=== PATIENT | female | born 1985 | race Caucasian/White ===

== ENCOUNTER 2017-12-04 13:28 | Emergency (ER) | payer OTHER ==
[2017-12-04] MEDS: ONDANSETRON 4 MG INJ IV (17:34)
[2017-12-04] MEDS: KETOROLAC 30 MG INJ IV (17:35)
[2017-12-04] MEDS: SOD CHLORIDE 0.9% 1,000 ML IV (17:35)
== END 2017-12-04 18:58 | disposition home or self-care (01) ==
LOC: FTE 13:28
DX: R51 Headache (principal); R11.10 Vomiting, unspecified
CPT/HCPCS: 96374; 96375; 99284-25

== ENCOUNTER 2017-12-06 20:13 | Emergency (ER) | payer OTHER ==
[2017-12-07] MEDS: DIPHENHYDRAMINE 50 MG INJ IV ×2 (00:13→00:39)
[2017-12-07] MEDS: METOCLOPRAMIDE 10 MG INJ IV (00:13)
[2017-12-07] MEDS: SOD CHLORIDE 0.9% 500 ML IV (00:14)
[2017-12-07] MEDS: BENZTROPINE 2 MG INJ IV (00:46)
[2017-12-07] MEDS: LORAZEPAM 2 MG INJ IV (02:03)
== END 2017-12-07 04:19 | disposition home or self-care (01) ==
LOC: FTE 12-07 04:19
DX: R11.10 Vomiting, unspecified (principal)
CPT/HCPCS: 96374; 96375; 99284-25

== ENCOUNTER 2017-12-09 19:10 | Inpatient (IN) | payer OTHER ==
[2017-12-10] MEDS: ONDANSETRON 4 MG INJ IV ×3 (07:42→18:48)
[2017-12-10] MEDS: DEXTROSE 5%-0.45% NACL 1,000 ML IV ×2 (07:42→19:59)
[2017-12-10 07:49] LABS: URINE BLOOD (Dip) POC 2+ (NEGATIVE); URINE GLUCOSE (Dip) POC Negative (NEGATIVE); URINE KETONES (Dip) POC Negative (NEGATIVE); URINE LEUKOCYTE EST (Dip) POC Negative (NEGATIVE); URINE NITRITE (Dip) POC Negative (NEGATIVE); URINE TOTAL PROTEIN POC 3+ (NEGATIVE)
[2017-12-10 07:49] LABS: URINE PH (Dip) POC 6.5 (5.0-8.5)
[2017-12-10] MEDS: morphine 4 MG/ML VIAL IV ×2 (07:58→14:36)
[2017-12-10 08:01] LABS: ADD MAN DIFF? NO
[2017-12-10 08:22] LABS: WHITE BLOOD COUNT 5.2 10^3/ul (4.8-10.8)
[2017-12-10 08:22] LABS: ABNORMAL IP MESSAGE 1; BASOPHILS % 0.2 % (0.0-2.0); EOSINOPHILS # 0.3 10^3/ul (0.0-0.5); HEMATOCRIT 27.9 % (37.0-47.0); HEMOGLOBIN 9.2 g/dl (12.0-16.0); LYMPHOCYTES # 1.5 10^3/ul (0.8-2.9); LYMPHOCYTES % 28.6 % (15.0-51.0); MEAN CORPUSCULAR HEMOGLOBIN 32.6 pg (29.0-33.0); MEAN CORPUSCULAR VOLUME 98.9 fl (82.0-101.0); MONOCYTE # 0.4 10^3/ul (0.3-0.9); MONOCYTES % 8.5 % (0.0-11.0); NEUTROPHIL # 2.9 10^3/ul (1.6-7.5); NEUTROPHILS % 56.3 % (39.0-77.0); PLATELET COUNT 82 10^3/UL (140-415); RED BLOOD COUNT 2.82 10^6/ul (4.20-5.40); RED CELL DISTRIBUTION WIDTH 14.3 % (11.5-14.5)
[2017-12-10 08:26] LABS: MEAN PLATELET VOLUME 14.2 fl (7.4-10.4); POSITIVE DIFF @See below
[2017-12-10] MEDS ORDERED: ACETAMINOPHEN 325 MG TAB PO (08:30)
[2017-12-10 08:37] LABS: ALANINE AMINOTRANSFERASE 31 IU/L (13-69); ALBUMIN 1.7 g/dl (3.3-4.9); ALBUMIN/GLOBULIN RATIO 0.58; ALKALINE PHOSPHATASE 52 IU/L (42-121); ANION GAP 8 (8-16); ASPARTATE AMINO TRANSFERASE 40 IU/L (15-46); BLOOD UREA NITROGEN 46 mg/dl (7-20); CALCIUM 6.9 mg/dl (8.4-10.2); CARBON DIOXIDE 24 mmol/L (21-31); CHLORIDE 106 mmol/L (97-110); CREATININE 3.39 mg/dl (0.44-1.00); GLUCOSE 72 mg/dl (70-220); INR 0.89; PARTIAL THROMBOPLASTIN TIME 24.5 Sec (25.0-35.0); POTASSIUM 4.1 mmol/L (3.5-5.1); PROTIME 12.1 Sec (11.9-14.9); PT RATIO 0.9; SODIUM 134 mmol/L (135-144); TOTAL PROTEIN 4.6 g/dl (6.1-8.1); UR BACTERIA FEW /HPF (NONE SEEN); UR RBC 30 /HPF (0-5); UR SQUAMOUS EPITHELIAL CELL FEW /HPF (FEW); UR WBC 8 /HPF (0-5)
[2017-12-10 08:45] LABS: ADD UMIC YES; UR ASCORBIC ACID NEGATIVE (NEGATIVE); UR BILIRUBIN (Dip) NEGATIVE (NEGATIVE); UR BLOOD (Dip) 1+ mg/dL (NEGATIVE); UR CLARITY CLOUDY (CLEAR); UR COLOR YELLOW (YELLOW); UR GLUCOSE (Dip) NEGATIVE (NEGATIVE); UR HYALINE CAST FEW /HPF (NONE SEEN); UR KETONES (Dip) NEGATIVE (NEGATIVE); UR LEUKOCYTE ESTERASE (Dip) NEGATIVE Leu/ul (NEGATIVE); UR MUCUS FEW /HPF (NONE SEEN); UR NITRITE (Dip) NEGATIVE (NEGATIVE); UR SPECIFIC GRAVITY (Dip) 1.022 (1.003-1.030); UR TOTAL PROTEIN (Dip) 3+ mg/dl (NEGATIVE); UR UROBILINOGEN (Dip) NEGATIVE (NEGATIVE)
[2017-12-10] MEDS: NIFEdipine (XL) 60 MG TAB PO (09:14)
[2017-12-10] MEDS ORDERED: HYDROCODONE/APAP (5/325) TAB PO (17:30)
[2017-12-10] MEDS: PANTOPRAZOLE (EC) 40 MG TAB PO (18:48)
[2017-12-10] MEDS: METOCLOPRAMIDE 10 MG INJ IV (20:20)
[2017-12-10] MEDS: morphine 2 MG INJ IV (20:20)
[2017-12-10] MEDS: FERROUS SULFATE (EC) 325 MG TAB PO (20:20)
[2017-12-10] MEDS: HYDROXYCHLOROQUINE 200 MG TAB PO (21:06)
[2017-12-10] MEDS: LORAZEPAM 2 MG INJ IV (21:29)
[2017-12-11] MEDS: DEXTROSE 5%-0.45% NACL 1,000 ML IV ×2 (04:30→15:59)
[2017-12-11] MEDS: PANTOPRAZOLE (EC) 40 MG TAB PO ×2 (05:17→18:09)
[2017-12-11] MEDS: LORAZEPAM 2 MG INJ IV ×3 (08:43→17:43)
[2017-12-11] MEDS ORDERED: CA CHLORIDE 10% 10 ML SYRINGE IV (09:30)
[2017-12-11] MEDS: LIDOCAINE 1% (MDV) 20 ML INJ (10:30)
[2017-12-11] MEDS: SOD CHLORIDE 0.9% 500 ML (10:33)
[2017-12-11] MEDS: MIDAZOLAM 1 MG/ML 2 ML INJ (10:34)
[2017-12-11] MEDS: FENTAnyl 50 MCG/ML VIAL (10:36)
[2017-12-11] MEDS: GELATIN 12MM X 7 MM SPONGE (10:37)
[2017-12-11] MEDS: CHOLECALCIFEROL 400 UNITS TAB PO (11:36)
[2017-12-11] MEDS: FERROUS SULFATE (EC) 325 MG TAB PO ×2 (11:39→21:50)
[2017-12-11] MEDS: HYDROXYCHLOROQUINE 200 MG TAB PO ×2 (11:40→21:50)
[2017-12-11] MEDS: MYCOPHENOLATE 250 MG CAP PO (11:43)
[2017-12-11] MEDS: CALCIUM CHLORIDE 10% 1 GM in DEXTROSE 5% 100 ML IV (11:43)
[2017-12-11] MEDS: morphine 2 MG INJ IV (13:56)
[2017-12-11] MEDS: METOCLOPRAMIDE 10 MG INJ IV (16:22)
[2017-12-11 16:37] LABS: ADD MAN DIFF? NO
[2017-12-11 16:40] LABS: ABNORMAL IP MESSAGE 1; EOSINOPHILS # 0.2 10^3/ul (0.0-0.5); EOSINOPHILS % 3.4 % (0.0-7.0); HEMATOCRIT 25.7 % (37.0-47.0); HEMOGLOBIN 8.4 g/dl (12.0-16.0); LYMPHOCYTES # 1.1 10^3/ul (0.8-2.9); LYMPHOCYTES % 26.1 % (15.0-51.0); MEAN CORPUSCULAR HEMOGLOBIN 32.2 pg (29.0-33.0); MEAN CORPUSCULAR HGB CONC 32.7 g/dl (32.0-37.0); MEAN CORPUSCULAR VOLUME 98.5 fl (82.0-101.0); MEAN PLATELET VOLUME 14.1 fl (7.4-10.4); MONOCYTE # 0.4 10^3/ul (0.3-0.9); MONOCYTES % 10.1 % (0.0-11.0); NEUTROPHIL # 2.6 10^3/ul (1.6-7.5); NEUTROPHILS % 59.9 % (39.0-77.0); RED BLOOD COUNT 2.61 10^6/ul (4.20-5.40); RED CELL DISTRIBUTION WIDTH 14.1 % (11.5-14.5)
[2017-12-11 16:40] LABS: WHITE BLOOD COUNT 4.4 10^3/ul (4.8-10.8)
[2017-12-11 16:47] LABS: POSITIVE DIFF @See below
[2017-12-11 16:48] LABS: PLATELET COUNT 57 10^3/UL (140-415)
[2017-12-12] MEDS: METOCLOPRAMIDE 10 MG INJ IV ×3 (03:20→15:47)
[2017-12-12] MEDS: LORAZEPAM 2 MG INJ IV ×3 (03:20→20:51)
[2017-12-12] MEDS: PANTOPRAZOLE (EC) 40 MG TAB PO ×2 (05:46→17:55)
[2017-12-12] MEDS: DEXTROSE 5%-0.45% NACL 1,000 ML IV ×2 (05:47→11:59)
[2017-12-12] MEDS: morphine 2 MG INJ IV ×3 (05:51→15:47)
[2017-12-12] MEDS: CHOLECALCIFEROL 400 UNITS TAB PO (08:30)
[2017-12-12] MEDS: HYDROXYCHLOROQUINE 200 MG TAB PO ×2 (08:30→20:51)
[2017-12-12] MEDS: MYCOPHENOLATE 250 MG CAP PO (08:31)
[2017-12-12] MEDS: FERROUS SULFATE (EC) 325 MG TAB PO ×2 (08:31→20:51)
[2017-12-12 10:27] LABS: ADD MAN DIFF? NO
[2017-12-12 10:34] LABS: WHITE BLOOD COUNT 3.5 10^3/ul (4.8-10.8)
[2017-12-12 10:34] LABS: ABNORMAL IP MESSAGE 1; BASOPHILS % 0.3 % (0.0-2.0); EOSINOPHILS # 0.2 10^3/ul (0.0-0.5); EOSINOPHILS % 5.1 % (0.0-7.0); HEMATOCRIT 25.2 % (37.0-47.0); HEMOGLOBIN 8.3 g/dl (12.0-16.0); LYMPHOCYTES # 1.4 10^3/ul (0.8-2.9); LYMPHOCYTES % 39.7 % (15.0-51.0); MEAN CORPUSCULAR HEMOGLOBIN 31.7 pg (29.0-33.0); MEAN CORPUSCULAR HGB CONC 32.9 g/dl (32.0-37.0); MEAN CORPUSCULAR VOLUME 96.2 fl (82.0-101.0); MEAN PLATELET VOLUME 13.7 fl (7.4-10.4); MONOCYTE # 0.3 10^3/ul (0.3-0.9); MONOCYTES % 8.8 % (0.0-11.0); NEUTROPHIL # 1.6 10^3/ul (1.6-7.5); NEUTROPHILS % 45.8 % (39.0-77.0); RED BLOOD COUNT 2.62 10^6/ul (4.20-5.40); RED CELL DISTRIBUTION WIDTH 14.6 % (11.5-14.5)
[2017-12-12 10:38] LABS: PLATELET COUNT 54 10^3/UL (140-415); POSITIVE DIFF @See below
[2017-12-12 10:47] LABS: MAGNESIUM 2.2 mg/dl (1.7-2.5)
[2017-12-12 10:50] LABS: ALANINE AMINOTRANSFERASE 27 IU/L (13-69); ALBUMIN 1.4 g/dl (3.3-4.9); ALBUMIN/GLOBULIN RATIO 0.56; ALKALINE PHOSPHATASE 46 IU/L (42-121); ANION GAP 8 (8-16); ASPARTATE AMINO TRANSFERASE 27 IU/L (15-46); BLOOD UREA NITROGEN 41 mg/dl (7-20); CALCIUM 6.8 mg/dl (8.4-10.2); CARBON DIOXIDE 22 mmol/L (21-31); CHLORIDE 108 mmol/L (97-110); CREATININE 2.92 mg/dl (0.44-1.00); GLUCOSE 80 mg/dl (70-220); POTASSIUM 4.3 mmol/L (3.5-5.1); SODIUM 134 mmol/L (135-144); TOTAL PROTEIN 3.9 g/dl (6.1-8.1)
[2017-12-12] MEDS: ALBUMIN HUMAN 25% 100 ML IV (18:28)
[2017-12-12] MEDS: FUROSEMIDE 20 MG INJ IV (20:51)
[2017-12-13] MEDS: ALBUMIN HUMAN 25% 100 ML INJ IV ×2 (05:53→18:15)
[2017-12-13] MEDS: morphine 2 MG INJ IV ×3 (06:04→21:53)
[2017-12-13] MEDS: PANTOPRAZOLE (EC) 40 MG TAB PO (06:07)
[2017-12-13 06:08] LABS: ADD MAN DIFF? NO
[2017-12-13 06:14] LABS: ABNORMAL IP MESSAGE 1; BASOPHILS % 0.3 % (0.0-2.0); EOSINOPHILS # 0.2 10^3/ul (0.0-0.5); EOSINOPHILS % 4.7 % (0.0-7.0); HEMATOCRIT 20.4 % (37.0-47.0); LYMPHOCYTES # 1.3 10^3/ul (0.8-2.9); LYMPHOCYTES % 34.8 % (15.0-51.0); MEAN CORPUSCULAR HEMOGLOBIN 32.1 pg (29.0-33.0); MEAN CORPUSCULAR HGB CONC 33.3 g/dl (32.0-37.0); MEAN CORPUSCULAR VOLUME 96.2 fl (82.0-101.0); MEAN PLATELET VOLUME 13.3 fl (7.4-10.4); MONOCYTE # 0.4 10^3/ul (0.3-0.9); MONOCYTES % 10.8 % (0.0-11.0); NEUTROPHIL # 1.9 10^3/ul (1.6-7.5); NEUTROPHILS % 48.9 % (39.0-77.0); PLATELET COUNT 52 10^3/UL (140-415); RED BLOOD COUNT 2.12 10^6/ul (4.20-5.40); RED CELL DISTRIBUTION WIDTH 14.4 % (11.5-14.5)
[2017-12-13 06:14] LABS: WHITE BLOOD COUNT 3.8 10^3/ul (4.8-10.8)
[2017-12-13 06:27] LABS: HEMOGLOBIN 6.8 g/dl (12.0-16.0); PATH REVIEW? YES; POSITIVE DIFF @See below
[2017-12-13 06:54] LABS: ANION GAP 10 (8-16); BLOOD UREA NITROGEN 39 mg/dl (7-20); CALCIUM 6.8 mg/dl (8.4-10.2); CARBON DIOXIDE 21 mmol/L (21-31); CHLORIDE 109 mmol/L (97-110); GLUCOSE 77 mg/dl (70-220); MAGNESIUM 2.3 mg/dl (1.7-2.5); POTASSIUM 4.2 mmol/L (3.5-5.1); SODIUM 136 mmol/L (135-144)
[2017-12-13] MEDS: DEXTROSE 5%-0.45% NACL 1,000 ML IV ×2 (07:59→12:31)
[2017-12-13] MEDS: FUROSEMIDE 20 MG INJ IV ×2 (07:59→20:02)
[2017-12-13] MEDS: METOCLOPRAMIDE 10 MG INJ IV ×5 (07:59→20:03)
[2017-12-13] MEDS: LORAZEPAM 2 MG INJ IV ×2 (08:57→16:12)
[2017-12-13] MEDS: CHOLECALCIFEROL 400 UNITS TAB PO (09:00)
[2017-12-13] MEDS: FERROUS SULFATE (EC) 325 MG TAB PO ×2 (09:00→21:00)
[2017-12-13] MEDS: MYCOPHENOLATE 250 MG CAP PO (09:00)
[2017-12-13] MEDS: HYDROXYCHLOROQUINE 200 MG TAB PO ×2 (09:00→21:00)
[2017-12-13] MEDS ORDERED: CA CHLORIDE 10% 10 ML SYRINGE IV (12:30)
[2017-12-13] MEDS: FAMOTIDINE 20 MG INJ IV (13:19)
[2017-12-13 13:42] LABS: ADD MAN DIFF? NO
[2017-12-13 13:43] LABS: ABNORMAL IP MESSAGE 1; BASOPHILS % 0.2 % (0.0-2.0); EOSINOPHILS # 0.1 10^3/ul (0.0-0.5); EOSINOPHILS % 2.9 % (0.0-7.0); LYMPHOCYTES # 1.3 10^3/ul (0.8-2.9); LYMPHOCYTES % 26.2 % (15.0-51.0); MEAN CORPUSCULAR HEMOGLOBIN 31.8 pg (29.0-33.0); MEAN CORPUSCULAR HGB CONC 32.4 g/dl (32.0-37.0); MEAN CORPUSCULAR VOLUME 98.1 fl (82.0-101.0); MEAN PLATELET VOLUME 12.8 fl (7.4-10.4); MONOCYTE # 0.4 10^3/ul (0.3-0.9); MONOCYTES % 8.4 % (0.0-11.0); NEUTROPHILS % 61.9 % (39.0-77.0); PLATELET COUNT 54 10^3/UL (140-415); RED BLOOD COUNT 2.14 10^6/ul (4.20-5.40); RED CELL DISTRIBUTION WIDTH 13.9 % (11.5-14.5)
[2017-12-13 13:43] LABS: WHITE BLOOD COUNT 4.9 10^3/ul (4.8-10.8)
[2017-12-13 13:44] LABS: POSITIVE DIFF @See below
[2017-12-13 13:47] LABS: HEMOGLOBIN 6.8 g/dl (12.0-16.0)
[2017-12-13] MEDS: CALCIUM CHLORIDE 10% 1 GM in DEXTROSE 5% 100 ML IV (14:16)
[2017-12-13] MEDS: hydrALAzine 20 MG INJ IV ×2 (15:35→23:37)
[2017-12-13] MEDS ORDERED: SOD CHLORIDE 0.9% 500 ML IV (16:30)
[2017-12-13] MEDS: METHYLPRED. NA SUCC 1,000 MG in DEXTROSE 5% 50 ML IVPB (17:28)
[2017-12-13] MEDS: SOD CHLORIDE 0.9% 500 ML IV (17:28)
[2017-12-13] MEDS ORDERED: FAMOTIDINE 20 MG INJ IV (21:00)
[2017-12-13 21:38] LABS: IMMEDIATE SPIN CROSSMATCH 1 2
[2017-12-14] MEDS: METOCLOPRAMIDE 10 MG INJ IV ×4 (01:22→23:22)
[2017-12-14] MEDS: DEXTROSE 5%-0.45% NACL 1,000 ML IV (03:59)
[2017-12-14 05:52] LABS: ADD MAN DIFF? NO
[2017-12-14] MEDS: ONDANSETRON 4 MG INJ IV ×2 (05:58→11:26)
[2017-12-14] MEDS: ALBUMIN HUMAN 25% 100 ML INJ IV ×2 (05:59→17:32)
[2017-12-14 06:05] LABS: ABNORMAL IP MESSAGE 1; HEMATOCRIT 24.3 % (37.0-47.0); HEMOGLOBIN 8.4 g/dl (12.0-16.0); LYMPHOCYTES # 0.8 10^3/ul (0.8-2.9); LYMPHOCYTES % 15.1 % (15.0-51.0); MEAN CORPUSCULAR HEMOGLOBIN 31.5 pg (29.0-33.0); MEAN CORPUSCULAR HGB CONC 34.6 g/dl (32.0-37.0); MEAN PLATELET VOLUME 13.6 fl (7.4-10.4); MONOCYTE # 0.1 10^3/ul (0.3-0.9); MONOCYTES % 1.6 % (0.0-11.0); NEUTROPHIL # 4.1 10^3/ul (1.6-7.5); NEUTROPHILS % 82.7 % (39.0-77.0); RED BLOOD COUNT 2.67 10^6/ul (4.20-5.40); RED CELL DISTRIBUTION WIDTH 15.1 % (11.5-14.5)
[2017-12-14 06:14] LABS: POSITIVE DIFF @See below
[2017-12-14 06:15] LABS: PLATELET COUNT 62 10^3/UL (140-415)
[2017-12-14 06:26] LABS: ALANINE AMINOTRANSFERASE 23 IU/L (13-69); ALBUMIN 2.1 g/dl (3.3-4.9); ALBUMIN/GLOBULIN RATIO 0.84; ALKALINE PHOSPHATASE 36 IU/L (42-121); ANION GAP 12 (8-16); ASPARTATE AMINO TRANSFERASE 21 IU/L (15-46); BILIRUBIN,INDIRECT 0.1 mg/dl (0-1.1); BILIRUBIN,TOTAL 0.1 mg/dl (0.2-1.3); BLOOD UREA NITROGEN 38 mg/dl (7-20); CALCIUM 8.1 mg/dl (8.4-10.2); CARBON DIOXIDE 20 mmol/L (21-31); CHLORIDE 109 mmol/L (97-110); CREATININE 2.75 mg/dl (0.44-1.00); GLUCOSE 143 mg/dl (70-220); POTASSIUM 4.5 mmol/L (3.5-5.1); SODIUM 136 mmol/L (135-144); TOTAL PROTEIN 4.6 g/dl (6.1-8.1)
[2017-12-14] MEDS: morphine 2 MG INJ IV ×3 (06:39→20:34)
[2017-12-14] MEDS: FUROSEMIDE 20 MG INJ IV ×2 (07:56→20:33)
[2017-12-14] MEDS: FERROUS SULFATE (EC) 325 MG TAB PO ×2 (08:00→20:34)
[2017-12-14] MEDS: MYCOPHENOLATE 250 MG CAP PO (08:00)
[2017-12-14] MEDS: HYDROXYCHLOROQUINE 200 MG TAB PO ×2 (08:01→20:34)
[2017-12-14] MEDS: CHOLECALCIFEROL 400 UNITS TAB PO (08:01)
[2017-12-14] MEDS: METHYLPRED. NA SUCC 1,000 MG in DEXTROSE 5% 50 ML IVPB (08:26)
[2017-12-14] MEDS: FAMOTIDINE 20 MG INJ IV (08:26)
[2017-12-14] MEDS: LORAZEPAM 2 MG INJ IV (10:42)
[2017-12-14] MEDS: hydrALAzine 20 MG INJ IV (13:49)
[2017-12-14 14:52] LABS: ANTI-DNA (DOUBLE STRANDED) <95 U/mL (< 301)
[2017-12-15] MEDS: METOCLOPRAMIDE 10 MG INJ IV ×3 (06:00→21:30)
[2017-12-15 06:16] LABS: ABNORMAL IP MESSAGE 1; HEMOGLOBIN 7.4 g/dl (12.0-16.0); MEAN CORPUSCULAR HGB CONC 33.6 g/dl (32.0-37.0); MEAN CORPUSCULAR VOLUME 92.1 fl (82.0-101.0); MEAN PLATELET VOLUME 13.6 fl (7.4-10.4); PLATELET COUNT 76 10^3/UL (140-415); RED BLOOD COUNT 2.39 10^6/ul (4.20-5.40)
[2017-12-15 06:16] LABS: WHITE BLOOD COUNT 5.3 10^3/ul (4.8-10.8)
[2017-12-15 06:20] LABS: POSITIVE DIFF @See below
[2017-12-15 06:21] LABS: ADD MAN DIFF? YES
[2017-12-15 06:58] LABS: ALANINE AMINOTRANSFERASE 27 IU/L (13-69); ALBUMIN 2.4 g/dl (3.3-4.9); ALKALINE PHOSPHATASE 34 IU/L (42-121); ANION GAP 14 (8-16); ASPARTATE AMINO TRANSFERASE 19 IU/L (15-46); BLOOD UREA NITROGEN 45 mg/dl (7-20); CALCIUM 8.2 mg/dl (8.4-10.2); CARBON DIOXIDE 19 mmol/L (21-31); CHLORIDE 109 mmol/L (97-110); GLUCOSE 114 mg/dl (70-220); POTASSIUM 4.9 mmol/L (3.5-5.1); SODIUM 137 mmol/L (135-144); TOTAL PROTEIN 4.8 g/dl (6.1-8.1)
[2017-12-15 07:00] LABS: MAGNESIUM 2.4 mg/dl (1.7-2.5)
[2017-12-15 07:00] LABS: PHOSPHORUS 9.5 mg/dl (2.5-4.9)
[2017-12-15] MEDS: FUROSEMIDE 20 MG INJ IV (07:51)
[2017-12-15] MEDS: HYDROXYCHLOROQUINE 200 MG TAB PO ×2 (08:47→20:31)
[2017-12-15] MEDS: ONDANSETRON 4 MG INJ IV ×2 (08:47→18:00)
[2017-12-15] MEDS: FERROUS SULFATE (EC) 325 MG TAB PO (08:47)
[2017-12-15] MEDS: FAMOTIDINE 20 MG INJ IV (08:47)
[2017-12-15] MEDS: CHOLECALCIFEROL 400 UNITS TAB PO (09:17)
[2017-12-15] MEDS: MYCOPHENOLATE 250 MG CAP PO (09:17)
[2017-12-15] MEDS: morphine 2 MG INJ IV ×3 (09:18→20:31)
[2017-12-15] MEDS: METHYLPRED. NA SUCC 1,000 MG in DEXTROSE 5% 50 ML IVPB (09:28)
[2017-12-15 09:43] LABS: ANISOCYTOSIS 1+ (0-0); BAND NEUTROPHILS #M 0.1 10^3/ul (0.0-0.6); BAND NEUTROPHILS % (M) 3 % (0-4); BURR CELLS 1+ (0-0); GIANT THROMBO% (M) 9 % (0-0); LYMPHOCYTES #M 0.9 10^3/ul (0.8-2.9); LYMPHOCYTES % (M) 17 % (15-51); METAMYELOCYTES %M 1 % (0-0); MONOCYTE #M 0.4 10^3/ul (0.3-0.9); MONOCYTES % (M) 8 % (0-11); PLATELET ESTIMATE DECREASED; PLATELET MORPHOLOGY COMMENT @See below; POIKILOCYTOSIS 2+ (0-0); POLYCHROMASIA 1+ (0-0); SEG NEUT #M 3.8 10^3/ul (1.7-7.5); SEGMENTED NEUTROPHILS (M) % 71 % (39-77); SMUDGE%M 17 % (0-0); TARGET CELLS 1+ (0-0)
[2017-12-15 12:19] LABS: IRON 53 ug/dl (35-150)
[2017-12-15 12:28] LABS: % IRON SATURATION 43 % SAT (22-52); TOTAL IRON BINDING CAPACITY 123 ug/dl (241-421)
[2017-12-16] MEDS: METOCLOPRAMIDE 10 MG INJ IV ×5 (05:08→23:09)
[2017-12-16] MEDS: morphine 2 MG INJ IV ×4 (05:08→23:09)
[2017-12-16] MEDS: POLYETHYLENE GLYCOL 17 GM PACKET PO (10:00)
[2017-12-16] MEDS: ONDANSETRON 4 MG INJ IV ×2 (10:14→21:26)
[2017-12-16] MEDS: MYCOPHENOLATE 250 MG CAP PO (10:15)
[2017-12-16] MEDS: FAMOTIDINE 20 MG INJ IV (10:15)
[2017-12-16] MEDS: CHOLECALCIFEROL 400 UNITS TAB PO (10:16)
[2017-12-16] MEDS: predniSONE 20 MG TAB PO (10:16)
[2017-12-16] MEDS: HYDROXYCHLOROQUINE 200 MG TAB PO ×2 (10:16→20:17)
[2017-12-16] MEDS: FUROSEMIDE 20 MG TAB PO (10:16)
[2017-12-16] MEDS: DOCUSATE SODIUM 100 MG CAP PO ×2 (10:31→20:17)
[2017-12-16] MEDS: LORAZEPAM 2 MG INJ IV (12:26)
[2017-12-16 12:32] LABS: BLOOD UREA NITROGEN 57 mg/dl (7-20); CARBON DIOXIDE 19 mmol/L (21-31); CHLORIDE 108 mmol/L (97-110); CREATININE 3.34 mg/dl (0.44-1.00); GLUCOSE 98 mg/dl (70-220); SODIUM 135 mmol/L (135-144)
[2017-12-16 12:42] LABS: ANION GAP 13 (8-16); POTASSIUM 4.5 mmol/L (3.5-5.1)
[2017-12-16 17:36] LABS: LACTATE DEHYDROGENASE 573 IU/L (313-618)
[2017-12-17] MEDS: METOCLOPRAMIDE 10 MG INJ IV ×3 (05:30→17:41)
[2017-12-17] MEDS: morphine 2 MG INJ IV ×3 (05:30→21:54)
[2017-12-17 06:21] LABS: ADD MAN DIFF? NO
[2017-12-17 06:30] LABS: ABNORMAL IP MESSAGE 1; BASOPHILS % 0.1 % (0.0-2.0); HEMATOCRIT 24.9 % (37.0-47.0); HEMOGLOBIN 8.1 g/dl (12.0-16.0); LYMPHOCYTES # 1.7 10^3/ul (0.8-2.9); LYMPHOCYTES % 18.4 % (15.0-51.0); MEAN CORPUSCULAR HEMOGLOBIN 30.9 pg (29.0-33.0); MEAN CORPUSCULAR HGB CONC 32.5 g/dl (32.0-37.0); MEAN PLATELET VOLUME 13.7 fl (7.4-10.4); MONOCYTE # 1.1 10^3/ul (0.3-0.9); MONOCYTES % 12.2 % (0.0-11.0); NEUTROPHIL # 6.3 10^3/ul (1.6-7.5); NEUTROPHILS % 68.4 % (39.0-77.0); PLATELET COUNT 105 10^3/UL (140-415); RED BLOOD COUNT 2.62 10^6/ul (4.20-5.40)
[2017-12-17 06:30] LABS: WHITE BLOOD COUNT 9.1 10^3/ul (4.8-10.8)
[2017-12-17 06:31] LABS: POSITIVE DIFF @See below
[2017-12-17 06:55] LABS: INR 1.16; PT RATIO 1.2
[2017-12-17 06:56] LABS: PARTIAL THROMBOPLASTIN TIME 27.4 Sec (25.0-35.0)
[2017-12-17 07:06] LABS: ANION GAP 11 (8-16); BLOOD UREA NITROGEN 60 mg/dl (7-20); CALCIUM 7.9 mg/dl (8.4-10.2); CARBON DIOXIDE 21 mmol/L (21-31); CHLORIDE 109 mmol/L (97-110); CREATININE 3.31 mg/dl (0.44-1.00); GLUCOSE 85 mg/dl (70-220); POTASSIUM 4.5 mmol/L (3.5-5.1); SODIUM 136 mmol/L (135-144)
[2017-12-17] MEDS: MYCOPHENOLATE 250 MG CAP PO (09:00)
[2017-12-17] MEDS: POLYETHYLENE GLYCOL 17 GM PACKET PO (09:00)
[2017-12-17] MEDS: CHOLECALCIFEROL 400 UNITS TAB PO (09:00)
[2017-12-17] MEDS: DOCUSATE SODIUM 100 MG CAP PO ×2 (09:00→20:15)
[2017-12-17] MEDS: FUROSEMIDE 20 MG TAB PO ×2 (09:15→20:14)
[2017-12-17] MEDS: predniSONE 20 MG TAB PO (09:16)
[2017-12-17] MEDS: HYDROXYCHLOROQUINE 200 MG TAB PO ×2 (09:16→20:15)
[2017-12-17] MEDS: FAMOTIDINE 20 MG INJ IV (09:16)
[2017-12-17] MEDS ORDERED: EPOETIN 3000 UNITS/1 ML INJ (ESRD) SC ×2 (14:00→16:00)
[2017-12-17 14:53] LABS: RETICULOCYTE RBC 2.73
[2017-12-17 14:53] LABS: RETICULOCYTE COUNT # 0.033 X10^6 (0.020-0.110); RETICULOCYTE COUNT % 1.2 % (0.5-1.5)
[2017-12-17] MEDS: ONDANSETRON 4 MG INJ IV ×2 (15:50→21:12)
[2017-12-17] MEDS: EPOETIN 10000 UNITS/1 ML INJ (ESRD) SC (15:52)
[2017-12-17] MEDS ORDERED: EPOETIN 2000 UNITS/1 ML INJ (ESRD) SC (16:00)
[2017-12-18] MEDS: METOCLOPRAMIDE 10 MG INJ IV ×6 (00:13→23:58)
[2017-12-18] MEDS: morphine 2 MG INJ IV ×3 (05:22→20:19)
[2017-12-18] MEDS: FUROSEMIDE 20 MG TAB PO ×2 (05:36→17:13)
[2017-12-18 06:14] LABS: ADD MAN DIFF? NO
[2017-12-18 06:21] LABS: ABNORMAL IP MESSAGE 1; EOSINOPHILS % 0.1 % (0.0-7.0); HEMOGLOBIN 7.8 g/dl (12.0-16.0); LYMPHOCYTES # 1.7 10^3/ul (0.8-2.9); LYMPHOCYTES % 19.6 % (15.0-51.0); MEAN CORPUSCULAR HEMOGLOBIN 31.3 pg (29.0-33.0); MEAN CORPUSCULAR HGB CONC 32.5 g/dl (32.0-37.0); MEAN CORPUSCULAR VOLUME 96.4 fl (82.0-101.0); MEAN PLATELET VOLUME 13.3 fl (7.4-10.4); MONOCYTE # 0.8 10^3/ul (0.3-0.9); MONOCYTES % 9.7 % (0.0-11.0); NEUTROPHILS % 69.9 % (39.0-77.0); RED BLOOD COUNT 2.49 10^6/ul (4.20-5.40); RED CELL DISTRIBUTION WIDTH 14.2 % (11.5-14.5)
[2017-12-18 06:21] LABS: WHITE BLOOD COUNT 8.5 10^3/ul (4.8-10.8)
[2017-12-18 06:28] LABS: POSITIVE DIFF @See below
[2017-12-18 06:29] LABS: PLATELET COUNT 84 10^3/UL (140-415)
[2017-12-18 06:43] LABS: INR 1.15; PARTIAL THROMBOPLASTIN TIME 28.8 Sec (25.0-35.0); PROTIME 14.9 Sec (11.9-14.9); PT RATIO 1.2
[2017-12-18 07:03] LABS: ALANINE AMINOTRANSFERASE 25 IU/L (13-69); ALBUMIN 1.8 g/dl (3.3-4.9); ALBUMIN/GLOBULIN RATIO 0.81; ALKALINE PHOSPHATASE 37 IU/L (42-121); ANION GAP 10 (8-16); ASPARTATE AMINO TRANSFERASE 18 IU/L (15-46); BILIRUBIN,INDIRECT 0.1 mg/dl (0-1.1); BILIRUBIN,TOTAL 0.1 mg/dl (0.2-1.3); BLOOD UREA NITROGEN 57 mg/dl (7-20); CALCIUM 7.5 mg/dl (8.4-10.2); CARBON DIOXIDE 21 mmol/L (21-31); CHLORIDE 111 mmol/L (97-110); CREATININE 2.93 mg/dl (0.44-1.00); GLUCOSE 69 mg/dl (70-220); SODIUM 138 mmol/L (135-144)
[2017-12-18] MEDS: FAMOTIDINE 20 MG INJ IV (07:44)
[2017-12-18] MEDS: POLYETHYLENE GLYCOL 17 GM PACKET PO (09:00)
[2017-12-18] MEDS: SOD CHLORIDE 0.9% 500 ML (09:40)
[2017-12-18] MEDS: LIDOCAINE 1% (MDV) 20 ML INJ (10:05)
[2017-12-18] MEDS: MIDAZOLAM 1 MG/ML 2 ML INJ (10:29)
[2017-12-18] MEDS: FENTAnyl 50 MCG/ML VIAL (10:29)
[2017-12-18] MEDS: ONDANSETRON 4 MG INJ (10:30)
[2017-12-18 11:41] LABS: HAAIG REFLEX REFLEX FILED
[2017-12-18 13:01] LABS: HEPATITIS B SURFACE ANTIGEN NEGATIVE (NEGATIVE)
[2017-12-18 13:18] LABS: HEPATITIS B CORE ANTIBODY NEGATIVE (NEGATIVE); HEPATITIS C VIRAL ANTIBODY NEGATIVE (NEGATIVE)
[2017-12-18] MEDS: predniSONE 20 MG TAB PO (13:33)
[2017-12-18] MEDS: CHOLECALCIFEROL 400 UNITS TAB PO (13:33)
[2017-12-18 13:34] LABS: FOLATE 7.8 ng/ml (2.8-20.0)
[2017-12-18] MEDS: HYDROCORTISONE 2.5% 20 GM CR TOP ×2 (13:34→20:18)
[2017-12-18] MEDS: MYCOPHENOLATE 250 MG CAP PO (13:34)
[2017-12-18] MEDS: DOCUSATE SODIUM 100 MG CAP PO ×2 (13:34→20:29)
[2017-12-18] MEDS: HYDROXYCHLOROQUINE 200 MG TAB PO ×2 (13:37→20:18)
[2017-12-18 13:38] LABS: HIV 1&2 ANTIBODY NEGATIVE (NEGATIVE)
[2017-12-18] MEDS: BACLOFEN 10 MG TAB PO (17:12)
[2017-12-18] MEDS: ONDANSETRON 4 MG INJ IV (20:19)
[2017-12-18] MEDS: LORAZEPAM 2 MG INJ IV (21:27)
[2017-12-19] MEDS: METOCLOPRAMIDE 10 MG INJ IV ×3 (05:30→17:29)
[2017-12-19] MEDS: FUROSEMIDE 20 MG TAB PO ×2 (05:31→17:29)
[2017-12-19] MEDS: morphine 2 MG INJ IV ×2 (05:31→11:33)
[2017-12-19 06:26] LABS: ADD MAN DIFF? NO
[2017-12-19 06:41] LABS: ABNORMAL IP MESSAGE 1; HEMATOCRIT 24.6 % (37.0-47.0); HEMOGLOBIN 7.8 g/dl (12.0-16.0); LYMPHOCYTES # 1.2 10^3/ul (0.8-2.9); LYMPHOCYTES % 14.9 % (15.0-51.0); MEAN CORPUSCULAR HEMOGLOBIN 30.5 pg (29.0-33.0); MEAN CORPUSCULAR HGB CONC 31.7 g/dl (32.0-37.0); MEAN CORPUSCULAR VOLUME 96.1 fl (82.0-101.0); MEAN PLATELET VOLUME 13.8 fl (7.4-10.4); MONOCYTE # 0.5 10^3/ul (0.3-0.9); MONOCYTES % 6.6 % (0.0-11.0); NEUTROPHIL # 6.2 10^3/ul (1.6-7.5); NEUTROPHILS % 77.8 % (39.0-77.0); PLATELET COUNT 90 10^3/UL (140-415); RED BLOOD COUNT 2.56 10^6/ul (4.20-5.40); RED CELL DISTRIBUTION WIDTH 13.2 % (11.5-14.5)
[2017-12-19 06:43] LABS: POSITIVE DIFF @See below
[2017-12-19 07:02] LABS: ANION GAP 11 (8-16); BLOOD UREA NITROGEN 51 mg/dl (7-20); CALCIUM 7.2 mg/dl (8.4-10.2); CARBON DIOXIDE 21 mmol/L (21-31); CHLORIDE 110 mmol/L (97-110); GLUCOSE 96 mg/dl (70-220); POTASSIUM 4.4 mmol/L (3.5-5.1); SODIUM 138 mmol/L (135-144)
[2017-12-19] MEDS: predniSONE 20 MG TAB PO (08:17)
[2017-12-19] MEDS: FAMOTIDINE 20 MG INJ IV (08:17)
[2017-12-19] MEDS: CHOLECALCIFEROL 400 UNITS TAB PO (08:17)
[2017-12-19] MEDS: DOCUSATE SODIUM 100 MG CAP PO ×2 (08:17→21:00)
[2017-12-19] MEDS: HYDROXYCHLOROQUINE 200 MG TAB PO ×2 (08:17→22:23)
[2017-12-19] MEDS: POLYETHYLENE GLYCOL 17 GM PACKET PO (08:18)
[2017-12-19] MEDS: HYDROCORTISONE 2.5% 20 GM CR TOP ×2 (08:18→22:24)
[2017-12-19] MEDS: MYCOPHENOLATE 250 MG CAP PO (08:19)
[2017-12-19] MEDS: hydrALAzine 20 MG INJ IV (15:58)
[2017-12-19] MEDS: LORAZEPAM 2 MG INJ IV (17:32)
[2017-12-20] MEDS: ACET/BUTAL/CAFF TAB PO (05:32)
[2017-12-20] MEDS: METOCLOPRAMIDE 10 MG INJ IV ×3 (05:32→12:12)
[2017-12-20] MEDS: FUROSEMIDE 20 MG TAB PO (05:33)
[2017-12-20 06:46] LABS: ADD MAN DIFF? NO
[2017-12-20 06:49] LABS: WHITE BLOOD COUNT 8.6 10^3/ul (4.8-10.8)
[2017-12-20 06:49] LABS: ABNORMAL IP MESSAGE 1; HEMOGLOBIN 8.3 g/dl (12.0-16.0); LYMPHOCYTES # 1.7 10^3/ul (0.8-2.9); LYMPHOCYTES % 19.8 % (15.0-51.0); MEAN CORPUSCULAR HEMOGLOBIN 30.7 pg (29.0-33.0); MEAN CORPUSCULAR HGB CONC 31.9 g/dl (32.0-37.0); MEAN CORPUSCULAR VOLUME 96.3 fl (82.0-101.0); MEAN PLATELET VOLUME 13.2 fl (7.4-10.4); MONOCYTES % 11.9 % (0.0-11.0); NEUTROPHIL # 5.7 10^3/ul (1.6-7.5); NEUTROPHILS % 66.7 % (39.0-77.0); NUCLEATED RED BLOOD CELLS% 0.2 /100WBC (0.0-0.0); PLATELET COUNT 116 10^3/UL (140-415); RED CELL DISTRIBUTION WIDTH 13.4 % (11.5-14.5)
[2017-12-20 06:54] LABS: POSITIVE DIFF @See below
[2017-12-20 07:35] LABS: ANION GAP 9 (8-16); BLOOD UREA NITROGEN 51 mg/dl (7-20); CALCIUM 7.7 mg/dl (8.4-10.2); CARBON DIOXIDE 23 mmol/L (21-31); CHLORIDE 107 mmol/L (97-110); CREATININE 2.89 mg/dl (0.44-1.00); GLUCOSE 83 mg/dl (70-220); POTASSIUM 3.9 mmol/L (3.5-5.1); SODIUM 135 mmol/L (135-144)
[2017-12-20] MEDS: FAMOTIDINE 20 MG INJ IV (08:59)
[2017-12-20] MEDS: DOCUSATE SODIUM 100 MG CAP PO ×2 (09:00→15:56)
[2017-12-20] MEDS: POLYETHYLENE GLYCOL 17 GM PACKET PO (09:00)
[2017-12-20] MEDS: HYDROXYCHLOROQUINE 200 MG TAB PO (09:01)
[2017-12-20] MEDS: predniSONE 20 MG TAB PO (09:01)
[2017-12-20] MEDS: CHOLECALCIFEROL 400 UNITS TAB PO (09:01)
[2017-12-20] MEDS: MYCOPHENOLATE 250 MG CAP PO (09:01)
[2017-12-20] MEDS: HYDROCORTISONE 2.5% 20 GM CR TOP (09:08)
[2017-12-20] MEDS: ONDANSETRON 4 MG INJ IV (14:23)
[2017-12-20 17:51] LABS: ERYTHROPOIETIN 9.9 mIU/mL (2.6-18.5)
== END 2017-12-20 16:50 | disposition home or self-care (01) | DRG 546 ==
LOC: E/R 19:10 → MS2 12-10 08:05
PROC: 0TB13ZX Excision of Left Kidney, Percutaneous Approach, Diagnostic (ICD-10-PCS; principal; 2017-12-11)
PROC: 07DR3ZX Extraction of Iliac Bone Marrow, Percutaneous Approach, Diagnostic (ICD-10-PCS; 2017-12-18)
DX: M32.14 Glomerular disease in systemic lupus erythematosus (principal); D61.818 Other pancytopenia; N17.9 Acute kidney failure, unspecified; E83.51 Hypocalcemia; E88.09 Other disorders of plasma-protein metabolism, not elsewhere classified; E87.70 Fluid overload, unspecified; D63.8 Anemia in other chronic diseases classified elsewhere
CPT/HCPCS: 36430; 74018; 77012; 80048; 80053; 81001; 81003; 82607; 82668; 82728; 82746; 83540; 83615; 83735; 84100; 85025; 85045; 85610; 85613; 85730; 86226; 86703; 86704; 86709; 86803; 86850; 86900; 86901; 86920; 87086; 87340; 88305; 88309; 88311; 88313; 96374; 96375; 96376; 97162; 99285-25; J1940

== ENCOUNTER 2017-12-24 02:45 | Emergency (ER) | payer SELFPAY, OTHER | END 2017-12-24 05:26 | disposition left against medical advice (07) | LOC: E/R 05:26 | DX: Z53.21 Procedure and treatment not carried out due to patient leaving prior to being seen by health care provider (principal) ==

== ENCOUNTER 2017-12-26 03:24 | Emergency (ER) | payer OTHER ==
[2017-12-26] MEDS: PROCHLORPERAZINE 10 MG INJ IV ×2 (05:16→07:02)
[2017-12-26] MEDS: HYDROmorphONE 1 MG/ML SYG IV ×3 (05:16→13:19)
[2017-12-26 05:53] LABS: ADD MAN DIFF? NO
[2017-12-26] MEDS: DIPHENHYDRAMINE 50 MG INJ IV ×2 (05:58→10:04)
[2017-12-26] MEDS: ONDANSETRON 4 MG INJ IV (05:58)
[2017-12-26] MEDS: SOD CHLORIDE 0.9% 1,000 ML IV (05:59)
[2017-12-26 06:01] LABS: BASOPHILS % 0.1 % (0.0-2.0); EOSINOPHILS % 0.1 % (0.0-7.0); HEMATOCRIT 22.7 % (37.0-47.0); HEMOGLOBIN 7.5 g/dl (12.0-16.0); LYMPHOCYTES # 1.1 10^3/ul (0.8-2.9); LYMPHOCYTES % 13.7 % (15.0-51.0); MEAN CORPUSCULAR HEMOGLOBIN 31.5 pg (29.0-33.0); MEAN CORPUSCULAR VOLUME 95.4 fl (82.0-101.0); MEAN PLATELET VOLUME 12.4 fl (7.4-10.4); MONOCYTE # 0.7 10^3/ul (0.3-0.9); MONOCYTES % 8.5 % (0.0-11.0); NEUTROPHIL # 6.4 10^3/ul (1.6-7.5); NEUTROPHILS % 77.4 % (39.0-77.0); PLATELET COUNT 146 10^3/UL (140-415); RED BLOOD COUNT 2.38 10^6/ul (4.20-5.40); RED CELL DISTRIBUTION WIDTH 14.1 % (11.5-14.5)
[2017-12-26 06:01] LABS: WHITE BLOOD COUNT 8.2 10^3/ul (4.8-10.8)
[2017-12-26 06:15] LABS: ALANINE AMINOTRANSFERASE 30 IU/L (13-69); ALBUMIN 1.7 g/dl (3.3-4.9); ALBUMIN/GLOBULIN RATIO 0.77; ALKALINE PHOSPHATASE 45 IU/L (42-121); ANION GAP 12 (8-16); ASPARTATE AMINO TRANSFERASE 21 IU/L (15-46); BLOOD UREA NITROGEN 44 mg/dl (7-20); CARBON DIOXIDE 24 mmol/L (21-31); CHLORIDE 104 mmol/L (97-110); GLUCOSE 81 mg/dl (70-220); LIPASE 112 U/L (23-300); POTASSIUM 4.3 mmol/L (3.5-5.1); SODIUM 136 mmol/L (135-144); TOTAL PROTEIN 3.9 g/dl (6.1-8.1)
[2017-12-26] MEDS: KETOROLAC 15 MG INJ IV (10:04)
[2017-12-26] MEDS: METOCLOPRAMIDE 10 MG INJ IV (10:05)
[2017-12-26] MEDS: VALPROATE INJ 500 MG in SOD CHLORIDE 0.9% 50 ML IVPB (13:19)
== END 2017-12-26 14:03 | disposition home or self-care (01) ==
LOC: E/R 03:24
DX: G43.009 Migraine without aura, not intractable, without status migrainosus (principal); R23.4 Changes in skin texture; N18.9 Chronic kidney disease, unspecified; R60.1 Generalized edema; K57.30 Diverticulosis of large intestine without perforation or abscess without bleeding; D63.1 Anemia in chronic kidney disease; I12.9 Hypertensive chronic kidney disease with stage 1 through stage 4 chronic kidney disease, or unspecified chronic kidney disease
CPT/HCPCS: 36415; 70450; 72192; 80053; 83690; 85025; 96374; 96375; 96376; 99285-25

== ENCOUNTER 2017-12-30 01:22 | Inpatient (IN) | payer OTHER ==
[2017-12-30] MEDS ORDERED: NACL 0.9% 3 ML SYG IV (02:30)
[2017-12-30] MEDS: ONDANSETRON 4 MG TAB PO (03:03)
[2017-12-30] MEDS: HYDROmorphONE 1 MG/ML SYG IV ×3 (03:03→23:43)
[2017-12-30] MEDS: METHYLPREDNISOLONE 40 MG INJ IV (03:03)
[2017-12-30 04:13] LABS: ABNORMAL IP MESSAGE 1; HEMATOCRIT 21.3 % (37.0-47.0); MEAN CORPUSCULAR HGB CONC 31.5 g/dl (32.0-37.0); MEAN CORPUSCULAR VOLUME 98.6 fl (82.0-101.0); MEAN PLATELET VOLUME 11.8 fl (7.4-10.4); PLATELET COUNT 130 10^3/UL (140-415); RED BLOOD COUNT 2.16 10^6/ul (4.20-5.40); RED CELL DISTRIBUTION WIDTH 14.2 % (11.5-14.5)
[2017-12-30 04:13] LABS: WHITE BLOOD COUNT 11.6 10^3/ul (4.8-10.8)
[2017-12-30 04:14] LABS: POSITIVE DIFF @See below
[2017-12-30 04:16] LABS: ADD MAN DIFF? YES; HEMOGLOBIN 6.7 g/dl (12.0-16.0)
[2017-12-30] MEDS: METOLAZONE 5 MG TAB PO (04:18)
[2017-12-30 04:19] LABS: ALANINE AMINOTRANSFERASE 33 IU/L (13-69); ALBUMIN 1.7 g/dl (3.3-4.9); ALBUMIN/GLOBULIN RATIO 0.68; ALKALINE PHOSPHATASE 59 IU/L (42-121); ANION GAP 12 (8-16); ASPARTATE AMINO TRANSFERASE 19 IU/L (15-46); BLOOD UREA NITROGEN 50 mg/dl (7-20); CALCIUM 7.3 mg/dl (8.4-10.2); CARBON DIOXIDE 25 mmol/L (21-31); CHLORIDE 106 mmol/L (97-110); CREATININE 3.25 mg/dl (0.44-1.00); GLUCOSE 66 mg/dl (70-220); POTASSIUM 4.2 mmol/L (3.5-5.1); SODIUM 139 mmol/L (135-144); TOTAL PROTEIN 4.2 g/dl (6.1-8.1)
[2017-12-30 04:20] LABS: PHOSPHORUS 6.7 mg/dl (2.5-4.9)
[2017-12-30 04:20] LABS: MAGNESIUM 1.9 mg/dl (1.7-2.5)
[2017-12-30 04:22] LABS: HEMOGLOBIN A1C 5.3 % (0-5.9)
[2017-12-30] MEDS: FUROSEMIDE 40 MG INJ IV (04:38)
[2017-12-30 04:58] LABS: BAND NEUTROPHILS % (M) 9 % (0-4); EOSINOPHILS % (M) 1 % (0-7); GIANT THROMBO% (M) 1 % (0-0); LYMPHOCYTES #M 0.6 10^3/ul (0.8-2.9); LYMPHOCYTES % (M) 6 % (15-51); MONOCYTE #M 0.2 10^3/ul (0.3-0.9); MONOCYTES % (M) 2 % (0-11); PLATELET ESTIMATE NORMAL; POLYCHROMASIA 1+ (0-0); SEG NEUT #M 9.6 10^3/ul (1.7-7.5); SEGMENTED NEUTROPHILS (M) % 82 % (39-77); SMUDGE%M 1 % (0-0)
[2017-12-30] MEDS: CEFTRIAXONE 1 GM/50 ML (PMX) 50 ML IVPB (06:39)
[2017-12-30 07:15] LABS: ADD UMIC YES; UR ASCORBIC ACID NEGATIVE (NEGATIVE); UR BACTERIA FEW /HPF (NONE SEEN); UR BILIRUBIN (Dip) NEGATIVE (NEGATIVE); UR BLOOD (Dip) 2+ mg/dL (NEGATIVE); UR CLARITY CLOUDY (CLEAR); UR COLOR YELLOW (YELLOW); UR GLUCOSE (Dip) NEGATIVE (NEGATIVE); UR KETONES (Dip) NEGATIVE (NEGATIVE); UR LEUKOCYTE ESTERASE (Dip) NEGATIVE Leu/ul (NEGATIVE); UR NITRITE (Dip) NEGATIVE (NEGATIVE); UR RBC 23 /HPF (0-5); UR SPECIFIC GRAVITY (Dip) 1.012 (1.003-1.030); UR TOTAL PROTEIN (Dip) 3+ mg/dl (NEGATIVE); UR UROBILINOGEN (Dip) NEGATIVE (NEGATIVE); UR WBC 6 /HPF (0-5)
[2017-12-30] MEDS: MYCOPHENOLATE 250 MG CAP PO ×2 (09:50→20:34)
[2017-12-30] MEDS: ALBUMIN HUMAN 25% 100 ML IV ×2 (12:31→21:25)
[2017-12-30] MEDS: BUMETANIDE 1 MG INJ IV ×2 (15:42→20:40)
[2017-12-30] MEDS: SEVELAMER CARBONATE 0.8 GM PKT PO (17:25)
[2017-12-31] MEDS: ONDANSETRON 4 MG INJ IV ×3 (01:09→19:30)
[2017-12-31] MEDS: DIPHENHYDRAMINE 25 MG CAP PO (03:03)
[2017-12-31] MEDS: CEFTRIAXONE 1 GM/50 ML (PMX) 50 ML IVPB (04:49)
[2017-12-31 06:41] LABS: WHITE BLOOD COUNT 13.7 10^3/ul (4.8-10.8)
[2017-12-31 06:41] LABS: HEMATOCRIT 21.6 % (37.0-47.0); HEMOGLOBIN 7.1 g/dl (12.0-16.0); MEAN CORPUSCULAR HEMOGLOBIN 31.4 pg (29.0-33.0); MEAN CORPUSCULAR HGB CONC 32.9 g/dl (32.0-37.0); MEAN CORPUSCULAR VOLUME 95.6 fl (82.0-101.0); PLATELET COUNT 141 10^3/UL (140-415); RED BLOOD COUNT 2.26 10^6/ul (4.20-5.40); RED CELL DISTRIBUTION WIDTH 14.6 % (11.5-14.5)
[2017-12-31 07:11] LABS: ADD MAN DIFF? YES; POSITIVE DIFF @See below
[2017-12-31 07:17] LABS: ANION GAP 14 (8-16); BLOOD UREA NITROGEN 56 mg/dl (7-20); CALCIUM 7.8 mg/dl (8.4-10.2); CARBON DIOXIDE 23 mmol/L (21-31); CHLORIDE 104 mmol/L (97-110); CREATININE 3.33 mg/dl (0.44-1.00); GLUCOSE 109 mg/dl (70-220); POTASSIUM 4.2 mmol/L (3.5-5.1); SODIUM 137 mmol/L (135-144)
[2017-12-31 07:18] LABS: MAGNESIUM 2.1 mg/dl (1.7-2.5)
[2017-12-31 07:18] LABS: PHOSPHORUS 8.2 mg/dl (2.5-4.9)
[2017-12-31] MEDS: SEVELAMER CARBONATE 0.8 GM PKT PO ×3 (08:33→18:12)
[2017-12-31] MEDS: ALBUMIN HUMAN 25% 100 ML IV ×2 (08:34→21:03)
[2017-12-31] MEDS: BUMETANIDE 1 MG INJ IV ×2 (08:34→21:06)
[2017-12-31] MEDS: MYCOPHENOLATE 250 MG CAP PO ×2 (08:34→21:04)
[2017-12-31 09:42] LABS: ANISOCYTOSIS 2+ (0-0); BAND NEUTROPHILS #M 0.2 10^3/ul (0.0-0.6); BAND NEUTROPHILS % (M) 2 % (0-4); LYMPHOCYTES #M 0.2 10^3/ul (0.8-2.9); LYMPHOCYTES % (M) 2 % (15-51); MONOCYTE #M 0.4 10^3/ul (0.3-0.9); MONOCYTES % (M) 3 % (0-11); MYELOCYTES #M 0.1 10^3/ul (0.0-0.0); MYELOCYTES % (M) 1 % (0-0); PLATELET ESTIMATE NORMAL; POLYCHROMASIA 3+ (0-0); SEG NEUT #M 12.6 10^3/ul (1.7-7.5); SEGMENTED NEUTROPHILS (M) % 92 % (39-77)
[2017-12-31] MEDS: HYDROmorphONE 1 MG/ML SYG IV ×2 (10:06→13:18)
[2017-12-31] MEDS: LABETALOL HCL 20MG INJ IV ×2 (13:17→18:13)
[2017-12-31] MEDS: METOCLOPRAMIDE 10 MG INJ IV (18:12)
[2017-12-31] MEDS: LORAZEPAM 2 MG INJ IV (19:51)
[2018-01-01] MEDS: HYDROmorphONE 1 MG/ML SYG IV ×2 (00:02→10:00)
[2018-01-01] MEDS: CEFTRIAXONE 1 GM/50 ML (PMX) 50 ML IVPB (04:38)
[2018-01-01] MEDS: ONDANSETRON 4 MG TAB PO (08:34)
[2018-01-01] MEDS: SEVELAMER CARBONATE 0.8 GM PKT PO ×3 (08:34→16:48)
[2018-01-01] MEDS: MYCOPHENOLATE 250 MG CAP PO ×2 (08:36→21:33)
[2018-01-01] MEDS: ALBUMIN HUMAN 25% 100 ML IV ×2 (08:38→21:33)
[2018-01-01 08:47] LABS: WHITE BLOOD COUNT 7.7 10^3/ul (4.8-10.8)
[2018-01-01 08:47] LABS: ABNORMAL IP MESSAGE 1; HEMATOCRIT 20.3 % (37.0-47.0); MEAN CORPUSCULAR HEMOGLOBIN 30.9 pg (29.0-33.0); MEAN CORPUSCULAR HGB CONC 31.5 g/dl (32.0-37.0); MEAN CORPUSCULAR VOLUME 98.1 fl (82.0-101.0); MEAN PLATELET VOLUME 11.9 fl (7.4-10.4); PLATELET COUNT 118 10^3/UL (140-415); RED BLOOD COUNT 2.07 10^6/ul (4.20-5.40); RED CELL DISTRIBUTION WIDTH 14.3 % (11.5-14.5)
[2018-01-01 09:04] LABS: PHOSPHORUS 8.6 mg/dl (2.5-4.9)
[2018-01-01 09:04] LABS: MAGNESIUM 2.2 mg/dl (1.7-2.5)
[2018-01-01 09:42] LABS: HEMOGLOBIN 6.4 g/dl (12.0-16.0)
[2018-01-01 09:43] LABS: ADD MAN DIFF? YES
[2018-01-01] MEDS: BUMETANIDE 1 MG INJ IV ×2 (10:27→21:33)
[2018-01-01 10:31] LABS: ANION GAP 16 (8-16); BLOOD UREA NITROGEN 63 mg/dl (7-20); CALCIUM 7.9 mg/dl (8.4-10.2); CARBON DIOXIDE 23 mmol/L (21-31); CHLORIDE 105 mmol/L (97-110); CREATININE 3.11 mg/dl (0.44-1.00); GLUCOSE 66 mg/dl (70-220); POTASSIUM 4.1 mmol/L (3.5-5.1); SODIUM 140 mmol/L (135-144)
[2018-01-01] MEDS: LORAZEPAM 2 MG INJ IV ×2 (11:23→16:34)
[2018-01-01] MEDS: SOD CHLORIDE 0.9% 250 ML IV* (11:38)
[2018-01-01 12:27] LABS: IRON 55 ug/dl (35-150)
[2018-01-01 12:37] LABS: % IRON SATURATION 52 % SAT (22-52); TOTAL IRON BINDING CAPACITY 105 ug/dl (241-421)
[2018-01-01 12:44] LABS: IMMEDIATE SPIN CROSSMATCH 1 3
[2018-01-01 13:26] LABS: BAND NEUTROPHILS #M 0.2 10^3/ul (0.0-0.6); BAND NEUTROPHILS % (M) 3 % (0-4); LYMPHOCYTES # 0.8 10^3/ul (0.8-2.9); LYMPHOCYTES #M 0.8 10^3/ul (0.8-2.9); LYMPHOCYTES % (M) 11 % (15-51); MONOCYTE # 0.2 10^3/ul (0.3-0.9); MONOCYTE #M 0.1 10^3/ul (0.3-0.9); MONOCYTES % (M) 2 % (0-11); SEG NEUT #M 6.5 10^3/ul (1.7-7.5); SEGMENTED NEUTROPHILS (M) % 84 % (39-77)
[2018-01-01 13:27] LABS: ANISOCYTOSIS 1+ (0-0); BURR CELLS FEW; POIKILOCYTOSIS 1+ (0-0)
[2018-01-01] MEDS ORDERED: GUAIFENESIN/CODEINE 5ML CUP PO (13:30)
[2018-01-01] MEDS: FUROSEMIDE 40 MG INJ IV ×2 (14:08→15:45)
[2018-01-01 14:23] LABS: AADO2 Arterial 586.6 mmHg (7.0-24.0); Allen Test ACCEPTAB; Arterial Base Excess -1.3 mmol/L (-3.0-3); Arterial Blood Gas Oxygen Sat 92.2 mmHG (95.0-98.0); Arterial COHb 0.3 % (0.0-3.0); Arterial Fraction of Oxyhgb 91.7 % (93.0-99.0); Arterial HCO3 25.3 mmol/L (22.0-26.0); Arterial MetHb 0.2 % (0.0-1.5); Arterial pCO2 52.3 mmhg (35-45); MODE MASK - NRB; Site Right Radial
[2018-01-01] MEDS ORDERED: LABETALOL HCL 20MG INJ IV (14:30)
[2018-01-01] MEDS ORDERED: PROPOFOL 100 ML (15:08)
[2018-01-01] MEDS: PROPOFOL 100 ML IV ×3 (15:10→22:57)
[2018-01-01] MEDS: LIDOCAINE 1% (MPF) 5 ML VIAL SC (15:30)
[2018-01-01] MEDS: FENTAnyl (DRIP) 1000 mcg/100mL 100 ML IV (16:07)
[2018-01-01] MEDS ORDERED: morphine 2 MG INJ (16:07)
[2018-01-01] MEDS: morphine 2 MG INJ IV (16:33)
[2018-01-01 16:48] LABS: AADO2 Arterial 542.9 mmHg (7.0-24.0); Allen Test ACCEPTAB; Arterial Blood Gas Oxygen Sat 98.5 mmHG (95.0-98.0); Arterial COHb 0.3 % (0.0-3.0); Arterial HCO3 18.6 mmol/L (22.0-26.0); Arterial MetHb 0.2 % (0.0-1.5); Arterial pCO2 18.1 mmhg (35-45); MODE VENT - PC; Site Left Radial
[2018-01-01] MEDS: FUROSEMIDE 20 MG INJ IV (16:48)
[2018-01-01 16:50] LABS: ADD MAN DIFF? NO
[2018-01-01 16:53] LABS: BASOPHILS % 0.1 % (0.0-2.0); EOSINOPHILS # 0.1 10^3/ul (0.0-0.5); HEMATOCRIT 21.6 % (37.0-47.0); LYMPHOCYTES # 0.8 10^3/ul (0.8-2.9); MEAN CORPUSCULAR VOLUME 93.5 fl (82.0-101.0); MONOCYTE # 0.1 10^3/ul (0.3-0.9); RED BLOOD COUNT 2.31 10^6/ul (4.20-5.40)
[2018-01-01 17:00] LABS: WHITE BLOOD COUNT 9.6 10^3/ul (4.8-10.8)
[2018-01-01 17:00] LABS: HEMOGLOBIN 7.3 g/dl (12.0-16.0); MEAN CORPUSCULAR HEMOGLOBIN 31.6 pg (29.0-33.0); MEAN CORPUSCULAR HGB CONC 33.8 g/dl (32.0-37.0); MEAN PLATELET VOLUME 11.7 fl (7.4-10.4); NEUTROPHILS % 88.9 % (39.0-77.0); PLATELET COUNT 115 10^3/UL (140-415); RED CELL DISTRIBUTION WIDTH 14.1 % (11.5-14.5)
[2018-01-01 17:01] LABS: EOSINOPHILS % 0.8 % (0.0-7.0); LYMPHOCYTES % 8.4 % (15.0-51.0); MONOCYTES % 1.5 % (0.0-11.0); NEUTROPHIL # 8.5 10^3/ul (1.6-7.5)
[2018-01-01] MEDS ORDERED: VANCOMYCIN IV PER PHARMACY XX (18:00)
[2018-01-01] MEDS: PIPER-TAZO 2.25 GM (PMX) 50 ML IVPB (18:40)
[2018-01-01] MEDS: METHYLPREDNISOLONE 40 MG INJ IV (18:40)
[2018-01-01] MEDS: VANCOMYCIN 1.5 GM in DEXTROSE 5% 500 ML IVPB (20:19)
[2018-01-01] MEDS ORDERED: MYCOPHENOLATE 250 MG CAP PO (21:00)
[2018-01-01 21:23] LABS: AADO2 Arterial 369.4 mmHg (7.0-24.0); Allen Test ACCEPTAB; Arterial Base Excess -1.4 mmol/L (-3.0-3); Arterial Blood Gas Oxygen Sat 96.6 mmHG (95.0-98.0); Arterial COHb 0.3 % (0.0-3.0); Arterial Fraction of Oxyhgb 95.9 % (93.0-99.0); Arterial HCO3 21.8 mmol/L (22.0-26.0); Arterial MetHb 0.4 % (0.0-1.5); Arterial Total Hemglobin 7.9 g/dl (12.0-18.0); Arterial pCO2 30.3 mmhg (35-45); MODE VENT - AC; Site Left Radial
[2018-01-02] MEDS: METHYLPREDNISOLONE 40 MG INJ IV ×5 (00:19→23:05)
[2018-01-02] MEDS: PIPER-TAZO 2.25 GM (PMX) 50 ML IVPB ×3 (01:58→18:49)
[2018-01-02] MEDS: PROPOFOL 100 ML IV ×5 (03:44→23:05)
[2018-01-02 05:48] LABS: ADD MAN DIFF? NO; HAAIG REFLEX REFLEX FILED
[2018-01-02 05:57] LABS: ABNORMAL IP MESSAGE 1; BASOPHILS % 0.1 % (0.0-2.0); HEMATOCRIT 20.7 % (37.0-47.0); LYMPHOCYTES # 0.4 10^3/ul (0.8-2.9); LYMPHOCYTES % 4.1 % (15.0-51.0); MEAN CORPUSCULAR HEMOGLOBIN 31.1 pg (29.0-33.0); MEAN CORPUSCULAR HGB CONC 32.9 g/dl (32.0-37.0); MEAN CORPUSCULAR VOLUME 94.5 fl (82.0-101.0); MEAN PLATELET VOLUME 12.2 fl (7.4-10.4); MONOCYTE # 0.1 10^3/ul (0.3-0.9); MONOCYTES % 1.1 % (0.0-11.0); NEUTROPHIL # 8.6 10^3/ul (1.6-7.5); NEUTROPHILS % 94.2 % (39.0-77.0); PLATELET COUNT 100 10^3/UL (140-415); RED BLOOD COUNT 2.19 10^6/ul (4.20-5.40)
[2018-01-02 05:57] LABS: WHITE BLOOD COUNT 9.1 10^3/ul (4.8-10.8)
[2018-01-02 06:09] LABS: ANION GAP 17 (8-16); BLOOD UREA NITROGEN 63 mg/dl (7-20); CALCIUM 7.9 mg/dl (8.4-10.2); CARBON DIOXIDE 24 mmol/L (21-31); CHLORIDE 103 mmol/L (97-110); CREATININE 3.28 mg/dl (0.44-1.00); GLUCOSE 112 mg/dl (70-220); POTASSIUM 3.9 mmol/L (3.5-5.1); SODIUM 140 mmol/L (135-144)
[2018-01-02 06:31] LABS: HEMOGLOBIN 6.8 g/dl (12.0-16.0)
[2018-01-02 06:32] LABS: POSITIVE DIFF @See below
[2018-01-02 06:39] LABS: HEPATITIS B SURFACE ANTIGEN NEGATIVE (NEGATIVE)
[2018-01-02 06:56] LABS: HEPATITIS B CORE ANTIBODY NEGATIVE (NEGATIVE); HEPATITIS C VIRAL ANTIBODY NEGATIVE (NEGATIVE)
[2018-01-02 07:04] LABS: HIV 1&2 ANTIBODY NEGATIVE (NEGATIVE)
[2018-01-02] MEDS: SEVELAMER CARBONATE 0.8 GM PKT PO ×3 (07:35→16:43)
[2018-01-02 07:55] LABS: MAGNESIUM 2.2 mg/dl (1.7-2.5)
[2018-01-02 07:55] LABS: PHOSPHORUS 9.2 mg/dl (2.5-4.9)
[2018-01-02 08:42] LABS: AADO2 Arterial 338.7 mmHg (7.0-24.0); Allen Test ACCEPTAB; Arterial Base Excess -2.7 mmol/L (-3.0-3); Arterial COHb 0.3 % (0.0-3.0); Arterial Fraction of Oxyhgb 97.6 % (93.0-99.0); Arterial HCO3 20.5 mmol/L (22.0-26.0); Arterial MetHb 0.1 % (0.0-1.5); Arterial Total Hemglobin 7.2 g/dl (12.0-18.0); Arterial pCO2 28.8 mmhg (35-45); MODE VENT - AC; Site Right Radial
[2018-01-02] MEDS: FENTAnyl (DRIP) 1000 mcg/100mL 100 ML IV (09:56)
[2018-01-02] MEDS: ALBUMIN HUMAN 25% 100 ML IV (11:19)
[2018-01-02] MEDS: MYCOPHENOLATE 250 MG CAP PO ×2 (11:24→21:28)
[2018-01-02] MEDS: BUMETANIDE 1 MG INJ IV (11:24)
[2018-01-02 14:41] LABS: IMMEDIATE SPIN CROSSMATCH 1 1
[2018-01-02] MEDS: FUROSEMIDE 40 MG INJ IV (18:49)
[2018-01-03] MEDS: PIPER-TAZO 2.25 GM (PMX) 50 ML IVPB ×3 (01:24→20:19)
[2018-01-03] MEDS: PROPOFOL 100 ML IV ×5 (02:54→19:54)
[2018-01-03] MEDS: METHYLPREDNISOLONE 40 MG INJ IV ×3 (04:54→20:19)
[2018-01-03] MEDS: FUROSEMIDE 40 MG INJ IV ×2 (04:54→20:19)
[2018-01-03 05:37] LABS: ADD MAN DIFF? NO
[2018-01-03 05:44] LABS: ABNORMAL IP MESSAGE 1; BASOPHILS % 0.1 % (0.0-2.0); HEMATOCRIT 23.3 % (37.0-47.0); LYMPHOCYTES # 0.6 10^3/ul (0.8-2.9); LYMPHOCYTES % 4.7 % (15.0-51.0); MEAN CORPUSCULAR HEMOGLOBIN 31.5 pg (29.0-33.0); MEAN CORPUSCULAR HGB CONC 34.3 g/dl (32.0-37.0); MEAN CORPUSCULAR VOLUME 91.7 fl (82.0-101.0); MEAN PLATELET VOLUME 12.9 fl (7.4-10.4); MONOCYTE # 0.4 10^3/ul (0.3-0.9); MONOCYTES % 3.4 % (0.0-11.0); NEUTROPHIL # 10.9 10^3/ul (1.6-7.5); NEUTROPHILS % 91.4 % (39.0-77.0); PLATELET COUNT 111 10^3/UL (140-415); RED BLOOD COUNT 2.54 10^6/ul (4.20-5.40)
[2018-01-03 06:09] LABS: ANION GAP 20 (8-16); BLOOD UREA NITROGEN 50 mg/dl (7-20); CALCIUM 8.2 mg/dl (8.4-10.2); CARBON DIOXIDE 21 mmol/L (21-31); CHLORIDE 102 mmol/L (97-110); CREATININE 2.41 mg/dl (0.44-1.00); GLUCOSE 103 mg/dl (70-220); POTASSIUM 3.7 mmol/L (3.5-5.1); SODIUM 139 mmol/L (135-144)
[2018-01-03 06:13] LABS: VANCOMYCIN,RANDOM 14.6 ug/ml
[2018-01-03 06:22] LABS: MAGNESIUM 2.2 mg/dl (1.7-2.5)
[2018-01-03 06:22] LABS: PHOSPHORUS 8.3 mg/dl (2.5-4.9)
[2018-01-03 06:48] LABS: POSITIVE DIFF @See below
[2018-01-03] MEDS: SEVELAMER CARBONATE 0.8 GM PKT PO ×3 (07:35→17:35)
[2018-01-03 08:26] LABS: Allen Test ACCEPTAB; Arterial Blood Gas Oxygen Sat 98.9 mmHG (95.0-98.0); Arterial COHb 0.3 % (0.0-3.0); Arterial Fraction of Oxyhgb 98.3 % (93.0-99.0); Arterial HCO3 20.1 mmol/L (22.0-26.0); Arterial MetHb 0.3 % (0.0-1.5); Arterial Total Hemglobin 8.4 g/dl (12.0-18.0); Arterial pCO2 25.1 mmhg (35-45); MODE VENT - AC; Site Right Radial
[2018-01-03] MEDS: MYCOPHENOLATE 250 MG CAP PO ×2 (10:22→21:05)
[2018-01-03] MEDS: VANCOMYCIN 1.25 GM in SOD CHLORIDE 0.45% 250 ML IVPB (10:23)
[2018-01-03] MEDS: FENTAnyl (DRIP) 1000 mcg/100mL 100 ML IV (11:03)
[2018-01-04] MEDS: LORAZEPAM 2 MG INJ IV
[2018-01-04] MEDS: METHYLPREDNISOLONE 40 MG INJ IV ×3 (00:07→21:34)
[2018-01-04] MEDS: PROPOFOL 100 ML IV ×4 (00:47→12:46)
[2018-01-04] MEDS: FENTAnyl (DRIP) 1000 mcg/100mL 100 ML IV ×2 (00:51→14:24)
[2018-01-04] MEDS: PIPER-TAZO 2.25 GM (PMX) 50 ML IVPB ×3 (02:37→17:37)
[2018-01-04 05:40] LABS: ADD MAN DIFF? NO
[2018-01-04 06:00] LABS: WHITE BLOOD COUNT 13.5 10^3/ul (4.8-10.8)
[2018-01-04 06:01] LABS: BASOPHILS % 0.1 % (0.0-2.0); HEMATOCRIT 24.5 % (37.0-47.0); HEMOGLOBIN 8.3 g/dl (12.0-16.0); LYMPHOCYTES # 0.6 10^3/ul (0.8-2.9); LYMPHOCYTES % 4.5 % (15.0-51.0); MEAN CORPUSCULAR HEMOGLOBIN 31.2 pg (29.0-33.0); MEAN CORPUSCULAR HGB CONC 33.9 g/dl (32.0-37.0); MEAN CORPUSCULAR VOLUME 92.1 fl (82.0-101.0); MEAN PLATELET VOLUME 12.8 fl (7.4-10.4); MONOCYTE # 0.5 10^3/ul (0.3-0.9); MONOCYTES % 3.7 % (0.0-11.0); NEUTROPHIL # 12.3 10^3/ul (1.6-7.5); NEUTROPHILS % 91.3 % (39.0-77.0); PLATELET COUNT 128 10^3/UL (140-415); RED BLOOD COUNT 2.66 10^6/ul (4.20-5.40); RED CELL DISTRIBUTION WIDTH 13.9 % (11.5-14.5)
[2018-01-04 06:18] LABS: ANION GAP 19 (8-16); BLOOD UREA NITROGEN 39 mg/dl (7-20); CALCIUM 7.9 mg/dl (8.4-10.2); CARBON DIOXIDE 22 mmol/L (21-31); CHLORIDE 101 mmol/L (97-110); CREATININE 1.84 mg/dl (0.44-1.00); GLUCOSE 109 mg/dl (70-220); MAGNESIUM 2.1 mg/dl (1.7-2.5); PHOSPHORUS 6.7 mg/dl (2.5-4.9); POTASSIUM 3.8 mmol/L (3.5-5.1); SODIUM 138 mmol/L (135-144)
[2018-01-04] MEDS: FUROSEMIDE 40 MG INJ IV ×2 (06:31→17:37)
[2018-01-04] MEDS: hydrALAzine 20 MG INJ IV (07:44)
[2018-01-04] MEDS: SEVELAMER CARBONATE 0.8 GM PKT PO ×3 (07:44→17:37)
[2018-01-04 08:02] LABS: AADO2 Arterial 75.1 mmHg (7.0-24.0); Allen Test ACCEPTAB; Arterial Base Excess -1.9 mmol/L (-3.0-3); Arterial Blood Gas Oxygen Sat 97.3 mmHG (95.0-98.0); Arterial COHb 0.2 % (0.0-3.0); Arterial Fraction of Oxyhgb 96.9 % (93.0-99.0); Arterial MetHb 0.2 % (0.0-1.5); Arterial pCO2 24.6 mmhg (35-45); MODE VENT - AC; Site Left Radial
[2018-01-04] MEDS: MYCOPHENOLATE 250 MG CAP PO ×2 (08:46→21:00)
[2018-01-04] MEDS ORDERED: ALBUMIN HUMAN 25% 0 ML (13:28)
[2018-01-04] MEDS: ALBUMIN HUMAN 25% 50 ML IV (13:47)
[2018-01-04] MEDS: HEPARIN 1000 UNITS/ML 10 ML INJ CATHETER (14:58)
[2018-01-04 20:00] LABS: AADO2 Arterial 64.8 mmHg (7.0-24.0); Allen Test ACCEPTAB; Arterial Base Excess 2.3 mmol/L (-3.0-3); Arterial COHb 0.3 % (0.0-3.0); Arterial Fraction of Oxyhgb 96.5 % (93.0-99.0); Arterial HCO3 26.3 mmol/L (22.0-26.0); Arterial MetHb 0.2 % (0.0-1.5); Arterial Total Hemglobin 11.2 g/dl (12.0-18.0); Arterial pCO2 38.3 mmhg (35-45); Blood Gas PS 10; MODE VENT - CPAP; Site Right Brachial
[2018-01-04] MEDS: ONDANSETRON 4 MG INJ IV (21:34)
[2018-01-04] MEDS: HYDROmorphONE 1 MG/ML SYG IV ×2 (22:12→22:58)
[2018-01-04] MEDS: FAMOTIDINE 20 MG INJ IV (23:26)
[2018-01-05] MEDS: PIPER-TAZO 2.25 GM (PMX) 50 ML IVPB ×3 (02:37→18:41)
[2018-01-05] MEDS: HYDROmorphONE 1 MG/ML SYG IV ×5 (02:37→20:12)
[2018-01-05] MEDS: ONDANSETRON 4 MG INJ IV ×3 (02:40→14:12)
[2018-01-05 05:26] LABS: ADD MAN DIFF? NO
[2018-01-05 05:32] LABS: WHITE BLOOD COUNT 17.8 10^3/ul (4.8-10.8)
[2018-01-05 05:32] LABS: ABNORMAL IP MESSAGE 1; BASOPHILS % 0.1 % (0.0-2.0); HEMOGLOBIN 7.7 g/dl (12.0-16.0); LYMPHOCYTES # 0.5 10^3/ul (0.8-2.9); LYMPHOCYTES % 2.6 % (15.0-51.0); MEAN CORPUSCULAR HEMOGLOBIN 31.8 pg (29.0-33.0); MEAN CORPUSCULAR HGB CONC 33.5 g/dl (32.0-37.0); MEAN PLATELET VOLUME 12.3 fl (7.4-10.4); MONOCYTE # 0.3 10^3/ul (0.3-0.9); MONOCYTES % 1.7 % (0.0-11.0); NEUTROPHIL # 16.9 10^3/ul (1.6-7.5); NEUTROPHILS % 94.9 % (39.0-77.0); PLATELET COUNT 131 10^3/UL (140-415); RED BLOOD COUNT 2.42 10^6/ul (4.20-5.40); RED CELL DISTRIBUTION WIDTH 13.6 % (11.5-14.5)
[2018-01-05 05:42] LABS: POSITIVE DIFF @See below
[2018-01-05] MEDS: FUROSEMIDE 40 MG INJ IV ×2 (05:48→18:41)
[2018-01-05 06:09] LABS: ALANINE AMINOTRANSFERASE 30 IU/L (13-69); ALBUMIN 2.5 g/dl (3.3-4.9); ALBUMIN/GLOBULIN RATIO 1.25; ALKALINE PHOSPHATASE 41 IU/L (42-121); ANION GAP 15 (8-16); ASPARTATE AMINO TRANSFERASE 14 IU/L (15-46); BLOOD UREA NITROGEN 37 mg/dl (7-20); CALCIUM 7.9 mg/dl (8.4-10.2); CARBON DIOXIDE 26 mmol/L (21-31); CHLORIDE 102 mmol/L (97-110); CREATININE 2.05 mg/dl (0.44-1.00); GLUCOSE 104 mg/dl (70-220); POTASSIUM 3.9 mmol/L (3.5-5.1); SODIUM 139 mmol/L (135-144); TOTAL PROTEIN 4.5 g/dl (6.1-8.1)
[2018-01-05] MEDS: SEVELAMER CARBONATE 0.8 GM PKT PO ×3 (07:35→17:35)
[2018-01-05 08:50] LABS: PHOSPHORUS 7.2 mg/dl (2.5-4.9)
[2018-01-05 08:50] LABS: MAGNESIUM 2.1 mg/dl (1.7-2.5)
[2018-01-05] MEDS: MYCOPHENOLATE 250 MG CAP PO ×2 (08:50→20:13)
[2018-01-05] MEDS: FAMOTIDINE 20 MG INJ IV (08:54)
[2018-01-05] MEDS: METHYLPREDNISOLONE 40 MG INJ IV ×2 (08:54→20:12)
[2018-01-05] MEDS: PANTOPRAZOLE 40 MG INJ IV (14:40)
[2018-01-05] MEDS: PROPOFOL 100 ML IV (15:45)
[2018-01-05] MEDS: LORAZEPAM 2 MG INJ IV (16:08)
[2018-01-06] MEDS: PIPER-TAZO 2.25 GM (PMX) 50 ML IVPB ×3 (01:03→18:57)
[2018-01-06] MEDS: LORAZEPAM 2 MG INJ IV ×2 (01:17→16:25)
[2018-01-06] MEDS: ONDANSETRON 4 MG INJ IV ×2 (01:17→21:56)
[2018-01-06] MEDS ORDERED: DIPHENOXYLATE/ATROPINE TAB PO ×2 (02:00)
[2018-01-06] MEDS: LOPERAMIDE 2 MG CAP PO ×3 (02:14→10:58)
[2018-01-06] MEDS: PROPOFOL 100 ML IV (03:00)
[2018-01-06] MEDS: FUROSEMIDE 40 MG INJ IV ×2 (05:05→18:56)
[2018-01-06] MEDS: PANTOPRAZOLE 40 MG INJ IV (05:14)
[2018-01-06 05:55] LABS: ADD MAN DIFF? NO
[2018-01-06 05:59] LABS: WHITE BLOOD COUNT 12.2 10^3/ul (4.8-10.8)
[2018-01-06 05:59] LABS: ABNORMAL IP MESSAGE 1; BASOPHILS % 0.1 % (0.0-2.0); HEMATOCRIT 23.2 % (37.0-47.0); HEMOGLOBIN 7.5 g/dl (12.0-16.0); LYMPHOCYTES # 0.6 10^3/ul (0.8-2.9); LYMPHOCYTES % 4.6 % (15.0-51.0); MEAN CORPUSCULAR HEMOGLOBIN 30.6 pg (29.0-33.0); MEAN CORPUSCULAR HGB CONC 32.3 g/dl (32.0-37.0); MEAN CORPUSCULAR VOLUME 94.7 fl (82.0-101.0); MEAN PLATELET VOLUME 13.1 fl (7.4-10.4); MONOCYTE # 0.4 10^3/ul (0.3-0.9); MONOCYTES % 3.4 % (0.0-11.0); NEUTROPHIL # 11.1 10^3/ul (1.6-7.5); NEUTROPHILS % 91.1 % (39.0-77.0); PLATELET COUNT 132 10^3/UL (140-415); RED BLOOD COUNT 2.45 10^6/ul (4.20-5.40); RED CELL DISTRIBUTION WIDTH 13.2 % (11.5-14.5)
[2018-01-06 06:37] LABS: ANION GAP 15 (8-16); BLOOD UREA NITROGEN 55 mg/dl (7-20); CARBON DIOXIDE 25 mmol/L (21-31); CHLORIDE 104 mmol/L (97-110); CREATININE 2.42 mg/dl (0.44-1.00); GLUCOSE 112 mg/dl (70-220); SODIUM 140 mmol/L (135-144)
[2018-01-06 06:45] LABS: VANCOMYCIN,RANDOM 11.6 ug/ml
[2018-01-06 07:03] LABS: POSITIVE DIFF @See below
[2018-01-06 07:10] LABS: MAGNESIUM 2.1 mg/dl (1.7-2.5)
[2018-01-06 07:10] LABS: PHOSPHORUS 7.5 mg/dl (2.5-4.9)
[2018-01-06] MEDS: SEVELAMER CARBONATE 0.8 GM PKT PO ×3 (07:35→18:57)
[2018-01-06] MEDS: METHYLPREDNISOLONE 40 MG INJ IV ×2 (08:38→21:37)
[2018-01-06] MEDS: MYCOPHENOLATE 250 MG CAP PO ×2 (10:59→23:22)
[2018-01-06] MEDS: VANCOMYCIN 1.25 GM in SOD CHLORIDE 0.45% 250 ML IVPB (11:20)
[2018-01-06] MEDS: HYDROmorphONE 1 MG/ML SYG IV ×4 (11:20→23:17)
[2018-01-06] MEDS: LACTOBACILLUS RHAMNOSUS CAP PO ×2 (12:37→23:16)
[2018-01-06] MEDS: ACETAMINOPHEN 325 MG TAB PO ×2 (13:17→21:56)
[2018-01-06] MEDS: metroNIDAZOLE 500 MG/NS (PMX) 100 ML IVPB (13:17)
[2018-01-06] MEDS: ONDANSETRON 4 MG TAB PO (16:25)
[2018-01-06] MEDS: HEPARIN 1000 UNITS/ML 10 ML INJ CATHETER (18:16)
[2018-01-06] MEDS: metroNIDAZOLE 500 MG TAB PO (21:39)
[2018-01-07] MEDS: PIPER-TAZO 2.25 GM (PMX) 50 ML IVPB ×3 (02:01→17:58)
[2018-01-07] MEDS: ONDANSETRON 4 MG INJ IV ×2 (04:06→13:01)
[2018-01-07] MEDS: HYDROmorphONE 1 MG/ML SYG IV ×5 (04:13→20:22)
[2018-01-07] MEDS: PANTOPRAZOLE 40 MG INJ IV (05:45)
[2018-01-07] MEDS: ACETAMINOPHEN 325 MG TAB PO (05:45)
[2018-01-07] MEDS: FUROSEMIDE 40 MG INJ IV ×2 (05:47→17:57)
[2018-01-07 06:11] LABS: ADD MAN DIFF? NO
[2018-01-07 06:17] LABS: WHITE BLOOD COUNT 12.5 10^3/ul (4.8-10.8)
[2018-01-07 06:17] LABS: ABNORMAL IP MESSAGE 1; BASOPHILS % 0.1 % (0.0-2.0); EOSINOPHILS % 0.1 % (0.0-7.0); HEMATOCRIT 22.1 % (37.0-47.0); HEMOGLOBIN 7.3 g/dl (12.0-16.0); LYMPHOCYTES # 0.6 10^3/ul (0.8-2.9); LYMPHOCYTES % 4.6 % (15.0-51.0); MEAN CORPUSCULAR HEMOGLOBIN 31.5 pg (29.0-33.0); MEAN CORPUSCULAR VOLUME 95.3 fl (82.0-101.0); MEAN PLATELET VOLUME 12.8 fl (7.4-10.4); MONOCYTE # 0.5 10^3/ul (0.3-0.9); MONOCYTES % 3.6 % (0.0-11.0); NEUTROPHIL # 11.4 10^3/ul (1.6-7.5); NEUTROPHILS % 91.2 % (39.0-77.0); PLATELET COUNT 124 10^3/UL (140-415); RED BLOOD COUNT 2.32 10^6/ul (4.20-5.40); RED CELL DISTRIBUTION WIDTH 12.9 % (11.5-14.5)
[2018-01-07 06:22] LABS: POSITIVE DIFF @See below
[2018-01-07 06:55] LABS: ALBUMIN 2.3 g/dl (3.3-4.9); ANION GAP 11 (8-16); BLOOD UREA NITROGEN 31 mg/dl (7-20); CALCIUM 7.6 mg/dl (8.4-10.2); CARBON DIOXIDE 29 mmol/L (21-31); CHLORIDE 104 mmol/L (97-110); CREATININE 1.62 mg/dl (0.44-1.00); GLUCOSE 103 mg/dl (70-220); MAGNESIUM 1.9 mg/dl (1.7-2.5); PHOSPHORUS 4.3 mg/dl (2.5-4.9); POTASSIUM 3.5 mmol/L (3.5-5.1); SODIUM 140 mmol/L (135-144)
[2018-01-07] MEDS: SEVELAMER CARBONATE 0.8 GM PKT PO ×3 (07:48→17:58)
[2018-01-07] MEDS: METOCLOPRAMIDE 10 MG INJ IV ×3 (07:49→20:24)
[2018-01-07] MEDS: LORAZEPAM 2 MG INJ IV ×2 (08:05→15:53)
[2018-01-07] MEDS: MYCOPHENOLATE 250 MG CAP PO ×2 (10:24→20:20)
[2018-01-07] MEDS: METHYLPREDNISOLONE 40 MG INJ IV ×2 (10:24→20:24)
[2018-01-07] MEDS: LACTOBACILLUS RHAMNOSUS CAP PO ×2 (10:26→20:21)
[2018-01-07] MEDS: metroNIDAZOLE 500 MG TAB PO ×3 (10:27→20:26)
[2018-01-08] MEDS: HYDROmorphONE 1 MG/ML SYG IV ×5 (01:45→22:29)
[2018-01-08] MEDS: PIPER-TAZO 2.25 GM (PMX) 50 ML IVPB ×3 (01:46→18:00)
[2018-01-08] MEDS: METOCLOPRAMIDE 10 MG INJ IV ×3 (01:47→18:50)
[2018-01-08] MEDS: LORAZEPAM 2 MG INJ IV ×2 (02:00→18:50)
[2018-01-08] MEDS: PANTOPRAZOLE 40 MG INJ IV (05:31)
[2018-01-08] MEDS: FUROSEMIDE 40 MG INJ IV ×2 (05:32→18:36)
[2018-01-08] MEDS: ACETAMINOPHEN 325 MG TAB PO ×2 (05:38→12:28)
[2018-01-08] MEDS: ONDANSETRON 4 MG INJ IV ×4 (05:45→22:29)
[2018-01-08 06:11] LABS: ADD MAN DIFF? NO
[2018-01-08 06:14] LABS: ABNORMAL IP MESSAGE 1; HEMOGLOBIN 7.3 g/dl (12.0-16.0); LYMPHOCYTES # 0.4 10^3/ul (0.8-2.9); LYMPHOCYTES % 4.6 % (15.0-51.0); MEAN CORPUSCULAR HEMOGLOBIN 31.3 pg (29.0-33.0); MEAN CORPUSCULAR HGB CONC 33.2 g/dl (32.0-37.0); MEAN CORPUSCULAR VOLUME 94.4 fl (82.0-101.0); MEAN PLATELET VOLUME 12.7 fl (7.4-10.4); MONOCYTE # 0.4 10^3/ul (0.3-0.9); MONOCYTES % 3.8 % (0.0-11.0); NEUTROPHIL # 8.6 10^3/ul (1.6-7.5); NEUTROPHILS % 91.2 % (39.0-77.0); PLATELET COUNT 124 10^3/UL (140-415); RED BLOOD COUNT 2.33 10^6/ul (4.20-5.40)
[2018-01-08 06:14] LABS: WHITE BLOOD COUNT 9.5 10^3/ul (4.8-10.8)
[2018-01-08 06:26] LABS: POSITIVE DIFF @See below
[2018-01-08 06:38] LABS: ALBUMIN 2.3 g/dl (3.3-4.9); ANION GAP 9 (8-16); BLOOD UREA NITROGEN 40 mg/dl (7-20); CALCIUM 7.9 mg/dl (8.4-10.2); CARBON DIOXIDE 28 mmol/L (21-31); CHLORIDE 104 mmol/L (97-110); CREATININE 2.15 mg/dl (0.44-1.00); GLUCOSE 103 mg/dl (70-220); MAGNESIUM 1.8 mg/dl (1.7-2.5); PHOSPHORUS 4.7 mg/dl (2.5-4.9); POTASSIUM 3.5 mmol/L (3.5-5.1); SODIUM 137 mmol/L (135-144)
[2018-01-08] MEDS: MYCOPHENOLATE 250 MG CAP PO ×2 (09:00→22:30)
[2018-01-08] MEDS: METHYLPREDNISOLONE 40 MG INJ IV (09:01)
[2018-01-08] MEDS: metroNIDAZOLE 500 MG TAB PO ×3 (09:01→22:29)
[2018-01-08] MEDS: LACTOBACILLUS RHAMNOSUS CAP PO ×2 (09:01→22:29)
[2018-01-08] MEDS: SEVELAMER CARBONATE 0.8 GM PKT PO ×3 (09:01→18:36)
[2018-01-08] MEDS: ALTEPLASE (CATHFLO) 2 MG INJ CATHETER ×2 (22:41→22:44)
[2018-01-09] MEDS: HYDROmorphONE 1 MG/ML SYG IV ×6 (01:55→21:42)
[2018-01-09] MEDS: ONDANSETRON 4 MG INJ IV ×3 (03:15→21:10)
[2018-01-09] MEDS: ACETAMINOPHEN 325 MG TAB PO ×2 (04:49→17:56)
[2018-01-09] MEDS: PANTOPRAZOLE 40 MG INJ IV (06:17)
[2018-01-09] MEDS: FUROSEMIDE 40 MG INJ IV ×2 (06:17→17:44)
[2018-01-09 06:25] LABS: ADD MAN DIFF? NO
[2018-01-09 06:32] LABS: EOSINOPHILS # 0.4 10^3/ul (0.0-0.5); HEMATOCRIT 22.5 % (37.0-47.0); HEMOGLOBIN 7.3 g/dl (12.0-16.0); LYMPHOCYTES # 1.3 10^3/ul (0.8-2.9); MEAN CORPUSCULAR HEMOGLOBIN 30.8 pg (29.0-33.0); MEAN CORPUSCULAR HGB CONC 32.4 g/dl (32.0-37.0); MEAN CORPUSCULAR VOLUME 94.9 fl (82.0-101.0); MEAN PLATELET VOLUME 12.8 fl (7.4-10.4); MONOCYTE # 0.7 10^3/ul (0.3-0.9); MONOCYTES % 6.8 % (0.0-11.0); NEUTROPHIL # 7.4 10^3/ul (1.6-7.5); NEUTROPHILS % 75.7 % (39.0-77.0); PLATELET COUNT 130 10^3/UL (140-415); RED BLOOD COUNT 2.37 10^6/ul (4.20-5.40); RED CELL DISTRIBUTION WIDTH 13.3 % (11.5-14.5)
[2018-01-09 06:32] LABS: WHITE BLOOD COUNT 9.8 10^3/ul (4.8-10.8)
[2018-01-09 07:01] LABS: ALBUMIN 2.2 g/dl (3.3-4.9); ANION GAP 11 (8-16); BLOOD UREA NITROGEN 41 mg/dl (7-20); CALCIUM 7.6 mg/dl (8.4-10.2); CARBON DIOXIDE 28 mmol/L (21-31); CHLORIDE 102 mmol/L (97-110); CREATININE 2.14 mg/dl (0.44-1.00); GLUCOSE 89 mg/dl (70-220); MAGNESIUM 1.7 mg/dl (1.7-2.5); PHOSPHORUS 4.4 mg/dl (2.5-4.9); SODIUM 138 mmol/L (135-144)
[2018-01-09 07:14] LABS: POTASSIUM 2.7 mmol/L (3.5-5.1)
[2018-01-09] MEDS: METHYLPREDNISOLONE 40 MG INJ IV (08:12)
[2018-01-09] MEDS: SEVELAMER CARBONATE 0.8 GM PKT PO ×3 (08:13→17:44)
[2018-01-09] MEDS: POTASSIUM CHLORIDE (SR) 20 MEQ TAB PO ×2 (08:14→09:22)
[2018-01-09] MEDS: LACTOBACILLUS RHAMNOSUS CAP PO ×3 (08:14→22:00)
[2018-01-09] MEDS: MYCOPHENOLATE 250 MG CAP PO ×3 (08:14→22:00)
[2018-01-09] MEDS: metroNIDAZOLE 500 MG TAB PO ×4 (08:15→22:00)
[2018-01-09] MEDS: BACLOFEN 10 MG TAB PO (08:15)
[2018-01-09] MEDS: MAGNESIUM SULFATE 2 GM/50 ML 50 ML IVPB (09:23)
[2018-01-09] MEDS: LORAZEPAM 2 MG INJ IV ×2 (10:29→22:34)
[2018-01-09] MEDS: hydrALAzine 20 MG INJ IV (16:55)
[2018-01-10] MEDS: HYDROmorphONE 1 MG/ML SYG IV ×5 (02:29→23:39)
[2018-01-10] MEDS: ONDANSETRON 4 MG INJ IV ×2 (02:29→16:27)
[2018-01-10] MEDS: PANTOPRAZOLE 40 MG INJ IV (05:26)
[2018-01-10] MEDS: FUROSEMIDE 40 MG INJ IV ×2 (05:31→17:35)
[2018-01-10] MEDS: METOCLOPRAMIDE 10 MG INJ IV (05:32)
[2018-01-10 05:52] LABS: ADD MAN DIFF? NO
[2018-01-10 06:00] LABS: BASOPHILS % 0.1 % (0.0-2.0); EOSINOPHILS # 0.2 10^3/ul (0.0-0.5); EOSINOPHILS % 2.2 % (0.0-7.0); HEMATOCRIT 23.4 % (37.0-47.0); HEMOGLOBIN 7.9 g/dl (12.0-16.0); LYMPHOCYTES % 15.5 % (15.0-51.0); MEAN CORPUSCULAR HEMOGLOBIN 31.6 pg (29.0-33.0); MEAN CORPUSCULAR HGB CONC 33.8 g/dl (32.0-37.0); MEAN CORPUSCULAR VOLUME 93.6 fl (82.0-101.0); MEAN PLATELET VOLUME 12.7 fl (7.4-10.4); MONOCYTE # 0.7 10^3/ul (0.3-0.9); MONOCYTES % 10.3 % (0.0-11.0); NEUTROPHIL # 4.8 10^3/ul (1.6-7.5); NEUTROPHILS % 71.6 % (39.0-77.0); PLATELET COUNT 129 10^3/UL (140-415); RED CELL DISTRIBUTION WIDTH 13.5 % (11.5-14.5)
[2018-01-10 06:00] LABS: WHITE BLOOD COUNT 6.7 10^3/ul (4.8-10.8)
[2018-01-10 06:15] LABS: INR 1.14; PROTIME 14.8 Sec (11.9-14.9); PT RATIO 1.2
[2018-01-10 06:16] LABS: PARTIAL THROMBOPLASTIN TIME 29.8 Sec (25.0-35.0)
[2018-01-10 06:31] LABS: ALBUMIN 2.1 g/dl (3.3-4.9); ANION GAP 5 (8-16); BLOOD UREA NITROGEN 24 mg/dl (7-20); CALCIUM 7.3 mg/dl (8.4-10.2); CARBON DIOXIDE 30 mmol/L (21-31); CHLORIDE 105 mmol/L (97-110); CREATININE 1.66 mg/dl (0.44-1.00); GLUCOSE 78 mg/dl (70-220); PHOSPHORUS 2.9 mg/dl (2.5-4.9); POTASSIUM 3.4 mmol/L (3.5-5.1); SODIUM 137 mmol/L (135-144)
[2018-01-10] MEDS: SEVELAMER CARBONATE 0.8 GM PKT PO ×3 (08:15→17:35)
[2018-01-10] MEDS: metroNIDAZOLE 500 MG TAB PO ×3 (09:00→23:45)
[2018-01-10] MEDS: LACTOBACILLUS RHAMNOSUS CAP PO ×2 (09:00→23:44)
[2018-01-10] MEDS: MYCOPHENOLATE 250 MG CAP PO ×2 (09:00→23:44)
[2018-01-10] MEDS ORDERED: CEFAZOLIN 1 GM/50 ML (PMX) 50 ML IVPB (12:05)
[2018-01-10] MEDS ORDERED: SOD CHLORIDE 0.9% 500 ML (12:05)
[2018-01-10] MEDS ORDERED: MIDAZOLAM 1 MG/ML 2 ML INJ (14:20)
[2018-01-10] MEDS ORDERED: HEPARIN 1000 UNITS/ML 10 ML INJ (14:28)
[2018-01-10] MEDS ORDERED: LIDOCAINE 1% (MDV) 20 ML INJ (14:28)
[2018-01-10] MEDS: HEPARIN 1000 UNITS/ML 10 ML INJ (15:22)
[2018-01-10] MEDS: LIDOCAINE 1% (MDV) 20 ML INJ (15:22)
[2018-01-10] MEDS: ACETAMINOPHEN 325 MG TAB PO (17:35)
[2018-01-10] MEDS: predniSONE 20 MG TAB PO (17:35)
[2018-01-10] MEDS: HEPARIN 1000 UNITS/ML 10 ML INJ CATHETER (23:38)
[2018-01-10] MEDS: POTASSIUM CHLORIDE (SR) 20 MEQ TAB PO (23:44)
[2018-01-11] MEDS: LORAZEPAM 2 MG INJ IV ×2 (01:45→20:51)
[2018-01-11] MEDS: HYDROmorphONE 1 MG/ML SYG IV ×5 (04:29→21:39)
[2018-01-11 06:13] LABS: ADD MAN DIFF? NO
[2018-01-11 06:16] LABS: WHITE BLOOD COUNT 4.8 10^3/ul (4.8-10.8)
[2018-01-11 06:16] LABS: ABNORMAL IP MESSAGE 1; HEMATOCRIT 23.4 % (37.0-47.0); HEMOGLOBIN 7.6 g/dl (12.0-16.0); LYMPHOCYTES # 0.4 10^3/ul (0.8-2.9); MEAN CORPUSCULAR HEMOGLOBIN 30.5 pg (29.0-33.0); MEAN CORPUSCULAR HGB CONC 32.5 g/dl (32.0-37.0); MEAN PLATELET VOLUME 12.3 fl (7.4-10.4); MONOCYTE # 0.4 10^3/ul (0.3-0.9); MONOCYTES % 8.8 % (0.0-11.0); NEUTROPHIL # 3.9 10^3/ul (1.6-7.5); NEUTROPHILS % 81.6 % (39.0-77.0); PLATELET COUNT 114 10^3/UL (140-415); RED BLOOD COUNT 2.49 10^6/ul (4.20-5.40); RED CELL DISTRIBUTION WIDTH 13.7 % (11.5-14.5)
[2018-01-11] MEDS: PANTOPRAZOLE 40 MG INJ IV (06:45)
[2018-01-11] MEDS: FUROSEMIDE 40 MG INJ IV ×2 (06:46→18:29)
[2018-01-11 06:47] LABS: POSITIVE DIFF @See below
[2018-01-11] MEDS: ONDANSETRON 4 MG INJ IV ×3 (06:47→20:12)
[2018-01-11 07:27] LABS: ALBUMIN 2.1 g/dl (3.3-4.9); ANION GAP 6 (8-16); BLOOD UREA NITROGEN 12 mg/dl (7-20); CALCIUM 7.4 mg/dl (8.4-10.2); CARBON DIOXIDE 31 mmol/L (21-31); CHLORIDE 104 mmol/L (97-110); CREATININE 1.29 mg/dl (0.44-1.00); GLUCOSE 107 mg/dl (70-220); MAGNESIUM 1.9 mg/dl (1.7-2.5); PHOSPHORUS 2.5 mg/dl (2.5-4.9); SODIUM 137 mmol/L (135-144)
[2018-01-11] MEDS: MYCOPHENOLATE 250 MG CAP PO ×2 (09:30→20:51)
[2018-01-11] MEDS: metroNIDAZOLE 500 MG TAB PO ×3 (09:30→20:51)
[2018-01-11] MEDS: SEVELAMER CARBONATE 0.8 GM PKT PO ×3 (09:32→18:25)
[2018-01-11] MEDS: LACTOBACILLUS RHAMNOSUS CAP PO ×2 (09:32→20:51)
[2018-01-11] MEDS: predniSONE 20 MG TAB PO (09:33)
[2018-01-11] MEDS: ACETAMINOPHEN 325 MG TAB PO (14:49)
[2018-01-12] MEDS: HYDROmorphONE 1 MG/ML SYG IV (03:00)
[2018-01-12] MEDS: ONDANSETRON 4 MG INJ IV ×2 (03:06→06:39)
[2018-01-12] MEDS: PANTOPRAZOLE (EC) 40 MG TAB PO (05:13)
[2018-01-12] MEDS: ACETAMINOPHEN 325 MG TAB PO (05:13)
[2018-01-12] MEDS: FUROSEMIDE 40 MG INJ IV (05:16)
[2018-01-12 05:37] LABS: ADD MAN DIFF? NO
[2018-01-12 05:42] LABS: WHITE BLOOD COUNT 4.2 10^3/ul (4.8-10.8)
[2018-01-12 05:42] LABS: HEMATOCRIT 21.4 % (37.0-47.0); LYMPHOCYTES # 0.9 10^3/ul (0.8-2.9); MEAN CORPUSCULAR HEMOGLOBIN 31.1 pg (29.0-33.0); MEAN CORPUSCULAR HGB CONC 32.7 g/dl (32.0-37.0); MEAN CORPUSCULAR VOLUME 95.1 fl (82.0-101.0); MEAN PLATELET VOLUME 12.9 fl (7.4-10.4); MONOCYTE # 0.6 10^3/ul (0.3-0.9); MONOCYTES % 14.3 % (0.0-11.0); NEUTROPHIL # 2.7 10^3/ul (1.6-7.5); NEUTROPHILS % 64.5 % (39.0-77.0); PLATELET COUNT 114 10^3/UL (140-415); RED BLOOD COUNT 2.25 10^6/ul (4.20-5.40); RED CELL DISTRIBUTION WIDTH 13.9 % (11.5-14.5)
[2018-01-12 06:08] LABS: ANION GAP 8 (8-16)
[2018-01-12 06:13] LABS: ALBUMIN 2.1 g/dl (3.3-4.9); BLOOD UREA NITROGEN 16 mg/dl (7-20); CALCIUM 7.7 mg/dl (8.4-10.2); CARBON DIOXIDE 29 mmol/L (21-31); CHLORIDE 102 mmol/L (97-110); CREATININE 1.94 mg/dl (0.44-1.00); GLUCOSE 86 mg/dl (70-220); MAGNESIUM 1.8 mg/dl (1.7-2.5); PHOSPHORUS 3.2 mg/dl (2.5-4.9); POTASSIUM 3.8 mmol/L (3.5-5.1); SODIUM 135 mmol/L (135-144)
[2018-01-12] MEDS: LACTOBACILLUS RHAMNOSUS CAP PO (09:58)
[2018-01-12] MEDS: metroNIDAZOLE 500 MG TAB PO ×2 (09:58→14:25)
[2018-01-12] MEDS: predniSONE 20 MG TAB PO (09:58)
[2018-01-12] MEDS: SEVELAMER CARBONATE 0.8 GM PKT PO ×2 (09:58→14:25)
[2018-01-12] MEDS: LORAZEPAM 2 MG INJ IV (10:08)
[2018-01-12] MEDS: MYCOPHENOLATE 250 MG CAP PO (10:11)
== END 2018-01-12 14:30 | disposition home or self-care (01) | DRG 673 ==
LOC: TEL 01:22 → MS2 01-06 20:45 → ICU 01-01 14:36
PROC: 30233N1 Transfusion of Nonautologous Red Blood Cells into Peripheral Vein, Percutaneous Approach (ICD-10-PCS; 2017-12-30)
PROC: 5A1945Z Respiratory Ventilation, 24-96 Consecutive Hours (ICD-10-PCS; 2018-01-01)
PROC: 02HV33Z Insertion of Infusion Device into Superior Vena Cava, Percutaneous Approach (ICD-10-PCS; 2018-01-01)
PROC: 0BH17EZ Insertion of Endotracheal Airway into Trachea, Via Natural or Artificial Opening (ICD-10-PCS; 2018-01-01)
PROC: 06HM33Z Insertion of Infusion Device into Right Femoral Vein, Percutaneous Approach (ICD-10-PCS; principal; 2018-01-02)
PROC: 5A1D70Z Performance of Urinary Filtration, Intermittent, Less than 6 Hours Per Day (ICD-10-PCS; 2018-01-02)
PROC: 0JH63XZ Insertion of Tunneled Vascular Access Device into Chest Subcutaneous Tissue and Fascia, Percutaneous Approach (ICD-10-PCS; 2018-01-10)
PROC: 05HM33Z Insertion of Infusion Device into Right Internal Jugular Vein, Percutaneous Approach (ICD-10-PCS; 2018-01-10)
DX: N17.9 Acute kidney failure, unspecified (principal); J96.00 Acute respiratory failure, unspecified whether with hypoxia or hypercapnia; J69.0 Pneumonitis due to inhalation of food and vomit; J96.01 Acute respiratory failure with hypoxia; D61.818 Other pancytopenia; A04.72 Enterocolitis due to Clostridium difficile, not specified as recurrent; N39.0 Urinary tract infection, site not specified; M32.14 Glomerular disease in systemic lupus erythematosus; E87.70 Fluid overload, unspecified; I12.9 Hypertensive chronic kidney disease with stage 1 through stage 4 chronic kidney disease, or unspecified chronic kidney disease; N18.9 Chronic kidney disease, unspecified
CPT/HCPCS: 31500; 36430; 36561; 36569; 36600; 71045; 76937; 76942; 80048; 80053; 80069; 80202; 81001; 82728; 82803; 82962; 83036; 83540; 83735; 84100; 84443; 84703; 85025; 85610; 85730; 86703; 86704; 86709; 86803; 86850; 86900; 86901; 86920; 87045; 87075; 87086; 87340; 90935; 92526; 92610; 93306; 93970; 94002; 94003; 94770; 97110; 97116; 97162; 97530

== ENCOUNTER 2018-01-29 08:41 | Inpatient (IN) | payer OTHER ==
[2018-01-29] MEDS: SOD CHLORIDE 0.9% 1,000 ML IV (09:50)
[2018-01-29] MEDS: morphine 4 MG/ML VIAL IV (10:16)
[2018-01-29] MEDS: ONDANSETRON 4 MG INJ IV ×2 (10:16→19:41)
[2018-01-29 10:49] LABS: ADD MAN DIFF? NO
[2018-01-29] MEDS: METOCLOPRAMIDE 10 MG INJ IV (10:53)
[2018-01-29 10:56] LABS: ABNORMAL IP MESSAGE 1; BASOPHILS % 0.3 % (0.0-2.0); EOSINOPHILS % 0.3 % (0.0-7.0); HEMATOCRIT 28.3 % (37.0-47.0); HEMOGLOBIN 8.8 g/dl (12.0-16.0); LYMPHOCYTES # 2.4 10^3/ul (0.8-2.9); LYMPHOCYTES % 32.9 % (15.0-51.0); MEAN CORPUSCULAR HEMOGLOBIN 30.2 pg (29.0-33.0); MEAN CORPUSCULAR HGB CONC 31.1 g/dl (32.0-37.0); MEAN CORPUSCULAR VOLUME 97.3 fl (82.0-101.0); MEAN PLATELET VOLUME 11.9 fl (7.4-10.4); MONOCYTE # 0.6 10^3/ul (0.3-0.9); MONOCYTES % 8.5 % (0.0-11.0); NEUTROPHIL # 4.2 10^3/ul (1.6-7.5); NEUTROPHILS % 57.7 % (39.0-77.0); PLATELET COUNT 70 10^3/UL (140-415); RED BLOOD COUNT 2.91 10^6/ul (4.20-5.40); RED CELL DISTRIBUTION WIDTH 15.4 % (11.5-14.5)
[2018-01-29 10:56] LABS: WHITE BLOOD COUNT 7.2 10^3/ul (4.8-10.8)
[2018-01-29 10:57] LABS: POSITIVE DIFF @See below
[2018-01-29 11:16] LABS: ALANINE AMINOTRANSFERASE 28 IU/L (13-69); ALBUMIN 1.8 g/dl (3.3-4.9); ALBUMIN/GLOBULIN RATIO 0.62; ALKALINE PHOSPHATASE 76 IU/L (42-121); ANION GAP 8 (8-16); ASPARTATE AMINO TRANSFERASE 18 IU/L (15-46); BLOOD UREA NITROGEN 9 mg/dl (7-20); CALCIUM 7.3 mg/dl (8.4-10.2); CARBON DIOXIDE 31 mmol/L (21-31); CHLORIDE 104 mmol/L (97-110); CREATININE 2.48 mg/dl (0.44-1.00); GLUCOSE 70 mg/dl (70-220); LIPASE 89 U/L (23-300); POTASSIUM 3.4 mmol/L (3.5-5.1); SODIUM 140 mmol/L (135-144); TOTAL PROTEIN 4.7 g/dl (6.1-8.1)
[2018-01-29] MEDS: HYDROmorphONE 1 MG/ML SYG IV (12:27)
[2018-01-29] MEDS: LORAZEPAM 2 MG INJ IV (12:27)
[2018-01-29] MEDS ORDERED: ACETAMINOPHEN 325 MG TAB PO (14:00)
[2018-01-29] MEDS ORDERED: ONDANSETRON 4 MG INJ IV (14:00)
[2018-01-29] MEDS ORDERED: ONDANSETRON 4 MG TAB PO (15:30)
[2018-01-29] MEDS ORDERED: METOCLOPRAMIDE 10 MG TAB PO (15:30)
[2018-01-29] MEDS: PANTOPRAZOLE 40 MG INJ IV (17:48)
[2018-01-29] MEDS: FUROSEMIDE 20 MG TAB PO (17:49)
[2018-01-29] MEDS: SEVELAMER CARBONATE 0.8 GM PKT PO (18:00)
[2018-01-29] MEDS: morphine 2 MG INJ IV (19:41)
[2018-01-29] MEDS: LACTOBACILLUS RHAMNOSUS CAP PO (20:48)
[2018-01-29] MEDS: MYCOPHENOLATE 250 MG CAP PO (21:00)
[2018-01-29] MEDS: FAMOTIDINE 20 MG TAB PO (21:00)
[2018-01-29] MEDS: HYDROXYCHLOROQUINE 200 MG TAB PO (21:00)
[2018-01-29 21:40] LABS: ADD UMIC YES; UR ASCORBIC ACID NEGATIVE (NEGATIVE); UR BILIRUBIN (Dip) 1+ mg/dL (NEGATIVE); UR BLOOD (Dip) 3+ mg/dL (NEGATIVE); UR CLARITY CLOUDY (CLEAR); UR COLOR AMBER (YELLOW); UR GLUCOSE (Dip) NEGATIVE (NEGATIVE); UR GRANULAR CAST FEW /HPF (NONE SEEN); UR HYALINE CAST FEW /HPF (NONE SEEN); UR KETONES (Dip) NEGATIVE (NEGATIVE); UR LEUKOCYTE ESTERASE (Dip) TRACE Leu/ul (NEGATIVE); UR MUCUS FEW /HPF (NONE SEEN); UR NITRITE (Dip) NEGATIVE (NEGATIVE); UR RBC 72 /HPF (0-5); UR SQUAMOUS EPITHELIAL CELL FEW /HPF (FEW); UR TOTAL PROTEIN (Dip) 3+ mg/dl (NEGATIVE); UR UROBILINOGEN (Dip) NEGATIVE (NEGATIVE); UR WBC 10 /HPF (0-5)
[2018-01-29] MEDS: HYDROCORTISONE 2.5% 20 GM CR TOP (22:20)
[2018-01-30] MEDS: morphine 2 MG INJ IV ×3 (02:15→12:21)
[2018-01-30] MEDS: ONDANSETRON 4 MG INJ IV ×4 (02:15→20:06)
[2018-01-30] MEDS: FUROSEMIDE 20 MG TAB PO ×2 (06:00→18:00)
[2018-01-30] MEDS: PANTOPRAZOLE 40 MG INJ IV ×2 (06:02→18:00)
[2018-01-30 07:14] LABS: ADD MAN DIFF? NO
[2018-01-30 07:23] LABS: WHITE BLOOD COUNT 7.9 10^3/ul (4.8-10.8)
[2018-01-30 07:23] LABS: ABNORMAL IP MESSAGE 1; BASOPHILS % 0.3 % (0.0-2.0); EOSINOPHILS % 0.5 % (0.0-7.0); HEMATOCRIT 26.7 % (37.0-47.0); HEMOGLOBIN 8.4 g/dl (12.0-16.0); LYMPHOCYTES # 2.2 10^3/ul (0.8-2.9); LYMPHOCYTES % 28.5 % (15.0-51.0); MEAN CORPUSCULAR HEMOGLOBIN 30.9 pg (29.0-33.0); MEAN CORPUSCULAR HGB CONC 31.5 g/dl (32.0-37.0); MEAN CORPUSCULAR VOLUME 98.2 fl (82.0-101.0); MEAN PLATELET VOLUME 12.6 fl (7.4-10.4); MONOCYTE # 0.5 10^3/ul (0.3-0.9); MONOCYTES % 5.9 % (0.0-11.0); NEUTROPHIL # 5.1 10^3/ul (1.6-7.5); NEUTROPHILS % 64.7 % (39.0-77.0); PLATELET COUNT 67 10^3/UL (140-415); RED BLOOD COUNT 2.72 10^6/ul (4.20-5.40); RED CELL DISTRIBUTION WIDTH 15.7 % (11.5-14.5)
[2018-01-30 07:27] LABS: POSITIVE DIFF @See below
[2018-01-30] MEDS: SEVELAMER CARBONATE 0.8 GM PKT PO ×3 (07:35→17:35)
[2018-01-30 07:55] LABS: ANION GAP 11 (8-16); BLOOD UREA NITROGEN 12 mg/dl (7-20); CALCIUM 7.3 mg/dl (8.4-10.2); CARBON DIOXIDE 28 mmol/L (21-31); CHLORIDE 105 mmol/L (97-110); CREATININE 2.82 mg/dl (0.44-1.00); POTASSIUM 3.3 mmol/L (3.5-5.1); SODIUM 141 mmol/L (135-144)
[2018-01-30 07:57] LABS: GLUCOSE 49 mg/dl (70-220)
[2018-01-30] MEDS: DEXTROSE 50% 50 ML SYRINGE IV (08:58)
[2018-01-30] MEDS: FAMOTIDINE 20 MG TAB PO (09:00)
[2018-01-30] MEDS: HYDROXYCHLOROQUINE 200 MG TAB PO ×2 (09:00→22:04)
[2018-01-30] MEDS: CHOLECALCIFEROL 400 UNITS TAB PO (09:00)
[2018-01-30] MEDS: predniSONE 20 MG TAB PO (09:00)
[2018-01-30] MEDS: MYCOPHENOLATE 250 MG CAP PO ×2 (09:00→22:03)
[2018-01-30] MEDS: HYDROCORTISONE 2.5% 20 GM CR TOP ×2 (09:00→22:04)
[2018-01-30] MEDS: LACTOBACILLUS RHAMNOSUS CAP PO ×2 (09:00→22:03)
[2018-01-30] MEDS: POTASSIUM CHLORIDE 100 ML IVPB ×2 (16:06→23:55)
[2018-01-30] MEDS: HYDROmorphONE 0.5 MG/0.5 ML SYG IV (18:57)
[2018-01-30 21:00] LABS: HEPATITIS B SURFACE ANTIBODY NEGATIVE (NEGATIVE)
[2018-01-30 21:48] LABS: HEPATITIS B SURFACE ANTIGEN NEGATIVE (NEGATIVE)
[2018-01-30] MEDS: HEPARIN 1000 UNITS/ML 10 ML INJ CATHETER (22:45)
[2018-01-31] MEDS: HYDROmorphONE 0.5 MG/0.5 ML SYG IV ×7 (00:38→21:04)
[2018-01-31] MEDS: METOCLOPRAMIDE 10 MG INJ IV ×3 (03:43→15:46)
[2018-01-31] MEDS: ONDANSETRON 4 MG INJ IV ×3 (04:03→21:04)
[2018-01-31] MEDS: PANTOPRAZOLE 40 MG INJ IV ×3 (04:04→21:07)
[2018-01-31] MEDS: FUROSEMIDE 20 MG TAB PO ×3 (05:14→21:07)
[2018-01-31 07:26] LABS: ADD MAN DIFF? NO
[2018-01-31 07:29] LABS: ABNORMAL IP MESSAGE 1; BASOPHILS % 0.2 % (0.0-2.0); EOSINOPHILS % 0.6 % (0.0-7.0); HEMATOCRIT 26.8 % (37.0-47.0); HEMOGLOBIN 8.4 g/dl (12.0-16.0); LYMPHOCYTES % 33.1 % (15.0-51.0); MEAN CORPUSCULAR HGB CONC 31.3 g/dl (32.0-37.0); MEAN CORPUSCULAR VOLUME 98.9 fl (82.0-101.0); MEAN PLATELET VOLUME 13.2 fl (7.4-10.4); MONOCYTE # 0.4 10^3/ul (0.3-0.9); NEUTROPHIL # 3.6 10^3/ul (1.6-7.5); NEUTROPHILS % 58.8 % (39.0-77.0); RED BLOOD COUNT 2.71 10^6/ul (4.20-5.40); RED CELL DISTRIBUTION WIDTH 15.7 % (11.5-14.5)
[2018-01-31 07:29] LABS: WHITE BLOOD COUNT 6.2 10^3/ul (4.8-10.8)
[2018-01-31 07:36] LABS: POSITIVE DIFF @See below
[2018-01-31 07:37] LABS: ANION GAP 6 (8-16); BLOOD UREA NITROGEN 6 mg/dl (7-20); CALCIUM 7.1 mg/dl (8.4-10.2); CARBON DIOXIDE 32 mmol/L (21-31); CHLORIDE 104 mmol/L (97-110); CREATININE 1.76 mg/dl (0.44-1.00); GLUCOSE 67 mg/dl (70-220); PLATELET COUNT 86 10^3/UL (140-415); POTASSIUM 3.9 mmol/L (3.5-5.1); SODIUM 138 mmol/L (135-144)
[2018-01-31] MEDS: HYDROXYCHLOROQUINE 200 MG TAB PO ×2 (08:51→21:06)
[2018-01-31] MEDS: predniSONE 20 MG TAB PO (08:51)
[2018-01-31] MEDS: CHOLECALCIFEROL 400 UNITS TAB PO (08:51)
[2018-01-31] MEDS: SEVELAMER CARBONATE 0.8 GM PKT PO ×3 (08:51→17:35)
[2018-01-31] MEDS: FAMOTIDINE 20 MG TAB PO (08:51)
[2018-01-31] MEDS: LACTOBACILLUS RHAMNOSUS CAP PO ×2 (08:51→21:05)
[2018-01-31] MEDS: MYCOPHENOLATE 250 MG CAP PO ×2 (08:52→21:00)
[2018-01-31] MEDS: HYDROCORTISONE 2.5% 20 GM CR TOP ×2 (09:00→21:06)
[2018-02-01] MEDS: HYDROmorphONE 0.5 MG/0.5 ML SYG IV ×6 (01:55→21:31)
[2018-02-01] MEDS: METOCLOPRAMIDE 10 MG INJ IV ×4 (01:55→21:10)
[2018-02-01] MEDS: FUROSEMIDE 20 MG TAB PO ×2 (05:33→18:26)
[2018-02-01] MEDS: PANTOPRAZOLE 40 MG INJ IV ×2 (05:33→18:26)
[2018-02-01] MEDS: ONDANSETRON 4 MG INJ IV ×2 (05:36→12:16)
[2018-02-01 06:18] LABS: ADD MAN DIFF? NO
[2018-02-01 06:26] LABS: WHITE BLOOD COUNT 5.3 10^3/ul (4.8-10.8)
[2018-02-01 06:26] LABS: ABNORMAL IP MESSAGE 1; BASOPHILS % 0.2 % (0.0-2.0); EOSINOPHILS # 0.1 10^3/ul (0.0-0.5); EOSINOPHILS % 2.7 % (0.0-7.0); HEMOGLOBIN 7.8 g/dl (12.0-16.0); LYMPHOCYTES # 2.1 10^3/ul (0.8-2.9); LYMPHOCYTES % 40.3 % (15.0-51.0); MEAN CORPUSCULAR HEMOGLOBIN 30.6 pg (29.0-33.0); MEAN CORPUSCULAR HGB CONC 31.2 g/dl (32.0-37.0); MEAN PLATELET VOLUME 12.7 fl (7.4-10.4); MONOCYTE # 0.5 10^3/ul (0.3-0.9); MONOCYTES % 9.5 % (0.0-11.0); NEUTROPHIL # 2.5 10^3/ul (1.6-7.5); NEUTROPHILS % 46.9 % (39.0-77.0); PLATELET COUNT 68 10^3/UL (140-415); RED BLOOD COUNT 2.55 10^6/ul (4.20-5.40); RED CELL DISTRIBUTION WIDTH 15.3 % (11.5-14.5)
[2018-02-01 06:30] LABS: POSITIVE DIFF @See below
[2018-02-01 06:59] LABS: ALANINE AMINOTRANSFERASE 29 IU/L (13-69); ALBUMIN 1.5 g/dl (3.3-4.9); ALBUMIN/GLOBULIN RATIO 0.53; ALKALINE PHOSPHATASE 93 IU/L (42-121); ANION GAP 6 (8-16); ASPARTATE AMINO TRANSFERASE 17 IU/L (15-46); BLOOD UREA NITROGEN 9 mg/dl (7-20); CALCIUM 7.2 mg/dl (8.4-10.2); CARBON DIOXIDE 33 mmol/L (21-31); CHLORIDE 102 mmol/L (97-110); GLUCOSE 69 mg/dl (70-220); POTASSIUM 3.5 mmol/L (3.5-5.1); SODIUM 137 mmol/L (135-144); TOTAL PROTEIN 4.3 g/dl (6.1-8.1)
[2018-02-01 07:02] LABS: ANION GAP 4 (8-16); BLOOD UREA NITROGEN 9 mg/dl (7-20); CALCIUM 7.1 mg/dl (8.4-10.2); CARBON DIOXIDE 33 mmol/L (21-31); CHLORIDE 102 mmol/L (97-110); CREATININE 2.58 mg/dl (0.44-1.00); GLUCOSE 70 mg/dl (70-220); POTASSIUM 3.6 mmol/L (3.5-5.1); SODIUM 135 mmol/L (135-144)
[2018-02-01] MEDS: SEVELAMER CARBONATE 0.8 GM PKT PO ×3 (08:05→18:26)
[2018-02-01] MEDS: FAMOTIDINE 20 MG TAB PO (08:13)
[2018-02-01] MEDS: LACTOBACILLUS RHAMNOSUS CAP PO ×2 (08:13→21:10)
[2018-02-01] MEDS: predniSONE 20 MG TAB PO (08:13)
[2018-02-01] MEDS: MYCOPHENOLATE 250 MG CAP PO ×2 (08:13→21:11)
[2018-02-01] MEDS: CHOLECALCIFEROL 400 UNITS TAB PO (08:13)
[2018-02-01] MEDS: HYDROXYCHLOROQUINE 200 MG TAB PO ×2 (08:13→21:11)
[2018-02-01] MEDS: HYDROCORTISONE 2.5% 20 GM CR TOP ×2 (08:14→21:11)
[2018-02-01 10:47] LABS: IRON 47 ug/dl (35-150)
[2018-02-01 10:56] LABS: % IRON SATURATION 47 % SAT (22-52); TOTAL IRON BINDING CAPACITY 99 ug/dl (241-421)
[2018-02-01] MEDS ORDERED: POLYETHYLENE GLYCOL 17 GM PACKET PO (12:30)
[2018-02-01] MEDS: LORAZEPAM 0.5 MG TAB PO (13:00)
[2018-02-01] MEDS: SOD CHLORIDE 0.9% 250 ML IV ×3 (13:30→15:30)
[2018-02-01] MEDS ORDERED: ALBUMIN HUMAN 25% 100 ML IV (16:00)
[2018-02-01] MEDS: SOD CHLORIDE 0.9% 250 ML IV* ×3 (16:09→18:28)
[2018-02-01] MEDS: HEPARIN 1000 UNITS/ML 10 ML INJ CATHETER (19:01)
[2018-02-01] MEDS: BACLOFEN 10 MG TAB PO (21:31)
[2018-02-02] MEDS: METOCLOPRAMIDE 10 MG INJ IV ×4 (01:27→19:58)
[2018-02-02] MEDS: HYDROmorphONE 0.5 MG/0.5 ML SYG IV ×6 (01:27→18:59)
[2018-02-02] MEDS: PANTOPRAZOLE 40 MG INJ IV ×2 (05:47→18:09)
[2018-02-02] MEDS: FUROSEMIDE 20 MG TAB PO ×2 (05:54→18:10)
[2018-02-02 06:16] LABS: ADD MAN DIFF? NO
[2018-02-02 06:22] LABS: WHITE BLOOD COUNT 5.1 10^3/ul (4.8-10.8)
[2018-02-02 06:22] LABS: ABNORMAL IP MESSAGE 1; BASOPHILS % 0.2 % (0.0-2.0); EOSINOPHILS % 0.2 % (0.0-7.0); HEMATOCRIT 25.3 % (37.0-47.0); HEMOGLOBIN 7.9 g/dl (12.0-16.0); LYMPHOCYTES # 2.2 10^3/ul (0.8-2.9); LYMPHOCYTES % 43.9 % (15.0-51.0); MEAN CORPUSCULAR HEMOGLOBIN 30.5 pg (29.0-33.0); MEAN CORPUSCULAR HGB CONC 31.2 g/dl (32.0-37.0); MEAN CORPUSCULAR VOLUME 97.7 fl (82.0-101.0); MEAN PLATELET VOLUME 12.5 fl (7.4-10.4); MONOCYTE # 0.5 10^3/ul (0.3-0.9); MONOCYTES % 10.5 % (0.0-11.0); NEUTROPHIL # 2.3 10^3/ul (1.6-7.5); NEUTROPHILS % 44.8 % (39.0-77.0); RED BLOOD COUNT 2.59 10^6/ul (4.20-5.40); RED CELL DISTRIBUTION WIDTH 15.1 % (11.5-14.5)
[2018-02-02 06:46] LABS: PLATELET COUNT 60 10^3/UL (140-415); POSITIVE DIFF @See below
[2018-02-02 06:50] LABS: ANION GAP 6 (8-16); BLOOD UREA NITROGEN 4 mg/dl (7-20); CALCIUM 7.4 mg/dl (8.4-10.2); CARBON DIOXIDE 31 mmol/L (21-31); CHLORIDE 102 mmol/L (97-110); CREATININE 1.74 mg/dl (0.44-1.00); GLUCOSE 67 mg/dl (70-220); POTASSIUM 3.4 mmol/L (3.5-5.1); SODIUM 136 mmol/L (135-144)
[2018-02-02] MEDS: SEVELAMER CARBONATE 0.8 GM PKT PO ×3 (07:35→17:35)
[2018-02-02] MEDS: LACTOBACILLUS RHAMNOSUS CAP PO ×2 (09:00→21:27)
[2018-02-02] MEDS: predniSONE 20 MG TAB PO (09:00)
[2018-02-02] MEDS: CHOLECALCIFEROL 400 UNITS TAB PO (09:00)
[2018-02-02] MEDS: HYDROXYCHLOROQUINE 200 MG TAB PO ×2 (09:00→21:27)
[2018-02-02] MEDS: MYCOPHENOLATE 250 MG CAP PO ×2 (09:00→21:00)
[2018-02-02] MEDS: FAMOTIDINE 20 MG TAB PO (09:00)
[2018-02-02] MEDS: HYDROCORTISONE 2.5% 20 GM CR TOP ×2 (09:00→21:28)
[2018-02-02] MEDS: D5-0.2 NACL + KCL 20 MEQ 1,000 ML IV (11:02)
[2018-02-02] MEDS: ONDANSETRON 4 MG INJ IV ×3 (13:04→21:24)
[2018-02-02] MEDS: ACET/BUTAL/CAFF TAB PO (15:22)
[2018-02-03] MEDS: HYDROmorphONE 0.5 MG/0.5 ML SYG IV ×6 (00:54→22:46)
[2018-02-03] MEDS: ONDANSETRON 4 MG INJ IV ×6 (00:54→22:45)
[2018-02-03] MEDS: METOCLOPRAMIDE 10 MG INJ IV ×4 (01:50→21:32)
[2018-02-03] MEDS: D5-0.2 NACL + KCL 20 MEQ 1,000 ML IV ×2 (04:33→17:53)
[2018-02-03] MEDS: PANTOPRAZOLE 40 MG INJ IV ×2 (05:28→17:49)
[2018-02-03 05:30] LABS: ADD MAN DIFF? NO
[2018-02-03] MEDS: FUROSEMIDE 20 MG TAB PO ×2 (05:33→17:50)
[2018-02-03 05:38] LABS: ABNORMAL IP MESSAGE 1; BASOPHILS % 0.1 % (0.0-2.0); EOSINOPHILS # 0.1 10^3/ul (0.0-0.5); HEMOGLOBIN 8.6 g/dl (12.0-16.0); LYMPHOCYTES # 2.8 10^3/ul (0.8-2.9); LYMPHOCYTES % 39.3 % (15.0-51.0); MEAN CORPUSCULAR HEMOGLOBIN 30.6 pg (29.0-33.0); MEAN CORPUSCULAR HGB CONC 31.9 g/dl (32.0-37.0); MEAN CORPUSCULAR VOLUME 96.1 fl (82.0-101.0); MEAN PLATELET VOLUME 11.8 fl (7.4-10.4); MONOCYTE # 0.6 10^3/ul (0.3-0.9); MONOCYTES % 8.6 % (0.0-11.0); NEUTROPHIL # 3.6 10^3/ul (1.6-7.5); NEUTROPHILS % 50.4 % (39.0-77.0); NUCLEATED RED BLOOD CELLS% 0.3 /100WBC (0.0-0.0); PLATELET COUNT 74 10^3/UL (140-415); RED BLOOD COUNT 2.81 10^6/ul (4.20-5.40)
[2018-02-03 05:38] LABS: WHITE BLOOD COUNT 7.1 10^3/ul (4.8-10.8)
[2018-02-03 05:39] LABS: POSITIVE DIFF @See below
[2018-02-03 06:01] LABS: ANION GAP 5 (8-16); BLOOD UREA NITROGEN 7 mg/dl (7-20); CARBON DIOXIDE 32 mmol/L (21-31); CHLORIDE 99 mmol/L (97-110); CREATININE 2.32 mg/dl (0.44-1.00); GLUCOSE 80 mg/dl (70-220); POTASSIUM 3.6 mmol/L (3.5-5.1); SODIUM 132 mmol/L (135-144)
[2018-02-03] MEDS: SEVELAMER CARBONATE 0.8 GM PKT PO ×3 (08:13→17:35)
[2018-02-03] MEDS: HYDROXYCHLOROQUINE 200 MG TAB PO ×2 (09:26→21:34)
[2018-02-03] MEDS: FAMOTIDINE 20 MG TAB PO (09:26)
[2018-02-03] MEDS: CHOLECALCIFEROL 400 UNITS TAB PO (09:27)
[2018-02-03] MEDS: MYCOPHENOLATE 250 MG CAP PO ×2 (09:27→21:00)
[2018-02-03] MEDS: predniSONE 20 MG TAB PO (09:27)
[2018-02-03] MEDS: LACTOBACILLUS RHAMNOSUS CAP PO ×2 (09:28→21:33)
[2018-02-03] MEDS: HYDROCORTISONE 2.5% 20 GM CR TOP ×2 (09:29→21:34)
[2018-02-03] MEDS: METOCLOPRAMIDE 10 MG INJ (15:32)
[2018-02-03] MEDS: ONDANSETRON 4 MG INJ (15:32)
[2018-02-03 15:51] LABS: HEMOGLOBIN A1C 4.6 % (0-5.9)
[2018-02-03] MEDS: HEPARIN 1000 UNITS/ML 10 ML INJ CATHETER (20:55)
[2018-02-04] MEDS: ONDANSETRON 4 MG INJ IV ×6 (01:04→22:09)
[2018-02-04] MEDS: METOCLOPRAMIDE 10 MG INJ IV ×4 (02:03→20:56)
[2018-02-04] MEDS: HYDROmorphONE 0.5 MG/0.5 ML SYG IV ×6 (02:04→21:20)
[2018-02-04] MEDS: PANTOPRAZOLE 40 MG INJ IV ×2 (05:32→18:19)
[2018-02-04] MEDS: FUROSEMIDE 20 MG TAB PO ×2 (05:33→18:19)
[2018-02-04 06:21] LABS: ADD MAN DIFF? NO
[2018-02-04 06:27] LABS: ABNORMAL IP MESSAGE 1; BASOPHILS % 0.2 % (0.0-2.0); EOSINOPHILS % 0.2 % (0.0-7.0); HEMATOCRIT 26.3 % (37.0-47.0); HEMOGLOBIN 8.4 g/dl (12.0-16.0); LYMPHOCYTES # 2.8 10^3/ul (0.8-2.9); LYMPHOCYTES % 44.8 % (15.0-51.0); MEAN CORPUSCULAR HEMOGLOBIN 30.7 pg (29.0-33.0); MEAN CORPUSCULAR HGB CONC 31.9 g/dl (32.0-37.0); MEAN PLATELET VOLUME 12.4 fl (7.4-10.4); MONOCYTE # 0.8 10^3/ul (0.3-0.9); MONOCYTES % 12.1 % (0.0-11.0); NEUTROPHIL # 2.7 10^3/ul (1.6-7.5); NEUTROPHILS % 42.2 % (39.0-77.0); PLATELET COUNT 72 10^3/UL (140-415); RED BLOOD COUNT 2.74 10^6/ul (4.20-5.40)
[2018-02-04 06:27] LABS: WHITE BLOOD COUNT 6.3 10^3/ul (4.8-10.8)
[2018-02-04 06:37] LABS: POSITIVE DIFF @See below
[2018-02-04 06:58] LABS: PHOSPHORUS 1.7 mg/dl (2.5-4.9)
[2018-02-04 06:58] LABS: MAGNESIUM 1.7 mg/dl (1.7-2.5)
[2018-02-04] MEDS: SEVELAMER CARBONATE 0.8 GM PKT PO ×3 (07:35→17:35)
[2018-02-04 07:51] LABS: ALANINE AMINOTRANSFERASE 24 IU/L (13-69); ALBUMIN 1.5 g/dl (3.3-4.9); ALKALINE PHOSPHATASE 85 IU/L (42-121); ANION GAP 6 (8-16); ASPARTATE AMINO TRANSFERASE 25 IU/L (15-46); BLOOD UREA NITROGEN 3 mg/dl (7-20); CARBON DIOXIDE 30 mmol/L (21-31); CHLORIDE 103 mmol/L (97-110); CREATININE 1.39 mg/dl (0.44-1.00); GLUCOSE 78 mg/dl (70-220); POTASSIUM 3.8 mmol/L (3.5-5.1); SODIUM 135 mmol/L (135-144); TOTAL PROTEIN 4.5 g/dl (6.1-8.1)
[2018-02-04] MEDS: HYDROXYCHLOROQUINE 200 MG TAB PO ×2 (09:00→20:56)
[2018-02-04] MEDS: predniSONE 20 MG TAB PO (09:00)
[2018-02-04] MEDS: MYCOPHENOLATE 250 MG CAP PO ×2 (09:00→20:56)
[2018-02-04] MEDS: CHOLECALCIFEROL 400 UNITS TAB PO (09:00)
[2018-02-04] MEDS: FAMOTIDINE 20 MG TAB PO (09:39)
[2018-02-04] MEDS: LACTOBACILLUS RHAMNOSUS CAP PO ×2 (09:42→20:56)
[2018-02-04] MEDS: HYDROCORTISONE 2.5% 20 GM CR TOP ×2 (09:43→20:57)
[2018-02-04] MEDS: D5-0.2 NACL + KCL 20 MEQ 1,000 ML IV ×2 (12:00→21:02)
[2018-02-04] MEDS: LORAZEPAM 0.5 MG TAB PO (16:26)
[2018-02-04] MEDS: HEPARIN 1000 UNITS/ML 10 ML INJ CATHETER (17:57)
[2018-02-05] MEDS: ONDANSETRON 4 MG INJ IV ×6 (01:10→20:51)
[2018-02-05] MEDS: HYDROmorphONE 0.5 MG/0.5 ML SYG IV ×6 (01:29→23:38)
[2018-02-05] MEDS: METOCLOPRAMIDE 10 MG INJ IV ×4 (02:45→19:42)
[2018-02-05] MEDS: ACET/BUTAL/CAFF TAB PO ×2 (03:16→09:44)
[2018-02-05 04:55] LABS: ADD MAN DIFF? NO
[2018-02-05 05:01] LABS: ABNORMAL IP MESSAGE 1; BASOPHILS % 0.2 % (0.0-2.0); EOSINOPHILS % 0.3 % (0.0-7.0); HEMATOCRIT 25.6 % (37.0-47.0); HEMOGLOBIN 8.1 g/dl (12.0-16.0); LYMPHOCYTES # 2.3 10^3/ul (0.8-2.9); LYMPHOCYTES % 34.7 % (15.0-51.0); MEAN CORPUSCULAR HEMOGLOBIN 30.6 pg (29.0-33.0); MEAN CORPUSCULAR HGB CONC 31.6 g/dl (32.0-37.0); MEAN CORPUSCULAR VOLUME 96.6 fl (82.0-101.0); MEAN PLATELET VOLUME 11.7 fl (7.4-10.4); MONOCYTE # 0.6 10^3/ul (0.3-0.9); MONOCYTES % 9.3 % (0.0-11.0); NEUTROPHIL # 3.6 10^3/ul (1.6-7.5); NEUTROPHILS % 55.2 % (39.0-77.0); PLATELET COUNT 68 10^3/UL (140-415); RED BLOOD COUNT 2.65 10^6/ul (4.20-5.40); RED CELL DISTRIBUTION WIDTH 15.3 % (11.5-14.5)
[2018-02-05 05:01] LABS: WHITE BLOOD COUNT 6.5 10^3/ul (4.8-10.8)
[2018-02-05 05:16] LABS: ANION GAP 4 (8-16); CALCIUM 6.8 mg/dl (8.4-10.2); CARBON DIOXIDE 34 mmol/L (21-31); CHLORIDE 100 mmol/L (97-110); CREATININE 1.35 mg/dl (0.44-1.00); GLUCOSE 82 mg/dl (70-220); POTASSIUM 3.6 mmol/L (3.5-5.1); SODIUM 134 mmol/L (135-144)
[2018-02-05 05:17] LABS: PHOSPHORUS 1.5 mg/dl (2.5-4.9)
[2018-02-05 05:17] LABS: MAGNESIUM 1.6 mg/dl (1.7-2.5)
[2018-02-05 05:20] LABS: BLOOD UREA NITROGEN < 2 mg/dl (7-20)
[2018-02-05 05:36] LABS: POSITIVE DIFF @See below
[2018-02-05] MEDS: FUROSEMIDE 20 MG TAB PO ×2 (05:58→17:14)
[2018-02-05] MEDS: PANTOPRAZOLE 40 MG INJ IV ×2 (06:01→17:13)
[2018-02-05] MEDS: SEVELAMER CARBONATE 0.8 GM PKT PO ×3 (07:35→17:35)
[2018-02-05] MEDS: FAMOTIDINE 20 MG TAB PO (07:57)
[2018-02-05] MEDS: predniSONE 20 MG TAB PO (09:00)
[2018-02-05] MEDS: LACTOBACILLUS RHAMNOSUS CAP PO ×2 (09:00→20:52)
[2018-02-05] MEDS: CHOLECALCIFEROL 400 UNITS TAB PO (09:00)
[2018-02-05] MEDS: HYDROXYCHLOROQUINE 200 MG TAB PO ×2 (09:00→20:52)
[2018-02-05] MEDS: MYCOPHENOLATE 250 MG CAP PO ×2 (09:00→20:52)
[2018-02-05] MEDS: HYDROCORTISONE 2.5% 20 GM CR TOP ×2 (09:40→20:53)
[2018-02-05] MEDS: D5-0.2 NACL + KCL 20 MEQ 1,000 ML IV (11:46)
[2018-02-05] MEDS ORDERED: PROCHLORPERAZINE 10 MG INJ IV (13:00)
[2018-02-05] MEDS: MAGNESIUM SULFATE 2 GM/50 ML 50 ML IVPB (13:48)
[2018-02-05] MEDS: ERYTHROMYCIN BASE (EC) 250 MG TAB PO ×2 (13:48→20:53)
[2018-02-05] MEDS: LORAZEPAM 0.5 MG TAB PO (19:48)
[2018-02-06] MEDS: ONDANSETRON 4 MG INJ IV ×6 (00:54→22:25)
[2018-02-06] MEDS: METOCLOPRAMIDE 10 MG INJ IV ×4 (01:55→20:08)
[2018-02-06] MEDS: LORAZEPAM 0.5 MG TAB PO (03:41)
[2018-02-06] MEDS: D5-0.2 NACL + KCL 20 MEQ 1,000 ML IV ×2 (05:14→22:00)
[2018-02-06] MEDS: HYDROmorphONE 0.5 MG/0.5 ML SYG IV ×5 (05:56→20:08)
[2018-02-06] MEDS: PANTOPRAZOLE 40 MG INJ IV ×2 (05:57→17:56)
[2018-02-06] MEDS: FUROSEMIDE 20 MG TAB PO ×2 (05:59→17:56)
[2018-02-06 06:38] LABS: ADD MAN DIFF? NO
[2018-02-06 06:46] LABS: ABNORMAL IP MESSAGE 1; BASOPHILS % 0.1 % (0.0-2.0); HEMATOCRIT 24.4 % (37.0-47.0); HEMOGLOBIN 7.9 g/dl (12.0-16.0); LYMPHOCYTES # 2.4 10^3/ul (0.8-2.9); MEAN CORPUSCULAR HEMOGLOBIN 30.5 pg (29.0-33.0); MEAN CORPUSCULAR HGB CONC 32.4 g/dl (32.0-37.0); MEAN CORPUSCULAR VOLUME 94.2 fl (82.0-101.0); MEAN PLATELET VOLUME 12.2 fl (7.4-10.4); MONOCYTE # 0.8 10^3/ul (0.3-0.9); MONOCYTES % 10.8 % (0.0-11.0); NEUTROPHIL # 3.7 10^3/ul (1.6-7.5); NEUTROPHILS % 53.5 % (39.0-77.0); PLATELET COUNT 61 10^3/UL (140-415); RED BLOOD COUNT 2.59 10^6/ul (4.20-5.40); RED CELL DISTRIBUTION WIDTH 14.7 % (11.5-14.5)
[2018-02-06 07:08] LABS: POSITIVE DIFF @See below
[2018-02-06 07:11] LABS: ALANINE AMINOTRANSFERASE 27 IU/L (13-69); ALBUMIN 1.4 g/dl (3.3-4.9); ALKALINE PHOSPHATASE 83 IU/L (42-121); ANION GAP 5 (8-16); ASPARTATE AMINO TRANSFERASE 20 IU/L (15-46); BLOOD UREA NITROGEN 5 mg/dl (7-20); CALCIUM 6.8 mg/dl (8.4-10.2); CARBON DIOXIDE 29 mmol/L (21-31); CHLORIDE 99 mmol/L (97-110); CREATININE 2.02 mg/dl (0.44-1.00); GLUCOSE 76 mg/dl (70-220); POTASSIUM 3.9 mmol/L (3.5-5.1); SODIUM 129 mmol/L (135-144); TOTAL PROTEIN 4.2 g/dl (6.1-8.1)
[2018-02-06 07:15] LABS: MAGNESIUM 2.4 mg/dl (1.7-2.5)
[2018-02-06 07:15] LABS: PHOSPHORUS 1.5 mg/dl (2.5-4.9)
[2018-02-06] MEDS: MYCOPHENOLATE 250 MG CAP PO ×2 (09:40→21:00)
[2018-02-06] MEDS: LACTOBACILLUS RHAMNOSUS CAP PO ×2 (09:40→20:09)
[2018-02-06] MEDS: predniSONE 20 MG TAB PO (09:40)
[2018-02-06] MEDS: ERYTHROMYCIN BASE (EC) 250 MG TAB PO ×3 (09:40→21:00)
[2018-02-06] MEDS: HYDROXYCHLOROQUINE 200 MG TAB PO ×2 (09:40→20:09)
[2018-02-06] MEDS: CHOLECALCIFEROL 400 UNITS TAB PO (09:40)
[2018-02-06] MEDS: BACLOFEN 10 MG TAB PO (09:40)
[2018-02-06] MEDS: SEVELAMER CARBONATE 0.8 GM PKT PO ×3 (09:41→17:57)
[2018-02-06] MEDS: HYDROCORTISONE 2.5% 20 GM CR TOP ×2 (09:43→20:16)
[2018-02-06] MEDS: POTASSIUM PHOSPHATE 15 MM in SOD CHLORIDE 0.9% 250 ML IVPB (11:36)
[2018-02-06] MEDS: HEPARIN 1000 UNITS/ML 10 ML INJ CATHETER (17:38)
[2018-02-06] MEDS: NEUTRA-PHOS 250 MG PACKET PO (20:10)
[2018-02-07] MEDS: HYDROmorphONE 0.5 MG/0.5 ML SYG IV ×5 (00:20→13:07)
[2018-02-07] MEDS: ONDANSETRON 4 MG INJ IV ×4 (01:05→13:23)
[2018-02-07] MEDS: METOCLOPRAMIDE 10 MG INJ IV ×3 (02:07→13:23)
[2018-02-07] MEDS: PANTOPRAZOLE 40 MG INJ IV (05:47)
[2018-02-07] MEDS: FUROSEMIDE 20 MG TAB PO (05:52)
[2018-02-07] MEDS: LORAZEPAM 0.5 MG TAB PO (05:58)
[2018-02-07] MEDS: D5-0.2 NACL + KCL 20 MEQ 1,000 ML IV (06:02)
[2018-02-07 07:16] LABS: ADD MAN DIFF? NO
[2018-02-07 07:21] LABS: WHITE BLOOD COUNT 4.8 10^3/ul (4.8-10.8)
[2018-02-07 07:21] LABS: ABNORMAL IP MESSAGE 1; HEMATOCRIT 23.9 % (37.0-47.0); HEMOGLOBIN 7.7 g/dl (12.0-16.0); LYMPHOCYTES % 41.5 % (15.0-51.0); MEAN CORPUSCULAR HGB CONC 32.2 g/dl (32.0-37.0); MEAN PLATELET VOLUME 12.1 fl (7.4-10.4); MONOCYTE # 0.7 10^3/ul (0.3-0.9); MONOCYTES % 14.5 % (0.0-11.0); NEUTROPHIL # 2.1 10^3/ul (1.6-7.5); NEUTROPHILS % 43.6 % (39.0-77.0); PLATELET COUNT 78 10^3/UL (140-415); RED BLOOD COUNT 2.57 10^6/ul (4.20-5.40); RED CELL DISTRIBUTION WIDTH 14.8 % (11.5-14.5)
[2018-02-07 07:26] LABS: POSITIVE DIFF @See below
[2018-02-07] MEDS: SEVELAMER CARBONATE 0.8 GM PKT PO ×2 (07:35→11:30)
[2018-02-07 07:50] LABS: PHOSPHORUS 2.5 mg/dl (2.5-4.9)
[2018-02-07 07:50] LABS: ANION GAP 7 (8-16); BLOOD UREA NITROGEN 4 mg/dl (7-20); CARBON DIOXIDE 31 mmol/L (21-31); CHLORIDE 101 mmol/L (97-110); CREATININE 1.51 mg/dl (0.44-1.00); GLUCOSE 100 mg/dl (70-220); POTASSIUM 4.2 mmol/L (3.5-5.1); SODIUM 135 mmol/L (135-144)
[2018-02-07] MEDS: HYDROXYCHLOROQUINE 200 MG TAB PO (08:34)
[2018-02-07] MEDS: MYCOPHENOLATE 250 MG CAP PO (08:34)
[2018-02-07] MEDS: NEUTRA-PHOS 250 MG PACKET PO (08:34)
[2018-02-07] MEDS: predniSONE 20 MG TAB PO (08:34)
[2018-02-07] MEDS: ERYTHROMYCIN BASE (EC) 250 MG TAB PO ×2 (08:34→13:23)
[2018-02-07] MEDS: LACTOBACILLUS RHAMNOSUS CAP PO (08:34)
[2018-02-07] MEDS: CHOLECALCIFEROL 400 UNITS TAB PO (08:35)
[2018-02-07] MEDS: HYDROCORTISONE 2.5% 20 GM CR TOP (09:31)
== END 2018-02-07 14:57 | disposition home or self-care (01) | DRG 391 ==
LOC: E/R 08:41 → PP2 13:38
PROC: 0DB98ZX Excision of Duodenum, Via Natural or Artificial Opening Endoscopic, Diagnostic (ICD-10-PCS; principal; 2018-02-03 15:00)
PROC: 0DB68ZX Excision of Stomach, Via Natural or Artificial Opening Endoscopic, Diagnostic (ICD-10-PCS; 2018-02-03 15:00)
PROC: 0DB48ZX Excision of Esophagogastric Junction, Via Natural or Artificial Opening Endoscopic, Diagnostic (ICD-10-PCS; 2018-02-03 15:00)
PROC: 5A1D70Z Performance of Urinary Filtration, Intermittent, Less than 6 Hours Per Day (ICD-10-PCS; 2018-02-03 15:00)
DX: K29.70 Gastritis, unspecified, without bleeding (principal); N18.6 End stage renal disease; M32.14 Glomerular disease in systemic lupus erythematosus; I12.0 Hypertensive chronic kidney disease with stage 5 chronic kidney disease or end stage renal disease; D69.6 Thrombocytopenia, unspecified; E44.0 Moderate protein-calorie malnutrition; K31.84 Gastroparesis; K25.9 Gastric ulcer, unspecified as acute or chronic, without hemorrhage or perforation; K20.9 Esophagitis, unspecified; E87.6 Hypokalemia; R60.9 Edema, unspecified; K44.9 Diaphragmatic hernia without obstruction or gangrene; D63.1 Anemia in chronic kidney disease; I51.89 Other ill-defined heart diseases; Z68.22 Body mass index [BMI] 22.0-22.9, adult; Z99.2 Dependence on renal dialysis
CPT/HCPCS: 71045; 74176; 76700; 78264; 80048; 80053; 81001; 82962; 83036; 83540; 83690; 83735; 84100; 84703; 85025; 86706; 87340; 88305; 88312; 88313; 90935; 96374; 96375; 99285-25; G0378

== ENCOUNTER 2018-02-10 01:37 | Emergency (ER) | payer OTHER ==
[2018-02-10] MEDS: LORAZEPAM 1 MG TAB PO (07:41)
[2018-02-10 08:24] LABS: ADD MAN DIFF? NO
[2018-02-10 08:39] LABS: WHITE BLOOD COUNT 7.2 10^3/ul (4.8-10.8)
[2018-02-10 08:39] LABS: ABNORMAL IP MESSAGE 1; BASOPHILS % 0.3 % (0.0-2.0); HEMOGLOBIN 8.6 g/dl (12.0-16.0); LYMPHOCYTES # 2.3 10^3/ul (0.8-2.9); LYMPHOCYTES % 31.9 % (15.0-51.0); MEAN CORPUSCULAR HEMOGLOBIN 30.5 pg (29.0-33.0); MEAN CORPUSCULAR HGB CONC 31.9 g/dl (32.0-37.0); MEAN CORPUSCULAR VOLUME 95.7 fl (82.0-101.0); MEAN PLATELET VOLUME 13.2 fl (7.4-10.4); MONOCYTE # 0.5 10^3/ul (0.3-0.9); MONOCYTES % 7.1 % (0.0-11.0); NEUTROPHIL # 4.4 10^3/ul (1.6-7.5); NEUTROPHILS % 60.3 % (39.0-77.0); RED BLOOD COUNT 2.82 10^6/ul (4.20-5.40); RED CELL DISTRIBUTION WIDTH 14.6 % (11.5-14.5)
[2018-02-10 08:48] LABS: POSITIVE DIFF @See below
[2018-02-10 08:49] LABS: PLATELET COUNT 43 10^3/UL (140-415)
[2018-02-10 08:58] LABS: ALANINE AMINOTRANSFERASE 25 IU/L (13-69); ALBUMIN 1.8 g/dl (3.3-4.9); ALBUMIN/GLOBULIN RATIO 0.51; ALKALINE PHOSPHATASE 97 IU/L (42-121); ANION GAP 6 (8-16); ASPARTATE AMINO TRANSFERASE 36 IU/L (15-46); BILIRUBIN,INDIRECT 0.1 mg/dl (0-1.1); BILIRUBIN,TOTAL 0.1 mg/dl (0.2-1.3); BLOOD UREA NITROGEN 4 mg/dl (7-20); CALCIUM 7.3 mg/dl (8.4-10.2); CARBON DIOXIDE 27 mmol/L (21-31); CHLORIDE 103 mmol/L (97-110); CREATININE 1.74 mg/dl (0.44-1.00); GLUCOSE 64 mg/dl (70-220); LIPASE 1630 U/L (23-300); POTASSIUM 3.8 mmol/L (3.5-5.1); SODIUM 132 mmol/L (135-144); TOTAL PROTEIN 5.3 g/dl (6.1-8.1)
[2018-02-10 09:06] LABS: B-TYPE NATRIURETIC PEPTIDE 30000 PG/ML (0-125)
[2018-02-10] MEDS: ONDANSETRON (ODT) 4 MG TAB ODT (09:50)
[2018-02-10] MEDS: morphine 4 MG/ML VIAL IM (09:50)
[2018-02-10 10:51] LABS: ANISOCYTOSIS 1+ (0-0); BAND NEUTROPHILS % (M) 1 % (0-4); GIANT THROMBO% (M) 3 % (0-0); HYPOCHROMASIA 1+ (0-0); LYMPHOCYTES #M 0.4 10^3/ul (0.8-2.9); LYMPHOCYTES % (M) 6 % (15-51); MONOCYTE #M 0.1 10^3/ul (0.3-0.9); MONOCYTES % (M) 2 % (0-11); PLATELET ESTIMATE SIG DECREASED; POIKILOCYTOSIS 2+ (0-0); POLYCHROMASIA 3+ (0-0); SEG NEUT #M 6.6 10^3/ul (1.6-7.5); SEGMENTED NEUTROPHILS (M) % 91 % (39-77); SMUDGE%M 48 % (0-0)
== END 2018-02-10 10:26 | disposition home or self-care (01) ==
LOC: FTE 01:37
DX: F41.9 Anxiety disorder, unspecified (principal); D47.3 Essential (hemorrhagic) thrombocythemia; M32.9 Systemic lupus erythematosus, unspecified; I12.0 Hypertensive chronic kidney disease with stage 5 chronic kidney disease or end stage renal disease; N18.6 End stage renal disease; I50.9 Heart failure, unspecified; Z99.2 Dependence on renal dialysis
CPT/HCPCS: 71045; 80053; 83690; 83880; 85025; 93005; 96372; 99285-25

== ENCOUNTER 2018-06-05 13:50 | Emergency (ER) | payer MEDICARE, OTHER ==
[2018-06-05 15:36] LABS: ADD MAN DIFF? NO
[2018-06-05 15:41] LABS: ABNORMAL IP MESSAGE 1; BASOPHILS % 0.3 % (0.0-2.0); EOSINOPHILS % 0.3 % (0.0-7.0); HEMATOCRIT 26.3 % (37.0-47.0); HEMOGLOBIN 8.1 g/dl (12.0-16.0); LYMPHOCYTES # 1.7 10^3/ul (0.8-2.9); LYMPHOCYTES % 43.1 % (15.0-51.0); MEAN CORPUSCULAR HEMOGLOBIN 30.7 pg (29.0-33.0); MEAN CORPUSCULAR HGB CONC 30.8 g/dl (32.0-37.0); MEAN CORPUSCULAR VOLUME 99.6 fl (82.0-101.0); MEAN PLATELET VOLUME 12.4 fl (7.4-10.4); MONOCYTE # 0.4 10^3/ul (0.3-0.9); MONOCYTES % 10.9 % (0.0-11.0); NEUTROPHIL # 1.8 10^3/ul (1.6-7.5); NEUTROPHILS % 45.4 % (39.0-77.0); PLATELET COUNT 81 10^3/UL (140-415); RED BLOOD COUNT 2.64 10^6/ul (4.20-5.40); RED CELL DISTRIBUTION WIDTH 15.6 % (11.5-14.5)
[2018-06-05 15:41] LABS: WHITE BLOOD COUNT 3.9 10^3/ul (4.8-10.8)
[2018-06-05 15:54] LABS: POSITIVE DIFF @See below
[2018-06-05 16:02] LABS: ALANINE AMINOTRANSFERASE 27 IU/L (13-69); ALBUMIN/GLOBULIN RATIO 0.66; ALKALINE PHOSPHATASE 54 IU/L (42-121); ANION GAP 6 (8-16); ASPARTATE AMINO TRANSFERASE 20 IU/L (15-46); BILIRUBIN,INDIRECT 0.3 mg/dl (0-1.1); BILIRUBIN,TOTAL 0.3 mg/dl (0.2-1.3); BLOOD UREA NITROGEN 6 mg/dl (7-20); CALCIUM 7.5 mg/dl (8.4-10.2); CARBON DIOXIDE 29 mmol/L (21-31); CHLORIDE 108 mmol/L (97-110); CREATININE 2.21 mg/dl (0.44-1.00); GLUCOSE 136 mg/dl (70-220); POTASSIUM 3.8 mmol/L (3.5-5.1); SODIUM 139 mmol/L (135-144)
== END 2018-06-05 16:25 | disposition home or self-care (01) ==
LOC: FTE 13:50
DX: H53.8 Other visual disturbances (principal); H52.7 Unspecified disorder of refraction; I50.9 Heart failure, unspecified; I12.0 Hypertensive chronic kidney disease with stage 5 chronic kidney disease or end stage renal disease; N18.6 End stage renal disease; Z99.2 Dependence on renal dialysis
CPT/HCPCS: 36415; 76536; 80053; 85025; 99284-25

== ENCOUNTER 2018-07-11 17:29 | Emergency (ER) | payer MEDICARE, OTHER ==
[2018-07-11 18:57] LABS: ADD MAN DIFF? NO
[2018-07-11 19:01] LABS: WHITE BLOOD COUNT 4.8 10^3/ul (4.8-10.8)
[2018-07-11 19:01] LABS: ABNORMAL IP MESSAGE 1; BASOPHILS % 0.2 % (0.0-2.0); EOSINOPHILS % 0.4 % (0.0-7.0); HEMATOCRIT 26.4 % (37.0-47.0); HEMOGLOBIN 8.1 g/dl (12.0-16.0); IMMATURE GRANS #M 0 10^3/ul; IMMATURE GRANS % (M) 0 %; LYMPHOCYTES # 1.7 10^3/ul (0.8-2.9); LYMPHOCYTES % 35.3 % (15.0-51.0); MEAN CORPUSCULAR HEMOGLOBIN 31.4 pg (29.0-33.0); MEAN CORPUSCULAR HGB CONC 30.7 g/dl (32.0-37.0); MEAN CORPUSCULAR VOLUME 102.3 fl (82.0-101.0); MONOCYTE # 0.3 10^3/ul (0.3-0.9); MONOCYTES % 5.4 % (0.0-11.0); NEUTROPHIL # 2.8 10^3/ul (1.6-7.5); NEUTROPHILS % 58.7 % (39.0-77.0); PLATELET COUNT 73 10^3/UL (140-415); RED BLOOD COUNT 2.58 10^6/ul (4.20-5.40); RED CELL DISTRIBUTION WIDTH 17.2 % (11.5-14.5)
[2018-07-11] MEDS: ONDANSETRON 4 MG INJ IV (19:18)
[2018-07-11 19:21] LABS: INR 0.89; POSITIVE DIFF @See below; PROTIME 12.1 Sec (11.9-14.9); PT RATIO 0.9
[2018-07-11 19:23] LABS: ALANINE AMINOTRANSFERASE 16 IU/L (13-69); ALBUMIN 2.4 g/dl (3.3-4.9); ALBUMIN/GLOBULIN RATIO 0.68; ALKALINE PHOSPHATASE 74 IU/L (42-121); ANION GAP 9 (8-16); ASPARTATE AMINO TRANSFERASE 43 IU/L (15-46); BILIRUBIN,INDIRECT 0.1 mg/dl (0-1.1); BILIRUBIN,TOTAL 0.1 mg/dl (0.2-1.3); BLOOD UREA NITROGEN 9 mg/dl (7-20); CALCIUM 7.7 mg/dl (8.4-10.2); CARBON DIOXIDE 26 mmol/L (21-31); CHLORIDE 107 mmol/L (97-110); CREATININE 4.25 mg/dl (0.44-1.00); GLUCOSE 100 mg/dl (70-220); POTASSIUM 4.5 mmol/L (3.5-5.1); SODIUM 137 mmol/L (135-144); TOTAL PROTEIN 5.9 g/dl (6.1-8.1)
[2018-07-11 19:23] LABS: LIPASE 91 U/L (23-300)
[2018-07-11 19:56] LABS: ANISOCYTOSIS 1+ (0-0); BAND NEUTROPHILS #M 0.1 10^3/ul (0.0-0.6); BAND NEUTROPHILS % (M) 4 % (0-4); EOSINOPHILS % (M) 1 % (0-7); LYMPHOCYTES #M 1.7 10^3/ul (0.8-2.9); LYMPHOCYTES % (M) 36 % (15-51); MONOCYTE #M 0.2 10^3/ul (0.3-0.9); MONOCYTES % (M) 6 % (0-11); PLATELET ESTIMATE DECREASED; POIKILOCYTOSIS 1+ (0-0); REACTIVE LYMPHOCYTES% (M) 1 % (0-0); SEG NEUT #M 2.5 10^3/ul (1.6-7.5); SEGMENTED NEUTROPHILS (M) % 52 % (39-77); SMUDGE%M 25 % (0-0); TEAR DROP CELLS 1+ (0-0)
[2018-07-11] MEDS: HYDROCODONE/APAP (5/325) TAB PO (20:24)
[2018-07-11 21:05] LABS: TROPONIN-I 0.018 ng/ml (0.000-0.120)
== END 2018-07-11 23:29 | disposition home or self-care (01) ==
LOC: E/R 23:29
DX: R20.0 Anesthesia of skin (principal); I12.0 Hypertensive chronic kidney disease with stage 5 chronic kidney disease or end stage renal disease; N18.6 End stage renal disease; R40.2142 Coma scale, eyes open, spontaneous, at arrival to emergency department; R40.2252 Coma scale, best verbal response, oriented, at arrival to emergency department; R40.2362 Coma scale, best motor response, obeys commands, at arrival to emergency department; I50.9 Heart failure, unspecified
CPT/HCPCS: 36415; 70450; 71045; 80053; 83690; 84484; 85025; 85610; 93005; 96374; 99285-25

== ENCOUNTER 2018-07-12 07:30 | Inpatient (IN) | payer MEDICARE, OTHER ==
[2018-07-12] MEDS: NALOXONE 2 MG SYG IV ×2 (07:39→08:35)
[2018-07-12] MEDS ORDERED: ONDANSETRON 4 MG INJ (07:44)
[2018-07-12] MEDS: ONDANSETRON 4 MG INJ IV ×3 (07:47→20:37)
[2018-07-12 07:50] LABS: ABNORMAL IP MESSAGE 1; HEMATOCRIT 26.5 % (37.0-47.0); HEMOGLOBIN 8.1 g/dl (12.0-16.0); IMMATURE GRANS #M 0.01 10^3/ul; IMMATURE GRANS % (M) 0.1 %; MEAN CORPUSCULAR HEMOGLOBIN 31.4 pg (29.0-33.0); MEAN CORPUSCULAR HGB CONC 30.6 g/dl (32.0-37.0); MEAN CORPUSCULAR VOLUME 102.7 fl (82.0-101.0); PLATELET COUNT 56 10^3/UL (140-415); RED BLOOD COUNT 2.58 10^6/ul (4.20-5.40); RED CELL DISTRIBUTION WIDTH 17.2 % (11.5-14.5)
[2018-07-12 07:50] LABS: WHITE BLOOD COUNT 7.4 10^3/ul (4.8-10.8)
[2018-07-12 07:58] LABS: POSITIVE DIFF @See below
[2018-07-12 07:59] LABS: ADD MAN DIFF? YES
[2018-07-12 08:08] LABS: ALANINE AMINOTRANSFERASE 23 IU/L (13-69); ALBUMIN 2.2 g/dl (3.3-4.9); ALBUMIN/GLOBULIN RATIO 0.66; ALKALINE PHOSPHATASE 78 IU/L (42-121); ANION GAP 10 (8-16); ASPARTATE AMINO TRANSFERASE 38 IU/L (15-46); BILIRUBIN,INDIRECT 0.2 mg/dl (0-1.1); BILIRUBIN,TOTAL 0.2 mg/dl (0.2-1.3); BLOOD UREA NITROGEN 11 mg/dl (7-20); CALCIUM 7.8 mg/dl (8.4-10.2); CARBON DIOXIDE 24 mmol/L (21-31); CHLORIDE 109 mmol/L (97-110); CREATININE 4.98 mg/dl (0.44-1.00); GLUCOSE 98 mg/dl (70-220); POTASSIUM 4.6 mmol/L (3.5-5.1); SODIUM 138 mmol/L (135-144); TOTAL PROTEIN 5.5 g/dl (6.1-8.1)
[2018-07-12 08:20] LABS: ANISOCYTOSIS 1+ (0-0); BAND NEUTROPHILS #M 0.2 10^3/ul (0.0-0.6); BAND NEUTROPHILS % (M) 3 % (0-4); LYMPHOCYTES % (M) 14 % (15-51); MONOCYTE #M 0.2 10^3/ul (0.3-0.9); MONOCYTES % (M) 3 % (0-11); PLATELET ESTIMATE DECREASED; SEG NEUT #M 5.9 10^3/ul (1.6-7.5); SEGMENTED NEUTROPHILS (M) % 80 % (39-77); SMUDGE%M 16 % (0-0)
[2018-07-12] MEDS: FLUMAZENIL 0.5 MG INJ IV (08:35)
[2018-07-12 09:02] LABS: AMMONIA < 9 umol/l (9-30)
[2018-07-12] MEDS: hydrALAzine 20 MG INJ IV ×2 (09:40→20:37)
[2018-07-12] MEDS ORDERED: ACETAMINOPHEN 325 MG TAB PO (11:00)
[2018-07-12] MEDS ORDERED: NACL 0.9% 3 ML SYG IV (11:30)
[2018-07-12] MEDS ORDERED: MAGNESIUM HYDROXIDE 30ML CUP PO (11:30)
[2018-07-12] MEDS: LOSARTAN 50 MG TAB PO ×2 (11:30→20:35)
[2018-07-12] MEDS: NIFEdipine (XL) 60 MG TAB PO (11:30)
[2018-07-12] MEDS: SOD CHLORIDE 0.9% 100 ML (11:54)
[2018-07-12] MEDS: IODIXANOL LOCM 100 ML BTL (11:54)
[2018-07-12] MEDS: LABETALOL HCL 20MG INJ IV (12:20)
[2018-07-12] MEDS: METHYLPREDNISOLONE 125 MG INJ IV (12:20)
[2018-07-12] MEDS: SOD CHLORIDE 0.9% 1,000 ML IV (12:21)
[2018-07-12] MEDS: FUROSEMIDE 40 MG INJ IV (15:31)
[2018-07-12 16:13] LABS: ADD UMIC YES; UR ASCORBIC ACID NEGATIVE (NEGATIVE); UR BILIRUBIN (Dip) NEGATIVE (NEGATIVE); UR BLOOD (Dip) 2+ mg/dL (NEGATIVE); UR CLARITY SLIGHTLY CLOUDY (CLEAR); UR COLOR AMBER (YELLOW); UR GLUCOSE (Dip) NEGATIVE (NEGATIVE); UR KETONES (Dip) NEGATIVE (NEGATIVE); UR LEUKOCYTE ESTERASE (Dip) NEGATIVE Leu/ul (NEGATIVE); UR MUCUS FEW /HPF (NONE SEEN); UR NITRITE (Dip) NEGATIVE (NEGATIVE); UR RBC 38 /HPF (0-5); UR SPECIFIC GRAVITY (Dip) 1.048 (1.003-1.030); UR TOTAL PROTEIN (Dip) 3+ mg/dl (NEGATIVE); UR UROBILINOGEN (Dip) NEGATIVE (NEGATIVE); UR WBC 11 /HPF (0-5)
[2018-07-12] MEDS: PIPER-TAZO 2.25 GM (PMX) 50 ML IVPB ×2 (16:28→21:51)
[2018-07-12] MEDS: FAMOTIDINE 20 MG TAB PO (20:36)
[2018-07-13] MEDS: hydrALAzine 20 MG INJ IV ×2 (01:48→20:36)
[2018-07-13] MEDS: ONDANSETRON 4 MG INJ IV ×2 (04:26→17:52)
[2018-07-13] MEDS: ENALAPRILAT 1.25 MG INJ IV (04:54)
[2018-07-13] MEDS: PIPER-TAZO 2.25 GM (PMX) 50 ML IVPB ×3 (06:23→22:03)
[2018-07-13 06:26] LABS: ADD MAN DIFF? NO
[2018-07-13 06:38] LABS: ABNORMAL IP MESSAGE 1; BASOPHILS % 0.1 % (0.0-2.0); HEMATOCRIT 26.6 % (37.0-47.0); HEMOGLOBIN 8.2 g/dl (12.0-16.0); IMMATURE GRANS #M 0.07 10^3/ul; IMMATURE GRANS % (M) 0.5 %; LYMPHOCYTES # 2.5 10^3/ul (0.8-2.9); LYMPHOCYTES % 18.7 % (15.0-51.0); MEAN CORPUSCULAR HEMOGLOBIN 30.6 pg (29.0-33.0); MEAN CORPUSCULAR HGB CONC 30.8 g/dl (32.0-37.0); MEAN CORPUSCULAR VOLUME 99.3 fl (82.0-101.0); MONOCYTE # 1.6 10^3/ul (0.3-0.9); MONOCYTES % 11.7 % (0.0-11.0); NEUTROPHIL # 9.1 10^3/ul (1.6-7.5); NUCLEATED RED BLOOD CELLS% 0.2 /100WBC (0.0-0.0); PLATELET COUNT 84 10^3/UL (140-415); RED BLOOD COUNT 2.68 10^6/ul (4.20-5.40); RED CELL DISTRIBUTION WIDTH 18.1 % (11.5-14.5)
[2018-07-13 06:38] LABS: WHITE BLOOD COUNT 13.2 10^3/ul (4.8-10.8)
[2018-07-13 06:49] LABS: POSITIVE DIFF @See below
[2018-07-13 06:54] LABS: PHOSPHORUS 5.9 mg/dl (2.5-4.9)
[2018-07-13 07:00] LABS: ANION GAP 11 (8-16); BLOOD UREA NITROGEN 17 mg/dl (7-20); CALCIUM 7.8 mg/dl (8.4-10.2); CARBON DIOXIDE 25 mmol/L (21-31); CHLORIDE 107 mmol/L (97-110); CREATININE 6.59 mg/dl (0.44-1.00); GLUCOSE 107 mg/dl (70-220); MAGNESIUM 1.8 mg/dl (1.7-2.5); POTASSIUM 4.3 mmol/L (3.5-5.1); SODIUM 139 mmol/L (135-144)
[2018-07-13] MEDS: NIFEdipine (XL) 60 MG TAB PO (08:11)
[2018-07-13] MEDS: FAMOTIDINE 20 MG TAB PO ×2 (08:11→20:23)
[2018-07-13] MEDS: LOSARTAN 50 MG TAB PO ×2 (08:11→20:23)
[2018-07-13] MEDS: METHYLPREDNISOLONE 125 MG INJ IV (08:35)
[2018-07-13 13:01] LABS: HEPATITIS B SURFACE ANTIGEN NEGATIVE (NEGATIVE)
[2018-07-13] MEDS: HEPARIN 1000 UNITS/ML 10 ML INJ CATHETER (13:03)
[2018-07-13] MEDS: LORAZEPAM 2 MG INJ IV (21:09)
[2018-07-14] MEDS: ONDANSETRON 4 MG INJ IV (00:26)
[2018-07-14] MEDS: hydrALAzine 20 MG INJ IV ×3 (00:26→17:45)
[2018-07-14] MEDS: LORAZEPAM 2 MG INJ IV (01:49)
[2018-07-14] MEDS ORDERED: LABETALOL HCL 20MG INJ IV ×2 (03:00→17:30)
[2018-07-14] MEDS: LABETALOL HCL 20MG INJ IV ×3 (03:38→18:43)
[2018-07-14 05:51] LABS: ADD MAN DIFF? NO
[2018-07-14 06:05] LABS: ABNORMAL IP MESSAGE 1; BASOPHILS % 0.1 % (0.0-2.0); HEMATOCRIT 23.5 % (37.0-47.0); HEMOGLOBIN 7.4 g/dl (12.0-16.0); IMMATURE GRANS #M 0.18 10^3/ul; IMMATURE GRANS % (M) 0.9 %; LYMPHOCYTES % 14.5 % (15.0-51.0); MEAN CORPUSCULAR HEMOGLOBIN 32.2 pg (29.0-33.0); MEAN CORPUSCULAR HGB CONC 31.5 g/dl (32.0-37.0); MEAN CORPUSCULAR VOLUME 102.2 fl (82.0-101.0); MONOCYTE # 1.9 10^3/ul (0.3-0.9); MONOCYTES % 9.3 % (0.0-11.0); NEUTROPHIL # 15.5 10^3/ul (1.6-7.5); NEUTROPHILS % 75.2 % (39.0-77.0); NUCLEATED RED BLOOD CELLS # 0.1 10^3/ul (0.0-0.0); NUCLEATED RED BLOOD CELLS% 0.2 /100WBC (0.0-0.0)
[2018-07-14 06:05] LABS: WHITE BLOOD COUNT 20.7 10^3/ul (4.8-10.8)
[2018-07-14] MEDS: PIPER-TAZO 2.25 GM (PMX) 50 ML IVPB (06:16)
[2018-07-14 06:17] LABS: PLATELET COUNT 81 10^3/UL (140-415); POSITIVE DIFF @See below
[2018-07-14 06:23] LABS: ALBUMIN 2.1 g/dl (3.3-4.9); ANION GAP 7 (8-16); BLOOD UREA NITROGEN 16 mg/dl (7-20); CALCIUM 7.9 mg/dl (8.4-10.2); CARBON DIOXIDE 27 mmol/L (21-31); CHLORIDE 110 mmol/L (97-110); CREATININE 4.83 mg/dl (0.44-1.00); GLUCOSE 81 mg/dl (70-220); PHOSPHORUS 4.6 mg/dl (2.5-4.9); POTASSIUM 4.2 mmol/L (3.5-5.1); SODIUM 140 mmol/L (135-144)
[2018-07-14] MEDS: LOSARTAN 50 MG TAB PO ×2 (08:38→21:00)
[2018-07-14] MEDS: FAMOTIDINE 20 MG TAB PO (08:38)
[2018-07-14] MEDS: NIFEdipine (XL) 60 MG TAB PO (08:38)
[2018-07-14] MEDS: METHYLPREDNISOLONE 125 MG INJ IV (08:47)
[2018-07-14] MEDS ORDERED: SODIUM CHLORIDE 0.9% 1L BAG IV (09:00)
[2018-07-14] MEDS ORDERED: ALBUMIN HUMAN 25% 50 ML IV (09:00)
[2018-07-14] MEDS: CLONIDINE 0.2 MG/24 HR PATCH TRANSDERM (09:46)
[2018-07-14] MEDS: METOCLOPRAMIDE 10 MG INJ IV (09:46)
[2018-07-14] MEDS ORDERED: VANCOMYCIN IV PER PHARMACY XX ×2 (10:30)
[2018-07-14] MEDS ORDERED: hydrALAzine 20 MG INJ IV (11:30)
[2018-07-14] MEDS: SOD CHLORIDE 0.9% 500 ML IV (11:43)
[2018-07-14] MEDS: EPOETIN 4000 UNITS/1 ML INJ (ESRD) SC (11:44)
[2018-07-14 11:51] LABS: PARTIAL THROMBOPLASTIN TIME 28.7 Sec (25.0-35.0)
[2018-07-14 12:30] LABS: FREE T4 (FREE THYROXINE) 1.05 ng/dl (0.79-2.35)
[2018-07-14] MEDS: CEFEPIME 1GM/50 ML (PMX) 50 ML IVPB (12:41)
[2018-07-14] MEDS: DEXTROSE 5%-0.45% NACL 1,000 ML IV ×2 (12:45→23:30)
[2018-07-14 12:56] LABS: INR 1.12; PROTIME 14.6 Sec (11.9-14.9); PT RATIO 1.1
[2018-07-14] MEDS: AMPICILLIN 2 GM/NS (PMX) 100 ML IVPB ×2 (13:48→21:52)
[2018-07-14] MEDS: VANCOMYCIN 1 GM 250 ML IVPB (14:50)
[2018-07-14 15:28] LABS: C-REACTIVE PROTEIN 2.4 mg/dl (0.0-0.9)
[2018-07-14 16:48] LABS: ERYTHROCYTE SEDIMENTATION RATE 50 mm/Hr (0-20)
[2018-07-14] MEDS: ACYCLOVIR IVPB (18:30)
[2018-07-14] MEDS: DEXTROSE 5% IVPB (18:30)
[2018-07-14] MEDS: FAMOTIDINE 20 MG INJ IV (21:52)
[2018-07-15] MEDS: ACETAMINOPHEN 1000MG/100ML IV 100 ML IVPB ×2 (01:51→06:50)
[2018-07-15 06:44] LABS: ADD MAN DIFF? NO
[2018-07-15] MEDS: DEXTROSE 5%-0.45% NACL 1,000 ML IV (06:45)
[2018-07-15 06:52] LABS: ABNORMAL IP MESSAGE 1; BASOPHILS % 0.1 % (0.0-2.0); HEMATOCRIT 21.7 % (37.0-47.0); IMMATURE GRANS % (M) 1.4 %; LYMPHOCYTES # 2.5 10^3/ul (0.8-2.9); LYMPHOCYTES % 17.1 % (15.0-51.0); MEAN CORPUSCULAR HGB CONC 30.4 g/dl (32.0-37.0); MEAN CORPUSCULAR VOLUME 105.3 fl (82.0-101.0); MONOCYTE # 1.3 10^3/ul (0.3-0.9); MONOCYTES % 8.5 % (0.0-11.0); NEUTROPHIL # 10.7 10^3/ul (1.6-7.5); NEUTROPHILS % 72.9 % (39.0-77.0); NUCLEATED RED BLOOD CELLS # 0.1 10^3/ul (0.0-0.0); NUCLEATED RED BLOOD CELLS% 0.5 /100WBC (0.0-0.0); PLATELET COUNT 36 10^3/UL (140-415); RED BLOOD COUNT 2.06 10^6/ul (4.20-5.40); RED CELL DISTRIBUTION WIDTH 19.9 % (11.5-14.5)
[2018-07-15 06:52] LABS: WHITE BLOOD COUNT 14.7 10^3/ul (4.8-10.8)
[2018-07-15 06:59] LABS: POSITIVE DIFF @See below
[2018-07-15 07:02] LABS: HEMOGLOBIN 6.6 g/dl (12.0-16.0)
[2018-07-15 07:10] LABS: INR 1.32; PROTIME 16.6 Sec (11.9-14.9); PT RATIO 1.3
[2018-07-15 07:11] LABS: PARTIAL THROMBOPLASTIN TIME 31.5 Sec (25.0-35.0)
[2018-07-15 07:16] LABS: ANION GAP 10 (8-16); BLOOD UREA NITROGEN 24 mg/dl (7-20); CALCIUM 7.5 mg/dl (8.4-10.2); CARBON DIOXIDE 23 mmol/L (21-31); CHLORIDE 113 mmol/L (97-110); CREATININE 6.33 mg/dl (0.44-1.00); GLUCOSE 80 mg/dl (70-220); MAGNESIUM 2.2 mg/dl (1.7-2.5); POTASSIUM 3.6 mmol/L (3.5-5.1); SODIUM 142 mmol/L (135-144)
[2018-07-15 07:48] LABS: HIV 1&2 ANTIBODY NEGATIVE (NEGATIVE)
[2018-07-15 08:18] LABS: ALBUMIN 1.9 g/dl (3.3-4.9); ANION GAP 9 (8-16); BLOOD UREA NITROGEN 24 mg/dl (7-20); CALCIUM 7.6 mg/dl (8.4-10.2); CARBON DIOXIDE 22 mmol/L (21-31); CHLORIDE 115 mmol/L (97-110); CREATININE 6.33 mg/dl (0.44-1.00); GLUCOSE 80 mg/dl (70-220); POTASSIUM 3.5 mmol/L (3.5-5.1); SODIUM 142 mmol/L (135-144)
[2018-07-15] MEDS: NIFEdipine (XL) 60 MG TAB PO ×2 (08:29→11:40)
[2018-07-15] MEDS: LOSARTAN 50 MG TAB PO ×3 (08:29→20:56)
[2018-07-15] MEDS: ONDANSETRON 4 MG INJ IV ×2 (08:32→16:12)
[2018-07-15] MEDS: AMPICILLIN 2 GM/NS (PMX) 100 ML IVPB ×2 (09:00→20:56)
[2018-07-15] MEDS ORDERED: CEFEPIME 1GM/50 ML (PMX) 50 ML IVPB (11:00)
[2018-07-15] MEDS: CEFEPIME 1GM/50 ML (PMX) 50 ML IVPB (11:44)
[2018-07-15 12:00] LABS: IMMEDIATE SPIN CROSSMATCH 1 4
[2018-07-15] MEDS: hydrALAzine 20 MG INJ IV ×2 (12:42→13:57)
[2018-07-15 14:30] LABS: OCCULT BLOOD STOOL NEGATIVE (NEGATIVE)
[2018-07-15 14:31] LABS: ANTI-DNA (DOUBLE STRANDED) <95 U/mL (< 301)
[2018-07-15] MEDS: HEPARIN 1000 UNITS/ML 10 ML INJ CATHETER (15:18)
[2018-07-15] MEDS: traMADol 50 MG TAB PO ×2 (15:58→22:05)
[2018-07-15] MEDS: ACYCLOVIR IVPB (16:00)
[2018-07-15] MEDS: EPOETIN 4000 UNITS/1 ML INJ (ESRD) SC (16:00)
[2018-07-15] MEDS: DEXTROSE 5% IVPB (16:00)
[2018-07-15] MEDS: LABETALOL HCL 20MG INJ IV (16:13)
[2018-07-15] MEDS: FAMOTIDINE 20 MG INJ IV (20:55)
[2018-07-16] MEDS: ONDANSETRON 4 MG INJ IV ×2 (00:09→16:36)
[2018-07-16 06:06] LABS: ABNORMAL IP MESSAGE 1; HEMOGLOBIN 11.2 g/dl (12.0-16.0); IMMATURE GRANS #M 0.06 10^3/ul; IMMATURE GRANS % (M) 0.5 %; MEAN CORPUSCULAR HEMOGLOBIN 28.4 pg (29.0-33.0); MEAN CORPUSCULAR HGB CONC 32.5 g/dl (32.0-37.0); MEAN CORPUSCULAR VOLUME 87.3 fl (82.0-101.0); NUCLEATED RED BLOOD CELLS% 0.3 /100WBC (0.0-0.0); PLATELET COUNT 39 10^3/UL (140-415)
[2018-07-16 06:06] LABS: WHITE BLOOD COUNT 11.8 10^3/ul (4.8-10.8)
[2018-07-16 06:18] LABS: ANION GAP 7 (8-16); BLOOD UREA NITROGEN 12 mg/dl (7-20); CALCIUM 7.3 mg/dl (8.4-10.2); CARBON DIOXIDE 29 mmol/L (21-31); CHLORIDE 101 mmol/L (97-110); CREATININE 3.74 mg/dl (0.44-1.00); GLUCOSE 106 mg/dl (70-220); PHOSPHORUS 3.1 mg/dl (2.5-4.9); POTASSIUM 3.4 mmol/L (3.5-5.1); SODIUM 134 mmol/L (135-144)
[2018-07-16 06:20] LABS: HEMATOCRIT 34.5 % (37.0-47.0); POSITIVE DIFF @See below; RED BLOOD COUNT 3.95 10^6/ul (4.20-5.40)
[2018-07-16 06:21] LABS: ADD MAN DIFF? YES
[2018-07-16 06:44] LABS: VANCOMYCIN,RANDOM 14.8 ug/ml
[2018-07-16 06:50] LABS: TYPE AND SCREEN 1
[2018-07-16 07:06] LABS: ANION GAP 7 (8-16); BLOOD UREA NITROGEN 12 mg/dl (7-20); CALCIUM 7.4 mg/dl (8.4-10.2); CARBON DIOXIDE 29 mmol/L (21-31); CHLORIDE 101 mmol/L (97-110); CREATININE 3.87 mg/dl (0.44-1.00); GLUCOSE 106 mg/dl (70-220); MAGNESIUM 1.9 mg/dl (1.7-2.5); POTASSIUM 3.4 mmol/L (3.5-5.1); SODIUM 134 mmol/L (135-144)
[2018-07-16] MEDS: traMADol 50 MG TAB PO (07:38)
[2018-07-16] MEDS: NIFEdipine (XL) 60 MG TAB PO (09:03)
[2018-07-16] MEDS: LOSARTAN 50 MG TAB PO ×2 (09:03→20:49)
[2018-07-16] MEDS: ACETAMINOPHEN 325 MG TAB PO ×2 (09:19→23:09)
[2018-07-16] MEDS: AMPICILLIN 2 GM/NS (PMX) 100 ML IVPB ×2 (09:23→20:48)
[2018-07-16 09:29] LABS: ANISOCYTOSIS 2+ (0-0); BAND NEUTROPHILS #M 1.4 10^3/ul (0.0-0.6); BAND NEUTROPHILS % (M) 12 % (0-4); BURR CELLS 1+ (0-0); GIANT THROMBO% (M) 1 % (0-0); LYMPHOCYTES #M 0.3 10^3/ul (0.8-2.9); LYMPHOCYTES % (M) 3 % (15-51); MICROCYTOSIS 1+ (0-0); MONOCYTE #M 0.4 10^3/ul (0.3-0.9); MONOCYTES % (M) 4 % (0-11); PLATELET ESTIMATE SIG DECREASED; POIKILOCYTOSIS 2+ (0-0); POLYCHROMASIA 1+ (0-0); SEG NEUT #M 9.7 10^3/ul (1.6-7.5); SEGMENTED NEUTROPHILS (M) % 81 % (39-77); SMUDGE%M 32 % (0-0)
[2018-07-16 11:26] LABS: DRVVT CONFIRMATION NEGATIVE (NEGATIVE)
[2018-07-16] MEDS: CEFEPIME 1GM/50 ML (PMX) 50 ML IVPB (12:42)
[2018-07-16] MEDS: VANCOMYCIN 1 GM 250 ML IVPB (13:24)
[2018-07-16 13:46] LABS: ANA SCREEN NEGATIVE (NEGATIVE)
[2018-07-16] MEDS: LIDOCAINE 1% (MPF) 5 ML VIAL (17:00)
[2018-07-16 17:18] LABS: CSF RBC 0 /uL (0-0); CSF WBC 2 /cmm (0-10)
[2018-07-16 17:22] LABS: CSF RBC 0 /uL (0-0); CSF WBC 2 /cmm (0-10)
[2018-07-16 17:33] LABS: CSF CLARITY CLEAR; CSF#TUBE COUNT TUBE#1; CSF#TUBES REC'D 4
[2018-07-16 17:33] LABS: CSF COLOR COLORLESS
[2018-07-16 17:35] LABS: CSF CLARITY CLEAR; CSF COLOR COLORLESS; CSF#TUBE COUNT TUBE#4; CSF#TUBES REC'D 4
[2018-07-16] MEDS: ACYCLOVIR IVPB (17:43)
[2018-07-16] MEDS: DEXTROSE 5% IVPB (17:43)
[2018-07-16 18:47] LABS: GLUCOSE,CSF 52 mg/dl (50-80)
[2018-07-16 18:47] LABS: TOTAL PROTEIN,CSF 60 mg/dl (12-60)
[2018-07-16] MEDS: DOCUSATE SODIUM 100 MG CAP PO (20:48)
[2018-07-16] MEDS: FAMOTIDINE 20 MG INJ IV (20:48)
[2018-07-16 21:18] LABS: CARDIOLIPIN AB - IGA <11 APL; CARDIOLIPIN AB - IGG <14 GPL; CARDIOLIPIN AB - IGM <12 MPL
[2018-07-16] MEDS: LORAZEPAM 1 MG TAB PO (22:47)
[2018-07-17] MEDS: NIFEdipine (XL) 60 MG TAB PO (08:19)
[2018-07-17] MEDS: LOSARTAN 50 MG TAB PO ×2 (08:19→21:53)
[2018-07-17] MEDS: ONDANSETRON 4 MG INJ IV ×2 (08:25→19:42)
[2018-07-17] MEDS: DOCUSATE SODIUM 100 MG CAP PO ×2 (08:25→21:00)
[2018-07-17] MEDS: ACETAMINOPHEN 325 MG TAB PO ×2 (09:02→19:41)
[2018-07-17] MEDS: MULTIVITAMINS THERAPEUTIC TAB PO (09:55)
[2018-07-17] MEDS: HEPARIN 1000 UNITS/ML 10 ML INJ CATHETER (10:51)
[2018-07-17 12:56] LABS: NIL 0.05 IU/mL; QUANTIFERON(R)-TB GOLD NEGATIVE (NEGATIVE); TB-NIL 0.02 IU/mL
[2018-07-17] MEDS: ACETAMINOPHEN 1000MG/100ML IV 100 ML IVPB (14:09)
[2018-07-17 14:27] LABS: ANTI-DNA (DOUBLE STRANDED) <95 U/mL (< 301)
[2018-07-17] MEDS: EPOETIN 4000 UNITS/1 ML INJ (ESRD) SC (17:00)
[2018-07-17] MEDS: CLOTRIMAZOLE 1% 45 GM VAG CR VAG (21:00)
[2018-07-17] MEDS: FAMOTIDINE 20 MG INJ IV (21:53)
[2018-07-17] MEDS ORDERED: MICONAZOLE 100 MG VAG SUPP VAG (23:00)
[2018-07-17] MEDS: MICONAZOLE 100 MG VAG SUPP VAG (23:03)
[2018-07-18] MEDS: ONDANSETRON 4 MG INJ IV (03:46)
[2018-07-18] MEDS: ACETAMINOPHEN 325 MG TAB PO (05:14)
[2018-07-18] MEDS: DOCUSATE SODIUM 100 MG CAP PO ×2 (05:14→08:53)
[2018-07-18 05:52] LABS: ADD MAN DIFF? NO
[2018-07-18 05:55] LABS: WHITE BLOOD COUNT 9.6 10^3/ul (4.8-10.8)
[2018-07-18 05:55] LABS: ABNORMAL IP MESSAGE 1; BASOPHILS % 0.2 % (0.0-2.0); EOSINOPHILS # 0.1 10^3/ul (0.0-0.5); EOSINOPHILS % 0.6 % (0.0-7.0); HEMATOCRIT 34.7 % (37.0-47.0); HEMOGLOBIN 11.1 g/dl (12.0-16.0); LYMPHOCYTES # 1.3 10^3/ul (0.8-2.9); LYMPHOCYTES % 13.6 % (15.0-51.0); MEAN CORPUSCULAR HEMOGLOBIN 28.1 pg (29.0-33.0); MEAN CORPUSCULAR VOLUME 87.8 fl (82.0-101.0); MONOCYTE # 1.1 10^3/ul (0.3-0.9); MONOCYTES % 11.3 % (0.0-11.0); NEUTROPHIL # 7.1 10^3/ul (1.6-7.5); NEUTROPHILS % 73.9 % (39.0-77.0); PLATELET COUNT 116 10^3/UL (140-415); RED BLOOD COUNT 3.95 10^6/ul (4.20-5.40)
[2018-07-18 05:56] LABS: POSITIVE DIFF @See below
[2018-07-18 06:38] LABS: ANION GAP 8 (8-16); BLOOD UREA NITROGEN 14 mg/dl (7-20); CALCIUM 7.6 mg/dl (8.4-10.2); CARBON DIOXIDE 28 mmol/L (21-31); CHLORIDE 99 mmol/L (97-110); CREATININE 4.36 mg/dl (0.44-1.00); GLUCOSE 70 mg/dl (70-220); MAGNESIUM 1.8 mg/dl (1.7-2.5); PHOSPHORUS 3.7 mg/dl (2.5-4.9); POTASSIUM 3.3 mmol/L (3.5-5.1); SODIUM 132 mmol/L (135-144)
[2018-07-18] MEDS: MULTIVITAMINS THERAPEUTIC TAB PO (08:52)
[2018-07-18] MEDS: LOSARTAN 50 MG TAB PO (08:53)
[2018-07-18] MEDS: NIFEdipine (XL) 60 MG TAB PO (08:53)
[2018-07-18] MEDS ORDERED: CLOTRIMAZOLE 1% 45 GM VAG CR VAG (21:00)
[2018-07-19 15:51] LABS: WEST NILE VIRUS ANTIBODY (IGG) <1.30 index; WEST NILE VIRUS ANTIBODY (IGM) <0.90 index
[2018-07-19 23:22] LABS: VDRL, CSF NON-REACTIVE
[2018-07-22 06:41] LABS: VITAMIN B1 (THIAMINE) 273 nmol/L (78-185)
[2018-07-23 09:42] LABS: CRYPTOCOCCAL ANTIGEN - SOURCE SERUM
== END 2018-07-18 12:01 | disposition home health service (06) | DRG 871 ==
LOC: 6WM 07-16 11:12 → E/R 07:30 → 6WM 10:47
PROVIDERS: Internal Medicine
PROC: 5A1D70Z Performance of Urinary Filtration, Intermittent, Less than 6 Hours Per Day (ICD-10-PCS; 2018-07-13)
PROC: 30233N1 Transfusion of Nonautologous Red Blood Cells into Peripheral Vein, Percutaneous Approach (ICD-10-PCS; 2018-07-15)
PROC: 5A1D70Z Performance of Urinary Filtration, Intermittent, Less than 6 Hours Per Day (ICD-10-PCS; 2018-07-15)
PROC: 009U3ZX Drainage of Spinal Canal, Percutaneous Approach, Diagnostic (ICD-10-PCS; principal; 2018-07-16)
PROC: B01BZZZ Fluoroscopy of Spinal Cord (ICD-10-PCS; 2018-07-16)
PROC: 6A551Z2 Pheresis of Platelets, Multiple (ICD-10-PCS; 2018-07-16)
PROC: 5A1D70Z Performance of Urinary Filtration, Intermittent, Less than 6 Hours Per Day (ICD-10-PCS; 2018-07-17)
DX: A41.9 Sepsis, unspecified organism (principal); N18.6 End stage renal disease; G93.41 Metabolic encephalopathy; I12.0 Hypertensive chronic kidney disease with stage 5 chronic kidney disease or end stage renal disease; M32.14 Glomerular disease in systemic lupus erythematosus; R65.20 Severe sepsis without septic shock; E11.22 Type 2 diabetes mellitus with diabetic chronic kidney disease; Z99.2 Dependence on renal dialysis; D64.89 Other specified anemias; R21 Rash and other nonspecific skin eruption; Z79.899 Other long term (current) drug therapy; D69.6 Thrombocytopenia, unspecified
CPT/HCPCS: 36415; 36430; 70450; 70551; 71045; 72100; 74018; 74177; 80048; 80053; 80069; 80202; 81001; 82040; 82042; 82140; 82270; 82607; 82784; 82945; 82962; 83615; 83690; 83735; 83873; 83916; 84100; 84157; 84425; 84439; 84443; 84484; 84703; 85025; 85610; 85613; 85651; 85730; 86038; 86140; 86147; 86226; 86235; 86480; 86592; 86635; 86641; 86644; 86694; 86703; 86788; 86789; 86850; 86900; 86901; 86920; 86945; 87040; 87070; 87077; 87102; 87340; 89051; 90935; 92526; 92610; 93005; 93306; 96374; 96375; 96376; 97110; 97116; 97162; 97166; 97530; 97535; 99285-25

== ENCOUNTER 2018-08-01 12:17 | Inpatient (IN) | payer MEDICARE, OTHER ==
[2018-08-01] MEDS: ONDANSETRON 4 MG INJ IV (15:43)
[2018-08-01] MEDS: METHYLPREDNISOLONE 125 MG INJ IV ×2 (15:43→23:38)
[2018-08-01] MEDS: SOD CHLORIDE 0.9% 1,000 ML IV (15:44)
[2018-08-01] MEDS: HYDROmorphONE 1 MG/ML SYG IV ×2 (15:45→20:49)
[2018-08-01 16:12] LABS: ADD MAN DIFF? NO
[2018-08-01 16:14] LABS: ABNORMAL IP MESSAGE 1; BASOPHILS % 0.3 % (0.0-2.0); EOSINOPHILS % 0.3 % (0.0-7.0); HEMATOCRIT 30.8 % (37.0-47.0); HEMOGLOBIN 9.6 g/dl (12.0-16.0); LYMPHOCYTES # 1.1 10^3/ul (0.8-2.9); LYMPHOCYTES % 30.8 % (15.0-51.0); MEAN CORPUSCULAR HGB CONC 31.2 g/dl (32.0-37.0); MEAN CORPUSCULAR VOLUME 93.1 fl (82.0-101.0); MONOCYTE # 0.3 10^3/ul (0.3-0.9); MONOCYTES % 7.8 % (0.0-11.0); NEUTROPHIL # 2.3 10^3/ul (1.6-7.5); NEUTROPHILS % 60.8 % (39.0-77.0); RED BLOOD COUNT 3.31 10^6/ul (4.20-5.40)
[2018-08-01 16:14] LABS: WHITE BLOOD COUNT 3.7 10^3/ul (4.8-10.8)
[2018-08-01 16:23] LABS: PLATELET COUNT 57 10^3/UL (140-415); POSITIVE DIFF @See below
[2018-08-01 16:36] LABS: ALANINE AMINOTRANSFERASE 21 IU/L (13-69); ALBUMIN 2.4 g/dl (3.3-4.9); ALBUMIN/GLOBULIN RATIO 0.64; ALKALINE PHOSPHATASE 106 IU/L (42-121); ANION GAP 12 (8-16); ASPARTATE AMINO TRANSFERASE 29 IU/L (15-46); BLOOD UREA NITROGEN 25 mg/dl (7-20); CALCIUM 7.7 mg/dl (8.4-10.2); CARBON DIOXIDE 29 mmol/L (21-31); CHLORIDE 106 mmol/L (97-110); CREATININE 4.89 mg/dl (0.44-1.00); GLUCOSE 147 mg/dl (70-220); SODIUM 143 mmol/L (135-144); TOTAL PROTEIN 6.1 g/dl (6.1-8.1)
[2018-08-01] MEDS: MUPIROCIN 2% 22 GM OINT TOP (16:55)
[2018-08-01 17:03] LABS: LIPASE 4017 U/L (23-300)
[2018-08-01 17:05] LABS: TROPONIN-I < 0.010 ng/ml (0.000-0.120)
[2018-08-01 17:08] LABS: PATH REVIEW Y
[2018-08-01] MEDS: LACTATED RINGER'S 1,000 ML IV (17:29)
[2018-08-01] MEDS: morphine 4 MG/ML VIAL IV (20:15)
[2018-08-01] MEDS: MYCOPHENOLATE 250 MG CAP PO (21:30)
[2018-08-01] MEDS ORDERED: NACL 0.9% 3 ML SYG IV (21:30)
[2018-08-01] MEDS ORDERED: HYDROXYZINE HCL 25 MG PO (22:00)
[2018-08-01] MEDS: DEXTROSE 5%-0.45% NACL 1,000 ML IV (23:38)
[2018-08-01] MEDS: morphine 2 MG INJ IV (23:43)
[2018-08-02] MEDS: traMADol 50 MG TAB PO ×2 (00:44→07:20)
[2018-08-02] MEDS: morphine 2 MG INJ IV ×4 (04:21→20:47)
[2018-08-02] MEDS: hydrALAzine 20 MG INJ IV (04:54)
[2018-08-02 07:03] LABS: WHITE BLOOD COUNT 1.8 10^3/ul (4.8-10.8)
[2018-08-02 07:03] LABS: ABNORMAL IP MESSAGE 1; HEMATOCRIT 32.1 % (37.0-47.0); MEAN CORPUSCULAR HEMOGLOBIN 28.9 pg (29.0-33.0); MEAN CORPUSCULAR HGB CONC 31.2 g/dl (32.0-37.0); MEAN CORPUSCULAR VOLUME 92.8 fl (82.0-101.0); PLATELET COUNT 66 10^3/UL (140-415); RED BLOOD COUNT 3.46 10^6/ul (4.20-5.40)
[2018-08-02 07:14] LABS: POSITIVE DIFF @See below
[2018-08-02 07:15] LABS: ADD MAN DIFF? YES
[2018-08-02] MEDS: DEXTROSE 5%-0.45% NACL 1,000 ML IV ×2 (07:25→11:37)
[2018-08-02 07:34] LABS: ALANINE AMINOTRANSFERASE 17 IU/L (13-69); ALBUMIN 2.4 g/dl (3.3-4.9); ALBUMIN/GLOBULIN RATIO 0.66; ALKALINE PHOSPHATASE 109 IU/L (42-121); ANION GAP 14 (8-16); ASPARTATE AMINO TRANSFERASE 36 IU/L (15-46); BILIRUBIN,INDIRECT 0.1 mg/dl (0-1.1); BILIRUBIN,TOTAL 0.1 mg/dl (0.2-1.3); BLOOD UREA NITROGEN 29 mg/dl (7-20); CALCIUM 7.8 mg/dl (8.4-10.2); CARBON DIOXIDE 25 mmol/L (21-31); CHLORIDE 108 mmol/L (97-110); CREATININE 5.43 mg/dl (0.44-1.00); GLUCOSE 158 mg/dl (70-220); MAGNESIUM 1.8 mg/dl (1.7-2.5); SODIUM 142 mmol/L (135-144)
[2018-08-02] MEDS: LOSARTAN 50 MG TAB PO ×2 (08:09→23:51)
[2018-08-02] MEDS: MYCOPHENOLATE 250 MG CAP PO ×2 (08:09→20:19)
[2018-08-02] MEDS: ONDANSETRON 4 MG INJ IV ×2 (08:09→15:37)
[2018-08-02] MEDS: NIFEdipine (XL) 60 MG TAB PO (08:10)
[2018-08-02] MEDS: FAMOTIDINE 20 MG TAB PO (08:10)
[2018-08-02] MEDS: HYDROXYCHLOROQUINE 200 MG TAB PO (08:11)
[2018-08-02] MEDS ORDERED: HYDROXYZINE HCL 10 MG PO (09:00)
[2018-08-02 10:40] LABS: ANISOCYTOSIS 2+ (0-0); BAND NEUTROPHILS #M 0.2 10^3/ul (0.0-0.6); BAND NEUTROPHILS % (M) 13 % (0-4); ERYTHROBLAST% (NRBC) (M) 1 % (0-0); GIANT THROMBO% (M) 3 % (0-0); LYMPHOCYTES #M 0.3 10^3/ul (0.8-2.9); LYMPHOCYTES % (M) 17 % (15-51); MONOCYTES % (M) 3 % (0-11); PLATELET ESTIMATE SIG DECREASED; POIKILOCYTOSIS 2+ (0-0); POLYCHROMASIA 3+ (0-0); REACTIVE LYMPHOCYTES% (M) 2 % (0-0); SEG NEUT #M 1.2 10^3/ul (1.6-7.5); SEGMENTED NEUTROPHILS (M) % 67 % (39-77); SMUDGE%M 24 % (0-0)
[2018-08-02] MEDS ORDERED: ALBUMIN HUMAN 25% 100 ML IV (11:00)
[2018-08-02] MEDS ORDERED: SODIUM CHLORIDE 0.9% 1L BAG IV (11:00)
[2018-08-02] MEDS ORDERED: hydrALAzine 20 MG INJ IV (14:00)
[2018-08-02] MEDS: METHYLPREDNISOLONE 40 MG INJ IV ×2 (14:32→23:51)
[2018-08-02] MEDS: hydrOXYzine HCL 25 MG TAB PO (20:19)
[2018-08-02] MEDS: HEPARIN 1000 UNITS/ML 10 ML INJ CATHETER (23:19)
[2018-08-03] MEDS: DIPHENHYDRAMINE 50 MG INJ IV ×2 (00:44→18:28)
[2018-08-03] MEDS: morphine 2 MG INJ IV ×3 (00:44→23:38)
[2018-08-03] MEDS: ONDANSETRON 4 MG INJ IV ×3 (00:44→20:45)
[2018-08-03] MEDS: DEXTROSE 5%-0.45% NACL 1,000 ML IV ×3 (00:44→20:40)
[2018-08-03] MEDS: METHYLPREDNISOLONE 40 MG INJ IV ×3 (05:35→20:38)
[2018-08-03 06:55] LABS: ADD MAN DIFF? NO
[2018-08-03 07:10] LABS: WHITE BLOOD COUNT 2.1 10^3/ul (4.8-10.8)
[2018-08-03 07:10] LABS: ABNORMAL IP MESSAGE 1; HEMATOCRIT 29.5 % (37.0-47.0); HEMOGLOBIN 9.2 g/dl (12.0-16.0); LYMPHOCYTES # 0.9 10^3/ul (0.8-2.9); LYMPHOCYTES % 44.5 % (15.0-51.0); MEAN CORPUSCULAR HEMOGLOBIN 28.9 pg (29.0-33.0); MEAN CORPUSCULAR HGB CONC 31.2 g/dl (32.0-37.0); MEAN CORPUSCULAR VOLUME 92.8 fl (82.0-101.0); MONOCYTE # 0.2 10^3/ul (0.3-0.9); MONOCYTES % 9.6 % (0.0-11.0); NEUTROPHILS % 45.4 % (39.0-77.0); PLATELET COUNT 83 10^3/UL (140-415); RED BLOOD COUNT 3.18 10^6/ul (4.20-5.40)
[2018-08-03 07:17] LABS: POSITIVE DIFF @See below
[2018-08-03 07:44] LABS: ANION GAP 9 (8-16); BLOOD UREA NITROGEN 15 mg/dl (7-20); CALCIUM 7.5 mg/dl (8.4-10.2); CARBON DIOXIDE 32 mmol/L (21-31); CHLORIDE 103 mmol/L (97-110); CREATININE 3.35 mg/dl (0.44-1.00); GLUCOSE 130 mg/dl (70-220); POTASSIUM 4.6 mmol/L (3.5-5.1); SODIUM 139 mmol/L (135-144)
[2018-08-03 07:44] LABS: LIPASE 946 U/L (23-300)
[2018-08-03] MEDS: FAMOTIDINE 20 MG TAB PO (08:10)
[2018-08-03] MEDS: MYCOPHENOLATE 250 MG CAP PO ×2 (08:11→20:38)
[2018-08-03] MEDS: LOSARTAN 50 MG TAB PO ×2 (08:11→20:38)
[2018-08-03] MEDS: NIFEdipine (XL) 60 MG TAB PO (08:13)
[2018-08-03] MEDS: HYDROXYCHLOROQUINE 200 MG TAB PO (08:36)
[2018-08-03 10:02] LABS: ANISOCYTOSIS 2+ (0-0); BAND NEUTROPHILS % (M) 4 % (0-4); ERYTHROBLAST% (NRBC) (M) 1 % (0-0); GIANT THROMBO% (M) 7 % (0-0); LYMPHOCYTES #M 0.6 10^3/ul (0.8-2.9); LYMPHOCYTES % (M) 30 % (15-51); MICROCYTOSIS 1+ (0-0); MONOCYTES % (M) 3 % (0-11); PLATELET ESTIMATE DECREASED; POIKILOCYTOSIS 2+ (0-0); POLYCHROMASIA 3+ (0-0); SEG NEUT #M 1.3 10^3/ul (1.6-7.5); SEGMENTED NEUTROPHILS (M) % 63 % (39-77); SMUDGE%M 35 % (0-0)
[2018-08-03] MEDS: LORAZEPAM 2 MG INJ IV (12:16)
[2018-08-04] MEDS: DEXTROSE 5%-0.45% NACL 1,000 ML IV ×2 (03:52→09:36)
[2018-08-04] MEDS: morphine 2 MG INJ IV ×3 (03:52→19:44)
[2018-08-04] MEDS: DIPHENHYDRAMINE 50 MG INJ IV ×3 (03:54→21:30)
[2018-08-04] MEDS: METHYLPREDNISOLONE 40 MG INJ IV ×3 (05:57→21:30)
[2018-08-04 06:52] LABS: ADD MAN DIFF? NO
[2018-08-04 07:00] LABS: WHITE BLOOD COUNT 2.6 10^3/ul (4.8-10.8)
[2018-08-04 07:00] LABS: ABNORMAL IP MESSAGE 1; HEMATOCRIT 30.8 % (37.0-47.0); HEMOGLOBIN 9.4 g/dl (12.0-16.0); LYMPHOCYTES # 0.9 10^3/ul (0.8-2.9); LYMPHOCYTES % 34.6 % (15.0-51.0); MEAN CORPUSCULAR HEMOGLOBIN 28.1 pg (29.0-33.0); MEAN CORPUSCULAR HGB CONC 30.5 g/dl (32.0-37.0); MEAN CORPUSCULAR VOLUME 91.9 fl (82.0-101.0); MONOCYTE # 0.3 10^3/ul (0.3-0.9); MONOCYTES % 10.8 % (0.0-11.0); NEUTROPHIL # 1.4 10^3/ul (1.6-7.5); NEUTROPHILS % 54.2 % (39.0-77.0); PLATELET COUNT 86 10^3/UL (140-415); RED BLOOD COUNT 3.35 10^6/ul (4.20-5.40)
[2018-08-04 07:07] LABS: POSITIVE DIFF @See below
[2018-08-04 07:16] LABS: LIPASE 1009 U/L (23-300)
[2018-08-04 07:21] LABS: ANION GAP 9 (8-16); BLOOD UREA NITROGEN 25 mg/dl (7-20); CALCIUM 7.1 mg/dl (8.4-10.2); CARBON DIOXIDE 28 mmol/L (21-31); CHLORIDE 99 mmol/L (97-110); GLUCOSE 136 mg/dl (70-220); POTASSIUM 4.8 mmol/L (3.5-5.1); SODIUM 131 mmol/L (135-144)
[2018-08-04] MEDS: HYDROXYCHLOROQUINE 200 MG TAB PO (08:24)
[2018-08-04] MEDS: FAMOTIDINE 20 MG TAB PO (08:24)
[2018-08-04] MEDS: NIFEdipine (XL) 60 MG TAB PO (08:25)
[2018-08-04] MEDS: LOSARTAN 50 MG TAB PO ×2 (08:25→21:29)
[2018-08-04] MEDS: MYCOPHENOLATE 250 MG CAP PO ×2 (08:25→21:30)
[2018-08-04] MEDS: HEPARIN 1000 UNITS/ML 10 ML INJ CATHETER (15:51)
[2018-08-04] MEDS: LORAZEPAM 2 MG INJ IV (18:39)
[2018-08-04] MEDS: hydrOXYzine HCL 25 MG TAB PO (19:44)
[2018-08-05] MEDS: METHYLPREDNISOLONE 40 MG INJ IV (05:23)
[2018-08-05] MEDS: morphine 2 MG INJ IV ×2 (05:32→12:53)
[2018-08-05] MEDS: DIPHENHYDRAMINE 50 MG INJ IV ×2 (05:32→17:45)
[2018-08-05 07:07] LABS: ADD MAN DIFF? NO
[2018-08-05 07:15] LABS: ABNORMAL IP MESSAGE 1; HEMATOCRIT 28.9 % (37.0-47.0); LYMPHOCYTES # 1.2 10^3/ul (0.8-2.9); LYMPHOCYTES % 29.2 % (15.0-51.0); MEAN CORPUSCULAR HEMOGLOBIN 29.1 pg (29.0-33.0); MEAN CORPUSCULAR HGB CONC 31.1 g/dl (32.0-37.0); MEAN CORPUSCULAR VOLUME 93.5 fl (82.0-101.0); MONOCYTE # 0.4 10^3/ul (0.3-0.9); MONOCYTES % 10.8 % (0.0-11.0); NEUTROPHIL # 2.4 10^3/ul (1.6-7.5); NEUTROPHILS % 59.2 % (39.0-77.0); NUCLEATED RED BLOOD CELLS% 0.5 /100WBC (0.0-0.0); PLATELET COUNT 74 10^3/UL (140-415); RED BLOOD COUNT 3.09 10^6/ul (4.20-5.40)
[2018-08-05 07:29] LABS: POSITIVE DIFF @See below
[2018-08-05 07:45] LABS: ANION GAP 9 (8-16); BLOOD UREA NITROGEN 19 mg/dl (7-20); CALCIUM 7.1 mg/dl (8.4-10.2); CARBON DIOXIDE 30 mmol/L (21-31); CHLORIDE 102 mmol/L (97-110); CREATININE 3.42 mg/dl (0.44-1.00); GLUCOSE 132 mg/dl (70-220); POTASSIUM 4.5 mmol/L (3.5-5.1); SODIUM 136 mmol/L (135-144)
[2018-08-05] MEDS: LOSARTAN 50 MG TAB PO ×2 (07:52→20:30)
[2018-08-05] MEDS: FAMOTIDINE 20 MG TAB PO (07:53)
[2018-08-05] MEDS: MYCOPHENOLATE 250 MG CAP PO ×2 (07:53→20:29)
[2018-08-05] MEDS: hydrOXYzine HCL 25 MG TAB PO (08:03)
[2018-08-05] MEDS: HYDROXYCHLOROQUINE 200 MG TAB PO (08:04)
[2018-08-05] MEDS: NIFEdipine (XL) 60 MG TAB PO (08:04)
[2018-08-05] MEDS: ONDANSETRON 4 MG INJ IV ×2 (08:10→14:18)
[2018-08-05 08:38] LABS: ALANINE AMINOTRANSFERASE 18 IU/L (13-69); ALBUMIN 2.2 g/dl (3.3-4.9); ALKALINE PHOSPHATASE 78 IU/L (42-121); AMYLASE 224 U/L (11-123); ASPARTATE AMINO TRANSFERASE 21 IU/L (15-46); LIPASE 954 U/L (23-300); TOTAL PROTEIN 5.2 g/dl (6.1-8.1)
[2018-08-05] MEDS: ONDANSETRON 4 MG TAB PO (09:15)
[2018-08-05] MEDS: METOCLOPRAMIDE 10 MG TAB PO (11:13)
[2018-08-05] MEDS: LORAZEPAM 0.5 MG TAB PO (11:16)
[2018-08-05] MEDS: HEPARIN 1000 UNITS/ML 10 ML INJ CATHETER (16:04)
[2018-08-05] MEDS: LORAZEPAM 2 MG INJ IV (20:30)
[2018-08-06] MEDS: morphine 2 MG INJ IV ×2 (02:00→06:11)
[2018-08-06] MEDS: DIPHENHYDRAMINE 50 MG INJ IV (05:40)
[2018-08-06 06:48] LABS: ADD MAN DIFF? NO
[2018-08-06 07:01] LABS: WHITE BLOOD COUNT 6.8 10^3/ul (4.8-10.8)
[2018-08-06 07:01] LABS: ABNORMAL IP MESSAGE 1; HEMATOCRIT 28.7 % (37.0-47.0); HEMOGLOBIN 8.9 g/dl (12.0-16.0); LYMPHOCYTES # 3.1 10^3/ul (0.8-2.9); LYMPHOCYTES % 45.3 % (15.0-51.0); MEAN CORPUSCULAR HEMOGLOBIN 29.1 pg (29.0-33.0); MEAN CORPUSCULAR VOLUME 93.8 fl (82.0-101.0); MONOCYTE # 0.7 10^3/ul (0.3-0.9); MONOCYTES % 10.7 % (0.0-11.0); NEUTROPHILS % 43.7 % (39.0-77.0); PLATELET COUNT 77 10^3/UL (140-415); RED BLOOD COUNT 3.06 10^6/ul (4.20-5.40)
[2018-08-06 07:04] LABS: POSITIVE DIFF @See below
[2018-08-06 07:42] LABS: ANION GAP 6 (8-16); BLOOD UREA NITROGEN 12 mg/dl (7-20); CALCIUM 7.3 mg/dl (8.4-10.2); CARBON DIOXIDE 31 mmol/L (21-31); CHLORIDE 101 mmol/L (97-110); CREATININE 2.95 mg/dl (0.44-1.00); GLUCOSE 75 mg/dl (70-220); POTASSIUM 3.4 mmol/L (3.5-5.1); SODIUM 135 mmol/L (135-144)
[2018-08-06] MEDS: ONDANSETRON 4 MG INJ IV (08:34)
[2018-08-06] MEDS: NIFEdipine (XL) 60 MG TAB PO (08:37)
[2018-08-06] MEDS: FAMOTIDINE 20 MG TAB PO (08:37)
[2018-08-06] MEDS: MYCOPHENOLATE 250 MG CAP PO (08:38)
[2018-08-06] MEDS: HYDROXYCHLOROQUINE 200 MG TAB PO (08:38)
[2018-08-06] MEDS: LOSARTAN 50 MG TAB PO (08:38)
[2018-08-06] MEDS: traMADol 50 MG TAB PO (08:46)
[2018-08-06] MEDS: hydrOXYzine HCL 25 MG TAB PO (08:52)
== END 2018-08-06 10:35 | disposition home or self-care (01) | DRG 602 ==
LOC: E/R 12:17 → TEL 17:28
DX: L03.211 Cellulitis of face (principal); K85.90 Acute pancreatitis without necrosis or infection, unspecified; N18.6 End stage renal disease; D61.818 Other pancytopenia; I12.0 Hypertensive chronic kidney disease with stage 5 chronic kidney disease or end stage renal disease; Z99.2 Dependence on renal dialysis; M32.14 Glomerular disease in systemic lupus erythematosus
CPT/HCPCS: 36415; 71045; 74181; 76705; 80048; 80053; 80076; 82150; 82787; 83690; 83735; 84484; 85025; 90935; 93005; 96374; 96375; 99285-25

== ENCOUNTER 2018-08-13 20:35 | Emergency (ER) | payer MEDICARE, OTHER ==
[2018-08-13 21:31] LABS: ADD MAN DIFF? NO
[2018-08-13 21:36] LABS: WHITE BLOOD COUNT 6.8 10^3/ul (4.8-10.8)
[2018-08-13 21:36] LABS: ABNORMAL IP MESSAGE 1; BASOPHILS % 0.1 % (0.0-2.0); EOSINOPHILS % 0.1 % (0.0-7.0); HEMATOCRIT 26.8 % (37.0-47.0); HEMOGLOBIN 8.4 g/dl (12.0-16.0); LYMPHOCYTES # 1.7 10^3/ul (0.8-2.9); LYMPHOCYTES % 25.4 % (15.0-51.0); MEAN CORPUSCULAR HEMOGLOBIN 29.5 pg (29.0-33.0); MEAN CORPUSCULAR HGB CONC 31.3 g/dl (32.0-37.0); MONOCYTE # 1.4 10^3/ul (0.3-0.9); MONOCYTES % 20.6 % (0.0-11.0); NEUTROPHIL # 3.6 10^3/ul (1.6-7.5); NEUTROPHILS % 53.5 % (39.0-77.0); PLATELET COUNT 110 10^3/UL (140-415); RED BLOOD COUNT 2.85 10^6/ul (4.20-5.40); RED CELL DISTRIBUTION WIDTH 22.3 % (11.5-14.5)
[2018-08-13] MEDS: ACETAMINOPHEN 500 MG TAB PO (21:37)
[2018-08-13 21:39] LABS: POSITIVE DIFF @See below
[2018-08-13] MEDS: morphine 2 MG INJ IV (21:39)
[2018-08-13 21:52] LABS: ALANINE AMINOTRANSFERASE 16 IU/L (13-69); ALBUMIN 2.6 g/dl (3.3-4.9); ALBUMIN/GLOBULIN RATIO 0.76; ALKALINE PHOSPHATASE 82 IU/L (42-121); ANION GAP 11 (8-16); ASPARTATE AMINO TRANSFERASE 21 IU/L (15-46); BILIRUBIN,INDIRECT 0.3 mg/dl (0-1.1); BILIRUBIN,TOTAL 0.3 mg/dl (0.2-1.3); BLOOD UREA NITROGEN 33 mg/dl (7-20); CALCIUM 7.8 mg/dl (8.4-10.2); CARBON DIOXIDE 24 mmol/L (21-31); CHLORIDE 106 mmol/L (97-110); CREATININE 6.28 mg/dl (0.44-1.00); GLUCOSE 76 mg/dl (70-220); POTASSIUM 4.3 mmol/L (3.5-5.1); SODIUM 137 mmol/L (135-144)
[2018-08-13 22:04] LABS: TROPONIN-I < 0.012 ng/ml (0.000-0.120)
[2018-08-13] MEDS: METOCLOPRAMIDE 10 MG INJ IV (22:15)
== END 2018-08-13 22:29 | disposition home or self-care (01) ==
LOC: FTE 20:35
DX: M32.14 Glomerular disease in systemic lupus erythematosus (principal); I12.9 Hypertensive chronic kidney disease with stage 1 through stage 4 chronic kidney disease, or unspecified chronic kidney disease; N18.9 Chronic kidney disease, unspecified; I50.9 Heart failure, unspecified; Z99.2 Dependence on renal dialysis
CPT/HCPCS: 71045; 80053; 84484; 85025; 93005; 96374; 96375; 99285-25

== ENCOUNTER 2018-08-18 12:34 | Inpatient (IN) | payer MEDICARE, OTHER ==
[2018-08-18] MEDS: ONDANSETRON 4 MG INJ IV (13:21)
[2018-08-18] MEDS: morphine 2 MG INJ IV (13:21)
[2018-08-18 13:22] LABS: ABNORMAL IP MESSAGE 1; HEMATOCRIT 22.5 % (37.0-47.0); MEAN CORPUSCULAR HEMOGLOBIN 29.8 pg (29.0-33.0); MEAN CORPUSCULAR HGB CONC 31.1 g/dl (32.0-37.0); MEAN CORPUSCULAR VOLUME 95.7 fl (82.0-101.0); PLATELET COUNT 70 10^3/UL (140-415); RED BLOOD COUNT 2.35 10^6/ul (4.20-5.40); RED CELL DISTRIBUTION WIDTH 21.1 % (11.5-14.5)
[2018-08-18 13:24] LABS: ADD MAN DIFF? YES; POSITIVE DIFF @See below
[2018-08-18 13:37] LABS: ALANINE AMINOTRANSFERASE 18 IU/L (13-69); ALBUMIN 2.5 g/dl (3.3-4.9); ALBUMIN/GLOBULIN RATIO 0.78; ALKALINE PHOSPHATASE 66 IU/L (42-121); ANION GAP 11 (8-16); ASPARTATE AMINO TRANSFERASE 19 IU/L (15-46); BILIRUBIN,INDIRECT 0.1 mg/dl (0-1.1); BILIRUBIN,TOTAL 0.1 mg/dl (0.2-1.3); BLOOD UREA NITROGEN 43 mg/dl (7-20); CALCIUM 8.1 mg/dl (8.4-10.2); CARBON DIOXIDE 23 mmol/L (21-31); CHLORIDE 107 mmol/L (97-110); CREATININE 7.04 mg/dl (0.44-1.00); ETHANOL < 10.0 mg/dl; GLUCOSE 98 mg/dl (70-220); LIPASE 989 U/L (23-300); POTASSIUM 4.8 mmol/L (3.5-5.1); SODIUM 136 mmol/L (135-144); TOTAL PROTEIN 5.7 g/dl (6.1-8.1)
[2018-08-18 14:00] LABS: ANISOCYTOSIS 2+ (0-0); BAND NEUTROPHILS % (M) 1 % (0-4); GIANT THROMBO% (M) 1 % (0-0); HYPOCHROMASIA 1+ (0-0); LYMPHOCYTES #M 0.8 10^3/ul (0.8-2.9); LYMPHOCYTES % (M) 17 % (15-51); MICROCYTOSIS 1+ (0-0); MONOCYTE #M 0.2 10^3/ul (0.3-0.9); MONOCYTES % (M) 4 % (0-11); OVALOCYTES 1+ (0-0); PLATELET ESTIMATE DECREASED; POIKILOCYTOSIS 2+ (0-0); POLYCHROMASIA 1+ (0-0); SEG NEUT #M 3.9 10^3/ul (1.6-7.5); SEGMENTED NEUTROPHILS (M) % 78 % (39-77); SMUDGE%M 30 % (0-0)
[2018-08-18] MEDS: METOCLOPRAMIDE 10 MG INJ IV (14:22)
[2018-08-18] MEDS: HYDROmorphONE 0.5 MG/0.5 ML SYG IV (15:29)
[2018-08-18] MEDS ORDERED: LORAZEPAM 2 MG INJ IV (16:00)
[2018-08-18] MEDS ORDERED: PROPOFOL 100 ML (16:11)
[2018-08-18] MEDS: PROPOFOL 100 ML IV (16:18)
[2018-08-18 16:33] LABS: TROPONIN-I 0.012 ng/ml (0.000-0.120)
[2018-08-18 16:40] LABS: AADO2 Arterial 575.3 mmHg (7.0-24.0); Allen Test ACCEPTAB; Arterial Base Excess -10.3 mmol/L (-3.0-3); Arterial Blood Gas Oxygen Sat 96.9 mmHG (95.0-98.0); Arterial COHb 0.1 % (0.0-3.0); Arterial Fraction of Oxyhgb 96.6 % (93.0-99.0); Arterial HCO3 15.2 mmol/L (22.0-26.0); Arterial MetHb 0.2 % (0.0-1.5); Arterial Total Hemglobin 10.3 g/dl (12.0-18.0); Arterial pCO2 32.1 mmhg (35-45); Blood Gas High PEEP Setting 0 cmH2O; MODE VENT - AC; Site Right Brachial
[2018-08-18] MEDS ORDERED: SODIUM CHLORIDE 0.9% 1L BAG IV (17:00)
[2018-08-18] MEDS ORDERED: ALBUMIN HUMAN 25% 100 ML IV (17:00)
[2018-08-18] MEDS ORDERED: NACL 0.9% 3 ML SYG IV (17:00)
[2018-08-18] MEDS ORDERED: ONDANSETRON 4 MG INJ IV (17:00)
[2018-08-18] MEDS: VECURONIUM 10 MG VIAL IV (17:30)
[2018-08-18 18:17] LABS: FREE T4 (FREE THYROXINE) 1.03 ng/dl (0.79-2.35)
[2018-08-18 18:18] LABS: LACTIC ACID 1.6 mmol/L (0.5-2.0)
[2018-08-18 18:29] LABS: ALANINE AMINOTRANSFERASE 20 IU/L (13-69); ALBUMIN 2.2 g/dl (3.3-4.9); ALBUMIN/GLOBULIN RATIO 0.78; ALKALINE PHOSPHATASE 66 IU/L (42-121); ANION GAP 13 (8-16); ASPARTATE AMINO TRANSFERASE 26 IU/L (15-46); BILIRUBIN,INDIRECT 0.2 mg/dl (0-1.1); BILIRUBIN,TOTAL 0.2 mg/dl (0.2-1.3); BLOOD UREA NITROGEN 47 mg/dl (7-20); CALCIUM 7.7 mg/dl (8.4-10.2); CARBON DIOXIDE 20 mmol/L (21-31); CHLORIDE 107 mmol/L (97-110); CREATININE 7.45 mg/dl (0.44-1.00); GLUCOSE 115 mg/dl (70-220); POTASSIUM 4.5 mmol/L (3.5-5.1); SODIUM 135 mmol/L (135-144)
[2018-08-18 18:33] LABS: HEMOGLOBIN A1C 4.5 % (0-5.9)
[2018-08-18] MEDS: FUROSEMIDE 40 MG INJ IV (18:33)
[2018-08-18] MEDS: PANTOPRAZOLE 40 MG INJ IV (18:33)
[2018-08-18 18:35] LABS: B-TYPE NATRIURETIC PEPTIDE 155000 PG/ML (0-125)
[2018-08-18] MEDS ORDERED: LABETALOL HCL 20MG INJ (19:02)
[2018-08-18] MEDS: LABETALOL HCL 20MG INJ IV (19:08)
[2018-08-18] MEDS: LEVALBUTEROL (NEB) 0.63 MG/3 ML AMP HHN (19:44)
[2018-08-18] MEDS: LOSARTAN 50 MG TAB PO (20:09)
[2018-08-18] MEDS ORDERED: LOSARTAN 50 MG TAB PO (21:00)
[2018-08-18] MEDS ORDERED: MYCOPHENOLATE 250 MG CAP PO (21:00)
[2018-08-18 21:59] LABS: HEPATITIS B SURFACE ANTIGEN POSITIVE (NEGATIVE)
[2018-08-19] MEDS: FENTAnyl (DRIP) 1000 mcg/100mL 100 ML IV (00:02)
[2018-08-19] MEDS: PROPOFOL 100 ML IV ×4 (00:06→18:16)
[2018-08-19] MEDS: HEPARIN 1000 UNITS/ML 10 ML INJ CATHETER (00:48)
[2018-08-19 01:20] LABS: CREATINE KINASE 52 IU/L (23-200)
[2018-08-19 01:23] LABS: LACTIC ACID 5.4 mmol/L (0.5-2.0)
[2018-08-19 01:29] LABS: CK INDEX 2.8; CK-MB 1.48 ng/ml (0.0-2.4)
[2018-08-19] MEDS ORDERED: VANCOMYCIN IV PER PHARMACY XX (01:30)
[2018-08-19] MEDS: LEVALBUTEROL (NEB) 0.63 MG/3 ML AMP HHN (01:40)
[2018-08-19] MEDS: SOD CHLORIDE 0.9% 500 ML IV ×2 (01:50→18:30)
[2018-08-19] MEDS: PIPER-TAZO 2.25 GM (PMX) 50 ML IVPB ×4 (02:27→21:23)
[2018-08-19 04:39] LABS: ADD MAN DIFF? NO
[2018-08-19 04:42] LABS: WHITE BLOOD COUNT 10.5 10^3/ul (4.8-10.8)
[2018-08-19 04:42] LABS: ABNORMAL IP MESSAGE 1; BASOPHILS % 0.1 % (0.0-2.0); HEMATOCRIT 19.4 % (37.0-47.0); LYMPHOCYTES # 0.9 10^3/ul (0.8-2.9); LYMPHOCYTES % 8.1 % (15.0-51.0); MEAN CORPUSCULAR HEMOGLOBIN 29.6 pg (29.0-33.0); MEAN CORPUSCULAR HGB CONC 30.9 g/dl (32.0-37.0); MEAN CORPUSCULAR VOLUME 95.6 fl (82.0-101.0); MONOCYTE # 0.3 10^3/ul (0.3-0.9); MONOCYTES % 2.4 % (0.0-11.0); NEUTROPHIL # 9.4 10^3/ul (1.6-7.5); NEUTROPHILS % 88.9 % (39.0-77.0); PLATELET COUNT 49 10^3/UL (140-415); RED BLOOD COUNT 2.03 10^6/ul (4.20-5.40); RED CELL DISTRIBUTION WIDTH 21.2 % (11.5-14.5)
[2018-08-19] MEDS: VANCOMYCIN 1 GM in 250 ML IVPB (04:56)
[2018-08-19 05:00] LABS: INR 1.17; PROTIME 15.1 Sec (11.9-14.9); PT RATIO 1.2
[2018-08-19 05:01] LABS: ALANINE AMINOTRANSFERASE 29 IU/L (13-69); ALBUMIN 1.8 g/dl (3.3-4.9); ALBUMIN/GLOBULIN RATIO 0.72; ALKALINE PHOSPHATASE 51 IU/L (42-121); AMYLASE 133 U/L (11-123); ANION GAP 8 (8-16); ASPARTATE AMINO TRANSFERASE 36 IU/L (15-46); BILIRUBIN,INDIRECT 0.1 mg/dl (0-1.1); BILIRUBIN,TOTAL 0.1 mg/dl (0.2-1.3); BLOOD UREA NITROGEN 19 mg/dl (7-20); CALCIUM 7.1 mg/dl (8.4-10.2); CARBON DIOXIDE 29 mmol/L (21-31); CHLORIDE 103 mmol/L (97-110); CREATININE 3.77 mg/dl (0.44-1.00); GLUCOSE 75 mg/dl (70-220); LIPASE 453 U/L (23-300); PARTIAL THROMBOPLASTIN TIME 33.9 Sec (25.0-35.0); POTASSIUM 3.8 mmol/L (3.5-5.1); SODIUM 136 mmol/L (135-144); TOTAL PROTEIN 4.3 g/dl (6.1-8.1)
[2018-08-19 05:02] LABS: LACTIC ACID 1.4 mmol/L (0.5-2.0); PHOSPHORUS 1.7 mg/dl (2.5-4.9)
[2018-08-19 05:02] LABS: MAGNESIUM 1.4 mg/dl (1.7-2.5)
[2018-08-19 05:16] LABS: TROPONIN-I 0.623 ng/ml (0.000-0.120)
[2018-08-19 05:20] LABS: TROPONIN-I 0.617 ng/ml (0.000-0.120)
[2018-08-19 05:25] LABS: POSITIVE DIFF @See below
[2018-08-19 05:50] LABS: ADD MAN DIFF? NO
[2018-08-19 05:55] LABS: WHITE BLOOD COUNT 11.6 10^3/ul (4.8-10.8)
[2018-08-19 05:55] LABS: ABNORMAL IP MESSAGE 1; BASOPHILS % 0.2 % (0.0-2.0); HEMATOCRIT 19.9 % (37.0-47.0); LYMPHOCYTES % 8.6 % (15.0-51.0); MEAN CORPUSCULAR HEMOGLOBIN 30.4 pg (29.0-33.0); MEAN CORPUSCULAR HGB CONC 31.2 g/dl (32.0-37.0); MEAN CORPUSCULAR VOLUME 97.5 fl (82.0-101.0); MONOCYTE # 0.4 10^3/ul (0.3-0.9); NEUTROPHIL # 10.2 10^3/ul (1.6-7.5); NEUTROPHILS % 87.7 % (39.0-77.0); PLATELET COUNT 48 10^3/UL (140-415); RED BLOOD COUNT 2.04 10^6/ul (4.20-5.40); RED CELL DISTRIBUTION WIDTH 21.2 % (11.5-14.5)
[2018-08-19 06:02] LABS: HEMOGLOBIN 6.2 g/dl (12.0-16.0); POSITIVE DIFF @See below
[2018-08-19 06:08] LABS: HEPATITIS B SURFACE ANTIGEN NEGATIVE (NEGATIVE)
[2018-08-19] MEDS: PANTOPRAZOLE 40 MG INJ IV ×2 (06:59→21:21)
[2018-08-19] MEDS ORDERED: ETOMIDATE 20 MG INJ ×2 (07:00→14:15)
[2018-08-19] MEDS ORDERED: VECURONIUM 10 MG VIAL (07:00)
[2018-08-19] MEDS ORDERED: ROCURONIUM 50 MG INJ ×2 (07:00)
[2018-08-19 07:09] LABS: ANISOCYTOSIS 2+ (0-0); BAND NEUTROPHILS #M 2.1 10^3/ul (0.0-0.6); BAND NEUTROPHILS % (M) 20 % (0-4); EOSINOPHILS % (M) 3 % (0-7); HYPOCHROMASIA 1+ (0-0); LYMPHOCYTES #M 0.8 10^3/ul (0.8-2.9); LYMPHOCYTES % (M) 8 % (15-51); MICROCYTOSIS 1+ (0-0); MONOCYTE #M 0.3 10^3/ul (0.3-0.9); MONOCYTES % (M) 3 % (0-11); PLATELET ESTIMATE SIG DECREASED; POIKILOCYTOSIS 1+ (0-0); SEG NEUT #M 7.2 10^3/ul (1.6-7.5); SEGMENTED NEUTROPHILS (M) % 66 % (39-77); SMUDGE%M 9 % (0-0)
[2018-08-19 07:13] LABS: ANISOCYTOSIS 2+ (0-0); BAND NEUTROPHILS % (M) 9 % (0-4); EOSINOPHILS % (M) 4 % (0-7); HYPOCHROMASIA 2+ (0-0); LYMPHOCYTES #M 0.8 10^3/ul (0.8-2.9); LYMPHOCYTES % (M) 7 % (15-51); MICROCYTOSIS 1+ (0-0); MONOCYTE #M 0.1 10^3/ul (0.3-0.9); MONOCYTES % (M) 1 % (0-11); PLATELET ESTIMATE SIG DECREASED; POIKILOCYTOSIS 2+ (0-0); POLYCHROMASIA 1+ (0-0); REACTIVE LYMPHOCYTES #M 0.1 10^3/ul (0.0-0.0); REACTIVE LYMPHOCYTES% (M) 1 % (0-0); SCHISTOCYTES 1+ (0-0); SEG NEUT #M 9.2 10^3/ul (1.6-7.5); SEGMENTED NEUTROPHILS (M) % 78 % (39-77); SMUDGE%M 9 % (0-0)
[2018-08-19 07:57] LABS: AADO2 Arterial 246.5 mmHg (7.0-24.0); Allen Test ACCEPTAB; Arterial Base Excess 1.5 mmol/L (-3.0-3); Arterial Blood Gas Oxygen Sat 95.4 mmHG (95.0-98.0); Arterial COHb 0.8 % (0.0-3.0); Arterial Fraction of Oxyhgb 94.5 % (93.0-99.0); Arterial HCO3 24.4 mmol/L (22.0-26.0); Arterial MetHb 0.1 % (0.0-1.5); Arterial Total Hemglobin 7.6 g/dl (12.0-18.0); Arterial pCO2 30.8 mmhg (35-45); Blood Gas Low PEEP Setting 0 cmH2O; MODE VENT - AC; Site Left Radial
[2018-08-19] MEDS: NIFEdipine (XL) 60 MG TAB PO (09:00)
[2018-08-19] MEDS: MAGNESIUM SULFATE 3 GM in DEXTROSE 5% 100 ML IVPB (10:09)
[2018-08-19] MEDS: MIDAZOLAM (DRIP) 50 mg/50 mL 50 ML IV ×2 (10:23→18:15)
[2018-08-19] MEDS ORDERED: NORepinephrine 8MG/250 ML (PMX 250 ML IV (10:30)
[2018-08-19] MEDS: LEVALBUTEROL (HFA) 15 GM INHALER INH ×3 (11:49→19:39)
[2018-08-19] MEDS: ONDANSETRON 4 MG INJ IV (12:02)
[2018-08-19 12:37] LABS: TROPONIN-I 0.491 ng/ml (0.000-0.120)
[2018-08-19 12:46] LABS: AADO2 Arterial 176.2 mmHg (7.0-24.0); Allen Test ACCEPTAB; Arterial Base Excess 0.3 mmol/L (-3.0-3); Arterial Blood Gas Oxygen Sat 93.4 mmHG (95.0-98.0); Arterial COHb 0.6 % (0.0-3.0); Arterial Fraction of Oxyhgb 92.6 % (93.0-99.0); Arterial HCO3 24.4 mmol/L (22.0-26.0); Arterial MetHb 0.3 % (0.0-1.5); Arterial pCO2 36.7 mmhg (35-45); Blood Gas PS 12; MODE VENT - CPAP; Site Left Radial
[2018-08-19] MEDS ORDERED: ACETAMINOPHEN 650 MG SUPP PR (13:06)
[2018-08-19] MEDS: ACETAMINOPHEN 325 MG TAB PO (13:08)
[2018-08-19] MEDS: LORAZEPAM 2 MG INJ IV (13:53)
[2018-08-19] MEDS: SODIUM CHLORIDE 0.9% 500 ML BAG IV* (14:19)
[2018-08-19] MEDS: DESMOPRESSIN IVPB (14:30)
[2018-08-19] MEDS: ETOMIDATE 20 MG INJ IV (14:30)
[2018-08-19] MEDS: SOD CHLORIDE 0.9% IVPB (14:30)
[2018-08-19] MEDS: ROCURONIUM 50 MG INJ IV (14:30)
[2018-08-19] MEDS: VECURONIUM 10 MG VIAL IV (14:30)
[2018-08-19 16:00] LABS: ADD MAN DIFF? NO
[2018-08-19 16:02] LABS: ABNORMAL IP MESSAGE 1; BASOPHILS % 0.1 % (0.0-2.0); HEMATOCRIT 20.2 % (37.0-47.0); LYMPHOCYTES # 0.7 10^3/ul (0.8-2.9); LYMPHOCYTES % 3.5 % (15.0-51.0); MEAN CORPUSCULAR HEMOGLOBIN 30.6 pg (29.0-33.0); MEAN CORPUSCULAR HGB CONC 31.2 g/dl (32.0-37.0); MEAN CORPUSCULAR VOLUME 98.1 fl (82.0-101.0); MONOCYTE # 0.4 10^3/ul (0.3-0.9); MONOCYTES % 1.9 % (0.0-11.0); NEUTROPHIL # 19.6 10^3/ul (1.6-7.5); NEUTROPHILS % 93.3 % (39.0-77.0); PLATELET COUNT 54 10^3/UL (140-415); RED BLOOD COUNT 2.06 10^6/ul (4.20-5.40); RED CELL DISTRIBUTION WIDTH 21.7 % (11.5-14.5)
[2018-08-19 16:02] LABS: WHITE BLOOD COUNT 21.1 10^3/ul (4.8-10.8)
[2018-08-19 16:06] LABS: POSITIVE DIFF @See below
[2018-08-19 16:08] LABS: HEMOGLOBIN 6.3 g/dl (12.0-16.0)
[2018-08-19 16:22] LABS: PROTIME 17.4 Sec (11.9-14.9); PT RATIO 1.4
[2018-08-19 16:28] LABS: ALANINE AMINOTRANSFERASE 25 IU/L (13-69); ALBUMIN/GLOBULIN RATIO 0.68; ALKALINE PHOSPHATASE 65 IU/L (42-121); ANION GAP 12 (8-16); ASPARTATE AMINO TRANSFERASE 51 IU/L (15-46); BILIRUBIN,INDIRECT 0.3 mg/dl (0-1.1); BILIRUBIN,TOTAL 0.3 mg/dl (0.2-1.3); BLOOD UREA NITROGEN 25 mg/dl (7-20); CALCIUM 8.6 mg/dl (8.4-10.2); CARBON DIOXIDE 29 mmol/L (21-31); CHLORIDE 101 mmol/L (97-110); CREATININE 4.84 mg/dl (0.44-1.00); GLUCOSE 85 mg/dl (70-220); MAGNESIUM 2.7 mg/dl (1.7-2.5); PHOSPHORUS 3.8 mg/dl (2.5-4.9); POTASSIUM 4.6 mmol/L (3.5-5.1); SODIUM 137 mmol/L (135-144); TOTAL PROTEIN 4.9 g/dl (6.1-8.1)
[2018-08-19 16:40] LABS: AADO2 Arterial 513.4 mmHg (7.0-24.0); Allen Test ACCEPTAB; Arterial Base Excess 2.9 mmol/L (-3.0-3); Arterial Blood Gas Oxygen Sat 98.8 mmHG (95.0-98.0); Arterial COHb 0.7 % (0.0-3.0); Arterial HCO3 26.2 mmol/L (22.0-26.0); Arterial MetHb 0.1 % (0.0-1.5); Arterial Total Hemglobin 6.9 g/dl (12.0-18.0); MODE VENT - AC; Site Left Radial
[2018-08-19] MEDS ORDERED: PROPOFOL 100 ML IV (17:00)
[2018-08-19] MEDS ORDERED: MEPERIDINE 25 MG INJ IV ×2 (17:00)
[2018-08-19] MEDS: LOSARTAN 50 MG TAB PO ×2 (17:17→21:00)
[2018-08-19] MEDS: HYDROXYCHLOROQUINE 200 MG TAB PO (17:18)
[2018-08-19] MEDS: VECURONIUM 100 MG in DEXTROSE 5% 100 ML IV ×2 (18:00→18:38)
[2018-08-19] MEDS: SOD CHLORIDE 0.9% 1,000 ML IV ×2 (18:18→19:27)
[2018-08-19] MEDS ORDERED: NORepinephrine 32 MG in DEXTROSE 5% 218 ML IV (22:00)
[2018-08-19 22:14] LABS: IMMEDIATE SPIN CROSSMATCH 1 2
[2018-08-19 22:25] LABS: Arterial Base Excess -0.8 mmol/L (-3.0-3); Arterial Blood Gas Oxygen Sat 99.2 mmHG (95.0-98.0); Arterial COHb 1.4 % (0.0-3.0); Arterial Fraction of Oxyhgb 97.5 % (93.0-99.0); Arterial HCO3 24.7 mmol/L (22.0-26.0); Arterial MetHb 0.3 % (0.0-1.5); Arterial Total Hemglobin 5.9 g/dl (12.0-18.0); MODE VENT - AC; Site LB
[2018-08-20] MEDS: ARTIFICIAL TEARS 15 ML OPH BOTH EYES ×5 (00:16→18:37)
[2018-08-20] MEDS: OCULAR LUBRICANT 3.5 GM OPH OINT BOTH EYES ×5 (00:16→18:37)
[2018-08-20] MEDS: MIDAZOLAM (DRIP) 50 mg/50 mL 50 ML IV ×2 (00:33→13:09)
[2018-08-20 01:10] LABS: LACTIC ACID 1.4 mmol/L (0.5-2.0)
[2018-08-20 01:12] LABS: ALANINE AMINOTRANSFERASE 29 IU/L (13-69); ALBUMIN 1.8 g/dl (3.3-4.9); ALBUMIN/GLOBULIN RATIO 0.69; ALKALINE PHOSPHATASE 58 IU/L (42-121); ANION GAP 13 (8-16); ASPARTATE AMINO TRANSFERASE 49 IU/L (15-46); BILIRUBIN,INDIRECT 0.1 mg/dl (0-1.1); BILIRUBIN,TOTAL 0.1 mg/dl (0.2-1.3); BLOOD UREA NITROGEN 26 mg/dl (7-20); CALCIUM 7.7 mg/dl (8.4-10.2); CARBON DIOXIDE 26 mmol/L (21-31); CHLORIDE 103 mmol/L (97-110); CREATINE KINASE 208 IU/L (23-200); CREATININE 4.99 mg/dl (0.44-1.00); GLUCOSE 101 mg/dl (70-220); LIPASE 254 U/L (23-300); MAGNESIUM 2.4 mg/dl (1.7-2.5); POTASSIUM 4.7 mmol/L (3.5-5.1); SODIUM 137 mmol/L (135-144); TOTAL PROTEIN 4.4 g/dl (6.1-8.1)
[2018-08-20 01:15] LABS: WHITE BLOOD COUNT 15.7 10^3/ul (4.8-10.8)
[2018-08-20 01:15] LABS: ABNORMAL IP MESSAGE 1; HEMATOCRIT 22.1 % (37.0-47.0); MEAN CORPUSCULAR HEMOGLOBIN 29.7 pg (29.0-33.0); MEAN CORPUSCULAR HGB CONC 31.2 g/dl (32.0-37.0); MEAN CORPUSCULAR VOLUME 95.3 fl (82.0-101.0); PARTIAL THROMBOPLASTIN TIME 41.7 Sec (25.0-35.0); PLATELET COUNT 40 10^3/UL (140-415); RED BLOOD COUNT 2.32 10^6/ul (4.20-5.40); RED CELL DISTRIBUTION WIDTH 18.8 % (11.5-14.5)
[2018-08-20 01:16] LABS: ADD MAN DIFF? YES; INR 1.48; POSITIVE DIFF @See below; PROTIME 18.2 Sec (11.9-14.9); PT RATIO 1.4
[2018-08-20 01:17] LABS: HEMOGLOBIN 6.9 g/dl (12.0-16.0)
[2018-08-20 01:23] LABS: CK INDEX 1.1; CK-MB 2.23 ng/ml (0.0-2.4); TROPONIN-I 0.646 ng/ml (0.000-0.120)
[2018-08-20 01:39] LABS: ANISOCYTOSIS 2+ (0-0); BAND NEUTROPHILS #M 2.3 10^3/ul (0.0-0.6); BAND NEUTROPHILS % (M) 15 % (0-4); BURR CELLS 1+ (0-0); GIANT THROMBO% (M) 1 % (0-0); LYMPHOCYTES #M 0.4 10^3/ul (0.8-2.9); LYMPHOCYTES % (M) 3 % (15-51); MICROCYTOSIS 1+ (0-0); MONOCYTE #M 0.3 10^3/ul (0.3-0.9); MONOCYTES % (M) 2 % (0-11); PLATELET ESTIMATE DECREASED; POIKILOCYTOSIS 2+ (0-0); POLYCHROMASIA 3+ (0-0); REACTIVE LYMPHOCYTES #M 0.1 10^3/ul (0.0-0.0); REACTIVE LYMPHOCYTES% (M) 1 % (0-0); SEG NEUT #M 12.8 10^3/ul (1.6-7.5); SEGMENTED NEUTROPHILS (M) % 79 % (39-77); SMUDGE%M 2 % (0-0)
[2018-08-20] MEDS: LEVALBUTEROL (HFA) 15 GM INHALER INH ×4 (03:18→20:20)
[2018-08-20 04:52] LABS: AADO2 Arterial 289.9 mmHg (7.0-24.0); Allen Test ACCEPTAB; Arterial Base Excess -2.9 mmol/L (-3.0-3); Arterial Blood Gas Oxygen Sat 96.4 mmHG (95.0-98.0); Arterial COHb 0.4 % (0.0-3.0); Arterial Fraction of Oxyhgb 95.9 % (93.0-99.0); Arterial HCO3 22.1 mmol/L (22.0-26.0); Arterial MetHb 0.1 % (0.0-1.5); Arterial Total Hemglobin 8.3 g/dl (12.0-18.0); Arterial pCO2 32.3 mmhg (35-45); MODE VENT - AC; Site Right Radial; Temperature 32.9 C
[2018-08-20 05:50] LABS: ABNORMAL IP MESSAGE 1; HEMATOCRIT 22.3 % (37.0-47.0); HEMOGLOBIN 7.1 g/dl (12.0-16.0); MEAN CORPUSCULAR HGB CONC 31.8 g/dl (32.0-37.0); MEAN CORPUSCULAR VOLUME 94.1 fl (82.0-101.0); PLATELET COUNT 39 10^3/UL (140-415); RED BLOOD COUNT 2.37 10^6/ul (4.20-5.40); RED CELL DISTRIBUTION WIDTH 19.7 % (11.5-14.5)
[2018-08-20 05:50] LABS: WHITE BLOOD COUNT 14.7 10^3/ul (4.8-10.8)
[2018-08-20 05:51] LABS: POSITIVE DIFF @See below
[2018-08-20 05:52] LABS: ADD MAN DIFF? YES
[2018-08-20] MEDS: PROPOFOL 100 ML IV ×2 (06:00→18:00)
[2018-08-20 06:02] LABS: INR 1.52; PROTIME 18.6 Sec (11.9-14.9); PT RATIO 1.5
[2018-08-20 06:03] LABS: PARTIAL THROMBOPLASTIN TIME 41.2 Sec (25.0-35.0)
[2018-08-20 06:04] LABS: LACTIC ACID 1.2 mmol/L (0.5-2.0)
[2018-08-20 06:10] LABS: ALANINE AMINOTRANSFERASE 30 IU/L (13-69); ALBUMIN 1.8 g/dl (3.3-4.9); ALBUMIN/GLOBULIN RATIO 0.69; ALKALINE PHOSPHATASE 61 IU/L (42-121); AMYLASE 210 U/L (11-123); ANION GAP 13 (8-16); ASPARTATE AMINO TRANSFERASE 49 IU/L (15-46); BILIRUBIN,INDIRECT 0.1 mg/dl (0-1.1); BILIRUBIN,TOTAL 0.1 mg/dl (0.2-1.3); BLOOD UREA NITROGEN 27 mg/dl (7-20); CALCIUM 7.9 mg/dl (8.4-10.2); CARBON DIOXIDE 26 mmol/L (21-31); CHLORIDE 105 mmol/L (97-110); CREATINE KINASE 178 IU/L (23-200); CREATININE 5.07 mg/dl (0.44-1.00); GLUCOSE 96 mg/dl (70-220); LIPASE 193 U/L (23-300); PHOSPHORUS 4.7 mg/dl (2.5-4.9); POTASSIUM 4.6 mmol/L (3.5-5.1); SODIUM 139 mmol/L (135-144); TOTAL PROTEIN 4.4 g/dl (6.1-8.1)
[2018-08-20 06:11] LABS: MAGNESIUM 2.4 mg/dl (1.7-2.5)
[2018-08-20 06:11] LABS: PHOSPHORUS 4.5 mg/dl (2.5-4.9)
[2018-08-20] MEDS: PIPER-TAZO 2.25 GM (PMX) 50 ML IVPB ×3 (06:11→21:34)
[2018-08-20] MEDS: PANTOPRAZOLE 40 MG INJ IV ×2 (06:11→18:37)
[2018-08-20 06:17] LABS: AADO2 Arterial 514.7 mmHg (7.0-24.0); Arterial pCO2 38.2 mmhg (35-45)
[2018-08-20 06:21] LABS: CK INDEX 1.3; CK-MB 2.24 ng/ml (0.0-2.4); TROPONIN-I 0.467 ng/ml (0.000-0.120)
[2018-08-20 06:22] LABS: TROPONIN-I 0.464 ng/ml (0.000-0.120)
[2018-08-20 06:24] LABS: D-DIMER > 10000.00 ng/ml (<460)
[2018-08-20 07:44] LABS: ANISOCYTOSIS 2+ (0-0); BAND NEUTROPHILS #M 1.7 10^3/ul (0.0-0.6); BAND NEUTROPHILS % (M) 12 % (0-4); BURR CELLS 3+ (0-0); LYMPHOCYTES #M 0.5 10^3/ul (0.8-2.9); LYMPHOCYTES % (M) 4 % (15-51); MONOCYTE #M 0.2 10^3/ul (0.3-0.9); MONOCYTES % (M) 2 % (0-11); OVALOCYTES 1+ (0-0); PLATELET ESTIMATE SIG DECREASED; POIKILOCYTOSIS 3+ (0-0); POLYCHROMASIA 2+ (0-0); SEG NEUT #M 12.3 10^3/ul (1.6-7.5); SEGMENTED NEUTROPHILS (M) % 82 % (39-77); SMUDGE%M 1 % (0-0)
[2018-08-20] MEDS: LOSARTAN 50 MG TAB PO ×2 (09:00→21:00)
[2018-08-20] MEDS: HYDROXYCHLOROQUINE 200 MG TAB PO (09:00)
[2018-08-20] MEDS: NIFEdipine (XL) 60 MG TAB PO (09:00)
[2018-08-20] MEDS: hydrALAzine 20 MG INJ IV (09:39)
[2018-08-20 10:50] LABS: AADO2 Arterial 291.7 mmHg (7.0-24.0); Allen Test ACCEPTAB; Arterial Base Excess -2.4 mmol/L (-3.0-3); Arterial COHb 0.1 % (0.0-3.0); Arterial Fraction of Oxyhgb 97.8 % (93.0-99.0); Arterial HCO3 22.7 mmol/L (22.0-26.0); Arterial MetHb 0.1 % (0.0-1.5); Arterial Total Hemglobin 9.5 g/dl (12.0-18.0); Arterial pCO2 33.9 mmhg (35-45); MODE VENT - AC; Site Right Radial; Temperature 32.9 C
[2018-08-20 12:19] LABS: ADD MAN DIFF? NO
[2018-08-20 12:27] LABS: WHITE BLOOD COUNT 17.2 10^3/ul (4.8-10.8)
[2018-08-20 12:27] LABS: ABNORMAL IP MESSAGE 1; BASOPHILS % 0.2 % (0.0-2.0); HEMOGLOBIN 8.3 g/dl (12.0-16.0); LYMPHOCYTES # 0.8 10^3/ul (0.8-2.9); LYMPHOCYTES % 4.8 % (15.0-51.0); MEAN CORPUSCULAR HEMOGLOBIN 29.9 pg (29.0-33.0); MEAN CORPUSCULAR HGB CONC 31.9 g/dl (32.0-37.0); MEAN CORPUSCULAR VOLUME 93.5 fl (82.0-101.0); MONOCYTE # 0.4 10^3/ul (0.3-0.9); NEUTROPHIL # 15.8 10^3/ul (1.6-7.5); NEUTROPHILS % 92.3 % (39.0-77.0); PLATELET COUNT 44 10^3/UL (140-415); RED BLOOD COUNT 2.78 10^6/ul (4.20-5.40); RED CELL DISTRIBUTION WIDTH 20.7 % (11.5-14.5)
[2018-08-20 12:29] LABS: POSITIVE DIFF @See below
[2018-08-20 12:45] LABS: INR 1.32; PROTIME 16.6 Sec (11.9-14.9); PT RATIO 1.3
[2018-08-20 12:52] LABS: AMYLASE 193 U/L (11-123); ANION GAP 14 (8-16); BLOOD UREA NITROGEN 29 mg/dl (7-20); CALCIUM 8.3 mg/dl (8.4-10.2); CARBON DIOXIDE 24 mmol/L (21-31); CHLORIDE 106 mmol/L (97-110); CREATININE 5.36 mg/dl (0.44-1.00); GLUCOSE 97 mg/dl (70-220); LIPASE 221 U/L (23-300); MAGNESIUM 2.5 mg/dl (1.7-2.5); PHOSPHORUS 5.3 mg/dl (2.5-4.9); POTASSIUM 4.5 mmol/L (3.5-5.1); SODIUM 139 mmol/L (135-144)
[2018-08-20 13:01] LABS: TROPONIN-I 0.257 ng/ml (0.000-0.120)
[2018-08-20] MEDS: SOD CHLORIDE 0.9% 1,000 ML IV ×3 (14:26→20:56)
[2018-08-20] MEDS: VECURONIUM 100 MG in DEXTROSE 5% 100 ML IV (15:49)
[2018-08-20 17:50] LABS: WHITE BLOOD COUNT 15.7 10^3/ul (4.8-10.8)
[2018-08-20 17:50] LABS: ABNORMAL IP MESSAGE 1; HEMATOCRIT 24.5 % (37.0-47.0); HEMOGLOBIN 7.9 g/dl (12.0-16.0); MEAN CORPUSCULAR HGB CONC 32.2 g/dl (32.0-37.0); MEAN CORPUSCULAR VOLUME 93.2 fl (82.0-101.0); PLATELET COUNT 39 10^3/UL (140-415); RED BLOOD COUNT 2.63 10^6/ul (4.20-5.40); RED CELL DISTRIBUTION WIDTH 21.1 % (11.5-14.5)
[2018-08-20 17:53] LABS: AADO2 Arterial 171.8 mmHg (7.0-24.0); Allen Test ACCEPTAB; Arterial Base Excess -3.7 mmol/L (-3.0-3); Arterial COHb 0.5 % (0.0-3.0); Arterial Fraction of Oxyhgb 98.2 % (93.0-99.0); Arterial HCO3 21.3 mmol/L (22.0-26.0); Arterial MetHb 0.3 % (0.0-1.5); Arterial Total Hemglobin 8.8 g/dl (12.0-18.0); Arterial pCO2 31.9 mmhg (35-45); MODE VENT - AC; Site Left Radial
[2018-08-20 17:56] LABS: POSITIVE DIFF @See below
[2018-08-20 17:57] LABS: ADD MAN DIFF? YES
[2018-08-20 18:08] LABS: AMYLASE 162 U/L (11-123); ANION GAP 14 (8-16); BLOOD UREA NITROGEN 31 mg/dl (7-20); CALCIUM 8.2 mg/dl (8.4-10.2); CARBON DIOXIDE 24 mmol/L (21-31); CHLORIDE 106 mmol/L (97-110); CREATININE 5.44 mg/dl (0.44-1.00); GLUCOSE 94 mg/dl (70-220); INR 1.46; LIPASE 187 U/L (23-300); MAGNESIUM 2.5 mg/dl (1.7-2.5); PHOSPHORUS 5.9 mg/dl (2.5-4.9); POTASSIUM 4.6 mmol/L (3.5-5.1); PT RATIO 1.4; SODIUM 139 mmol/L (135-144)
[2018-08-20 18:20] LABS: TROPONIN-I 0.169 ng/ml (0.000-0.120)
[2018-08-20 19:19] LABS: ACANTHOCYTES 1+ (0-0); ANISOCYTOSIS 2+ (0-0); BAND NEUTROPHILS #M 1.4 10^3/ul (0.0-0.6); BAND NEUTROPHILS % (M) 9 % (0-4); BURR CELLS 2+ (0-0); GIANT THROMBO% (M) 1 % (0-0); LYMPHOCYTES #M 0.6 10^3/ul (0.8-2.9); LYMPHOCYTES % (M) 4 % (15-51); MICROCYTOSIS 1+ (0-0); MONOCYTE #M 0.3 10^3/ul (0.3-0.9); MONOCYTES % (M) 2 % (0-11); PLATELET MORPHOLOGY COMMENT @See below; POIKILOCYTOSIS 2+ (0-0); POLYCHROMASIA 1+ (0-0); SEG NEUT #M 13.6 10^3/ul (1.6-7.5); SEGMENTED NEUTROPHILS (M) % 85 % (39-77); SMUDGE%M 1 % (0-0)
[2018-08-20] MEDS ORDERED: SOD CHLORIDE 0.9% 250 ML IV (21:00)
[2018-08-20 22:22] LABS: AADO2 Arterial 164.1 mmHg (7.0-24.0); Allen Test ACCEPTAB; Arterial Base Excess -3.5 mmol/L (-3.0-3); Arterial Blood Gas Oxygen Sat 97.5 mmHG (95.0-98.0); Arterial COHb 0.5 % (0.0-3.0); Arterial Fraction of Oxyhgb 96.6 % (93.0-99.0); Arterial HCO3 21.3 mmol/L (22.0-26.0); Arterial MetHb 0.4 % (0.0-1.5); Arterial Total Hemglobin 7.3 g/dl (12.0-18.0); Arterial pCO2 31.2 mmhg (35-45); MODE VENT - AC; Site Right Radial; Temperature 33.2 C
[2018-08-21] MEDS: OCULAR LUBRICANT 3.5 GM OPH OINT BOTH EYES ×5 (00:32→23:50)
[2018-08-21] MEDS: ARTIFICIAL TEARS 15 ML OPH BOTH EYES ×5 (00:32→23:50)
[2018-08-21 00:59] LABS: ADD MAN DIFF? NO
[2018-08-21 01:02] LABS: WHITE BLOOD COUNT 13.1 10^3/ul (4.8-10.8)
[2018-08-21 01:02] LABS: ABNORMAL IP MESSAGE 1; BASOPHILS % 0.2 % (0.0-2.0); EOSINOPHILS % 0.1 % (0.0-7.0); HEMATOCRIT 21.3 % (37.0-47.0); LYMPHOCYTES # 0.9 10^3/ul (0.8-2.9); LYMPHOCYTES % 6.7 % (15.0-51.0); MEAN CORPUSCULAR HGB CONC 31.9 g/dl (32.0-37.0); MEAN CORPUSCULAR VOLUME 93.8 fl (82.0-101.0); MONOCYTE # 0.2 10^3/ul (0.3-0.9); MONOCYTES % 1.8 % (0.0-11.0); NEUTROPHIL # 11.9 10^3/ul (1.6-7.5); NEUTROPHILS % 90.7 % (39.0-77.0); RED BLOOD COUNT 2.27 10^6/ul (4.20-5.40); RED CELL DISTRIBUTION WIDTH 20.9 % (11.5-14.5)
[2018-08-21] MEDS: LEVALBUTEROL (HFA) 15 GM INHALER INH ×4 (01:13→20:19)
[2018-08-21 01:22] LABS: INR 1.37; PROTIME 17.1 Sec (11.9-14.9); PT RATIO 1.3
[2018-08-21 01:28] LABS: AMYLASE 125 U/L (11-123); ANION GAP 13 (8-16); BLOOD UREA NITROGEN 30 mg/dl (7-20); CALCIUM 7.8 mg/dl (8.4-10.2); CARBON DIOXIDE 22 mmol/L (21-31); CHLORIDE 107 mmol/L (97-110); CREATININE 5.44 mg/dl (0.44-1.00); GLUCOSE 97 mg/dl (70-220); LIPASE 196 U/L (23-300); MAGNESIUM 2.3 mg/dl (1.7-2.5); PHOSPHORUS 5.9 mg/dl (2.5-4.9); POTASSIUM 4.4 mmol/L (3.5-5.1); SODIUM 138 mmol/L (135-144)
[2018-08-21 01:31] LABS: PLATELET COUNT 39 10^3/UL (140-415); POSITIVE DIFF @See below
[2018-08-21 01:32] LABS: HEMOGLOBIN 6.8 g/dl (12.0-16.0)
[2018-08-21 04:07] LABS: AADO2 Arterial 128.8 mmHg (7.0-24.0); Allen Test ACCEPTAB; Arterial Base Excess -3.3 mmol/L (-3.0-3); Arterial Blood Gas Oxygen Sat 98.4 mmHG (95.0-98.0); Arterial COHb 0.2 % (0.0-3.0); Arterial Fraction of Oxyhgb 98.1 % (93.0-99.0); Arterial HCO3 20.9 mmol/L (22.0-26.0); Arterial MetHb 0.1 % (0.0-1.5); Arterial Total Hemglobin 8.4 g/dl (12.0-18.0); Arterial pCO2 30.8 mmhg (35-45); Blood Gas Mean Airway Pressure 15; MODE VENT - AC; Site Right Radial; Temperature 34.7 C
[2018-08-21] MEDS: PANTOPRAZOLE 40 MG INJ IV ×2 (05:29→17:19)
[2018-08-21] MEDS: PIPER-TAZO 2.25 GM (PMX) 50 ML IVPB ×3 (05:29→22:28)
[2018-08-21 05:49] LABS: ADD MAN DIFF? NO
[2018-08-21] MEDS: PROPOFOL 100 ML IV ×2 (05:51→15:27)
[2018-08-21 05:55] LABS: ABNORMAL IP MESSAGE 1; BASOPHILS % 0.2 % (0.0-2.0); EOSINOPHILS % 0.2 % (0.0-7.0); HEMATOCRIT 24.6 % (37.0-47.0); HEMOGLOBIN 8.1 g/dl (12.0-16.0); LYMPHOCYTES # 0.8 10^3/ul (0.8-2.9); LYMPHOCYTES % 6.3 % (15.0-51.0); MEAN CORPUSCULAR HEMOGLOBIN 29.6 pg (29.0-33.0); MEAN CORPUSCULAR HGB CONC 32.9 g/dl (32.0-37.0); MEAN CORPUSCULAR VOLUME 89.8 fl (82.0-101.0); MONOCYTE # 0.2 10^3/ul (0.3-0.9); MONOCYTES % 1.8 % (0.0-11.0); NEUTROPHILS % 91.3 % (39.0-77.0); RED BLOOD COUNT 2.74 10^6/ul (4.20-5.40); RED CELL DISTRIBUTION WIDTH 19.4 % (11.5-14.5)
[2018-08-21 05:55] LABS: WHITE BLOOD COUNT 13.2 10^3/ul (4.8-10.8)
[2018-08-21 06:10] LABS: INR 1.27; PROTIME 16.1 Sec (11.9-14.9); PT RATIO 1.3
[2018-08-21 06:11] LABS: PARTIAL THROMBOPLASTIN TIME 37.8 Sec (25.0-35.0)
[2018-08-21 06:18] LABS: VANCOMYCIN,RANDOM 16.4 ug/ml
[2018-08-21 06:19] LABS: CALCIUM 7.8 mg/dl (8.4-10.2)
[2018-08-21 06:19] LABS: MAGNESIUM 2.4 mg/dl (1.7-2.5); PLATELET COUNT 53 10^3/UL (140-415)
[2018-08-21 06:20] LABS: POSITIVE DIFF @See below
[2018-08-21 06:25] LABS: TROPONIN-I 0.118 ng/ml (0.000-0.120)
[2018-08-21 06:27] LABS: ALANINE AMINOTRANSFERASE 16 IU/L (13-69); ALKALINE PHOSPHATASE 61 IU/L (42-121); AMYLASE 114 U/L (11-123); ANION GAP 14 (8-16); ASPARTATE AMINO TRANSFERASE 28 IU/L (15-46); BILIRUBIN,INDIRECT 0.2 mg/dl (0-1.1); BILIRUBIN,TOTAL 0.2 mg/dl (0.2-1.3); BLOOD UREA NITROGEN 32 mg/dl (7-20); CALCIUM 7.9 mg/dl (8.4-10.2); CARBON DIOXIDE 21 mmol/L (21-31); CHLORIDE 111 mmol/L (97-110); CREATININE 5.67 mg/dl (0.44-1.00); GLUCOSE 93 mg/dl (70-220); LIPASE 200 U/L (23-300); POTASSIUM 4.7 mmol/L (3.5-5.1); SODIUM 141 mmol/L (135-144); TOTAL PROTEIN 4.5 g/dl (6.1-8.1)
[2018-08-21] MEDS: HYDROXYCHLOROQUINE 200 MG TAB PO (09:00)
[2018-08-21] MEDS: NIFEdipine (XL) 60 MG TAB PO (09:00)
[2018-08-21] MEDS: LOSARTAN 50 MG TAB PO ×2 (09:00→21:05)
[2018-08-21 12:14] LABS: ABNORMAL IP MESSAGE 1; HEMATOCRIT 24.5 % (37.0-47.0); HEMOGLOBIN 8.2 g/dl (12.0-16.0); MEAN CORPUSCULAR HEMOGLOBIN 30.3 pg (29.0-33.0); MEAN CORPUSCULAR HGB CONC 33.5 g/dl (32.0-37.0); MEAN CORPUSCULAR VOLUME 90.4 fl (82.0-101.0); PLATELET COUNT 53 10^3/UL (140-415); RED BLOOD COUNT 2.71 10^6/ul (4.20-5.40); RED CELL DISTRIBUTION WIDTH 20.3 % (11.5-14.5)
[2018-08-21 12:14] LABS: WHITE BLOOD COUNT 14.2 10^3/ul (4.8-10.8)
[2018-08-21 12:22] LABS: ADD MAN DIFF? YES; POSITIVE DIFF @See below
[2018-08-21 12:35] LABS: AMYLASE 81 U/L (11-123); ANION GAP 14 (8-16); BLOOD UREA NITROGEN 32 mg/dl (7-20); CALCIUM 7.5 mg/dl (8.4-10.2); CARBON DIOXIDE 20 mmol/L (21-31); CHLORIDE 110 mmol/L (97-110); CREATININE 5.57 mg/dl (0.44-1.00); GLUCOSE 82 mg/dl (70-220); LIPASE 251 U/L (23-300); MAGNESIUM 2.3 mg/dl (1.7-2.5); POTASSIUM 4.9 mmol/L (3.5-5.1); SODIUM 139 mmol/L (135-144)
[2018-08-21 12:36] LABS: INR 1.37; PROTIME 17.1 Sec (11.9-14.9); PT RATIO 1.3
[2018-08-21 12:38] LABS: PARTIAL THROMBOPLASTIN TIME 38.2 Sec (25.0-35.0)
[2018-08-21 12:55] LABS: ANISOCYTOSIS 2+ (0-0); BAND NEUTROPHILS #M 0.8 10^3/ul (0.0-0.6); BAND NEUTROPHILS % (M) 6 % (0-4); BURR CELLS 1+ (0-0); LYMPHOCYTES #M 0.7 10^3/ul (0.8-2.9); LYMPHOCYTES % (M) 5 % (15-51); METAMYELOCYTES #M 0.1 10^3/ul (0.0-0.0); METAMYELOCYTES %M 1 % (0-0); MICROCYTOSIS 1+ (0-0); PLATELET ESTIMATE DECREASED; POIKILOCYTOSIS 3+ (0-0); SEG NEUT #M 12.6 10^3/ul (1.6-7.5); SEGMENTED NEUTROPHILS (M) % 88 % (39-77); SMUDGE%M 36 % (0-0)
[2018-08-21 13:55] LABS: AADO2 Arterial 93.9 mmHg (7.0-24.0); Allen Test ACCEPTAB; Arterial Base Excess -4.8 mmol/L (-3.0-3); Arterial Blood Gas Oxygen Sat 96.1 mmHG (95.0-98.0); Arterial COHb 0.1 % (0.0-3.0); Arterial HCO3 19.5 mmol/L (22.0-26.0); Arterial MetHb 0 % (0.0-1.5); Arterial Total Hemglobin 9.2 g/dl (12.0-18.0); Arterial pCO2 31.7 mmhg (35-45); MODE VENT - AC; Site Left Radial; Temperature 36.2 C
[2018-08-21] MEDS: MIDAZOLAM (DRIP) 50 mg/50 mL 50 ML IV (14:20)
[2018-08-21] MEDS: LORAZEPAM 2 MG INJ IV (14:25)
[2018-08-21] MEDS: METOPROLOL 5 MG INJ IV ×2 (16:26→21:07)
[2018-08-21] MEDS: VECURONIUM 100 MG in DEXTROSE 5% 100 ML IV (16:39)
[2018-08-21] MEDS: hydrALAzine 20 MG INJ IV (16:57)
[2018-08-21] MEDS: VANCOMYCIN 500MG/NS (PMX) 100 ML IVPB (17:18)
[2018-08-21] MEDS ORDERED: PENDING SANTYL ORDER FOR WOUND CARE XX (18:00)
[2018-08-21 20:28] LABS: HEPATITIS B SURFACE ANTIGEN REACTIVE (NON-REACTIVE)
[2018-08-22] MEDS: SOD CHLORIDE 0.9% 1,000 ML IV (01:13)
[2018-08-22] MEDS: PROPOFOL 100 ML IV ×3 (01:31→18:31)
[2018-08-22] MEDS: LEVALBUTEROL (HFA) 15 GM INHALER INH ×4 (02:09→20:04)
[2018-08-22] MEDS: ARTIFICIAL TEARS 15 ML OPH BOTH EYES ×3 (05:22→17:30)
[2018-08-22] MEDS: PANTOPRAZOLE 40 MG INJ IV ×2 (05:22→17:30)
[2018-08-22] MEDS: PIPER-TAZO 2.25 GM (PMX) 50 ML IVPB (05:22)
[2018-08-22] MEDS: OCULAR LUBRICANT 3.5 GM OPH OINT BOTH EYES ×3 (05:22→17:30)
[2018-08-22 05:53] LABS: WHITE BLOOD COUNT 8.3 10^3/ul (4.8-10.8)
[2018-08-22 05:53] LABS: ABNORMAL IP MESSAGE 1; HEMATOCRIT 20.5 % (37.0-47.0); MEAN CORPUSCULAR HEMOGLOBIN 29.6 pg (29.0-33.0); MEAN CORPUSCULAR HGB CONC 32.2 g/dl (32.0-37.0); MEAN CORPUSCULAR VOLUME 91.9 fl (82.0-101.0); PLATELET COUNT 67 10^3/UL (140-415); RED BLOOD COUNT 2.23 10^6/ul (4.20-5.40); RED CELL DISTRIBUTION WIDTH 20.3 % (11.5-14.5)
[2018-08-22 06:02] LABS: POSITIVE DIFF @See below
[2018-08-22 06:04] LABS: ADD MAN DIFF? YES; HEMOGLOBIN 6.6 g/dl (12.0-16.0)
[2018-08-22 06:11] LABS: ALANINE AMINOTRANSFERASE 28 IU/L (13-69); ALBUMIN 1.7 g/dl (3.3-4.9); ALBUMIN/GLOBULIN RATIO 0.73; ALKALINE PHOSPHATASE 50 IU/L (42-121); ANION GAP 11 (8-16); ASPARTATE AMINO TRANSFERASE 20 IU/L (15-46); BILIRUBIN,INDIRECT 0.1 mg/dl (0-1.1); BILIRUBIN,TOTAL 0.1 mg/dl (0.2-1.3); BLOOD UREA NITROGEN 15 mg/dl (7-20); CALCIUM 7.2 mg/dl (8.4-10.2); CARBON DIOXIDE 27 mmol/L (21-31); CHLORIDE 103 mmol/L (97-110); CREATININE 3.25 mg/dl (0.44-1.00); GLUCOSE 69 mg/dl (70-220); LIPASE 234 U/L (23-300); POTASSIUM 3.8 mmol/L (3.5-5.1); SODIUM 137 mmol/L (135-144)
[2018-08-22 06:14] LABS: AMYLASE < 30 U/L (11-123)
[2018-08-22 06:18] LABS: PHOSPHORUS 2.6 mg/dl (2.5-4.9)
[2018-08-22 07:28] LABS: ANISOCYTOSIS 2+ (0-0); BAND NEUTROPHILS #M 0.7 10^3/ul (0.0-0.6); BAND NEUTROPHILS % (M) 9 % (0-4); BURR CELLS 1+ (0-0); EOSINOPHILS % (M) 1 % (0-7); LYMPHOCYTES #M 1.4 10^3/ul (0.8-2.9); LYMPHOCYTES % (M) 18 % (15-51); MICROCYTOSIS 1+ (0-0); MONOCYTES % (M) 1 % (0-11); PLATELET ESTIMATE SIG DECREASED; POIKILOCYTOSIS 2+ (0-0); REACTIVE LYMPHOCYTES% (M) 1 % (0-0); SEG NEUT #M 5.9 10^3/ul (1.6-7.5); SEGMENTED NEUTROPHILS (M) % 70 % (39-77); SMUDGE%M 10 % (0-0); SPHEROCYTES 1+ (0-0)
[2018-08-22] MEDS ORDERED: VANCOMYCIN IV PER PHARMACY XX (08:00)
[2018-08-22] MEDS: ACETAMINOPHEN 650MG/20.3ML CUP GTB ×2 (08:11→10:14)
[2018-08-22] MEDS: HYDROXYCHLOROQUINE 200 MG TAB PO (08:13)
[2018-08-22] MEDS: LOSARTAN 50 MG TAB PO ×2 (08:14→20:46)
[2018-08-22] MEDS: NIFEdipine (XL) 60 MG TAB PO (09:00)
[2018-08-22] MEDS: MEROPENEM 500MG/50 ML (PMX) 50 ML IVPB (10:46)
[2018-08-22 14:06] LABS: IMMEDIATE SPIN CROSSMATCH 1 2
[2018-08-22] MEDS: DEXTROSE 5%-0.9% NACL 1,000 ML IV (21:39)
[2018-08-22] MEDS: ACCU-CHEK XX (21:40)
[2018-08-23] MEDS: OCULAR LUBRICANT 3.5 GM OPH OINT BOTH EYES ×4 (00:02→17:07)
[2018-08-23] MEDS: ARTIFICIAL TEARS 15 ML OPH BOTH EYES ×4 (00:03→17:07)
[2018-08-23] MEDS: ACCU-CHEK XX ×4 (01:00→21:48)
[2018-08-23] MEDS: LEVALBUTEROL (HFA) 15 GM INHALER INH ×4 (02:19→20:00)
[2018-08-23 05:23] LABS: ADD MAN DIFF? NO
[2018-08-23 05:32] LABS: WHITE BLOOD COUNT 6.2 10^3/ul (4.8-10.8)
[2018-08-23 05:32] LABS: ABNORMAL IP MESSAGE 1; BASOPHILS % 0.3 % (0.0-2.0); EOSINOPHILS # 0.2 10^3/ul (0.0-0.5); EOSINOPHILS % 3.4 % (0.0-7.0); HEMATOCRIT 24.8 % (37.0-47.0); LYMPHOCYTES # 0.8 10^3/ul (0.8-2.9); MEAN CORPUSCULAR HEMOGLOBIN 29.1 pg (29.0-33.0); MEAN CORPUSCULAR HGB CONC 32.3 g/dl (32.0-37.0); MEAN CORPUSCULAR VOLUME 90.2 fl (82.0-101.0); MONOCYTE # 0.4 10^3/ul (0.3-0.9); MONOCYTES % 6.2 % (0.0-11.0); NEUTROPHIL # 4.7 10^3/ul (1.6-7.5); NEUTROPHILS % 76.8 % (39.0-77.0); PLATELET COUNT 55 10^3/UL (140-415); RED BLOOD COUNT 2.75 10^6/ul (4.20-5.40); RED CELL DISTRIBUTION WIDTH 18.8 % (11.5-14.5)
[2018-08-23 05:40] LABS: POSITIVE DIFF @See below
[2018-08-23] MEDS: PROPOFOL 100 ML IV (05:41)
[2018-08-23] MEDS: PANTOPRAZOLE 40 MG INJ IV ×2 (05:41→17:07)
[2018-08-23 05:46] LABS: ANION GAP 12 (8-16); BLOOD UREA NITROGEN 21 mg/dl (7-20); CARBON DIOXIDE 24 mmol/L (21-31); CHLORIDE 106 mmol/L (97-110); CREATININE 4.79 mg/dl (0.44-1.00); GLUCOSE 70 mg/dl (70-220); POTASSIUM 3.6 mmol/L (3.5-5.1); SODIUM 138 mmol/L (135-144)
[2018-08-23 05:48] LABS: MAGNESIUM 1.9 mg/dl (1.7-2.5)
[2018-08-23 05:48] LABS: PHOSPHORUS 3.2 mg/dl (2.5-4.9)
[2018-08-23 06:01] LABS: C-REACTIVE PROTEIN 18.9 mg/dl (0.0-0.9)
[2018-08-23 06:33] LABS: HEPATITIS C VIRAL ANTIBODY NEGATIVE (NEGATIVE)
[2018-08-23 06:57] LABS: ERYTHROCYTE SEDIMENTATION RATE 87 mm/Hr (0-20)
[2018-08-23 07:45] LABS: ADD UMIC YES; UR ASCORBIC ACID NEGATIVE (NEGATIVE); UR BACTERIA FEW /HPF (NONE SEEN); UR BILIRUBIN (Dip) NEGATIVE (NEGATIVE); UR BLOOD (Dip) 2+ mg/dL (NEGATIVE); UR CLARITY CLOUDY (CLEAR); UR COLOR AMBER (YELLOW); UR GLUCOSE (Dip) 1+ mg/dL (NEGATIVE); UR KETONES (Dip) NEGATIVE (NEGATIVE); UR LEUKOCYTE ESTERASE (Dip) TRACE Leu/ul (NEGATIVE); UR MUCUS FEW /HPF (NONE SEEN); UR NITRITE (Dip) NEGATIVE (NEGATIVE); UR NONSQUAMOUS EPITHELIAL CELL 2 /HPF (NONE SEEN); UR RBC 55 /HPF (0-5); UR SPECIFIC GRAVITY (Dip) 1.034 (1.003-1.030); UR SQUAMOUS EPITHELIAL CELL FEW /HPF (FEW); UR TOTAL PROTEIN (Dip) 3+ mg/dl (NEGATIVE); UR UROBILINOGEN (Dip) NEGATIVE (NEGATIVE); UR WBC > 182 /HPF (0-5)
[2018-08-23] MEDS: HYDROXYCHLOROQUINE 200 MG TAB PO (08:57)
[2018-08-23] MEDS: NIFEdipine (XL) 60 MG TAB PO (08:57)
[2018-08-23] MEDS: LOSARTAN 50 MG TAB PO ×2 (08:58→20:09)
[2018-08-23] MEDS: MEROPENEM 500MG/50 ML (PMX) 50 ML IVPB (09:11)
[2018-08-23] MEDS: ACETAMINOPHEN 650MG/20.3ML CUP GTB ×3 (09:11→21:41)
[2018-08-23] MEDS: HEPARIN 1000 UNITS/ML 10 ML INJ CATHETER (14:58)
[2018-08-23] MEDS: VANCOMYCIN 500MG/NS (PMX) 100 ML IVPB (16:52)
[2018-08-23] MEDS: morphine 2 MG INJ IV (17:07)
[2018-08-23] MEDS: DEXTROSE 5%-0.9% NACL 1,000 ML IV (17:08)
[2018-08-23] MEDS: FENTAnyl (DRIP) 1000 mcg/100mL 100 ML IV (21:29)
[2018-08-24] MEDS: OCULAR LUBRICANT 3.5 GM OPH OINT BOTH EYES ×4 (00:43→18:00)
[2018-08-24] MEDS: ARTIFICIAL TEARS 15 ML OPH BOTH EYES ×4 (00:43→18:00)
[2018-08-24] MEDS: LEVALBUTEROL (HFA) 15 GM INHALER INH ×2 (01:34→08:33)
[2018-08-24] MEDS: PROPOFOL 100 ML IV ×2 (01:48→19:00)
[2018-08-24] MEDS: ACCU-CHEK XX ×6 (01:48→21:09)
[2018-08-24 05:17] LABS: ADD MAN DIFF? NO
[2018-08-24 05:20] LABS: WHITE BLOOD COUNT 5.6 10^3/ul (4.8-10.8)
[2018-08-24 05:20] LABS: ABNORMAL IP MESSAGE 1; BASOPHILS % 0.2 % (0.0-2.0); EOSINOPHILS # 0.1 10^3/ul (0.0-0.5); EOSINOPHILS % 2.3 % (0.0-7.0); HEMATOCRIT 24.4 % (37.0-47.0); HEMOGLOBIN 8.2 g/dl (12.0-16.0); LYMPHOCYTES % 18.3 % (15.0-51.0); MEAN CORPUSCULAR HEMOGLOBIN 30.8 pg (29.0-33.0); MEAN CORPUSCULAR HGB CONC 33.6 g/dl (32.0-37.0); MEAN CORPUSCULAR VOLUME 91.7 fl (82.0-101.0); MONOCYTE # 0.6 10^3/ul (0.3-0.9); MONOCYTES % 10.3 % (0.0-11.0); NEUTROPHIL # 3.9 10^3/ul (1.6-7.5); NEUTROPHILS % 68.5 % (39.0-77.0); PLATELET COUNT 74 10^3/UL (140-415); RED BLOOD COUNT 2.66 10^6/ul (4.20-5.40); RED CELL DISTRIBUTION WIDTH 18.3 % (11.5-14.5)
[2018-08-24 05:30] LABS: POSITIVE DIFF @See below
[2018-08-24 05:46] LABS: ANION GAP 6 (8-16); BLOOD UREA NITROGEN 14 mg/dl (7-20); CALCIUM 7.7 mg/dl (8.4-10.2); CARBON DIOXIDE 30 mmol/L (21-31); CHLORIDE 105 mmol/L (97-110); CREATININE 3.17 mg/dl (0.44-1.00); GLUCOSE 111 mg/dl (70-220); POTASSIUM 3.3 mmol/L (3.5-5.1); SODIUM 138 mmol/L (135-144)
[2018-08-24 05:52] LABS: MAGNESIUM 1.9 mg/dl (1.7-2.5)
[2018-08-24 05:52] LABS: PHOSPHORUS 1.5 mg/dl (2.5-4.9)
[2018-08-24] MEDS: PANTOPRAZOLE 40 MG INJ IV ×2 (06:22→19:35)
[2018-08-24] MEDS: hydrALAzine 20 MG INJ IV ×2 (07:48→13:28)
[2018-08-24] MEDS: HYDROXYCHLOROQUINE 200 MG TAB PO (07:48)
[2018-08-24] MEDS: NIFEdipine (XL) 60 MG TAB PO (07:48)
[2018-08-24] MEDS: ACETAMINOPHEN 650MG/20.3ML CUP GTB ×3 (07:49→16:30)
[2018-08-24] MEDS: LOSARTAN 50 MG TAB PO ×2 (07:49→20:50)
[2018-08-24 08:32] LABS: AADO2 Arterial 34.4 mmHg (7.0-24.0); Allen Test ACCEPTAB; Arterial Base Excess 3.5 mmol/L (-3.0-3); Arterial Blood Gas Oxygen Sat 98.6 mmHG (95.0-98.0); Arterial COHb 0.1 % (0.0-3.0); Arterial Fraction of Oxyhgb 98.2 % (93.0-99.0); Arterial HCO3 26.6 mmol/L (22.0-26.0); Arterial MetHb 0.3 % (0.0-1.5); Arterial Total Hemglobin 9.2 g/dl (12.0-18.0); Arterial pCO2 34.6 mmhg (35-45); MODE VENT - AC; Site Left Radial
[2018-08-24] MEDS: MEROPENEM 500MG/50 ML (PMX) 50 ML IVPB (09:00)
[2018-08-24] MEDS: POTASSIUM PHOSPHATE 15 MM in SOD CHLORIDE 0.9% 250 ML IVPB (10:26)
[2018-08-24 11:13] LABS: AADO2 Arterial 74.6 mmHg (7.0-24.0); Allen Test ACCEPTAB; Arterial Base Excess -4.9 mmol/L (-3.0-3); Arterial Blood Gas Oxygen Sat 97.3 mmHG (95.0-98.0); Arterial COHb 0.7 % (0.0-3.0); Arterial Fraction of Oxyhgb 96.4 % (93.0-99.0); Arterial HCO3 19.6 mmol/L (22.0-26.0); Arterial MetHb 0.2 % (0.0-1.5); Arterial pCO2 33.2 mmhg (35-45); Blood Gas PS 10; MODE VENT - CPAP; Site Left Radial
[2018-08-24] MEDS: morphine 2 MG INJ IV ×3 (12:33→20:44)
[2018-08-24] MEDS: ONDANSETRON 4 MG INJ IV (13:46)
[2018-08-24] MEDS ORDERED: POTASSIUM PHOSPHATE 30 MM in SOD CHLORIDE 0.9% 250 ML IVPB (14:00)
[2018-08-24 17:13] LABS: PHOSPHORUS 4.1 mg/dl (2.5-4.9)
[2018-08-24] MEDS: DEXTROSE 5%-0.9% NACL 1,000 ML IV (23:28)
[2018-08-24] MEDS: DIPHENHYDRAMINE 2.5 MG/ML 5ML CUP PO (23:28)
[2018-08-25] MEDS: LORAZEPAM 2 MG INJ IV (00:55)
[2018-08-25] MEDS: ACCU-CHEK XX ×7 (01:49→23:28)
[2018-08-25] MEDS: morphine 2 MG INJ IV ×7 (02:22→22:32)
[2018-08-25 05:08] LABS: ADD MAN DIFF? NO
[2018-08-25 05:21] LABS: ABNORMAL IP MESSAGE 1; BASOPHILS % 0.3 % (0.0-2.0); EOSINOPHILS # 0.2 10^3/ul (0.0-0.5); EOSINOPHILS % 3.2 % (0.0-7.0); HEMATOCRIT 28.6 % (37.0-47.0); HEMOGLOBIN 8.9 g/dl (12.0-16.0); LYMPHOCYTES # 1.3 10^3/ul (0.8-2.9); LYMPHOCYTES % 19.6 % (15.0-51.0); MEAN CORPUSCULAR HEMOGLOBIN 29.4 pg (29.0-33.0); MEAN CORPUSCULAR HGB CONC 31.1 g/dl (32.0-37.0); MEAN CORPUSCULAR VOLUME 94.4 fl (82.0-101.0); MEAN PLATELET VOLUME 12.6 fl (7.4-10.4); MONOCYTE # 0.7 10^3/ul (0.3-0.9); MONOCYTES % 9.9 % (0.0-11.0); NEUTROPHIL # 4.5 10^3/ul (1.6-7.5); NEUTROPHILS % 66.1 % (39.0-77.0); PLATELET COUNT 93 10^3/UL (140-415); RED BLOOD COUNT 3.03 10^6/ul (4.20-5.40); RED CELL DISTRIBUTION WIDTH 18.4 % (11.5-14.5)
[2018-08-25 05:21] LABS: WHITE BLOOD COUNT 6.8 10^3/ul (4.8-10.8)
[2018-08-25 05:32] LABS: POSITIVE DIFF @See below
[2018-08-25] MEDS: ARTIFICIAL TEARS 15 ML OPH BOTH EYES ×4 (06:00→18:00)
[2018-08-25] MEDS: PROPOFOL 100 ML IV ×2 (06:00→18:00)
[2018-08-25] MEDS: OCULAR LUBRICANT 3.5 GM OPH OINT BOTH EYES ×4 (06:00→18:00)
[2018-08-25 06:07] LABS: MAGNESIUM 1.8 mg/dl (1.7-2.5)
[2018-08-25] MEDS: PANTOPRAZOLE 40 MG INJ IV ×2 (06:08→18:43)
[2018-08-25 06:53] LABS: HEPATITIS B SURFACE ANTIBODY NEGATIVE (NEGATIVE)
[2018-08-25 07:13] LABS: ALBUMIN 2.1 g/dl (3.3-4.9); ALBUMIN/GLOBULIN RATIO 0.75; ALKALINE PHOSPHATASE 66 IU/L (42-121); ANION GAP 10 (8-16); ASPARTATE AMINO TRANSFERASE 15 IU/L (15-46); BLOOD UREA NITROGEN 27 mg/dl (7-20); CALCIUM 7.6 mg/dl (8.4-10.2); CARBON DIOXIDE 26 mmol/L (21-31); CHLORIDE 107 mmol/L (97-110); CREATININE 4.37 mg/dl (0.44-1.00); GLUCOSE 84 mg/dl (70-220); POTASSIUM 3.8 mmol/L (3.5-5.1); SODIUM 139 mmol/L (135-144); TOTAL PROTEIN 4.9 g/dl (6.1-8.1)
[2018-08-25] MEDS: hydrALAzine 20 MG INJ IV ×2 (07:39→16:03)
[2018-08-25 07:46] LABS: PHOSPHORUS 4.4 mg/dl (2.5-4.9)
[2018-08-25] MEDS: LEVALBUTEROL (HFA) 15 GM INHALER INH (08:00)
[2018-08-25 08:04] LABS: ALANINE AMINOTRANSFERASE 25 IU/L (13-69)
[2018-08-25] MEDS: MEROPENEM 500MG/50 ML (PMX) 50 ML IVPB (09:49)
[2018-08-25] MEDS: LABETALOL HCL 20MG INJ IV (12:05)
[2018-08-25 12:12] LABS: ANTI-DNA (DOUBLE STRANDED) <95 U/mL (< 301)
[2018-08-25] MEDS: HEPARIN 1000 UNITS/ML 10 ML INJ CATHETER (13:27)
[2018-08-25] MEDS: HYDROXYCHLOROQUINE 200 MG TAB PO (14:38)
[2018-08-25] MEDS: LOSARTAN 50 MG TAB PO ×2 (14:39→20:52)
[2018-08-25] MEDS: NIFEdipine (XL) 60 MG TAB PO (14:39)
[2018-08-25] MEDS: ACETAMINOPHEN 650MG/20.3ML CUP GTB (16:39)
[2018-08-25] MEDS: DIPHENHYDRAMINE 2.5 MG/ML 5ML CUP PO (18:56)
[2018-08-25] MEDS: HEPARIN 5,000 UNIT/0.5 ML VIAL SC (21:01)
[2018-08-25] MEDS: DEXTROSE 5%-0.9% NACL 1,000 ML IV (21:02)
[2018-08-26] MEDS: morphine 2 MG INJ IV ×7 (03:10→23:37)
[2018-08-26] MEDS: DIPHENHYDRAMINE 2.5 MG/ML 5ML CUP PO ×3 (03:10→23:13)
[2018-08-26] MEDS: PROPOFOL 100 ML IV ×2 (05:30→17:32)
[2018-08-26] MEDS: ACCU-CHEK XX ×3 (05:36→18:09)
[2018-08-26] MEDS: PANTOPRAZOLE 40 MG INJ IV ×2 (05:36→17:32)
[2018-08-26 05:41] LABS: ADD MAN DIFF? NO
[2018-08-26 05:47] LABS: ABNORMAL IP MESSAGE 1; BASOPHILS % 0.4 % (0.0-2.0); EOSINOPHILS # 0.3 10^3/ul (0.0-0.5); EOSINOPHILS % 5.4 % (0.0-7.0); HEMATOCRIT 28.2 % (37.0-47.0); HEMOGLOBIN 8.9 g/dl (12.0-16.0); LYMPHOCYTES # 1.3 10^3/ul (0.8-2.9); LYMPHOCYTES % 23.6 % (15.0-51.0); MEAN CORPUSCULAR HEMOGLOBIN 29.8 pg (29.0-33.0); MEAN CORPUSCULAR HGB CONC 31.6 g/dl (32.0-37.0); MEAN CORPUSCULAR VOLUME 94.3 fl (82.0-101.0); MEAN PLATELET VOLUME 11.9 fl (7.4-10.4); MONOCYTE # 0.8 10^3/ul (0.3-0.9); MONOCYTES % 13.4 % (0.0-11.0); NEUTROPHIL # 3.1 10^3/ul (1.6-7.5); NEUTROPHILS % 55.9 % (39.0-77.0); PLATELET COUNT 95 10^3/UL (140-415); RED BLOOD COUNT 2.99 10^6/ul (4.20-5.40); RED CELL DISTRIBUTION WIDTH 18.3 % (11.5-14.5)
[2018-08-26 05:47] LABS: WHITE BLOOD COUNT 5.6 10^3/ul (4.8-10.8)
[2018-08-26 05:57] LABS: POSITIVE DIFF @See below
[2018-08-26 06:51] LABS: ANION GAP 7 (8-16); BLOOD UREA NITROGEN 16 mg/dl (7-20); CALCIUM 7.8 mg/dl (8.4-10.2); CARBON DIOXIDE 29 mmol/L (21-31); CHLORIDE 105 mmol/L (97-110); GLUCOSE 80 mg/dl (70-220); POTASSIUM 3.7 mmol/L (3.5-5.1); SODIUM 137 mmol/L (135-144)
[2018-08-26] MEDS: LOSARTAN 50 MG TAB PO ×2 (08:13→20:33)
[2018-08-26] MEDS: NIFEdipine (XL) 60 MG TAB PO (08:14)
[2018-08-26] MEDS: HYDROXYCHLOROQUINE 200 MG TAB PO (08:14)
[2018-08-26] MEDS: HEPARIN 5,000 UNIT/0.5 ML VIAL SC ×2 (08:22→20:38)
[2018-08-26] MEDS: LORAZEPAM 2 MG INJ IV (10:38)
[2018-08-26] MEDS: HEPARIN 1000 UNITS/ML 10 ML INJ CATHETER (12:23)
[2018-08-26] MEDS: MEROPENEM 500MG/50 ML (PMX) 50 ML IVPB ×2 (12:28→20:32)
[2018-08-26] MEDS: LEVALBUTEROL (HFA) 15 GM INHALER INH ×3 (14:00→20:00)
[2018-08-26] MEDS ORDERED: HYDROmorphONE 2 MG/ML SYG IV (15:00)
[2018-08-26] MEDS: VANCOMYCIN 750 MG in SOD CHLORIDE 0.9% 150 ML IVPB (16:25)
[2018-08-26] MEDS: DEXTROSE 5%-0.9% NACL 1,000 ML IV (20:33)
[2018-08-26] MEDS: LORAZEPAM 0.5 MG TAB PO (21:20)
[2018-08-26] MEDS: ACETAMINOPHEN 325 MG TAB PO (21:23)
[2018-08-27] MEDS: ACCU-CHEK XX ×4 (00:15→17:54)
[2018-08-27] MEDS: LEVALBUTEROL (HFA) 15 GM INHALER INH ×3 (02:00→08:00)
[2018-08-27] MEDS: morphine 2 MG INJ IV ×5 (04:54→18:35)
[2018-08-27] MEDS: ONDANSETRON 4 MG INJ IV (04:57)
[2018-08-27] MEDS: PROPOFOL 100 ML IV (05:17)
[2018-08-27 05:28] LABS: HEMATOCRIT 26.7 % (37.0-47.0); HEMOGLOBIN 8.4 g/dl (12.0-16.0); MEAN CORPUSCULAR HEMOGLOBIN 29.8 pg (29.0-33.0); MEAN CORPUSCULAR HGB CONC 31.5 g/dl (32.0-37.0); MEAN CORPUSCULAR VOLUME 94.7 fl (82.0-101.0); MEAN PLATELET VOLUME 12.4 fl (7.4-10.4); RED BLOOD COUNT 2.82 10^6/ul (4.20-5.40); RED CELL DISTRIBUTION WIDTH 17.7 % (11.5-14.5)
[2018-08-27 05:28] LABS: WHITE BLOOD COUNT 4.7 10^3/ul (4.8-10.8)
[2018-08-27] MEDS: PANTOPRAZOLE 40 MG INJ IV ×2 (05:39→17:53)
[2018-08-27 05:52] LABS: PLATELET COUNT 117 10^3/UL (140-415); POSITIVE DIFF @See below
[2018-08-27 05:59] LABS: ADD MAN DIFF? YES
[2018-08-27 06:23] LABS: ANION GAP 9 (8-16); BLOOD UREA NITROGEN 11 mg/dl (7-20); CALCIUM 7.7 mg/dl (8.4-10.2); CARBON DIOXIDE 30 mmol/L (21-31); CHLORIDE 104 mmol/L (97-110); CREATININE 2.68 mg/dl (0.44-1.00); GLUCOSE 78 mg/dl (70-220); POTASSIUM 3.6 mmol/L (3.5-5.1); SODIUM 139 mmol/L (135-144)
[2018-08-27] MEDS: DIPHENHYDRAMINE 2.5 MG/ML 5ML CUP PO ×3 (07:21→21:07)
[2018-08-27] MEDS: NIFEdipine (XL) 60 MG TAB PO (08:24)
[2018-08-27] MEDS: LOSARTAN 50 MG TAB PO ×2 (08:24→20:27)
[2018-08-27] MEDS: HEPARIN 5,000 UNIT/0.5 ML VIAL SC ×2 (08:24→20:33)
[2018-08-27] MEDS: HYDROXYCHLOROQUINE 200 MG TAB PO (08:24)
[2018-08-27] MEDS: MEROPENEM 500MG/50 ML (PMX) 50 ML IVPB ×2 (08:26→20:30)
[2018-08-27] MEDS ORDERED: OXYCODONE/ACETAMINOPHEN (5/325) TAB PO (11:30)
[2018-08-27] MEDS ORDERED: HYDROmorphONE 1 MG/ML SYG IV (11:30)
[2018-08-27 12:16] LABS: ANISOCYTOSIS 1+ (0-0); BAND NEUTROPHILS #M 0.4 10^3/ul (0.0-0.6); BAND NEUTROPHILS % (M) 10 % (0-4); EOSINOPHILS % (M) 1 % (0-7); GIANT THROMBO% (M) 17 % (0-0); LYMPHOCYTES #M 1.4 10^3/ul (0.8-2.9); LYMPHOCYTES % (M) 31 % (15-51); MICROCYTOSIS 1+ (0-0); MONOCYTE #M 0.6 10^3/ul (0.3-0.9); MONOCYTES % (M) 14 % (0-11); PLATELET ESTIMATE DECREASED; POIKILOCYTOSIS 1+ (0-0); POLYCHROMASIA 1+ (0-0); REACTIVE LYMPHOCYTES% (M) 2 % (0-0); SEGMENTED NEUTROPHILS (M) % 42 % (39-77); SMUDGE%M 35 % (0-0); SPHEROCYTES 1+ (0-0)
[2018-08-27] MEDS: ACETAMINOPHEN 325 MG TAB PO (12:28)
[2018-08-27] MEDS: OXYCODONE/ACETAMINOPHEN (5/325) TAB PO (17:54)
[2018-08-27] MEDS: LORAZEPAM 2 MG INJ IV (20:35)
[2018-08-27] MEDS: DEXTROSE 5%-0.9% NACL 1,000 ML IV (21:27)
[2018-08-28] MEDS: morphine 2 MG INJ IV ×6 (01:13→20:09)
[2018-08-28] MEDS: OXYCODONE/ACETAMINOPHEN (5/325) TAB PO ×3 (02:38→11:47)
[2018-08-28] MEDS: DIPHENHYDRAMINE 2.5 MG/ML 5ML CUP PO ×3 (02:38→17:19)
[2018-08-28] MEDS: DEXTROSE 5%-0.9% NACL 1,000 ML IV (03:48)
[2018-08-28] MEDS: ACCU-CHEK XX ×4 (06:13→17:27)
[2018-08-28] MEDS: PANTOPRAZOLE 40 MG INJ IV (06:14)
[2018-08-28 07:10] LABS: WHITE BLOOD COUNT 5.8 10^3/ul (4.8-10.8)
[2018-08-28 07:10] LABS: HEMATOCRIT 29.9 % (37.0-47.0); HEMOGLOBIN 9.4 g/dl (12.0-16.0); MEAN CORPUSCULAR HEMOGLOBIN 29.8 pg (29.0-33.0); MEAN CORPUSCULAR HGB CONC 31.4 g/dl (32.0-37.0); MEAN CORPUSCULAR VOLUME 94.9 fl (82.0-101.0); MEAN PLATELET VOLUME 11.3 fl (7.4-10.4); PLATELET COUNT 141 10^3/UL (140-415); RED BLOOD COUNT 3.15 10^6/ul (4.20-5.40)
[2018-08-28 07:14] LABS: POSITIVE DIFF @See below
[2018-08-28 07:15] LABS: ADD MAN DIFF? YES
[2018-08-28] MEDS ORDERED: ACCU-CHEK XX (07:25)
[2018-08-28 07:54] LABS: ANISOCYTOSIS 1+ (0-0); BAND NEUTROPHILS #M 0.8 10^3/ul (0.0-0.6); BAND NEUTROPHILS % (M) 14 % (0-4); BASOPHIL #M 0.1 10^3/ul (0.0-0.0); BASOPHILS % (M) 2 % (0-2); BURR CELLS 1+ (0-0); EOSINOPHILS % (M) 3 % (0-7); GIANT THROMBO% (M) 1 % (0-0); LYMPHOCYTES #M 0.9 10^3/ul (0.8-2.9); LYMPHOCYTES % (M) 16 % (15-51); MONOCYTE #M 0.5 10^3/ul (0.3-0.9); MONOCYTES % (M) 9 % (0-11); OVALOCYTES 1+ (0-0); PLATELET ESTIMATE NORMAL; REACTIVE LYMPHOCYTES% (M) 1 % (0-0); SEG NEUT #M 3.2 10^3/ul (1.6-7.5); SEGMENTED NEUTROPHILS (M) % 55 % (39-77); SMUDGE%M 25 % (0-0)
[2018-08-28 08:18] LABS: ALANINE AMINOTRANSFERASE 16 IU/L (13-69); ALBUMIN 2.3 g/dl (3.3-4.9); ALBUMIN/GLOBULIN RATIO 0.76; ALKALINE PHOSPHATASE 67 IU/L (42-121); ANION GAP 10 (8-16); ASPARTATE AMINO TRANSFERASE 27 IU/L (15-46); BLOOD UREA NITROGEN 18 mg/dl (7-20); CALCIUM 7.9 mg/dl (8.4-10.2); CARBON DIOXIDE 26 mmol/L (21-31); CHLORIDE 103 mmol/L (97-110); CREATININE 4.27 mg/dl (0.44-1.00); GLUCOSE 74 mg/dl (70-220); POTASSIUM 3.9 mmol/L (3.5-5.1); SODIUM 135 mmol/L (135-144); TOTAL PROTEIN 5.3 g/dl (6.1-8.1)
[2018-08-28] MEDS: NIFEdipine (XL) 60 MG TAB PO (09:00)
[2018-08-28] MEDS: LOSARTAN 50 MG TAB PO ×2 (09:00→20:10)
[2018-08-28] MEDS: HYDROXYCHLOROQUINE 200 MG TAB PO (09:06)
[2018-08-28] MEDS: MEROPENEM 500MG/50 ML (PMX) 50 ML IVPB ×2 (09:11→20:09)
[2018-08-28] MEDS: HEPARIN 5,000 UNIT/0.5 ML VIAL SC ×2 (09:50→20:10)
[2018-08-28] MEDS: HEPARIN 1000 UNITS/ML 10 ML INJ CATHETER (13:52)
[2018-08-28] MEDS: ACETAMINOPHEN 325 MG TAB PO ×2 (14:10→21:23)
[2018-08-28] MEDS: PANTOPRAZOLE (EC) 40 MG TAB PO (17:19)
[2018-08-28] MEDS: ONDANSETRON 4 MG INJ IV (20:09)
[2018-08-28] MEDS: ALPRAZOLAM 0.25 MG TAB PO (23:29)
[2018-08-29] MEDS: DIPHENHYDRAMINE 2.5 MG/ML 5ML CUP PO ×4 (00:17→23:13)
[2018-08-29] MEDS: morphine 2 MG INJ IV ×6 (00:17→21:28)
[2018-08-29] MEDS: ACCU-CHEK XX ×5 (00:34→23:26)
[2018-08-29] MEDS: PANTOPRAZOLE (EC) 40 MG TAB PO ×2 (05:44→17:26)
[2018-08-29 07:02] LABS: ADD MAN DIFF? NO
[2018-08-29 07:13] LABS: BASOPHILS % 0.4 % (0.0-2.0); EOSINOPHILS # 0.3 10^3/ul (0.0-0.5); EOSINOPHILS % 5.1 % (0.0-7.0); HEMATOCRIT 27.7 % (37.0-47.0); HEMOGLOBIN 8.7 g/dl (12.0-16.0); LYMPHOCYTES # 1.7 10^3/ul (0.8-2.9); LYMPHOCYTES % 30.3 % (15.0-51.0); MEAN CORPUSCULAR HEMOGLOBIN 29.8 pg (29.0-33.0); MEAN CORPUSCULAR HGB CONC 31.4 g/dl (32.0-37.0); MEAN CORPUSCULAR VOLUME 94.9 fl (82.0-101.0); MEAN PLATELET VOLUME 12.4 fl (7.4-10.4); MONOCYTE # 0.6 10^3/ul (0.3-0.9); MONOCYTES % 10.7 % (0.0-11.0); NEUTROPHILS % 52.8 % (39.0-77.0); PLATELET COUNT 128 10^3/UL (140-415); RED BLOOD COUNT 2.92 10^6/ul (4.20-5.40)
[2018-08-29 07:13] LABS: WHITE BLOOD COUNT 5.7 10^3/ul (4.8-10.8)
[2018-08-29 07:56] LABS: ANION GAP 10 (8-16); BLOOD UREA NITROGEN 11 mg/dl (7-20); CALCIUM 7.7 mg/dl (8.4-10.2); CARBON DIOXIDE 28 mmol/L (21-31); CHLORIDE 101 mmol/L (97-110); CREATININE 3.23 mg/dl (0.44-1.00); GLUCOSE 68 mg/dl (70-220); POTASSIUM 3.8 mmol/L (3.5-5.1); SODIUM 135 mmol/L (135-144)
[2018-08-29] MEDS: ONDANSETRON 4 MG INJ IV ×2 (08:28→18:13)
[2018-08-29] MEDS: LOSARTAN 50 MG TAB PO ×2 (08:29→21:30)
[2018-08-29] MEDS: HYDROXYCHLOROQUINE 200 MG TAB PO (08:29)
[2018-08-29] MEDS: NIFEdipine (XL) 60 MG TAB PO (08:30)
[2018-08-29] MEDS: HEPARIN 5,000 UNIT/0.5 ML VIAL SC ×2 (08:31→21:30)
[2018-08-29] MEDS: ACETAMINOPHEN 325 MG TAB PO ×2 (09:15→19:34)
[2018-08-29] MEDS: MEROPENEM 500MG/50 ML (PMX) 50 ML IVPB (09:16)
[2018-08-29 17:03] LABS: VANCOMYCIN,TROUGH 11.9 ug/ml (10.0-20.0)
[2018-08-29] MEDS: VANCOMYCIN 750 MG in SOD CHLORIDE 0.9% 150 ML IVPB (17:26)
[2018-08-29 20:23] LABS: COMPLEMENT C3 42 mg/dl (88-165); COMPLEMENT C4 14 mg/dl (14-44)
[2018-08-30] MEDS: morphine 2 MG INJ IV ×5 (03:12→21:17)
[2018-08-30] MEDS: PANTOPRAZOLE (EC) 40 MG TAB PO ×2 (06:18→17:46)
[2018-08-30] MEDS: ONDANSETRON 4 MG INJ IV (06:18)
[2018-08-30] MEDS: DIPHENHYDRAMINE 2.5 MG/ML 5ML CUP PO ×3 (06:18→18:36)
[2018-08-30] MEDS: ACCU-CHEK XX ×3 (06:19→17:52)
[2018-08-30 08:12] LABS: ADD MAN DIFF? NO
[2018-08-30] MEDS: LOSARTAN 50 MG TAB PO ×2 (08:20→21:16)
[2018-08-30 08:21] LABS: BASOPHILS % 0.6 % (0.0-2.0); EOSINOPHILS # 0.3 10^3/ul (0.0-0.5); EOSINOPHILS % 5.1 % (0.0-7.0); HEMATOCRIT 27.5 % (37.0-47.0); HEMOGLOBIN 8.7 g/dl (12.0-16.0); LYMPHOCYTES # 1.4 10^3/ul (0.8-2.9); MEAN CORPUSCULAR HEMOGLOBIN 29.7 pg (29.0-33.0); MEAN CORPUSCULAR HGB CONC 31.6 g/dl (32.0-37.0); MEAN CORPUSCULAR VOLUME 93.9 fl (82.0-101.0); MEAN PLATELET VOLUME 10.7 fl (7.4-10.4); MONOCYTE # 0.7 10^3/ul (0.3-0.9); MONOCYTES % 13.3 % (0.0-11.0); NEUTROPHIL # 2.5 10^3/ul (1.6-7.5); NEUTROPHILS % 51.6 % (39.0-77.0); PLATELET COUNT 125 10^3/UL (140-415); RED BLOOD COUNT 2.93 10^6/ul (4.20-5.40); RED CELL DISTRIBUTION WIDTH 16.6 % (11.5-14.5)
[2018-08-30 08:21] LABS: WHITE BLOOD COUNT 4.9 10^3/ul (4.8-10.8)
[2018-08-30] MEDS: HYDROXYCHLOROQUINE 200 MG TAB PO (08:21)
[2018-08-30] MEDS: NIFEdipine (XL) 60 MG TAB PO (08:22)
[2018-08-30] MEDS: ACETAMINOPHEN 325 MG TAB PO ×2 (08:22→18:37)
[2018-08-30] MEDS: HEPARIN 5,000 UNIT/0.5 ML VIAL SC ×2 (08:26→21:33)
[2018-08-30 08:31] LABS: ANION GAP 10 (8-16); BLOOD UREA NITROGEN 19 mg/dl (7-20); CALCIUM 7.8 mg/dl (8.4-10.2); CARBON DIOXIDE 28 mmol/L (21-31); CHLORIDE 99 mmol/L (97-110); CREATININE 4.72 mg/dl (0.44-1.00); GLUCOSE 73 mg/dl (70-220); SODIUM 133 mmol/L (135-144)
[2018-08-30] MEDS: HEPARIN 1000 UNITS/ML 10 ML INJ CATHETER (15:19)
[2018-08-30] MEDS: OXYCODONE/ACETAMINOPHEN (5/325) TAB PO (15:21)
[2018-08-30] MEDS: ALPRAZOLAM 0.25 MG TAB PO (22:56)
[2018-08-31] MEDS: ACCU-CHEK XX ×4 (00:34→18:00)
[2018-08-31] MEDS: PANTOPRAZOLE (EC) 40 MG TAB PO ×2 (06:12→17:16)
[2018-08-31] MEDS: DIPHENHYDRAMINE 2.5 MG/ML 5ML CUP PO ×2 (06:12→14:09)
[2018-08-31] MEDS: ACETAMINOPHEN 325 MG TAB PO ×2 (06:12→15:31)
[2018-08-31 06:56] LABS: WHITE BLOOD COUNT 4.3 10^3/ul (4.8-10.8)
[2018-08-31 06:56] LABS: HEMOGLOBIN 8.3 g/dl (12.0-16.0)
[2018-08-31 06:57] LABS: HEMATOCRIT 26.4 % (37.0-47.0); MEAN CORPUSCULAR HEMOGLOBIN 29.6 pg (29.0-33.0); MEAN CORPUSCULAR HGB CONC 31.4 g/dl (32.0-37.0); MEAN CORPUSCULAR VOLUME 94.3 fl (82.0-101.0); MEAN PLATELET VOLUME 12.4 fl (7.4-10.4); PLATELET COUNT 136 10^3/UL (140-415); RED CELL DISTRIBUTION WIDTH 16.6 % (11.5-14.5)
[2018-08-31 07:14] LABS: ADD MAN DIFF? YES; POSITIVE DIFF @See below
[2018-08-31 07:21] LABS: ANION GAP 10 (8-16); BLOOD UREA NITROGEN 11 mg/dl (7-20); CALCIUM 7.6 mg/dl (8.4-10.2); CARBON DIOXIDE 30 mmol/L (21-31); CHLORIDE 102 mmol/L (97-110); CREATININE 3.47 mg/dl (0.44-1.00); GLUCOSE 69 mg/dl (70-220); POTASSIUM 3.8 mmol/L (3.5-5.1); SODIUM 138 mmol/L (135-144)
[2018-08-31] MEDS: LOSARTAN 50 MG TAB PO ×2 (08:42→20:41)
[2018-08-31] MEDS: NIFEdipine (XL) 60 MG TAB PO (08:43)
[2018-08-31] MEDS: HYDROXYCHLOROQUINE 200 MG TAB PO (08:46)
[2018-08-31] MEDS: morphine 2 MG INJ IV ×4 (08:47→20:41)
[2018-08-31] MEDS: HEPARIN 5,000 UNIT/0.5 ML VIAL SC (08:59)
[2018-08-31 10:27] LABS: ANISOCYTOSIS 1+ (0-0); BAND NEUTROPHILS #M 0.2 10^3/ul (0.0-0.6); BAND NEUTROPHILS % (M) 5 % (0-4); BASOPHILS % (M) 1 % (0-2); BURR CELLS 1+ (0-0); EOSINOPHILS % (M) 1 % (0-7); GIANT THROMBO% (M) 4 % (0-0); LYMPHOCYTES % (M) 24 % (15-51); MONOCYTE #M 0.8 10^3/ul (0.3-0.9); MONOCYTES % (M) 20 % (0-11); PLATELET ESTIMATE DECREASED; POIKILOCYTOSIS 1+ (0-0); POLYCHROMASIA 1+ (0-0); REACTIVE LYMPHOCYTES% (M) 2 % (0-0); SCHISTOCYTES 1+ (0-0); SEGMENTED NEUTROPHILS (M) % 47 % (39-77); SMUDGE%M 55 % (0-0)
[2018-08-31 12:16] LABS: PROCALCITONIN 3.81 ng/mL (<0.10)
[2018-08-31] MEDS: ONDANSETRON 4 MG INJ IV (14:09)
[2018-08-31] MEDS ORDERED: HEPARIN 1000 UNITS/ML 10 ML INJ IV ×2 (18:00)
[2018-08-31] MEDS ORDERED: HEPARIN 25000 UNITS/D5W 250 ML (VPH) IV (18:00)
[2018-08-31 18:14] LABS: ADD MAN DIFF? NO
[2018-08-31 18:20] LABS: WHITE BLOOD COUNT 5.3 10^3/ul (4.8-10.8)
[2018-08-31 18:20] LABS: BASOPHIL # 0.1 10^3/ul (0.0-0.1); BASOPHILS % 0.9 % (0.0-2.0); EOSINOPHILS # 0.2 10^3/ul (0.0-0.5); EOSINOPHILS % 3.2 % (0.0-7.0); HEMATOCRIT 26.9 % (37.0-47.0); HEMOGLOBIN 8.5 g/dl (12.0-16.0); LYMPHOCYTES # 1.5 10^3/ul (0.8-2.9); LYMPHOCYTES % 28.9 % (15.0-51.0); MEAN CORPUSCULAR HEMOGLOBIN 29.5 pg (29.0-33.0); MEAN CORPUSCULAR HGB CONC 31.6 g/dl (32.0-37.0); MEAN CORPUSCULAR VOLUME 93.4 fl (82.0-101.0); MEAN PLATELET VOLUME 11.1 fl (7.4-10.4); MONOCYTE # 0.7 10^3/ul (0.3-0.9); MONOCYTES % 12.5 % (0.0-11.0); NEUTROPHIL # 2.9 10^3/ul (1.6-7.5); NEUTROPHILS % 53.9 % (39.0-77.0); RED BLOOD COUNT 2.88 10^6/ul (4.20-5.40); RED CELL DISTRIBUTION WIDTH 16.2 % (11.5-14.5)
[2018-08-31 18:29] LABS: PLATELET COUNT 133 10^3/UL (140-415)
[2018-08-31 18:38] LABS: INR 1.01; PROTIME 13.4 Sec (11.9-14.9)
[2018-08-31 18:39] LABS: PARTIAL THROMBOPLASTIN TIME 45.1 Sec (23.0-35.0)
[2018-08-31] MEDS: HEPARIN 25000 UNITS/250 ML 250 ML IV (19:52)
[2018-08-31] MEDS: CLOTRIMAZOLE 1% 45 GM VAG CR VAG (20:41)
[2018-09-01] MEDS: DIPHENHYDRAMINE 2.5 MG/ML 5ML CUP PO ×3 (01:47→22:22)
[2018-09-01] MEDS: morphine 2 MG INJ IV ×6 (01:48→22:29)
[2018-09-01 04:59] LABS: PARTIAL THROMBOPLASTIN TIME > 180.0 Sec (23.0-35.0)
[2018-09-01 06:13] LABS: ADD MAN DIFF? NO
[2018-09-01] MEDS: ACCU-CHEK XX ×4 (06:16→18:38)
[2018-09-01] MEDS: PANTOPRAZOLE (EC) 40 MG TAB PO ×2 (06:16→18:41)
[2018-09-01 06:30] LABS: WHITE BLOOD COUNT 5.1 10^3/ul (4.8-10.8)
[2018-09-01 06:30] LABS: BASOPHIL # 0.1 10^3/ul (0.0-0.1); EOSINOPHILS # 0.2 10^3/ul (0.0-0.5); HEMOGLOBIN 8.3 g/dl (12.0-16.0); LYMPHOCYTES # 1.7 10^3/ul (0.8-2.9); LYMPHOCYTES % 32.6 % (15.0-51.0); MEAN CORPUSCULAR HEMOGLOBIN 29.7 pg (29.0-33.0); MEAN CORPUSCULAR HGB CONC 31.9 g/dl (32.0-37.0); MEAN CORPUSCULAR VOLUME 93.2 fl (82.0-101.0); MEAN PLATELET VOLUME 11.5 fl (7.4-10.4); MONOCYTE # 0.7 10^3/ul (0.3-0.9); MONOCYTES % 13.8 % (0.0-11.0); NEUTROPHIL # 2.5 10^3/ul (1.6-7.5); NEUTROPHILS % 49.4 % (39.0-77.0); PLATELET COUNT 124 10^3/UL (140-415); RED BLOOD COUNT 2.79 10^6/ul (4.20-5.40); RED CELL DISTRIBUTION WIDTH 16.4 % (11.5-14.5)
[2018-09-01 06:40] LABS: POSITIVE DIFF @See below
[2018-09-01 06:41] LABS: PARTIAL THROMBOPLASTIN TIME 54.5 Sec (23.0-35.0)
[2018-09-01 06:58] LABS: ANION GAP 9 (8-16); BLOOD UREA NITROGEN 19 mg/dl (7-20); CALCIUM 7.8 mg/dl (8.4-10.2); CARBON DIOXIDE 29 mmol/L (21-31); CHLORIDE 101 mmol/L (97-110); CREATININE 5.01 mg/dl (0.44-1.00); GLUCOSE 66 mg/dl (70-220); POTASSIUM 4.2 mmol/L (3.5-5.1); SODIUM 135 mmol/L (135-144)
[2018-09-01] MEDS: ONDANSETRON 4 MG INJ IV ×2 (08:25→16:34)
[2018-09-01] MEDS: LOSARTAN 50 MG TAB PO ×2 (08:26→20:45)
[2018-09-01] MEDS: HYDROXYCHLOROQUINE 200 MG TAB PO (08:26)
[2018-09-01] MEDS: ACETAMINOPHEN 325 MG TAB PO ×2 (08:27→20:44)
[2018-09-01] MEDS: NIFEdipine (XL) 60 MG TAB PO (08:28)
[2018-09-01 08:45] LABS: ANISOCYTOSIS 2+ (0-0); BAND NEUTROPHILS #M 0.3 10^3/ul (0.0-0.6); BAND NEUTROPHILS % (M) 7 % (0-4); BASOPHILS % (M) 1 % (0-2); GIANT THROMBO% (M) 5 % (0-0); LYMPHOCYTES #M 0.9 10^3/ul (0.8-2.9); LYMPHOCYTES % (M) 18 % (15-51); METAMYELOCYTES %M 1 % (0-0); MONOCYTE #M 0.2 10^3/ul (0.3-0.9); MONOCYTES % (M) 4 % (0-11); MYELOCYTES #M 0.1 10^3/ul (0.0-0.0); MYELOCYTES % (M) 2 % (0-0); PLATELET ESTIMATE DECREASED; POIKILOCYTOSIS 3+ (0-0); SEG NEUT #M 3.4 10^3/ul (1.6-7.5); SEGMENTED NEUTROPHILS (M) % 67 % (39-77); SMUDGE%M 56 % (0-0)
[2018-09-01] MEDS: VANCOMYCIN 750 MG in SOD CHLORIDE 0.9% 150 ML IVPB (17:18)
[2018-09-01] MEDS: HEPARIN 1000 UNITS/ML 10 ML INJ IV (20:36)
[2018-09-01] MEDS: HEPARIN 25000 UNITS/250 ML 250 ML IV (20:39)
[2018-09-01] MEDS: CLOTRIMAZOLE 1% 45 GM VAG CR VAG (20:45)
[2018-09-01] MEDS: LORAZEPAM 1 MG TAB PO (22:22)
[2018-09-02 01:42] LABS: PARTIAL THROMBOPLASTIN TIME > 180.0 Sec (23.0-35.0)
[2018-09-02] MEDS: ACCU-CHEK XX ×4 (06:00→18:00)
[2018-09-02] MEDS: morphine 2 MG INJ IV ×3 (06:17→16:03)
[2018-09-02] MEDS: PANTOPRAZOLE (EC) 40 MG TAB PO ×2 (06:18→18:19)
[2018-09-02 06:48] LABS: PARTIAL THROMBOPLASTIN TIME 102.5 Sec (23.0-35.0)
[2018-09-02] MEDS: ACETAMINOPHEN 325 MG TAB PO ×2 (08:01→14:41)
[2018-09-02] MEDS: DIPHENHYDRAMINE 2.5 MG/ML 5ML CUP PO ×2 (08:05→23:26)
[2018-09-02] MEDS: HEPARIN 1000 UNITS/ML 10 ML INJ CATHETER (12:21)
[2018-09-02] MEDS: ONDANSETRON 4 MG INJ IV (13:06)
[2018-09-02] MEDS: LOSARTAN 50 MG TAB PO ×2 (13:06→21:00)
[2018-09-02] MEDS: HYDROXYCHLOROQUINE 200 MG TAB PO (13:06)
[2018-09-02] MEDS: NIFEdipine (XL) 60 MG TAB PO (13:08)
[2018-09-02 15:40] LABS: PARTIAL THROMBOPLASTIN TIME > 180.0 Sec (23.0-35.0)
[2018-09-02] MEDS: LORAZEPAM 1 MG TAB PO (16:18)
[2018-09-02 18:19] LABS: PARTIAL THROMBOPLASTIN TIME 54.8 Sec (23.0-35.0)
[2018-09-02] MEDS: HEPARIN 25000 UNITS/250 ML 250 ML IV (19:16)
[2018-09-02] MEDS: CLOTRIMAZOLE 1% 45 GM VAG CR VAG (21:14)
[2018-09-02] MEDS: morphine LIQ (10 MG/5 ML) CUP PO (22:12)
[2018-09-02 23:54] LABS: PARTIAL THROMBOPLASTIN TIME 54.7 Sec (23.0-35.0)
[2018-09-03] MEDS: HEPARIN 1000 UNITS/ML 10 ML INJ IV (02:14)
[2018-09-03] MEDS: HEPARIN 25000 UNITS/250 ML 250 ML IV ×2 (02:19→10:27)
[2018-09-03] MEDS: ACETAMINOPHEN 325 MG TAB PO (03:44)
[2018-09-03] MEDS: morphine LIQ (10 MG/5 ML) CUP PO ×5 (03:46→22:19)
[2018-09-03] MEDS: ACCU-CHEK XX ×4 (06:00→17:29)
[2018-09-03 06:16] LABS: ADD MAN DIFF? NO
[2018-09-03] MEDS: PANTOPRAZOLE (EC) 40 MG TAB PO ×2 (06:26→17:29)
[2018-09-03 06:30] LABS: WHITE BLOOD COUNT 5.2 10^3/ul (4.8-10.8)
[2018-09-03 06:30] LABS: BASOPHIL # 0.1 10^3/ul (0.0-0.1); BASOPHILS % 1.4 % (0.0-2.0); EOSINOPHILS # 0.1 10^3/ul (0.0-0.5); EOSINOPHILS % 1.2 % (0.0-7.0); HEMATOCRIT 24.3 % (37.0-47.0); HEMOGLOBIN 7.8 g/dl (12.0-16.0); LYMPHOCYTES % 39.4 % (15.0-51.0); MEAN CORPUSCULAR HEMOGLOBIN 29.7 pg (29.0-33.0); MEAN CORPUSCULAR HGB CONC 32.1 g/dl (32.0-37.0); MEAN CORPUSCULAR VOLUME 92.4 fl (82.0-101.0); MEAN PLATELET VOLUME 12.6 fl (7.4-10.4); MONOCYTE # 0.6 10^3/ul (0.3-0.9); MONOCYTES % 12.4 % (0.0-11.0); NEUTROPHIL # 2.3 10^3/ul (1.6-7.5); NEUTROPHILS % 45.4 % (39.0-77.0); PLATELET COUNT 123 10^3/UL (140-415); RED BLOOD COUNT 2.63 10^6/ul (4.20-5.40); RED CELL DISTRIBUTION WIDTH 16.4 % (11.5-14.5)
[2018-09-03 06:58] LABS: MAGNESIUM 1.9 mg/dl (1.7-2.5)
[2018-09-03 06:58] LABS: PHOSPHORUS 2.9 mg/dl (2.5-4.9)
[2018-09-03] MEDS: NIFEdipine (XL) 60 MG TAB PO (08:23)
[2018-09-03] MEDS: HYDROXYCHLOROQUINE 200 MG TAB PO (08:24)
[2018-09-03] MEDS: LOSARTAN 50 MG TAB PO ×2 (08:24→21:00)
[2018-09-03 08:34] LABS: ANION GAP 12 (8-16); BLOOD UREA NITROGEN 12 mg/dl (7-20); CALCIUM 7.8 mg/dl (8.4-10.2); CARBON DIOXIDE 28 mmol/L (21-31); CHLORIDE 102 mmol/L (97-110); CREATININE 4.22 mg/dl (0.44-1.00); GLUCOSE 72 mg/dl (70-220); POTASSIUM 4.1 mmol/L (3.5-5.1); SODIUM 138 mmol/L (135-144)
[2018-09-03 09:24] LABS: PARTIAL THROMBOPLASTIN TIME 108.3 Sec (23.0-35.0)
[2018-09-03] MEDS: ONDANSETRON 4 MG INJ IV ×2 (10:39→15:45)
[2018-09-03] MEDS: DIPHENHYDRAMINE 2.5 MG/ML 5ML CUP PO ×2 (11:00→18:58)
[2018-09-03] MEDS: LORAZEPAM 1 MG TAB PO (14:56)
[2018-09-03 15:40] LABS: PARTIAL THROMBOPLASTIN TIME 85.4 Sec (23.0-35.0)
[2018-09-03 21:52] LABS: PARTIAL THROMBOPLASTIN TIME 87.4 Sec (23.0-35.0)
[2018-09-03] MEDS: CLOTRIMAZOLE 1% 45 GM VAG CR VAG (22:19)
[2018-09-04] MEDS: morphine LIQ (10 MG/5 ML) CUP PO ×3 (02:28→13:19)
[2018-09-04] MEDS: HEPARIN 25000 UNITS/250 ML 250 ML IV (02:32)
[2018-09-04] MEDS: ACCU-CHEK XX ×4 (06:00→17:45)
[2018-09-04] MEDS: PANTOPRAZOLE (EC) 40 MG TAB PO ×2 (06:17→18:27)
[2018-09-04 06:30] LABS: HEMATOCRIT 24.2 % (37.0-47.0); HEMOGLOBIN 7.6 g/dl (12.0-16.0); MEAN CORPUSCULAR HEMOGLOBIN 29.3 pg (29.0-33.0); MEAN CORPUSCULAR HGB CONC 31.4 g/dl (32.0-37.0); MEAN CORPUSCULAR VOLUME 93.4 fl (82.0-101.0); MEAN PLATELET VOLUME 11.6 fl (7.4-10.4); PLATELET COUNT 104 10^3/UL (140-415); RED BLOOD COUNT 2.59 10^6/ul (4.20-5.40); RED CELL DISTRIBUTION WIDTH 16.1 % (11.5-14.5)
[2018-09-04 06:30] LABS: WHITE BLOOD COUNT 5.5 10^3/ul (4.8-10.8)
[2018-09-04 06:32] LABS: ADD MAN DIFF? YES; POSITIVE DIFF @See below
[2018-09-04] MEDS: DIPHENHYDRAMINE 2.5 MG/ML 5ML CUP PO ×3 (06:50→18:27)
[2018-09-04 07:03] LABS: PARTIAL THROMBOPLASTIN TIME 89.7 Sec (23.0-35.0)
[2018-09-04 07:17] LABS: ANION GAP 9 (8-16); CARBON DIOXIDE 31 mmol/L (21-31); CHLORIDE 99 mmol/L (97-110); POTASSIUM 4.3 mmol/L (3.5-5.1); SODIUM 135 mmol/L (135-144)
[2018-09-04 07:28] LABS: BLOOD UREA NITROGEN 17 mg/dl (7-20); CALCIUM 7.7 mg/dl (8.4-10.2); CREATININE 5.77 mg/dl (0.44-1.00); GLUCOSE 69 mg/dl (70-220)
[2018-09-04 07:39] LABS: MAGNESIUM 1.9 mg/dl (1.7-2.5)
[2018-09-04 08:53] LABS: ANISOCYTOSIS 1+ (0-0); BAND NEUTROPHILS #M 0.2 10^3/ul (0.0-0.6); BAND NEUTROPHILS % (M) 5 % (0-4); BASOPHILS % (M) 1 % (0-2); EOSINOPHILS % (M) 1 % (0-7); GIANT THROMBO% (M) 1 % (0-0); HYPOCHROMASIA 1+ (0-0); LYMPHOCYTES #M 1.6 10^3/ul (0.8-2.9); LYMPHOCYTES % (M) 30 % (15-51); MONOCYTE #M 0.5 10^3/ul (0.3-0.9); MONOCYTES % (M) 10 % (0-11); PLATELET ESTIMATE DECREASED; POIKILOCYTOSIS 1+ (0-0); POLYCHROMASIA 1+ (0-0); REACTIVE LYMPHOCYTES #M 0.1 10^3/ul (0.0-0.0); REACTIVE LYMPHOCYTES% (M) 2 % (0-0); SEG NEUT #M 2.8 10^3/ul (1.6-7.5); SEGMENTED NEUTROPHILS (M) % 51 % (39-77); SMUDGE%M 88 % (0-0); SPHEROCYTES 1+ (0-0)
[2018-09-04] MEDS: HEPARIN 1000 UNITS/ML 10 ML INJ CATHETER (10:45)
[2018-09-04] MEDS: LOSARTAN 50 MG TAB PO ×2 (11:30→21:00)
[2018-09-04] MEDS: HYDROXYCHLOROQUINE 200 MG TAB PO (11:31)
[2018-09-04] MEDS: NIFEdipine (XL) 60 MG TAB PO (11:31)
[2018-09-04] MEDS: ACETAMINOPHEN 325 MG TAB PO (11:32)
[2018-09-04] MEDS: ONDANSETRON 4 MG INJ IV (15:49)
[2018-09-04] MEDS: OXYCODONE/ACETAMINOPHEN (5/325) TAB PO ×2 (15:49→21:55)
[2018-09-04 17:42] LABS: VANCOMYCIN,TROUGH 10.6 ug/ml (10.0-20.0)
[2018-09-04] MEDS: LORAZEPAM 1 MG TAB PO (17:43)
[2018-09-04] MEDS: VANCOMYCIN 750 MG in SOD CHLORIDE 0.9% 150 ML IVPB (17:50)
[2018-09-04] MEDS: CLOTRIMAZOLE 1% 45 GM VAG CR VAG (21:00)
[2018-09-05] MEDS: ACCU-CHEK XX ×4 (00:36→17:31)
[2018-09-05] MEDS: PANTOPRAZOLE (EC) 40 MG TAB PO ×2 (06:24→17:22)
[2018-09-05 06:48] LABS: WHITE BLOOD COUNT 4.6 10^3/ul (4.8-10.8)
[2018-09-05 06:48] LABS: HEMATOCRIT 24.7 % (37.0-47.0); HEMOGLOBIN 7.6 g/dl (12.0-16.0); MEAN CORPUSCULAR HEMOGLOBIN 28.8 pg (29.0-33.0); MEAN CORPUSCULAR HGB CONC 30.8 g/dl (32.0-37.0); MEAN CORPUSCULAR VOLUME 93.6 fl (82.0-101.0); PLATELET COUNT 110 10^3/UL (140-415); RED BLOOD COUNT 2.64 10^6/ul (4.20-5.40); RED CELL DISTRIBUTION WIDTH 16.2 % (11.5-14.5)
[2018-09-05 06:53] LABS: POSITIVE DIFF @See below
[2018-09-05 06:54] LABS: ADD MAN DIFF? YES
[2018-09-05 07:18] LABS: ANION GAP 9 (8-16); BLOOD UREA NITROGEN 10 mg/dl (7-20); CALCIUM 7.7 mg/dl (8.4-10.2); CARBON DIOXIDE 31 mmol/L (21-31); CHLORIDE 102 mmol/L (97-110); CREATININE 3.87 mg/dl (0.44-1.00); GLUCOSE 64 mg/dl (70-220); POTASSIUM 4.1 mmol/L (3.5-5.1); SODIUM 138 mmol/L (135-144)
[2018-09-05 07:33] LABS: PARTIAL THROMBOPLASTIN TIME 126.5 Sec (23.0-35.0)
[2018-09-05 07:41] LABS: MAGNESIUM 1.9 mg/dl (1.7-2.5)
[2018-09-05 07:41] LABS: PHOSPHORUS 3.3 mg/dl (2.5-4.9)
[2018-09-05 07:48] LABS: ANISOCYTOSIS 1+ (0-0); BAND NEUTROPHILS #M 0.3 10^3/ul (0.0-0.6); BAND NEUTROPHILS % (M) 8 % (0-4); BURR CELLS 1+ (0-0); GIANT THROMBO% (M) 1 % (0-0); LYMPHOCYTES #M 1.3 10^3/ul (0.8-2.9); LYMPHOCYTES % (M) 29 % (15-51); METAMYELOCYTES %M 2 % (0-0); MONOCYTE #M 0.2 10^3/ul (0.3-0.9); MONOCYTES % (M) 6 % (0-11); MYELOCYTES % (M) 1 % (0-0); OVALOCYTES 1+ (0-0); PLATELET ESTIMATE NORMAL; POLYCHROMASIA 1+ (0-0); PROMYELOCYTES % (M) 1 % (0-0); REACTIVE LYMPHOCYTES #M 0.2 10^3/ul (0.0-0.0); REACTIVE LYMPHOCYTES% (M) 5 % (0-0); SEG NEUT #M 2.2 10^3/ul (1.6-7.5); SEGMENTED NEUTROPHILS (M) % 48 % (39-77); SMUDGE%M 22 % (0-0); SPHEROCYTES 1+ (0-0)
[2018-09-05] MEDS: ONDANSETRON 4 MG INJ IV ×3 (08:19→17:31)
[2018-09-05] MEDS: OXYCODONE/ACETAMINOPHEN (5/325) TAB PO ×4 (08:19→21:29)
[2018-09-05] MEDS: NIFEdipine (XL) 60 MG TAB PO (08:19)
[2018-09-05] MEDS: LOSARTAN 50 MG TAB PO ×2 (08:20→21:00)
[2018-09-05] MEDS: HYDROXYCHLOROQUINE 200 MG TAB PO (08:20)
[2018-09-05] MEDS: DIPHENHYDRAMINE 2.5 MG/ML 5ML CUP PO ×3 (08:26→21:28)
[2018-09-05 16:07] LABS: PARTIAL THROMBOPLASTIN TIME 79.3 Sec (23.0-35.0)
[2018-09-05] MEDS: LORAZEPAM 1 MG TAB PO (16:09)
[2018-09-05 20:20] LABS: PARTIAL THROMBOPLASTIN TIME 69.2 Sec (23.0-35.0)
[2018-09-05] MEDS: HEPARIN 25000 UNITS/250 ML 250 ML IV (21:43)
[2018-09-06] MEDS: ALBUMIN HUMAN 25% 100 ML IV ×2 (00:20→00:26)
[2018-09-06] MEDS: CLOTRIMAZOLE 1% 45 GM VAG CR VAG (00:21)
[2018-09-06] MEDS: PANTOPRAZOLE (EC) 40 MG TAB PO ×2 (05:11→17:47)
[2018-09-06] MEDS: ACCU-CHEK XX ×5 (05:12→23:37)
[2018-09-06 07:30] LABS: ADD MAN DIFF? NO
[2018-09-06 07:33] LABS: ABNORMAL IP MESSAGE 1; BASOPHILS % 0.4 % (0.0-2.0); EOSINOPHILS # 0.1 10^3/ul (0.0-0.5); EOSINOPHILS % 1.8 % (0.0-7.0); HEMATOCRIT 23.5 % (37.0-47.0); HEMOGLOBIN 7.3 g/dl (12.0-16.0); LYMPHOCYTES # 1.9 10^3/ul (0.8-2.9); LYMPHOCYTES % 41.9 % (15.0-51.0); MEAN CORPUSCULAR HEMOGLOBIN 29.2 pg (29.0-33.0); MEAN CORPUSCULAR HGB CONC 31.1 g/dl (32.0-37.0); MONOCYTE # 0.5 10^3/ul (0.3-0.9); MONOCYTES % 9.9 % (0.0-11.0); NEUTROPHIL # 2.1 10^3/ul (1.6-7.5); NEUTROPHILS % 45.6 % (39.0-77.0); PLATELET COUNT 86 10^3/UL (140-415)
[2018-09-06 07:33] LABS: WHITE BLOOD COUNT 4.5 10^3/ul (4.8-10.8)
[2018-09-06 07:34] LABS: POSITIVE DIFF @See below
[2018-09-06 07:51] LABS: MAGNESIUM 1.8 mg/dl (1.7-2.5)
[2018-09-06 07:51] LABS: PHOSPHORUS 4.2 mg/dl (2.5-4.9)
[2018-09-06 07:52] LABS: ANION GAP 13 (8-16); BLOOD UREA NITROGEN 16 mg/dl (7-20); CALCIUM 8.1 mg/dl (8.4-10.2); CARBON DIOXIDE 29 mmol/L (21-31); CHLORIDE 98 mmol/L (97-110); CREATININE 5.35 mg/dl (0.44-1.00); GLUCOSE 69 mg/dl (70-220); POTASSIUM 4.5 mmol/L (3.5-5.1); SODIUM 135 mmol/L (135-144)
[2018-09-06 07:53] LABS: PARTIAL THROMBOPLASTIN TIME 65.6 Sec (23.0-35.0)
[2018-09-06] MEDS: OXYCODONE/ACETAMINOPHEN (5/325) TAB PO ×4 (09:17→22:07)
[2018-09-06] MEDS: ONDANSETRON 4 MG INJ IV ×3 (09:17→22:07)
[2018-09-06] MEDS: DIPHENHYDRAMINE 2.5 MG/ML 5ML CUP PO ×2 (09:17→17:50)
[2018-09-06] MEDS: HYDROXYCHLOROQUINE 200 MG TAB PO (09:18)
[2018-09-06] MEDS: LOSARTAN 50 MG TAB PO ×2 (09:19→22:00)
[2018-09-06] MEDS: NIFEdipine (XL) 60 MG TAB PO (09:19)
[2018-09-06] MEDS: LORAZEPAM 1 MG TAB PO (13:36)
[2018-09-06 14:28] LABS: PARTIAL THROMBOPLASTIN TIME 57.2 Sec (23.0-35.0)
[2018-09-06] MEDS: HEPARIN 1000 UNITS/ML 10 ML INJ IV (17:58)
[2018-09-07 00:43] LABS: PARTIAL THROMBOPLASTIN TIME > 180.0 Sec (23.0-35.0)
[2018-09-07] MEDS: ACETAMINOPHEN 325 MG TAB PO (01:50)
[2018-09-07] MEDS: CLOTRIMAZOLE 1% 45 GM VAG CR VAG (01:56)
[2018-09-07] MEDS: DIPHENHYDRAMINE 2.5 MG/ML 5ML CUP PO ×2 (02:03→20:11)
[2018-09-07 02:20] LABS: PARTIAL THROMBOPLASTIN TIME 143.6 Sec (23.0-35.0)
[2018-09-07 04:06] LABS: ADD MAN DIFF? NO
[2018-09-07 04:10] LABS: WHITE BLOOD COUNT 4.6 10^3/ul (4.8-10.8)
[2018-09-07 04:10] LABS: ABNORMAL IP MESSAGE 1; BASOPHILS % 0.4 % (0.0-2.0); EOSINOPHILS # 0.1 10^3/ul (0.0-0.5); EOSINOPHILS % 1.8 % (0.0-7.0); HEMATOCRIT 21.8 % (37.0-47.0); LYMPHOCYTES # 2.1 10^3/ul (0.8-2.9); LYMPHOCYTES % 46.9 % (15.0-51.0); MEAN CORPUSCULAR HEMOGLOBIN 29.2 pg (29.0-33.0); MEAN CORPUSCULAR HGB CONC 31.7 g/dl (32.0-37.0); MEAN CORPUSCULAR VOLUME 92.4 fl (82.0-101.0); MONOCYTE # 0.5 10^3/ul (0.3-0.9); NEUTROPHIL # 1.8 10^3/ul (1.6-7.5); NEUTROPHILS % 39.5 % (39.0-77.0); PLATELET COUNT 78 10^3/UL (140-415); RED BLOOD COUNT 2.36 10^6/ul (4.20-5.40); RED CELL DISTRIBUTION WIDTH 15.9 % (11.5-14.5)
[2018-09-07 04:13] LABS: POSITIVE DIFF @See below
[2018-09-07 04:14] LABS: HEMOGLOBIN 6.9 g/dl (12.0-16.0)
[2018-09-07 04:24] LABS: ANION GAP 7 (8-16); BLOOD UREA NITROGEN 7 mg/dl (7-20); CALCIUM 7.8 mg/dl (8.4-10.2); CARBON DIOXIDE 31 mmol/L (21-31); CHLORIDE 104 mmol/L (97-110); CREATININE 3.07 mg/dl (0.44-1.00); GLUCOSE 73 mg/dl (70-220); SODIUM 138 mmol/L (135-144)
[2018-09-07 04:28] LABS: PARTIAL THROMBOPLASTIN TIME 67.8 Sec (23.0-35.0)
[2018-09-07 04:49] LABS: PHOSPHORUS 2.9 mg/dl (2.5-4.9)
[2018-09-07 04:49] LABS: MAGNESIUM 1.8 mg/dl (1.7-2.5)
[2018-09-07] MEDS: ACCU-CHEK XX ×3 (06:00→17:23)
[2018-09-07] MEDS: PANTOPRAZOLE (EC) 40 MG TAB PO ×2 (06:35→17:47)
[2018-09-07] MEDS: ONDANSETRON 4 MG INJ IV ×2 (07:07→12:22)
[2018-09-07] MEDS: LOSARTAN 50 MG TAB PO ×2 (08:34→20:13)
[2018-09-07] MEDS: HYDROXYCHLOROQUINE 200 MG TAB PO (08:34)
[2018-09-07] MEDS: NIFEdipine (XL) 60 MG TAB PO (08:34)
[2018-09-07] MEDS: OXYCODONE/ACETAMINOPHEN (5/325) TAB PO ×2 (09:18→20:12)
[2018-09-07 10:01] LABS: PARTIAL THROMBOPLASTIN TIME 92.1 Sec (23.0-35.0)
[2018-09-07 10:08] LABS: IMMEDIATE SPIN CROSSMATCH 1 1
[2018-09-07] MEDS: LORAZEPAM 1 MG TAB PO (14:42)
[2018-09-07 16:44] LABS: PARTIAL THROMBOPLASTIN TIME 77.8 Sec (23.0-35.0)
[2018-09-07] MEDS: PROCHLORPERAZINE 10 MG INJ IV (17:47)
[2018-09-07] MEDS: VANCOMYCIN 750 MG in SOD CHLORIDE 0.9% 150 ML IVPB (17:48)
[2018-09-07] MEDS: MYCOPHENOLATE 250 MG CAP PO (20:12)
[2018-09-08] MEDS: HEPARIN 25000 UNITS/250 ML 250 ML IV (00:31)
[2018-09-08] MEDS: ACCU-CHEK XX ×4 (00:32→17:38)
[2018-09-08] MEDS: PANTOPRAZOLE (EC) 40 MG TAB PO ×2 (05:31→17:38)
[2018-09-08 05:45] LABS: ADD MAN DIFF? NO
[2018-09-08 05:52] LABS: WHITE BLOOD COUNT 5.2 10^3/ul (4.8-10.8)
[2018-09-08 05:52] LABS: ABNORMAL IP MESSAGE 1; BASOPHILS % 0.6 % (0.0-2.0); EOSINOPHILS % 0.6 % (0.0-7.0); HEMATOCRIT 30.9 % (37.0-47.0); LYMPHOCYTES # 2.7 10^3/ul (0.8-2.9); LYMPHOCYTES % 52.1 % (15.0-51.0); MEAN CORPUSCULAR HEMOGLOBIN 29.2 pg (29.0-33.0); MEAN CORPUSCULAR HGB CONC 32.4 g/dl (32.0-37.0); MEAN CORPUSCULAR VOLUME 90.1 fl (82.0-101.0); MONOCYTE # 0.6 10^3/ul (0.3-0.9); MONOCYTES % 11.5 % (0.0-11.0); NEUTROPHIL # 1.8 10^3/ul (1.6-7.5); NEUTROPHILS % 34.8 % (39.0-77.0); PLATELET COUNT 99 10^3/UL (140-415); RED BLOOD COUNT 3.43 10^6/ul (4.20-5.40); RED CELL DISTRIBUTION WIDTH 15.7 % (11.5-14.5)
[2018-09-08 05:54] LABS: POSITIVE DIFF @See below
[2018-09-08 06:28] LABS: ANION GAP 11 (8-16); BLOOD UREA NITROGEN 13 mg/dl (7-20); CALCIUM 7.8 mg/dl (8.4-10.2); CARBON DIOXIDE 28 mmol/L (21-31); CHLORIDE 103 mmol/L (97-110); CREATININE 5.12 mg/dl (0.44-1.00); GLUCOSE 75 mg/dl (70-220); POTASSIUM 4.1 mmol/L (3.5-5.1); SODIUM 138 mmol/L (135-144)
[2018-09-08 06:33] LABS: PARTIAL THROMBOPLASTIN TIME 81.3 Sec (23.0-35.0)
[2018-09-08 07:40] LABS: MAGNESIUM 1.8 mg/dl (1.7-2.5)
[2018-09-08 07:40] LABS: PHOSPHORUS 4.1 mg/dl (2.5-4.9)
[2018-09-08] MEDS: LOSARTAN 50 MG TAB PO ×2 (09:00→20:41)
[2018-09-08] MEDS: NIFEdipine (XL) 60 MG TAB PO (09:00)
[2018-09-08] MEDS: MYCOPHENOLATE 250 MG CAP PO ×2 (09:01→20:41)
[2018-09-08] MEDS: LORAZEPAM 1 MG TAB PO (09:01)
[2018-09-08] MEDS: HYDROXYCHLOROQUINE 200 MG TAB PO (09:03)
[2018-09-08] MEDS: OXYCODONE/ACETAMINOPHEN (5/325) TAB PO ×2 (11:01→20:41)
[2018-09-08 11:40] LABS: PARTIAL THROMBOPLASTIN TIME 82.5 Sec (23.0-35.0)
[2018-09-08] MEDS: DIPHENHYDRAMINE 2.5 MG/ML 5ML CUP PO (14:36)
[2018-09-08 18:23] LABS: PARTIAL THROMBOPLASTIN TIME 90.5 Sec (23.0-35.0)
[2018-09-08] MEDS: PROCHLORPERAZINE 10 MG INJ IV (20:42)
[2018-09-09] MEDS: ACCU-CHEK XX ×4 (00:55→17:51)
[2018-09-09] MEDS: PANTOPRAZOLE (EC) 40 MG TAB PO ×2 (05:32→17:51)
[2018-09-09 07:15] LABS: PARTIAL THROMBOPLASTIN TIME 80.8 Sec (23.0-35.0)
[2018-09-09] MEDS: HYDROXYCHLOROQUINE 200 MG TAB PO (08:54)
[2018-09-09] MEDS: LOSARTAN 50 MG TAB PO ×2 (08:54→21:05)
[2018-09-09] MEDS: MYCOPHENOLATE 250 MG CAP PO ×2 (08:54→21:05)
[2018-09-09] MEDS: OXYCODONE/ACETAMINOPHEN (5/325) TAB PO ×5 (08:55→23:52)
[2018-09-09] MEDS: NIFEdipine (XL) 60 MG TAB PO (08:55)
[2018-09-09] MEDS: LORAZEPAM 1 MG TAB PO (10:57)
[2018-09-09] MEDS: HEPARIN 1000 UNITS/ML 10 ML INJ CATHETER (15:05)
[2018-09-09] MEDS: ONDANSETRON 4 MG INJ IV (19:18)
[2018-09-09] MEDS: PROCHLORPERAZINE 10 MG INJ IV ×2 (20:00→23:57)
[2018-09-09] MEDS: DIPHENHYDRAMINE 2.5 MG/ML 5ML CUP PO (22:02)
[2018-09-10] MEDS: HEPARIN 25000 UNITS/250 ML 250 ML IV (03:31)
[2018-09-10] MEDS: OXYCODONE/ACETAMINOPHEN (5/325) TAB PO ×3 (05:57→16:55)
[2018-09-10] MEDS: PANTOPRAZOLE (EC) 40 MG TAB PO ×2 (05:57→17:56)
[2018-09-10] MEDS: ACCU-CHEK XX ×3 (06:00→12:00)
[2018-09-10 07:22] LABS: ADD MAN DIFF? NO
[2018-09-10 07:31] LABS: ABNORMAL IP MESSAGE 1; BASOPHILS % 0.5 % (0.0-2.0); HEMATOCRIT 24.5 % (37.0-47.0); HEMOGLOBIN 7.8 g/dl (12.0-16.0); LYMPHOCYTES # 2.2 10^3/ul (0.8-2.9); LYMPHOCYTES % 33.8 % (15.0-51.0); MEAN CORPUSCULAR HEMOGLOBIN 29.1 pg (29.0-33.0); MEAN CORPUSCULAR HGB CONC 31.8 g/dl (32.0-37.0); MEAN CORPUSCULAR VOLUME 91.4 fl (82.0-101.0); MONOCYTE # 0.8 10^3/ul (0.3-0.9); MONOCYTES % 12.2 % (0.0-11.0); NEUTROPHIL # 3.5 10^3/ul (1.6-7.5); NEUTROPHILS % 53.3 % (39.0-77.0); PLATELET COUNT 74 10^3/UL (140-415); RED BLOOD COUNT 2.68 10^6/ul (4.20-5.40); RED CELL DISTRIBUTION WIDTH 15.8 % (11.5-14.5)
[2018-09-10 07:31] LABS: WHITE BLOOD COUNT 6.5 10^3/ul (4.8-10.8)
[2018-09-10 07:36] LABS: POSITIVE DIFF @See below
[2018-09-10 07:50] LABS: ANION GAP 9 (8-16); BLOOD UREA NITROGEN 11 mg/dl (7-20); CALCIUM 7.7 mg/dl (8.4-10.2); CARBON DIOXIDE 29 mmol/L (21-31); CHLORIDE 102 mmol/L (97-110); CREATININE 4.38 mg/dl (0.44-1.00); GLUCOSE 73 mg/dl (70-220); POTASSIUM 4.1 mmol/L (3.5-5.1); SODIUM 136 mmol/L (135-144)
[2018-09-10] MEDS: MYCOPHENOLATE 250 MG CAP PO (08:28)
[2018-09-10] MEDS: HYDROXYCHLOROQUINE 200 MG TAB PO (08:28)
[2018-09-10] MEDS: LOSARTAN 50 MG TAB PO (08:28)
[2018-09-10] MEDS: NIFEdipine (XL) 60 MG TAB PO (08:28)
[2018-09-10] MEDS: ACETAMINOPHEN 325 MG TAB PO ×2 (08:29→17:56)
[2018-09-10] MEDS: DIPHENHYDRAMINE 2.5 MG/ML 5ML CUP PO (09:33)
[2018-09-10] MEDS: PROCHLORPERAZINE 10 MG INJ IV (13:58)
[2018-09-10 14:10] LABS: HEMATOCRIT 24.9 % (37.0-47.0)
[2018-09-10 15:15] LABS: PARTIAL THROMBOPLASTIN TIME 127.3 Sec (23.0-35.0)
[2018-09-10] MEDS: VANCOMYCIN 750 MG in SOD CHLORIDE 0.9% 150 ML IVPB (16:55)
== END 2018-09-10 20:30 | disposition home health service (06) | DRG 870 ==
LOC: TEL 09-04 23:23 → PP2 09-06 20:50 → E/R 12:34 → ICU 15:01
PROC: 0BH17EZ Insertion of Endotracheal Airway into Trachea, Via Natural or Artificial Opening (ICD-10-PCS; principal; 2018-08-19)
PROC: 5A1955Z Respiratory Ventilation, Greater than 96 Consecutive Hours (ICD-10-PCS; 2018-08-19)
PROC: 30233N1 Transfusion of Nonautologous Red Blood Cells into Peripheral Vein, Percutaneous Approach (ICD-10-PCS; 2018-08-19)
DX: A41.9 Sepsis, unspecified organism (principal); J96.01 Acute respiratory failure with hypoxia; K85.90 Acute pancreatitis without necrosis or infection, unspecified; N18.6 End stage renal disease; J69.0 Pneumonitis due to inhalation of food and vomit; I46.9 Cardiac arrest, cause unspecified; G92 Toxic encephalopathy; I12.0 Hypertensive chronic kidney disease with stage 5 chronic kidney disease or end stage renal disease; E87.2 Acidosis; L03.113 Cellulitis of right upper limb; I82.621 Acute embolism and thrombosis of deep veins of right upper extremity; B19.10 Unspecified viral hepatitis B without hepatic coma; Z99.2 Dependence on renal dialysis; D64.9 Anemia, unspecified; D69.6 Thrombocytopenia, unspecified; M32.14 Glomerular disease in systemic lupus erythematosus; I51.7 Cardiomegaly; K29.70 Gastritis, unspecified, without bleeding; M79.89 Other specified soft tissue disorders
CPT/HCPCS: 31500; 36415; 36430; 36600; 70450; 71045; 73218; 74176; 76536; 76937; 80048; 80053; 80202; 80307; 81001; 82150; 82310; 82550; 82553; 82803; 82962; 83036; 83605; 83690; 83735; 83880; 84100; 84145; 84439; 84443; 84484; 85014; 85018; 85025; 85378; 85384; 85610; 85651; 85730; 86140; 86160; 86226; 86704; 86706; 86803; 86850; 86900; 86901; 86920; 87040; 87070; 87081; 87086; 87340; 90935; 92526; 92610; 93005; 93306; 93308; 93923; 93970; 93971; 94002; 94003; 94640; 94664; 94770; 96374; 96375; 97110; 97116; 97162; 97530; 99291-25

== ENCOUNTER 2018-10-17 20:51 | Emergency (ER) | payer MEDICARE, OTHER ==
[2018-10-17] MEDS: ONDANSETRON 4 MG INJ IV (22:53)
[2018-10-17] MEDS: morphine 2 MG INJ IV (22:53)
[2018-10-17 22:56] LABS: ADD MAN DIFF? NO
[2018-10-17 22:57] LABS: ABNORMAL IP MESSAGE 1; BASOPHILS % 0.2 % (0.0-2.0); EOSINOPHILS % 0.2 % (0.0-7.0); HEMATOCRIT 23.6 % (37.0-47.0); HEMOGLOBIN 7.3 g/dl (12.0-16.0); LYMPHOCYTES # 1.4 10^3/ul (0.8-2.9); LYMPHOCYTES % 31.1 % (15.0-51.0); MEAN CORPUSCULAR HEMOGLOBIN 31.1 pg (29.0-33.0); MEAN CORPUSCULAR HGB CONC 30.9 g/dl (32.0-37.0); MEAN CORPUSCULAR VOLUME 100.4 fl (82.0-101.0); MEAN PLATELET VOLUME 12.4 fl (7.4-10.4); MONOCYTE # 0.6 10^3/ul (0.3-0.9); MONOCYTES % 13.2 % (0.0-11.0); NEUTROPHIL # 2.4 10^3/ul (1.6-7.5); NEUTROPHILS % 55.1 % (39.0-77.0); PLATELET COUNT 92 10^3/UL (140-415); RED BLOOD COUNT 2.35 10^6/ul (4.20-5.40)
[2018-10-17 22:57] LABS: WHITE BLOOD COUNT 4.4 10^3/ul (4.8-10.8)
[2018-10-17 23:02] LABS: POSITIVE DIFF @See below
[2018-10-17 23:03] LABS: ALANINE AMINOTRANSFERASE 19 IU/L (13-69); ALBUMIN 3.3 g/dl (3.3-4.9); ALBUMIN/GLOBULIN RATIO 1.06; ALKALINE PHOSPHATASE 88 IU/L (42-121); ANION GAP 9 (5-13); ASPARTATE AMINO TRANSFERASE 22 IU/L (15-46); BILIRUBIN,INDIRECT 0.9 mg/dl (0-1.1); BILIRUBIN,TOTAL 0.9 mg/dl (0.2-1.3); BLOOD UREA NITROGEN 20 mg/dl (7-20); CALCIUM 8.3 mg/dl (8.4-10.2); CARBON DIOXIDE 24 mmol/L (21-31); CHLORIDE 105 mmol/L (97-110); CREATININE 4.07 mg/dl (0.44-1.00); Estimated GFR 12 mL/min (>60); GLUCOSE 74 mg/dl (70-220); LIPASE 207 U/L (23-300); SODIUM 138 mmol/L (135-144); TOTAL PROTEIN 6.4 g/dl (6.1-8.1)
[2018-10-17 23:28] LABS: URINE BLOOD (Dip) POC 3+ (NEGATIVE); URINE GLUCOSE (Dip) POC Negative (NEGATIVE); URINE KETONES (Dip) POC Trace (NEGATIVE); URINE LEUKOCYTE EST (Dip) POC 3+ (NEGATIVE); URINE NITRITE (Dip) POC Negative (NEGATIVE); URINE TOTAL PROTEIN POC 3+ (NEGATIVE)
[2018-10-18] MEDS: CEFTRIAXONE 1 GM/50 ML (PMX) 50 ML IVPB (00:04)
[2018-10-18] MEDS: morphine 2 MG INJ IV (00:17)
== END 2018-10-18 00:55 | disposition home or self-care (01) ==
LOC: E/R 10-18 00:55
DX: N30.00 Acute cystitis without hematuria (principal); D61.818 Other pancytopenia; I12.9 Hypertensive chronic kidney disease with stage 1 through stage 4 chronic kidney disease, or unspecified chronic kidney disease; N18.9 Chronic kidney disease, unspecified; I50.9 Heart failure, unspecified; Z79.82 Long term (current) use of aspirin; Z99.2 Dependence on renal dialysis
CPT/HCPCS: 36415; 80053; 81003; 81025; 83690; 85025; 87086; 96374; 96375; 96376; 99284-25

== ENCOUNTER 2018-10-19 20:11 | Inpatient (IN) | payer MEDICARE, OTHER ==
[2018-10-19] MEDS: HYDROmorphONE 0.5 MG/0.5 ML SYG IV (21:34)
[2018-10-19] MEDS: ONDANSETRON 4 MG INJ IV (21:34)
[2018-10-19 21:54] LABS: ADD MAN DIFF? NO
[2018-10-19 22:10] LABS: BASOPHILS % 0.2 % (0.0-2.0); HEMATOCRIT 26.3 % (37.0-47.0); LYMPHOCYTES # 1.2 10^3/ul (0.8-2.9); LYMPHOCYTES % 29.2 % (15.0-51.0); MEAN CORPUSCULAR HEMOGLOBIN 30.7 pg (29.0-33.0); MEAN CORPUSCULAR HGB CONC 30.4 g/dl (32.0-37.0); MEAN CORPUSCULAR VOLUME 100.8 fl (82.0-101.0); MEAN PLATELET VOLUME 12.2 fl (7.4-10.4); MONOCYTE # 0.4 10^3/ul (0.3-0.9); MONOCYTES % 10.8 % (0.0-11.0); NEUTROPHIL # 2.4 10^3/ul (1.6-7.5); NEUTROPHILS % 59.6 % (39.0-77.0); PLATELET COUNT 113 10^3/UL (140-415); RED BLOOD COUNT 2.61 10^6/ul (4.20-5.40)
[2018-10-19 22:10] LABS: WHITE BLOOD COUNT 4.1 10^3/ul (4.8-10.8)
[2018-10-19 22:26] LABS: ALANINE AMINOTRANSFERASE 18 IU/L (13-69); ALBUMIN 3.4 g/dl (3.3-4.9); ALBUMIN/GLOBULIN RATIO 1.06; ALKALINE PHOSPHATASE 90 IU/L (42-121); ANION GAP 9 (5-13); ASPARTATE AMINO TRANSFERASE 20 IU/L (15-46); BILIRUBIN,INDIRECT 0.3 mg/dl (0-1.1); BILIRUBIN,TOTAL 0.3 mg/dl (0.2-1.3); BLOOD UREA NITROGEN 23 mg/dl (7-20); CALCIUM 8.3 mg/dl (8.4-10.2); CARBON DIOXIDE 25 mmol/L (21-31); CHLORIDE 103 mmol/L (97-110); CREATININE 3.94 mg/dl (0.44-1.00); Estimated GFR 13 mL/min (>60); GLUCOSE 92 mg/dl (70-220); POTASSIUM 4.5 mmol/L (3.5-5.1); SODIUM 137 mmol/L (135-144); TOTAL PROTEIN 6.6 g/dl (6.1-8.1)
[2018-10-19 22:52] LABS: LIPASE 217 U/L (23-300)
[2018-10-20] MEDS: HYDROmorphONE 0.5 MG/0.5 ML SYG IV ×5 (00:19→20:50)
[2018-10-20] MEDS ORDERED: METOCLOPRAMIDE 10 MG TAB PO ×2 (01:00→06:00)
[2018-10-20] MEDS ORDERED: NACL 0.9% 3 ML SYG IV (01:00)
[2018-10-20] MEDS: SOD CHLORIDE 0.9% 1,000 ML IV ×2 (02:46→18:23)
[2018-10-20] MEDS: ONDANSETRON 4 MG INJ IV (02:52)
[2018-10-20 05:06] LABS: ADD MAN DIFF? NO
[2018-10-20 05:15] LABS: WHITE BLOOD COUNT 4.1 10^3/ul (4.8-10.8)
[2018-10-20 05:15] LABS: ABNORMAL IP MESSAGE 1; BASOPHILS % 0.2 % (0.0-2.0); HEMATOCRIT 22.9 % (37.0-47.0); LYMPHOCYTES # 1.4 10^3/ul (0.8-2.9); LYMPHOCYTES % 34.1 % (15.0-51.0); MEAN CORPUSCULAR HEMOGLOBIN 30.8 pg (29.0-33.0); MEAN CORPUSCULAR HGB CONC 30.6 g/dl (32.0-37.0); MEAN CORPUSCULAR VOLUME 100.9 fl (82.0-101.0); MEAN PLATELET VOLUME 11.9 fl (7.4-10.4); MONOCYTE # 0.7 10^3/ul (0.3-0.9); MONOCYTES % 16.2 % (0.0-11.0); NEUTROPHILS % 49.3 % (39.0-77.0); PLATELET COUNT 91 10^3/UL (140-415); RED BLOOD COUNT 2.27 10^6/ul (4.20-5.40); RED CELL DISTRIBUTION WIDTH 22.1 % (11.5-14.5)
[2018-10-20 05:19] LABS: POSITIVE DIFF @See below
[2018-10-20 05:31] LABS: ALANINE AMINOTRANSFERASE 14 IU/L (13-69); ALBUMIN/GLOBULIN RATIO 0.85; ALKALINE PHOSPHATASE 79 IU/L (42-121); ANION GAP 8 (5-13); ASPARTATE AMINO TRANSFERASE 20 IU/L (15-46); BILIRUBIN,INDIRECT 0.3 mg/dl (0-1.1); BILIRUBIN,TOTAL 0.3 mg/dl (0.2-1.3); BLOOD UREA NITROGEN 25 mg/dl (7-20); CALCIUM 8.1 mg/dl (8.4-10.2); CARBON DIOXIDE 24 mmol/L (21-31); CHLORIDE 106 mmol/L (97-110); CREATININE 4.23 mg/dl (0.44-1.00); Estimated GFR 12 mL/min (>60); GLUCOSE 73 mg/dl (70-220); MAGNESIUM 1.9 mg/dl (1.7-2.5); PHOSPHORUS 2.9 mg/dl (2.5-4.9); SODIUM 138 mmol/L (135-144); TOTAL PROTEIN 6.5 g/dl (6.1-8.1)
[2018-10-20 05:36] LABS: POTASSIUM 4.5 mmol/L (3.5-5.1)
[2018-10-20] MEDS ORDERED: PANTOPRAZOLE (EC) 40 MG TAB PO (06:00)
[2018-10-20] MEDS: METOCLOPRAMIDE 10 MG INJ IV ×4 (06:52→23:32)
[2018-10-20] MEDS: PANTOPRAZOLE 40 MG INJ IV ×2 (06:52→18:23)
[2018-10-20] MEDS ORDERED: HEPARIN 5,000 UNIT/1 ML VIAL SC (09:00)
[2018-10-20] MEDS: ASPIRIN 81 MG TAB PO (09:05)
[2018-10-20] MEDS: LOSARTAN 50 MG TAB PO ×2 (09:06→20:49)
[2018-10-20] MEDS: predniSONE 5 MG TAB PO (09:07)
[2018-10-20 09:34] LABS: LIPASE 448 U/L (23-300)
[2018-10-20] MEDS: HYDROXYCHLOROQUINE 200 MG TAB PO (11:08)
[2018-10-20] MEDS: MYCOPHENOLATE 250 MG CAP PO ×2 (11:08→20:49)
[2018-10-20] MEDS: CEFTRIAXONE 2 GM/50 ML (PMX) 50 ML IVPB (11:08)
[2018-10-20] MEDS: NIFEdipine (XL) 90 MG TAB PO (11:08)
[2018-10-20] MEDS: hydrALAzine 20 MG INJ IV (11:47)
[2018-10-20] MEDS ORDERED: HEPARIN 1000 UNITS/ML 10 ML INJ CATHETER (12:00)
[2018-10-20] MEDS ORDERED: SODIUM CHLORIDE 0.9% 1L BAG IV (12:00)
[2018-10-20] MEDS ORDERED: ALBUMIN HUMAN 25% 100 ML IV (12:00)
[2018-10-20] MEDS: LORAZEPAM 1 MG TAB PO (12:55)
[2018-10-20] MEDS: ALBUTEROL 0.083% (NEB) 2.5 MG/3 ML AMP HHN (13:40)
[2018-10-20 15:37] LABS: INR 0.95; PROTIME 12.8 Sec (11.9-14.9)
[2018-10-20 17:09] LABS: IRON 69 ug/dl (35-150)
[2018-10-20 17:18] LABS: % IRON SATURATION 40 % SAT (22-52); TOTAL IRON BINDING CAPACITY 172 ug/dl (241-421)
[2018-10-20 17:24] LABS: ADD UMIC YES; UR ASCORBIC ACID NEGATIVE (NEGATIVE); UR BACTERIA FEW /HPF (NONE SEEN); UR BILIRUBIN (Dip) NEGATIVE (NEGATIVE); UR BLOOD (Dip) 2+ mg/dL (NEGATIVE); UR BUDDING YEAST FEW /HPF (NONE SEEN); UR CLARITY CLOUDY (CLEAR); UR COLOR AMBER (YELLOW); UR GLUCOSE (Dip) NEGATIVE (NEGATIVE); UR KETONES (Dip) NEGATIVE (NEGATIVE); UR LEUKOCYTE ESTERASE (Dip) NEGATIVE Leu/ul (NEGATIVE); UR MUCUS FEW /HPF (NONE SEEN); UR NITRITE (Dip) NEGATIVE (NEGATIVE); UR RBC 50 /HPF (0-5); UR SPECIFIC GRAVITY (Dip) 1.032 (1.003-1.030); UR SQUAMOUS EPITHELIAL CELL MANY /HPF (FEW); UR TOTAL PROTEIN (Dip) 3+ mg/dl (NEGATIVE); UR UROBILINOGEN (Dip) NEGATIVE (NEGATIVE); UR WBC 28 /HPF (0-5)
[2018-10-21] MEDS: HYDROmorphONE 0.5 MG/0.5 ML SYG IV ×5 (02:48→20:31)
[2018-10-21] MEDS: METOCLOPRAMIDE 10 MG INJ IV ×4 (06:44→20:30)
[2018-10-21] MEDS: SOD CHLORIDE 0.9% 1,000 ML IV ×2 (06:44→22:26)
[2018-10-21] MEDS: PANTOPRAZOLE 40 MG INJ IV ×3 (06:44→20:38)
[2018-10-21] MEDS: ASPIRIN 81 MG TAB PO (08:42)
[2018-10-21] MEDS: predniSONE 5 MG TAB PO (08:45)
[2018-10-21] MEDS: HYDROXYCHLOROQUINE 200 MG TAB PO (08:45)
[2018-10-21] MEDS: LOSARTAN 50 MG TAB PO ×2 (08:45→20:32)
[2018-10-21] MEDS: NIFEdipine (XL) 90 MG TAB PO (08:45)
[2018-10-21] MEDS: LIDOCAINE 1% (MPF) 5 ML VIAL (09:44)
[2018-10-21] MEDS: MYCOPHENOLATE 250 MG CAP PO ×2 (10:29→20:33)
[2018-10-21] MEDS: CEFTRIAXONE 2 GM/50 ML (PMX) 50 ML IVPB (10:29)
[2018-10-21 10:44] LABS: FLD MN% 95.6 %; FLD PMN% 4.4 %; FLD RBC 3000 /uL; FLD WBC 114 /cmm
[2018-10-21 12:06] LABS: FLD CLARITY HAZY; FLD COLOR YELLOW
[2018-10-21 12:09] LABS: FLD TYPE PLEURAL
[2018-10-21] MEDS: ACETAMINOPHEN 325 MG TAB PO (12:16)
[2018-10-21 16:50] LABS: IMMEDIATE SPIN CROSSMATCH 1 2
[2018-10-21] MEDS: traMADol 50 MG TAB PO (18:13)
[2018-10-22] MEDS: HYDROmorphONE 0.5 MG/0.5 ML SYG IV ×5 (01:11→19:58)
[2018-10-22] MEDS: METOCLOPRAMIDE 10 MG INJ IV ×3 (01:11→19:57)
[2018-10-22] MEDS: hydrALAzine 20 MG INJ IV ×2 (02:29→22:30)
[2018-10-22 05:07] LABS: ADD MAN DIFF? NO
[2018-10-22 05:13] LABS: ABNORMAL IP MESSAGE 1; BASOPHILS % 0.2 % (0.0-2.0); HEMATOCRIT 30.7 % (37.0-47.0); HEMOGLOBIN 10.1 g/dl (12.0-16.0); LYMPHOCYTES # 1.3 10^3/ul (0.8-2.9); LYMPHOCYTES % 24.1 % (15.0-51.0); MEAN CORPUSCULAR HEMOGLOBIN 31.5 pg (29.0-33.0); MEAN CORPUSCULAR HGB CONC 32.9 g/dl (32.0-37.0); MEAN CORPUSCULAR VOLUME 95.6 fl (82.0-101.0); MEAN PLATELET VOLUME 12.9 fl (7.4-10.4); MONOCYTE # 0.8 10^3/ul (0.3-0.9); MONOCYTES % 14.7 % (0.0-11.0); NEUTROPHIL # 3.3 10^3/ul (1.6-7.5); NEUTROPHILS % 60.5 % (39.0-77.0); PLATELET COUNT 96 10^3/UL (140-415); RED BLOOD COUNT 3.21 10^6/ul (4.20-5.40)
[2018-10-22 05:13] LABS: WHITE BLOOD COUNT 5.5 10^3/ul (4.8-10.8)
[2018-10-22 05:18] LABS: POSITIVE DIFF @See below
[2018-10-22 05:39] LABS: ALANINE AMINOTRANSFERASE 13 IU/L (13-69); ALBUMIN/GLOBULIN RATIO 1.03; ALKALINE PHOSPHATASE 80 IU/L (42-121); AMYLASE 263 U/L (11-123); ANION GAP 7 (5-13); ASPARTATE AMINO TRANSFERASE 18 IU/L (15-46); BILIRUBIN,INDIRECT 0.3 mg/dl (0-1.1); BILIRUBIN,TOTAL 0.3 mg/dl (0.2-1.3); BLOOD UREA NITROGEN 13 mg/dl (7-20); CALCIUM 8.1 mg/dl (8.4-10.2); CARBON DIOXIDE 28 mmol/L (21-31); CHLORIDE 101 mmol/L (97-110); CREATININE 3.01 mg/dl (0.44-1.00); Estimated GFR 18 mL/min (>60); GLUCOSE 73 mg/dl (70-220); LIPASE 1535 U/L (23-300); MAGNESIUM 1.7 mg/dl (1.7-2.5); POTASSIUM 3.2 mmol/L (3.5-5.1); TOTAL PROTEIN 5.9 g/dl (6.1-8.1)
[2018-10-22 06:01] LABS: SODIUM 138 mmol/L (135-144)
[2018-10-22] MEDS: PANTOPRAZOLE 40 MG INJ IV ×2 (06:05→17:09)
[2018-10-22] MEDS: ACETAMINOPHEN 325 MG TAB PO (06:53)
[2018-10-22] MEDS: LORAZEPAM 1 MG TAB PO ×2 (08:35→23:38)
[2018-10-22] MEDS: ASPIRIN 81 MG TAB PO (08:35)
[2018-10-22] MEDS: NIFEdipine (XL) 90 MG TAB PO (08:35)
[2018-10-22] MEDS: HYDROXYCHLOROQUINE 200 MG TAB PO (08:35)
[2018-10-22] MEDS: predniSONE 5 MG TAB PO (08:35)
[2018-10-22] MEDS: MYCOPHENOLATE 250 MG CAP PO ×2 (08:36→20:49)
[2018-10-22] MEDS: LOSARTAN 50 MG TAB PO ×2 (08:36→20:52)
[2018-10-22] MEDS: CEFTRIAXONE 2 GM/50 ML (PMX) 50 ML IVPB (09:09)
[2018-10-22] MEDS: DEXTROSE 5%-0.45% NACL 1,000 ML IV (10:57)
[2018-10-22] MEDS: POTASSIUM CHLORIDE (SR) 20 MEQ TAB PO (10:57)
[2018-10-22] MEDS: FOSFOMYCIN 3 GM PACKET PO (12:41)
[2018-10-22] MEDS: POLYETHYLENE GLYCOL 17 GM PACKET PO (12:41)
[2018-10-22] MEDS: ONDANSETRON 4 MG INJ IV (23:38)
[2018-10-23] MEDS: HYDROmorphONE 0.5 MG/0.5 ML SYG IV ×5 (00:40→20:54)
[2018-10-23] MEDS: DEXTROSE 5%-0.45% NACL 1,000 ML IV ×3 (00:48→15:06)
[2018-10-23] MEDS: hydrALAzine 20 MG INJ IV ×3 (01:59→09:21)
[2018-10-23] MEDS: METOCLOPRAMIDE 10 MG INJ IV ×3 (04:39→17:05)
[2018-10-23 05:17] LABS: ADD MAN DIFF? NO
[2018-10-23 05:21] LABS: WHITE BLOOD COUNT 4.8 10^3/ul (4.8-10.8)
[2018-10-23 05:21] LABS: ABNORMAL IP MESSAGE 1; BASOPHILS % 0.4 % (0.0-2.0); HEMATOCRIT 30.3 % (37.0-47.0); HEMOGLOBIN 9.8 g/dl (12.0-16.0); LYMPHOCYTES # 1.3 10^3/ul (0.8-2.9); LYMPHOCYTES % 26.6 % (15.0-51.0); MEAN CORPUSCULAR HEMOGLOBIN 31.3 pg (29.0-33.0); MEAN CORPUSCULAR HGB CONC 32.3 g/dl (32.0-37.0); MEAN CORPUSCULAR VOLUME 96.8 fl (82.0-101.0); MEAN PLATELET VOLUME 13.6 fl (7.4-10.4); MONOCYTE # 0.8 10^3/ul (0.3-0.9); MONOCYTES % 16.7 % (0.0-11.0); NEUTROPHIL # 2.7 10^3/ul (1.6-7.5); NEUTROPHILS % 55.5 % (39.0-77.0); PLATELET COUNT 82 10^3/UL (140-415); RED BLOOD COUNT 3.13 10^6/ul (4.20-5.40); RED CELL DISTRIBUTION WIDTH 20.7 % (11.5-14.5)
[2018-10-23 05:35] LABS: POSITIVE DIFF @See below
[2018-10-23] MEDS: PANTOPRAZOLE 40 MG INJ IV ×2 (05:35→17:05)
[2018-10-23 05:43] LABS: ALANINE AMINOTRANSFERASE 15 IU/L (13-69); ALBUMIN 2.4 g/dl (3.3-4.9); ALBUMIN/GLOBULIN RATIO 0.77; ALKALINE PHOSPHATASE 70 IU/L (42-121); AMYLASE 171 U/L (11-123); ANION GAP 10 (5-13); ASPARTATE AMINO TRANSFERASE 17 IU/L (15-46); BLOOD UREA NITROGEN 16 mg/dl (7-20); CALCIUM 8.1 mg/dl (8.4-10.2); CARBON DIOXIDE 27 mmol/L (21-31); CHLORIDE 103 mmol/L (97-110); CREATININE 4.13 mg/dl (0.44-1.00); Estimated GFR 12 mL/min (>60); GLUCOSE 84 mg/dl (70-220); LIPASE 862 U/L (23-300); POTASSIUM 3.7 mmol/L (3.5-5.1); SODIUM 140 mmol/L (135-144); TOTAL PROTEIN 5.5 g/dl (6.1-8.1)
[2018-10-23] MEDS: ONDANSETRON 4 MG INJ IV ×2 (08:30→20:44)
[2018-10-23] MEDS: ASPIRIN 81 MG TAB PO (08:31)
[2018-10-23] MEDS: LOSARTAN 50 MG TAB PO ×2 (08:32→20:44)
[2018-10-23] MEDS: NIFEdipine (XL) 90 MG TAB PO (08:32)
[2018-10-23] MEDS: MYCOPHENOLATE 250 MG CAP PO ×2 (08:33→20:43)
[2018-10-23] MEDS: predniSONE 5 MG TAB PO (08:33)
[2018-10-23] MEDS: POLYETHYLENE GLYCOL 17 GM PACKET PO (09:00)
[2018-10-23] MEDS: HYDROXYCHLOROQUINE 200 MG TAB PO (09:00)
[2018-10-23] MEDS: FLUCONAZOLE 200 MG (PMX) 100 ML IVPB (12:00)
[2018-10-23] MEDS: ACETAMINOPHEN 1000MG/100ML IV 100 ML IVPB (13:26)
[2018-10-23] MEDS: HEPARIN 1000 UNITS/ML 10 ML INJ CATHETER (14:53)
[2018-10-23] MEDS: LORAZEPAM 2 MG INJ IV (15:39)
[2018-10-23] MEDS ORDERED: HEPARIN 5,000 UNIT/0.5 ML VIAL (20:38)
[2018-10-23] MEDS: NIFEdipine (XL) 60 MG TAB PO (20:44)
[2018-10-23] MEDS: HEPARIN 5,000 UNIT/1 ML VIAL SC (20:46)
[2018-10-24] MEDS: METOCLOPRAMIDE 10 MG INJ IV ×4 (00:19→18:07)
[2018-10-24] MEDS: HYDROmorphONE 0.5 MG/0.5 ML SYG IV ×6 (02:23→23:05)
[2018-10-24] MEDS: LORAZEPAM 2 MG INJ IV ×3 (04:44→18:07)
[2018-10-24 05:25] LABS: ADD MAN DIFF? NO
[2018-10-24 05:35] LABS: WHITE BLOOD COUNT 3.5 10^3/ul (4.8-10.8)
[2018-10-24 05:35] LABS: ABNORMAL IP MESSAGE 1; BASOPHILS % 0.3 % (0.0-2.0); EOSINOPHILS % 0.6 % (0.0-7.0); HEMATOCRIT 32.3 % (37.0-47.0); HEMOGLOBIN 10.2 g/dl (12.0-16.0); LYMPHOCYTES # 0.9 10^3/ul (0.8-2.9); LYMPHOCYTES % 26.9 % (15.0-51.0); MEAN CORPUSCULAR HEMOGLOBIN 30.8 pg (29.0-33.0); MEAN CORPUSCULAR HGB CONC 31.6 g/dl (32.0-37.0); MEAN CORPUSCULAR VOLUME 97.6 fl (82.0-101.0); MEAN PLATELET VOLUME 11.8 fl (7.4-10.4); MONOCYTE # 0.8 10^3/ul (0.3-0.9); MONOCYTES % 22.1 % (0.0-11.0); NEUTROPHIL # 1.7 10^3/ul (1.6-7.5); NEUTROPHILS % 49.8 % (39.0-77.0); PLATELET COUNT 93 10^3/UL (140-415); RED BLOOD COUNT 3.31 10^6/ul (4.20-5.40); RED CELL DISTRIBUTION WIDTH 20.3 % (11.5-14.5)
[2018-10-24 06:14] LABS: ALANINE AMINOTRANSFERASE 17 IU/L (13-69); ALBUMIN 2.5 g/dl (3.3-4.9); ALKALINE PHOSPHATASE 74 IU/L (42-121); ANION GAP 9 (5-13); ASPARTATE AMINO TRANSFERASE 16 IU/L (15-46); BILIRUBIN,INDIRECT 0.1 mg/dl (0-1.1); BILIRUBIN,TOTAL 0.1 mg/dl (0.2-1.3); BLOOD UREA NITROGEN 8 mg/dl (7-20); CARBON DIOXIDE 30 mmol/L (21-31); CHLORIDE 102 mmol/L (97-110); CREATININE 3.21 mg/dl (0.44-1.00); GLUCOSE 74 mg/dl (70-220); MAGNESIUM 1.7 mg/dl (1.7-2.5); PHOSPHORUS 2.8 mg/dl (2.5-4.9); POSITIVE DIFF @See below; POTASSIUM 3.3 mmol/L (3.5-5.1); SODIUM 141 mmol/L (135-144); TOTAL PROTEIN 5.7 g/dl (6.1-8.1)
[2018-10-24] MEDS: PANTOPRAZOLE 40 MG INJ IV ×2 (06:35→18:08)
[2018-10-24] MEDS: DEXTROSE 5%-0.45% NACL 1,000 ML IV (06:42)
[2018-10-24] MEDS ORDERED: HEPARIN 5,000 UNIT/0.5 ML VIAL ×2 (09:03→21:39)
[2018-10-24] MEDS: NIFEdipine (XL) 60 MG TAB PO ×2 (09:55→21:50)
[2018-10-24] MEDS: MYCOPHENOLATE 250 MG CAP PO ×2 (09:56→21:45)
[2018-10-24] MEDS: ASPIRIN 81 MG TAB PO (09:57)
[2018-10-24] MEDS: POLYETHYLENE GLYCOL 17 GM PACKET PO (09:58)
[2018-10-24] MEDS: LOSARTAN 50 MG TAB PO ×2 (09:58→21:47)
[2018-10-24] MEDS: HYDROXYCHLOROQUINE 200 MG TAB PO (09:59)
[2018-10-24] MEDS: predniSONE 5 MG TAB PO (10:00)
[2018-10-24] MEDS: HEPARIN 5,000 UNIT/1 ML VIAL SC ×2 (10:02→21:56)
[2018-10-24 12:28] LABS: LIPASE 713 U/L (23-300)
[2018-10-24] MEDS: FLUCONAZOLE 200 MG (PMX) 100 ML IVPB (12:50)
[2018-10-24] MEDS: POTASSIUM CHLORIDE 100 ML IVPB ×2 (14:08→17:44)
[2018-10-24] MEDS: FERROUS SULFATE (EC) 325 MG TAB PO (21:45)
[2018-10-25] MEDS: METOCLOPRAMIDE 10 MG INJ IV ×5 (00:31→23:59)
[2018-10-25] MEDS: HYDROmorphONE 0.5 MG/0.5 ML SYG IV ×5 (03:56→21:05)
[2018-10-25] MEDS: LORAZEPAM 2 MG INJ IV ×4 (04:52→23:59)
[2018-10-25 05:43] LABS: ADD MAN DIFF? NO; BASOPHILS % 0.7 % (0.0-2.0); LYMPHOCYTES # 1.3 10^3/ul (0.8-2.9); LYMPHOCYTES % 43.1 % (15.0-51.0); MEAN CORPUSCULAR HEMOGLOBIN 30.9 pg (29.0-33.0); MEAN CORPUSCULAR HGB CONC 31.3 g/dl (32.0-37.0); MEAN CORPUSCULAR VOLUME 98.8 fl (82.0-101.0); MEAN PLATELET VOLUME 12.9 fl (7.4-10.4); MONOCYTE # 0.6 10^3/ul (0.3-0.9); MONOCYTES % 19.7 % (0.0-11.0); NEUTROPHIL # 1.1 10^3/ul (1.6-7.5); NEUTROPHILS % 36.2 % (39.0-77.0); PLATELET COUNT 104 10^3/UL (140-415); RED BLOOD COUNT 3.24 10^6/ul (4.20-5.40); RED CELL DISTRIBUTION WIDTH 19.7 % (11.5-14.5)
[2018-10-25] MEDS: PANTOPRAZOLE 40 MG INJ IV ×2 (06:06→18:19)
[2018-10-25 06:38] LABS: LIPASE 825 U/L (23-300)
[2018-10-25 06:56] LABS: ALBUMIN 2.7 g/dl (3.3-4.9); ANION GAP 8 (5-13); BLOOD UREA NITROGEN 11 mg/dl (7-20); CALCIUM 8.1 mg/dl (8.4-10.2); CARBON DIOXIDE 26 mmol/L (21-31); CHLORIDE 103 mmol/L (97-110); CREATININE 4.36 mg/dl (0.44-1.00); GLUCOSE 75 mg/dl (70-220); PHOSPHORUS 3.4 mg/dl (2.5-4.9); POTASSIUM 4.1 mmol/L (3.5-5.1); SODIUM 137 mmol/L (135-144)
[2018-10-25] MEDS: FERROUS SULFATE (EC) 325 MG TAB PO ×2 (08:33→21:01)
[2018-10-25] MEDS: MYCOPHENOLATE 250 MG CAP PO ×2 (08:33→21:01)
[2018-10-25] MEDS: predniSONE 5 MG TAB PO (08:33)
[2018-10-25] MEDS: ASPIRIN 81 MG TAB PO (08:33)
[2018-10-25] MEDS: NIFEdipine (XL) 60 MG TAB PO ×2 (08:34→21:01)
[2018-10-25] MEDS: HYDROXYCHLOROQUINE 200 MG TAB PO (08:34)
[2018-10-25] MEDS: LOSARTAN 50 MG TAB PO ×2 (08:35→21:01)
[2018-10-25] MEDS: POLYETHYLENE GLYCOL 17 GM PACKET PO (08:36)
[2018-10-25 09:13] LABS: MAGNESIUM 1.7 mg/dl (1.7-2.5)
[2018-10-25] MEDS ORDERED: HEPARIN 5,000 UNIT/0.5 ML VIAL ×2 (09:36→20:51)
[2018-10-25] MEDS: HEPARIN 5,000 UNIT/1 ML VIAL SC ×2 (09:47→21:05)
[2018-10-25] MEDS: HEPARIN 1000 UNITS/ML 10 ML INJ CATHETER (10:40)
[2018-10-25] MEDS: FLUCONAZOLE 200 MG (PMX) 100 ML IVPB (11:53)
[2018-10-25] MEDS ORDERED: FLUCONAZOLE 200 MG (PMX) 100 ML IVPB (13:30)
[2018-10-25] MEDS ORDERED: DIPHENHYDRAMINE 50 MG INJ IV (14:00)
[2018-10-25] MEDS: DIPHENHYDRAMINE 50 MG INJ IV (14:41)
[2018-10-25] MEDS: DEXTROSE 5%-0.45% NACL 1,000 ML IV (15:43)
[2018-10-26] MEDS: HYDROmorphONE 0.5 MG/0.5 ML SYG IV ×2 (02:17→09:54)
[2018-10-26 05:10] LABS: ADD MAN DIFF? NO
[2018-10-26 05:20] LABS: WHITE BLOOD COUNT 3.4 10^3/ul (4.8-10.8)
[2018-10-26 05:20] LABS: BASOPHILS % 0.3 % (0.0-2.0); HEMATOCRIT 30.1 % (37.0-47.0); HEMOGLOBIN 9.6 g/dl (12.0-16.0); LYMPHOCYTES # 1.6 10^3/ul (0.8-2.9); LYMPHOCYTES % 46.9 % (15.0-51.0); MEAN CORPUSCULAR HEMOGLOBIN 31.4 pg (29.0-33.0); MEAN CORPUSCULAR HGB CONC 31.9 g/dl (32.0-37.0); MEAN CORPUSCULAR VOLUME 98.4 fl (82.0-101.0); MEAN PLATELET VOLUME 12.2 fl (7.4-10.4); MONOCYTE # 0.6 10^3/ul (0.3-0.9); MONOCYTES % 18.7 % (0.0-11.0); NEUTROPHIL # 1.2 10^3/ul (1.6-7.5); NEUTROPHILS % 33.8 % (39.0-77.0); PLATELET COUNT 108 10^3/UL (140-415); RED BLOOD COUNT 3.06 10^6/ul (4.20-5.40); RED CELL DISTRIBUTION WIDTH 18.9 % (11.5-14.5)
[2018-10-26 05:44] LABS: INR 1.09; PROTIME 14.2 Sec (11.9-14.9); PT RATIO 1.1
[2018-10-26 05:48] LABS: LIPASE 654 U/L (23-300)
[2018-10-26] MEDS: METOCLOPRAMIDE 10 MG INJ IV ×2 (06:07→12:17)
[2018-10-26] MEDS: PANTOPRAZOLE 40 MG INJ IV (06:07)
[2018-10-26] MEDS: DIPHENHYDRAMINE 50 MG INJ IV ×2 (06:15→12:25)
[2018-10-26 06:22] LABS: ALANINE AMINOTRANSFERASE 11 IU/L (13-69); ALBUMIN 2.6 g/dl (3.3-4.9); ALBUMIN/GLOBULIN RATIO 0.78; ALKALINE PHOSPHATASE 67 IU/L (42-121); ANION GAP 10 (5-13); ASPARTATE AMINO TRANSFERASE 14 IU/L (15-46); BILIRUBIN,INDIRECT 0.2 mg/dl (0-1.1); BILIRUBIN,TOTAL 0.2 mg/dl (0.2-1.3); BLOOD UREA NITROGEN 6 mg/dl (7-20); CALCIUM 7.8 mg/dl (8.4-10.2); CARBON DIOXIDE 27 mmol/L (21-31); CHLORIDE 102 mmol/L (97-110); CREATININE 3.19 mg/dl (0.44-1.00); Estimated GFR 17 mL/min (>60); GLUCOSE 84 mg/dl (70-220); POTASSIUM 3.4 mmol/L (3.5-5.1); SODIUM 139 mmol/L (135-144); TOTAL PROTEIN 5.9 g/dl (6.1-8.1)
[2018-10-26 06:35] LABS: ALBUMIN 2.5 g/dl (3.3-4.9); ANION GAP 10 (5-13); BLOOD UREA NITROGEN 6 mg/dl (7-20); CALCIUM 7.7 mg/dl (8.4-10.2); CARBON DIOXIDE 26 mmol/L (21-31); CHLORIDE 102 mmol/L (97-110); CREATININE 3.07 mg/dl (0.44-1.00); GLUCOSE 83 mg/dl (70-220); PHOSPHORUS 2.8 mg/dl (2.5-4.9); POTASSIUM 3.5 mmol/L (3.5-5.1); SODIUM 138 mmol/L (135-144)
[2018-10-26] MEDS ORDERED: HEPARIN 5,000 UNIT/0.5 ML VIAL (08:03)
[2018-10-26] MEDS ORDERED: ENOXAPARIN 30 MG/0.3 ML SYG SC (09:00)
[2018-10-26] MEDS: ONDANSETRON 4 MG INJ IV (09:45)
[2018-10-26] MEDS: ASPIRIN (EC) 81 MG TAB PO (09:46)
[2018-10-26] MEDS: MYCOPHENOLATE 250 MG CAP PO (09:46)
[2018-10-26] MEDS: LORAZEPAM 2 MG INJ IV (09:46)
[2018-10-26] MEDS: HYDROXYCHLOROQUINE 200 MG TAB PO (09:47)
[2018-10-26] MEDS: FERROUS SULFATE (EC) 325 MG TAB PO (09:47)
[2018-10-26] MEDS: NIFEdipine (XL) 60 MG TAB PO (09:47)
[2018-10-26] MEDS: LOSARTAN 50 MG TAB PO (09:48)
[2018-10-26] MEDS: predniSONE 5 MG TAB PO (09:48)
[2018-10-26] MEDS: HEPARIN 5,000 UNIT/1 ML VIAL SC (09:53)
[2018-10-26] MEDS: POLYETHYLENE GLYCOL 17 GM PACKET PO (09:57)
[2018-10-26] MEDS: FLUCONAZOLE 200 MG (PMX) 100 ML IVPB (12:17)
== END 2018-10-26 15:10 | disposition home or self-care (01) | DRG 438 ==
LOC: E/R 20:11 → MS1 10-20 00:57
PROC: 5A1D70Z Performance of Urinary Filtration, Intermittent, Less than 6 Hours Per Day (ICD-10-PCS; principal; 2018-10-21)
PROC: 0W993ZZ Drainage of Right Pleural Cavity, Percutaneous Approach (ICD-10-PCS; 2018-10-21)
PROC: 30233N1 Transfusion of Nonautologous Red Blood Cells into Peripheral Vein, Percutaneous Approach (ICD-10-PCS; 2018-10-21)
DX: K85.90 Acute pancreatitis without necrosis or infection, unspecified (principal); N18.6 End stage renal disease; I12.0 Hypertensive chronic kidney disease with stage 5 chronic kidney disease or end stage renal disease; J90 Pleural effusion, not elsewhere classified; I31.3 Pericardial effusion (noninflammatory); N39.0 Urinary tract infection, site not specified; E11.22 Type 2 diabetes mellitus with diabetic chronic kidney disease; Z99.2 Dependence on renal dialysis; K86.1 Other chronic pancreatitis; F41.9 Anxiety disorder, unspecified; D63.8 Anemia in other chronic diseases classified elsewhere; M32.14 Glomerular disease in systemic lupus erythematosus; D69.6 Thrombocytopenia, unspecified; I25.2 Old myocardial infarction; B95.2 Enterococcus as the cause of diseases classified elsewhere; Z16.21 Resistance to vancomycin; Z86.718 Personal history of other venous thrombosis and embolism
CPT/HCPCS: 32555; 36415; 36430; 71045; 74019; 74176; 74181; 76604; 80053; 80069; 80076; 81001; 81003; 81025; 82150; 82787; 83540; 83690; 83735; 84100; 84703; 85025; 85610; 86850; 86900; 86901; 86920; 87070; 87081; 87086; 87102; 87116; 89051; 90935; 93005; 94664; 96374; 96375; 96376; 99284-25; 99285-25

== ENCOUNTER 2018-11-14 18:07 | Emergency (ER) | payer MEDICARE, OTHER ==
[2018-11-14 21:08] LABS: ADD MAN DIFF? NO
[2018-11-14 21:12] LABS: BASOPHILS % 0.3 % (0.0-2.0); HEMATOCRIT 28.8 % (37.0-47.0); HEMOGLOBIN 8.9 g/dl (12.0-16.0); LYMPHOCYTES # 1.4 10^3/ul (0.8-2.9); LYMPHOCYTES % 23.4 % (15.0-51.0); MEAN CORPUSCULAR HEMOGLOBIN 31.7 pg (29.0-33.0); MEAN CORPUSCULAR HGB CONC 30.9 g/dl (32.0-37.0); MEAN CORPUSCULAR VOLUME 102.5 fl (82.0-101.0); MEAN PLATELET VOLUME 11.7 fl (7.4-10.4); MONOCYTE # 0.6 10^3/ul (0.3-0.9); MONOCYTES % 10.7 % (0.0-11.0); NEUTROPHIL # 3.8 10^3/ul (1.6-7.5); NEUTROPHILS % 65.1 % (39.0-77.0); PLATELET COUNT 115 10^3/UL (140-415); RED BLOOD COUNT 2.81 10^6/ul (4.20-5.40)
[2018-11-14 21:12] LABS: WHITE BLOOD COUNT 5.9 10^3/ul (4.8-10.8)
[2018-11-14] MEDS: ONDANSETRON 4 MG INJ IV (21:16)
[2018-11-14] MEDS: HYDROmorphONE 1 MG/ML SYG IV (21:16)
[2018-11-14 21:30] LABS: ALANINE AMINOTRANSFERASE 13 IU/L (13-69); ALBUMIN 3.7 g/dl (3.3-4.9); ALBUMIN/GLOBULIN RATIO 1.12; ALKALINE PHOSPHATASE 78 IU/L (42-121); ANION GAP 8 (5-13); ASPARTATE AMINO TRANSFERASE 19 IU/L (15-46); BILIRUBIN,INDIRECT 0.4 mg/dl (0-1.1); BILIRUBIN,TOTAL 0.4 mg/dl (0.2-1.3); BLOOD UREA NITROGEN 38 mg/dl (7-20); CARBON DIOXIDE 27 mmol/L (21-31); CHLORIDE 101 mmol/L (97-110); CREATININE 4.53 mg/dl (0.44-1.00); Estimated GFR 11 mL/min (>60); GLUCOSE 109 mg/dl (70-220); LIPASE 227 U/L (23-300); POTASSIUM 5.1 mmol/L (3.5-5.1); SODIUM 136 mmol/L (135-144)
[2018-11-14] MEDS: LORAZEPAM 0.5 MG TAB PO (22:58)
[2018-11-14] MEDS: ONDANSETRON 4 MG INJ IM (22:59)
== END 2018-11-14 23:07 | disposition home or self-care (01) ==
LOC: E/R 18:07
DX: K29.70 Gastritis, unspecified, without bleeding (principal); F41.9 Anxiety disorder, unspecified; N18.6 End stage renal disease; Z99.2 Dependence on renal dialysis; Z79.82 Long term (current) use of aspirin
CPT/HCPCS: 80053; 83690; 85025; 96372; 96374; 96375; 99284-25

== ENCOUNTER 2018-11-15 05:58 | Inpatient (IN) | payer MEDICARE, OTHER ==
[2018-11-15] MEDS: IPRATROPIUM (NEB) 0.5 MG/2.5 ML AMP NEB (06:15)
[2018-11-15] MEDS: ALBUTEROL 0.083% (NEB) 2.5 MG/3 ML AMP NEB (06:15)
[2018-11-15] MEDS: ONDANSETRON 4 MG INJ IV ×3 (06:32→14:28)
[2018-11-15] MEDS: HYDROmorphONE 1 MG/ML SYG IV ×5 (06:32→23:37)
[2018-11-15 06:46] LABS: ADD MAN DIFF? NO
[2018-11-15 06:50] LABS: BASOPHILS % 0.4 % (0.0-2.0); EOSINOPHILS # 0.1 10^3/ul (0.0-0.5); EOSINOPHILS % 0.8 % (0.0-7.0); HEMATOCRIT 27.4 % (37.0-47.0); HEMOGLOBIN 8.4 g/dl (12.0-16.0); LYMPHOCYTES # 1.6 10^3/ul (0.8-2.9); LYMPHOCYTES % 20.7 % (15.0-51.0); MEAN CORPUSCULAR HEMOGLOBIN 31.6 pg (29.0-33.0); MEAN CORPUSCULAR HGB CONC 30.7 g/dl (32.0-37.0); MEAN PLATELET VOLUME 11.3 fl (7.4-10.4); MONOCYTE # 0.6 10^3/ul (0.3-0.9); MONOCYTES % 8.4 % (0.0-11.0); NEUTROPHIL # 5.2 10^3/ul (1.6-7.5); NEUTROPHILS % 69.3 % (39.0-77.0); PLATELET COUNT 119 10^3/UL (140-415); RED BLOOD COUNT 2.66 10^6/ul (4.20-5.40)
[2018-11-15 06:50] LABS: WHITE BLOOD COUNT 7.5 10^3/ul (4.8-10.8)
[2018-11-15 07:12] LABS: ALANINE AMINOTRANSFERASE 14 IU/L (13-69); ALBUMIN 3.3 g/dl (3.3-4.9); ALBUMIN/GLOBULIN RATIO 0.97; ALKALINE PHOSPHATASE 77 IU/L (42-121); AMYLASE 80 U/L (11-123); ANION GAP 10 (5-13); ASPARTATE AMINO TRANSFERASE 20 IU/L (15-46); BILIRUBIN,INDIRECT 0.4 mg/dl (0-1.1); BILIRUBIN,TOTAL 0.4 mg/dl (0.2-1.3); BLOOD UREA NITROGEN 41 mg/dl (7-20); CALCIUM 8.9 mg/dl (8.4-10.2); CARBON DIOXIDE 27 mmol/L (21-31); CHLORIDE 104 mmol/L (97-110); CREATININE 5.01 mg/dl (0.44-1.00); Estimated GFR 10 mL/min (>60); GLUCOSE 82 mg/dl (70-220); LIPASE 159 U/L (23-300); POTASSIUM 4.8 mmol/L (3.5-5.1); SODIUM 141 mmol/L (135-144); TOTAL PROTEIN 6.7 g/dl (6.1-8.1)
[2018-11-15] MEDS: CEFEPIME 1GM/50 ML (PMX) 50 ML IVPB (07:17)
[2018-11-15 07:21] LABS: INR 0.97
[2018-11-15 07:22] LABS: PARTIAL THROMBOPLASTIN TIME 35.6 Sec (23.0-35.0)
[2018-11-15 07:24] LABS: TROPONIN-I 0.034 ng/ml (0.000-0.120)
[2018-11-15] MEDS: VANCOMYCIN 1 GM (PMX) 250 ML IVPB (07:58)
[2018-11-15] MEDS ORDERED: ACETAMINOPHEN 325 MG TAB PO (09:00)
[2018-11-15] MEDS ORDERED: NACL 0.9% 3 ML SYG IV (09:00)
[2018-11-15] MEDS ORDERED: ALBUTEROL 0.083% (NEB) 2.5 MG/3 ML AMP NEB (09:00)
[2018-11-15] MEDS ORDERED: DOCUSATE SODIUM 100 MG CAP PO (09:00)
[2018-11-15] MEDS ORDERED: OXYCODONE/ACETAMINOPHEN (5/325) TAB PO (09:00)
[2018-11-15] MEDS ORDERED: MAGNESIUM HYDROXIDE 30ML CUP PO (09:00)
[2018-11-15] MEDS ORDERED: LORAZEPAM 1 MG TAB PO (09:00)
[2018-11-15] MEDS ORDERED: OXYCODONE/ACETAMINOPHEN (10/325) TAB PO (09:00)
[2018-11-15] MEDS ORDERED: MYCOPHENOLATE 250 MG CAP PO (09:00)
[2018-11-15] MEDS: FUROSEMIDE 40 MG INJ IV (09:30)
[2018-11-15] MEDS: NIFEdipine (XL) 90 MG TAB PO (09:31)
[2018-11-15] MEDS: SUCRALFATE 1 GM TAB PO ×4 (09:31→21:00)
[2018-11-15] MEDS: HYDROXYCHLOROQUINE 200 MG TAB PO (09:32)
[2018-11-15] MEDS: LOSARTAN 50 MG TAB PO ×2 (09:33→20:59)
[2018-11-15] MEDS: DIPHENHYDRAMINE 50 MG INJ IV ×3 (09:37→22:21)
[2018-11-15] MEDS: ASPIRIN (EC) 81 MG TAB PO (09:37)
[2018-11-15] MEDS: MYCOPHENOLATE MOFETIL 500 MG TABLET PO ×2 (11:37→21:00)
[2018-11-15] MEDS: LORAZEPAM 2 MG INJ IV ×2 (16:00→21:13)
[2018-11-15 17:27] LABS: HEPATITIS B SURFACE ANTIGEN NEGATIVE (NEGATIVE)
[2018-11-15] MEDS: PANTOPRAZOLE (EC) 40 MG TAB PO (18:55)
[2018-11-15] MEDS: hydrALAzine 20 MG INJ IV (18:56)
[2018-11-15] MEDS: HEPARIN 1000 UNITS/ML 10 ML INJ CATHETER (21:05)
[2018-11-16] MEDS: DIPHENHYDRAMINE 50 MG INJ IV ×4 (03:56→22:20)
[2018-11-16] MEDS: HYDROmorphONE 1 MG/ML SYG IV ×5 (03:57→22:21)
[2018-11-16] MEDS: PANTOPRAZOLE (EC) 40 MG TAB PO ×2 (05:31→17:54)
[2018-11-16] MEDS: CEFEPIME 1GM/50 ML (PMX) 50 ML IVPB (05:31)
[2018-11-16] MEDS: LORAZEPAM 2 MG INJ IV (05:37)
[2018-11-16 05:44] LABS: ADD MAN DIFF? NO
[2018-11-16 05:49] LABS: WHITE BLOOD COUNT 5.4 10^3/ul (4.8-10.8)
[2018-11-16 05:49] LABS: BASOPHILS % 0.4 % (0.0-2.0); EOSINOPHILS # 0.1 10^3/ul (0.0-0.5); EOSINOPHILS % 2.2 % (0.0-7.0); HEMATOCRIT 25.7 % (37.0-47.0); HEMOGLOBIN 7.8 g/dl (12.0-16.0); LYMPHOCYTES % 17.5 % (15.0-51.0); MEAN CORPUSCULAR HEMOGLOBIN 31.7 pg (29.0-33.0); MEAN CORPUSCULAR HGB CONC 30.4 g/dl (32.0-37.0); MEAN CORPUSCULAR VOLUME 104.5 fl (82.0-101.0); MEAN PLATELET VOLUME 11.4 fl (7.4-10.4); MONOCYTE # 0.5 10^3/ul (0.3-0.9); MONOCYTES % 9.6 % (0.0-11.0); NEUTROPHIL # 3.8 10^3/ul (1.6-7.5); NEUTROPHILS % 69.9 % (39.0-77.0); PLATELET COUNT 105 10^3/UL (140-415); RED BLOOD COUNT 2.46 10^6/ul (4.20-5.40); RED CELL DISTRIBUTION WIDTH 17.9 % (11.5-14.5)
[2018-11-16 06:04] LABS: POSITIVE DIFF @See below
[2018-11-16 06:17] LABS: ALBUMIN 3.1 g/dl (3.3-4.9); ANION GAP 6 (5-13); BLOOD UREA NITROGEN 21 mg/dl (7-20); CALCIUM 8.2 mg/dl (8.4-10.2); CARBON DIOXIDE 29 mmol/L (21-31); CHLORIDE 99 mmol/L (97-110); CREATININE 3.14 mg/dl (0.44-1.00); GLUCOSE 71 mg/dl (70-220); MAGNESIUM 1.7 mg/dl (1.7-2.5); PHOSPHORUS 2.4 mg/dl (2.5-4.9); POTASSIUM 4.5 mmol/L (3.5-5.1); SODIUM 134 mmol/L (135-144)
[2018-11-16] MEDS: LOSARTAN 50 MG TAB PO ×2 (09:00→20:33)
[2018-11-16] MEDS: SUCRALFATE 1 GM TAB PO ×4 (09:03→20:34)
[2018-11-16] MEDS: MYCOPHENOLATE MOFETIL 500 MG TABLET PO ×2 (09:03→20:34)
[2018-11-16] MEDS: HYDROXYCHLOROQUINE 200 MG TAB PO (09:03)
[2018-11-16] MEDS: ASPIRIN (EC) 81 MG TAB PO (09:03)
[2018-11-16] MEDS: NIFEdipine (XL) 90 MG TAB PO ×2 (09:03→09:10)
[2018-11-16] MEDS: HEPARIN 1000 UNITS/ML 10 ML INJ CATHETER (12:21)
[2018-11-16] MEDS: METOCLOPRAMIDE 10 MG INJ IV (13:39)
[2018-11-16] MEDS: LORAZEPAM 1 MG TAB PO (20:34)
[2018-11-17] MEDS: DIPHENHYDRAMINE 50 MG INJ IV ×3 (04:46→21:39)
[2018-11-17] MEDS: HYDROmorphONE 1 MG/ML SYG IV ×5 (04:46→21:39)
[2018-11-17 05:44] LABS: ADD MAN DIFF? NO
[2018-11-17 05:46] LABS: BASOPHILS % 0.4 % (0.0-2.0); EOSINOPHILS # 0.1 10^3/ul (0.0-0.5); EOSINOPHILS % 2.8 % (0.0-7.0); HEMATOCRIT 24.7 % (37.0-47.0); HEMOGLOBIN 7.6 g/dl (12.0-16.0); LYMPHOCYTES # 1.3 10^3/ul (0.8-2.9); LYMPHOCYTES % 26.9 % (15.0-51.0); MEAN CORPUSCULAR HEMOGLOBIN 31.7 pg (29.0-33.0); MEAN CORPUSCULAR HGB CONC 30.8 g/dl (32.0-37.0); MEAN CORPUSCULAR VOLUME 102.9 fl (82.0-101.0); MEAN PLATELET VOLUME 10.9 fl (7.4-10.4); MONOCYTE # 0.7 10^3/ul (0.3-0.9); MONOCYTES % 14.7 % (0.0-11.0); NEUTROPHIL # 2.6 10^3/ul (1.6-7.5); PLATELET COUNT 103 10^3/UL (140-415); RED CELL DISTRIBUTION WIDTH 17.3 % (11.5-14.5)
[2018-11-17 05:46] LABS: WHITE BLOOD COUNT 4.7 10^3/ul (4.8-10.8)
[2018-11-17] MEDS: CEFEPIME 1GM/50 ML (PMX) 50 ML IVPB (06:26)
[2018-11-17] MEDS: PANTOPRAZOLE (EC) 40 MG TAB PO ×2 (06:26→17:30)
[2018-11-17 06:37] LABS: ANION GAP 7 (5-13); BLOOD UREA NITROGEN 17 mg/dl (7-20); CALCIUM 8.4 mg/dl (8.4-10.2); CARBON DIOXIDE 31 mmol/L (21-31); CHLORIDE 100 mmol/L (97-110); GLUCOSE 77 mg/dl (70-220); MAGNESIUM 1.8 mg/dl (1.7-2.5); PHOSPHORUS 2.9 mg/dl (2.5-4.9); POTASSIUM 3.8 mmol/L (3.5-5.1); SODIUM 138 mmol/L (135-144)
[2018-11-17] MEDS: HYDROXYCHLOROQUINE 200 MG TAB PO (08:56)
[2018-11-17] MEDS: MYCOPHENOLATE MOFETIL 500 MG TABLET PO ×2 (08:56→21:38)
[2018-11-17] MEDS: ASPIRIN (EC) 81 MG TAB PO (08:56)
[2018-11-17] MEDS: SUCRALFATE 1 GM TAB PO ×4 (08:57→21:38)
[2018-11-17] MEDS: LOSARTAN 50 MG TAB PO ×2 (08:57→21:38)
[2018-11-17] MEDS: METOCLOPRAMIDE 10 MG INJ IV ×2 (10:41→23:34)
[2018-11-17] MEDS: LORAZEPAM 1 MG TAB PO ×2 (15:04→22:54)
[2018-11-17] MEDS ORDERED: GUAIFENESIN/DM 5ML CUP PO (19:00)
[2018-11-17] MEDS: hydrALAzine 20 MG INJ IV (22:43)
[2018-11-18] MEDS: LABETALOL HCL 20MG INJ IV (01:04)
[2018-11-18] MEDS: HYDROmorphONE 1 MG/ML SYG IV ×5 (03:18→21:14)
[2018-11-18] MEDS: DIPHENHYDRAMINE 50 MG INJ IV ×3 (05:02→19:45)
[2018-11-18] MEDS: CEFEPIME 1GM/50 ML (PMX) 50 ML IVPB (05:34)
[2018-11-18] MEDS: hydrALAzine 20 MG INJ IV (05:34)
[2018-11-18] MEDS: PANTOPRAZOLE (EC) 40 MG TAB PO ×2 (05:35→17:20)
[2018-11-18 06:57] LABS: ANION GAP 8 (5-13); BLOOD UREA NITROGEN 28 mg/dl (7-20); CALCIUM 8.6 mg/dl (8.4-10.2); CARBON DIOXIDE 30 mmol/L (21-31); CHLORIDE 98 mmol/L (97-110); CREATININE 5.05 mg/dl (0.44-1.00); Estimated GFR 10 mL/min (>60); GLUCOSE 82 mg/dl (70-220); SODIUM 136 mmol/L (135-144)
[2018-11-18] MEDS: METOCLOPRAMIDE 10 MG INJ IV ×3 (07:57→23:36)
[2018-11-18 08:34] LABS: FOLATE 9.6 ng/ml (2.8-20.0)
[2018-11-18] MEDS: MYCOPHENOLATE MOFETIL 500 MG TABLET PO ×2 (08:54→23:29)
[2018-11-18] MEDS: HYDROXYCHLOROQUINE 200 MG TAB PO (08:54)
[2018-11-18] MEDS: SUCRALFATE 1 GM TAB PO ×4 (08:54→23:29)
[2018-11-18] MEDS: LOSARTAN 50 MG TAB PO ×2 (08:54→23:30)
[2018-11-18] MEDS: ASPIRIN (EC) 81 MG TAB PO (08:54)
[2018-11-18] MEDS: NIFEdipine (XL) 60 MG TAB PO (08:55)
[2018-11-18] MEDS: ENOXAPARIN 30 MG/0.3 ML SYG SC (09:00)
[2018-11-18] MEDS: ACETAMINOPHEN 325 MG TAB PO ×3 (09:02→23:30)
[2018-11-18] MEDS: LORAZEPAM 1 MG TAB PO (10:19)
[2018-11-18] MEDS: FUROSEMIDE 40 MG INJ IV ×2 (12:24→23:30)
[2018-11-18] MEDS: LEVOFLOXACIN 250 MG TAB PO (12:56)
[2018-11-18] MEDS ORDERED: ALBUMIN HUMAN 25% 100 ML (19:03)
[2018-11-18] MEDS: HEPARIN 1000 UNITS/ML 10 ML INJ CATHETER (23:12)
[2018-11-19] MEDS: LORAZEPAM 1 MG TAB PO ×2 (00:09→14:38)
[2018-11-19] MEDS: HYDROmorphONE 1 MG/ML SYG IV ×5 (01:50→22:39)
[2018-11-19] MEDS: PANTOPRAZOLE (EC) 40 MG TAB PO ×2 (05:19→17:12)
[2018-11-19] MEDS: CEFEPIME 1GM/50 ML (PMX) 50 ML IVPB (05:19)
[2018-11-19 06:26] LABS: ADD MAN DIFF? NO
[2018-11-19 06:38] LABS: BASOPHILS % 0.6 % (0.0-2.0); EOSINOPHILS # 0.1 10^3/ul (0.0-0.5); EOSINOPHILS % 2.8 % (0.0-7.0); HEMATOCRIT 27.4 % (37.0-47.0); HEMOGLOBIN 8.5 g/dl (12.0-16.0); LYMPHOCYTES # 1.1 10^3/ul (0.8-2.9); LYMPHOCYTES % 30.6 % (15.0-51.0); MEAN CORPUSCULAR HEMOGLOBIN 31.5 pg (29.0-33.0); MEAN CORPUSCULAR VOLUME 101.5 fl (82.0-101.0); MEAN PLATELET VOLUME 11.5 fl (7.4-10.4); MONOCYTE # 0.4 10^3/ul (0.3-0.9); MONOCYTES % 12.5 % (0.0-11.0); NEUTROPHIL # 1.9 10^3/ul (1.6-7.5); NEUTROPHILS % 53.5 % (39.0-77.0); PLATELET COUNT 116 10^3/UL (140-415); RED CELL DISTRIBUTION WIDTH 16.8 % (11.5-14.5)
[2018-11-19 06:38] LABS: WHITE BLOOD COUNT 3.5 10^3/ul (4.8-10.8)
[2018-11-19 07:18] LABS: ALANINE AMINOTRANSFERASE 14 IU/L (13-69); ALBUMIN 3.2 g/dl (3.3-4.9); ALBUMIN/GLOBULIN RATIO 0.94; ALKALINE PHOSPHATASE 82 IU/L (42-121); ANION GAP 7 (5-13); ASPARTATE AMINO TRANSFERASE 19 IU/L (15-46); BILIRUBIN,INDIRECT 0.4 mg/dl (0-1.1); BILIRUBIN,TOTAL 0.4 mg/dl (0.2-1.3); BLOOD UREA NITROGEN 12 mg/dl (7-20); CALCIUM 8.6 mg/dl (8.4-10.2); CARBON DIOXIDE 31 mmol/L (21-31); CHLORIDE 102 mmol/L (97-110); CREATININE 3.05 mg/dl (0.44-1.00); Estimated GFR 17 mL/min (>60); GLUCOSE 74 mg/dl (70-220); MAGNESIUM 1.9 mg/dl (1.7-2.5); POTASSIUM 3.8 mmol/L (3.5-5.1); SODIUM 140 mmol/L (135-144); TOTAL PROTEIN 6.6 g/dl (6.1-8.1)
[2018-11-19] MEDS: METOCLOPRAMIDE 10 MG INJ IV ×3 (08:21→23:52)
[2018-11-19] MEDS: FUROSEMIDE 40 MG INJ IV ×2 (08:22→20:39)
[2018-11-19] MEDS: SUCRALFATE 1 GM TAB PO ×4 (08:22→20:39)
[2018-11-19] MEDS: LOSARTAN 50 MG TAB PO ×2 (08:23→20:38)
[2018-11-19] MEDS: ASPIRIN (EC) 81 MG TAB PO (08:23)
[2018-11-19] MEDS: HYDROXYCHLOROQUINE 200 MG TAB PO (08:23)
[2018-11-19] MEDS: NIFEdipine (XL) 60 MG TAB PO (08:25)
[2018-11-19] MEDS: ENOXAPARIN 30 MG/0.3 ML SYG SC (08:39)
[2018-11-19] MEDS: MYCOPHENOLATE MOFETIL 500 MG TABLET PO ×2 (09:30→20:38)
[2018-11-19] MEDS: ACETAMINOPHEN 325 MG TAB PO (09:31)
[2018-11-19] MEDS: DIPHENHYDRAMINE 50 MG INJ IV ×3 (09:32→20:39)
[2018-11-19] MEDS ORDERED: KETOROLAC 15 MG INJ ZFS (20:00)
[2018-11-20] MEDS: HYDROmorphONE 1 MG/ML SYG IV ×4 (02:53→18:08)
[2018-11-20] MEDS: PANTOPRAZOLE (EC) 40 MG TAB PO ×2 (05:51→18:08)
[2018-11-20] MEDS: DIPHENHYDRAMINE 50 MG INJ IV ×3 (06:03→16:40)
[2018-11-20] MEDS: FUROSEMIDE 40 MG INJ IV (08:45)
[2018-11-20] MEDS: HYDROXYCHLOROQUINE 200 MG TAB PO (08:45)
[2018-11-20] MEDS: ASPIRIN (EC) 81 MG TAB PO (08:45)
[2018-11-20] MEDS: SUCRALFATE 1 GM TAB PO ×4 (08:46→20:04)
[2018-11-20] MEDS: MYCOPHENOLATE MOFETIL 500 MG TABLET PO ×2 (08:46→20:04)
[2018-11-20] MEDS: ENOXAPARIN 30 MG/0.3 ML SYG SC (08:51)
[2018-11-20] MEDS: METOCLOPRAMIDE 10 MG INJ IV ×2 (08:53→15:32)
[2018-11-20] MEDS: NIFEdipine (XL) 60 MG TAB PO ×2 (09:00→18:14)
[2018-11-20] MEDS: LOSARTAN 50 MG TAB PO ×2 (09:00→20:04)
[2018-11-20] MEDS: LORAZEPAM 1 MG TAB PO (11:07)
[2018-11-20] MEDS: LEVOFLOXACIN 250 MG TAB PO (12:41)
[2018-11-20] MEDS: FUROSEMIDE 20 MG TAB PO (18:00)
[2018-11-20] MEDS: HEPARIN 1000 UNITS/ML 10 ML INJ CATHETER (18:16)
[2018-11-20] MEDS: LACTOBACILLUS RHAMNOSUS CAP PO (20:04)
== END 2018-11-20 21:30 | disposition home or self-care (01) | DRG 193 ==
LOC: E/R 05:58 → 6WM 08:24
PROC: 5A1D70Z Performance of Urinary Filtration, Intermittent, Less than 6 Hours Per Day (ICD-10-PCS; principal; 2018-11-15)
DX: J18.1 Lobar pneumonia, unspecified organism (principal); N18.6 End stage renal disease; K86.1 Other chronic pancreatitis; I12.0 Hypertensive chronic kidney disease with stage 5 chronic kidney disease or end stage renal disease; N17.9 Acute kidney failure, unspecified; M32.14 Glomerular disease in systemic lupus erythematosus; K29.50 Unspecified chronic gastritis without bleeding; L29.9 Pruritus, unspecified; D63.8 Anemia in other chronic diseases classified elsewhere; F41.9 Anxiety disorder, unspecified; M79.81 Nontraumatic hematoma of soft tissue; R60.9 Edema, unspecified; Z76.5 Malingerer [conscious simulation]; G89.29 Other chronic pain; Z99.2 Dependence on renal dialysis; Z79.82 Long term (current) use of aspirin
CPT/HCPCS: 70450; 71045; 80048; 80053; 80069; 82150; 82607; 82746; 83690; 83735; 84443; 84484; 85025; 85610; 85730; 87040; 87081; 87340; 90935; 93005; 93971; 94664; 96374; 96375; 97110; 97162; 99285-25

== ENCOUNTER 2018-11-26 23:25 | Inpatient (IN) | payer MEDICARE, OTHER ==
[2018-11-27 02:53] LABS: ADD MAN DIFF? NO
[2018-11-27 02:54] LABS: BASOPHILS % 0.4 % (0.0-2.0); EOSINOPHILS # 0.1 10^3/ul (0.0-0.5); EOSINOPHILS % 1.5 % (0.0-7.0); HEMATOCRIT 24.3 % (37.0-47.0); HEMOGLOBIN 7.5 g/dl (12.0-16.0); LYMPHOCYTES # 1.2 10^3/ul (0.8-2.9); LYMPHOCYTES % 22.6 % (15.0-51.0); MEAN CORPUSCULAR HEMOGLOBIN 31.3 pg (29.0-33.0); MEAN CORPUSCULAR HGB CONC 30.9 g/dl (32.0-37.0); MEAN CORPUSCULAR VOLUME 101.3 fl (82.0-101.0); MEAN PLATELET VOLUME 11.3 fl (7.4-10.4); MONOCYTE # 0.8 10^3/ul (0.3-0.9); MONOCYTES % 14.7 % (0.0-11.0); NEUTROPHIL # 3.2 10^3/ul (1.6-7.5); NEUTROPHILS % 60.6 % (39.0-77.0); PLATELET COUNT 152 10^3/UL (140-415); RED CELL DISTRIBUTION WIDTH 15.6 % (11.5-14.5)
[2018-11-27 02:54] LABS: WHITE BLOOD COUNT 5.3 10^3/ul (4.8-10.8)
[2018-11-27 03:16] LABS: ALANINE AMINOTRANSFERASE 17 IU/L (13-69); ALBUMIN 3.5 g/dl (3.3-4.9); ALBUMIN/GLOBULIN RATIO 0.97; ALKALINE PHOSPHATASE 95 IU/L (42-121); ANION GAP 9 (5-13); ASPARTATE AMINO TRANSFERASE 19 IU/L (15-46); BLOOD UREA NITROGEN 45 mg/dl (7-20); CALCIUM 8.8 mg/dl (8.4-10.2); CARBON DIOXIDE 22 mmol/L (21-31); CHLORIDE 105 mmol/L (97-110); CREATININE 6.58 mg/dl (0.44-1.00); Estimated GFR 7 mL/min (>60); GLUCOSE 82 mg/dl (70-220); POTASSIUM 5.1 mmol/L (3.5-5.1); SODIUM 136 mmol/L (135-144); TOTAL PROTEIN 7.1 g/dl (6.1-8.1)
[2018-11-27 03:27] LABS: TROPONIN-I < 0.012 ng/ml (0.000-0.120)
[2018-11-27] MEDS: ONDANSETRON 4 MG INJ IV ×2 (03:49→09:44)
[2018-11-27] MEDS: morphine 4 MG/ML VIAL IV ×2 (03:49→05:38)
[2018-11-27] MEDS ORDERED: NACL 0.9% 3 ML SYG IV (06:00)
[2018-11-27] MEDS ORDERED: DOCUSATE SODIUM 100 MG CAP PO (06:00)
[2018-11-27] MEDS ORDERED: morphine 2 MG INJ IV (06:00)
[2018-11-27] MEDS ORDERED: BISACODYL (EC) 5 MG TAB PO (06:00)
[2018-11-27] MEDS ORDERED: NITROGLYCERIN (SL) 0.4 MG TAB SL (06:00)
[2018-11-27] MEDS: HEPARIN 5,000 UNIT/1 ML VIAL SC ×2 (06:50→22:16)
[2018-11-27] MEDS ORDERED: SUCCINYLCHOLINE CHLORIDE 100 MG/5 ML SYG IV (07:00)
[2018-11-27] MEDS ORDERED: ETOMIDATE 20 MG INJ (07:00)
[2018-11-27] MEDS: ACETAMINOPHEN 325 MG TAB PO ×2 (07:54→13:23)
[2018-11-27] MEDS: morphine SULFATE/PF (2 MG/2 ML) SYG IV (09:50)
[2018-11-27 10:13] LABS: CREATINE KINASE 21 IU/L (23-200)
[2018-11-27 10:26] LABS: CK INDEX 2.2; CK-MB 0.47 ng/ml (0.0-2.4); TROPONIN-I < 0.012 ng/ml (0.000-0.120)
[2018-11-27 11:53] LABS: LIPASE 154 U/L (23-300)
[2018-11-27] MEDS: LORAZEPAM 4 MG/ML VIAL IV (11:58)
[2018-11-27] MEDS: DIPHENHYDRAMINE 50 MG INJ IV (12:01)
[2018-11-27] MEDS: ASPIRIN (EC) 81 MG TAB PO (12:34)
[2018-11-27] MEDS: LOSARTAN 50 MG TAB PO ×2 (12:34→23:05)
[2018-11-27] MEDS: NIFEdipine (XL) 60 MG TAB PO (12:34)
[2018-11-27] MEDS: SUCRALFATE 1 GM TAB PO ×3 (12:34→23:06)
[2018-11-27] MEDS: FUROSEMIDE 20 MG TAB PO (12:35)
[2018-11-27] MEDS: LACTOBACILLUS RHAMNOSUS CAP PO ×2 (13:30→23:06)
[2018-11-27] MEDS: MYCOPHENOLATE 250 MG CAP PO ×2 (13:30→23:07)
[2018-11-27] MEDS: HYDROXYCHLOROQUINE 200 MG TAB PO (13:30)
[2018-11-27] MEDS ORDERED: FUROSEMIDE 40 MG INJ (14:19)
[2018-11-27] MEDS: FUROSEMIDE 40 MG INJ IV (14:21)
[2018-11-27] MEDS ORDERED: NITROGLYCERIN 50 MG/D5W (PMX) 250 ML IV (14:30)
[2018-11-27] MEDS ORDERED: NITROGLYCERIN 50 MG/D5W (PMX) 250 ML (14:41)
[2018-11-27] MEDS: NITROGLYCERIN 50 MG/D5W (PMX) 250 ML IV (15:08)
[2018-11-27 15:27] LABS: CREATINE KINASE 34 IU/L (23-200)
[2018-11-27 15:42] LABS: CK INDEX 1.7; CK-MB 0.59 ng/ml (0.0-2.4); TROPONIN-I < 0.012 ng/ml (0.000-0.120)
[2018-11-27 16:00] LABS: AADO2 Arterial 615.4 mmHg (7.0-24.0); Allen Test ACCEPTAB; Arterial Base Excess -9.8 mmol/L (-3.0-3); Arterial Blood Gas Oxygen Sat 78.9 mmHG (95.0-98.0); Arterial COHb 0.6 % (0.0-3.0); Arterial Fraction of Oxyhgb 78.3 % (93.0-99.0); Arterial HCO3 17.7 mmol/L (22.0-26.0); Arterial MetHb 0.2 % (0.0-1.5); Arterial pCO2 46.2 mmhg (35-45); MODE MASK - BIPAP; Site Right Radial
[2018-11-27 17:22] LABS: IRON 82 ug/dl (35-150)
[2018-11-27 17:32] LABS: % IRON SATURATION 39 % SAT (22-52); TOTAL IRON BINDING CAPACITY 208 ug/dl (241-421)
[2018-11-27] MEDS ORDERED: PROPOFOL 100 ML (17:34)
[2018-11-27] MEDS: PROPOFOL 100 ML IV (17:44)
[2018-11-27] MEDS: PANTOPRAZOLE (EC) 40 MG TAB PO (18:00)
[2018-11-27] MEDS: HEPARIN 1000 UNITS/ML 10 ML INJ CATHETER (21:26)
[2018-11-27] MEDS ORDERED: NORepinephrine 8MG/250 ML (PMX 250 ML IV (22:00)
[2018-11-27] MEDS: EPOETIN 3000 UNITS/1 ML INJ (ESRD) SC (22:19)
[2018-11-27 22:41] LABS: AADO2 Arterial 218.5 mmHg (7.0-24.0); Allen Test ACCEPTAB; Arterial Base Excess 0.7 mmol/L (-3.0-3); Arterial Blood Gas Oxygen Sat 99.6 mmHG (95.0-98.0); Arterial COHb 0.2 % (0.0-3.0); Arterial Fraction of Oxyhgb 99.4 % (93.0-99.0); Arterial HCO3 24.7 mmol/L (22.0-26.0); Arterial MetHb 0 % (0.0-1.5); Arterial pCO2 36.8 mmhg (35-45); MODE VENT - AC; Site Right Radial
[2018-11-28] MEDS: NIFEdipine 10 MG CAP PO ×4 (01:19→18:00)
[2018-11-28 05:22] LABS: ADD MAN DIFF? NO
[2018-11-28 05:36] LABS: WHITE BLOOD COUNT 7.4 10^3/ul (4.8-10.8)
[2018-11-28 05:36] LABS: BASOPHILS % 0.3 % (0.0-2.0); EOSINOPHILS % 0.1 % (0.0-7.0); HEMATOCRIT 22.7 % (37.0-47.0); HEMOGLOBIN 7.3 g/dl (12.0-16.0); LYMPHOCYTES # 1.2 10^3/ul (0.8-2.9); LYMPHOCYTES % 15.9 % (15.0-51.0); MEAN CORPUSCULAR HEMOGLOBIN 31.9 pg (29.0-33.0); MEAN CORPUSCULAR HGB CONC 32.2 g/dl (32.0-37.0); MEAN CORPUSCULAR VOLUME 99.1 fl (82.0-101.0); MEAN PLATELET VOLUME 12.4 fl (7.4-10.4); MONOCYTE # 0.3 10^3/ul (0.3-0.9); MONOCYTES % 4.2 % (0.0-11.0); NEUTROPHIL # 5.9 10^3/ul (1.6-7.5); NEUTROPHILS % 79.2 % (39.0-77.0); PLATELET COUNT 145 10^3/UL (140-415); RED BLOOD COUNT 2.29 10^6/ul (4.20-5.40); RED CELL DISTRIBUTION WIDTH 15.4 % (11.5-14.5)
[2018-11-28] MEDS: PROPOFOL 100 ML IV (05:46)
[2018-11-28 06:01] LABS: ALANINE AMINOTRANSFERASE 475 IU/L (13-69); ALBUMIN/GLOBULIN RATIO 1.07; ALKALINE PHOSPHATASE 93 IU/L (42-121); ANION GAP 14 (5-13); ASPARTATE AMINO TRANSFERASE 723 IU/L (15-46); BLOOD UREA NITROGEN 29 mg/dl (7-20); CALCIUM 8.5 mg/dl (8.4-10.2); CARBON DIOXIDE 26 mmol/L (21-31); CHLORIDE 98 mmol/L (97-110); CREATININE 4.39 mg/dl (0.44-1.00); Estimated GFR 11 mL/min (>60); POTASSIUM 3.3 mmol/L (3.5-5.1); SODIUM 138 mmol/L (135-144); TOTAL PROTEIN 5.8 g/dl (6.1-8.1)
[2018-11-28 06:04] LABS: GLUCOSE 45 mg/dl (70-220)
[2018-11-28] MEDS ORDERED: DEXTROSE 50% 50 ML SYRINGE (06:06)
[2018-11-28 06:17] LABS: HEMOGLOBIN A1C 4.4 % (0-5.9)
[2018-11-28] MEDS: DEXTROSE 50% 50 ML SYRINGE IV ×3 (06:26→20:10)
[2018-11-28] MEDS ORDERED: GLUCOSE GEL 15 GRAM TUBE BUCCAL (06:30)
[2018-11-28] MEDS ORDERED: GLUCAGON 1 MG INJ IM (06:30)
[2018-11-28] MEDS ORDERED: GLUCOSE GEL 15 GRAM TUBE PO ×2 (06:30)
[2018-11-28] MEDS: PANTOPRAZOLE 40 MG INJ IV ×2 (06:37→18:39)
[2018-11-28] MEDS ORDERED: VANCOMYCIN IV PER PHARMACY XX (08:00)
[2018-11-28] MEDS: CEFEPIME 1GM/50 ML (PMX) 50 ML IVPB (08:33)
[2018-11-28] MEDS: POTASSIUM CHLORIDE 100 ML IVPB (08:52)
[2018-11-28] MEDS: VANCOMYCIN 1 GM 250 ML IVPB (08:52)
[2018-11-28] MEDS: SUCRALFATE 1 GM TAB PO ×4 (09:49→21:28)
[2018-11-28] MEDS: LOSARTAN 50 MG TAB PO ×2 (09:50→21:28)
[2018-11-28] MEDS: LACTOBACILLUS RHAMNOSUS CAP PO ×2 (09:50→21:28)
[2018-11-28] MEDS: MYCOPHENOLATE 250 MG CAP PO ×2 (09:50→21:27)
[2018-11-28] MEDS: HYDROXYCHLOROQUINE 200 MG TAB PO (09:50)
[2018-11-28] MEDS: ASPIRIN (EC) 81 MG TAB PO (09:50)
[2018-11-28] MEDS: ACETAMINOPHEN 325 MG TAB PO (09:51)
[2018-11-28] MEDS: HEPARIN 5,000 UNIT/1 ML VIAL SC ×2 (10:04→21:30)
[2018-11-28 11:24] LABS: AADO2 Arterial 156.9 mmHg (7.0-24.0); Allen Test ACCEPTAB; Arterial Base Excess 1.3 mmol/L (-3.0-3); Arterial Blood Gas Oxygen Sat 95.6 mmHG (95.0-98.0); Arterial COHb 0.8 % (0.0-3.0); Arterial Fraction of Oxyhgb 94.5 % (93.0-99.0); Arterial MetHb 0.3 % (0.0-1.5); Arterial pCO2 41.5 mmhg (35-45); Blood Gas PS 10; MODE VENT - CPAP; Site Right Radial
[2018-11-28 12:29] LABS: PLATELET COUNT 132 10^3/UL (140-415)
[2018-11-28 12:49] LABS: INR 1.59; PROTIME 19.3 Sec (11.9-14.9); PT RATIO 1.5; THROMBIN TIME 19.1 SEC (13.8-19.1)
[2018-11-28 12:50] LABS: PARTIAL THROMBOPLASTIN TIME 50.7 Sec (23.0-35.0)
[2018-11-28] MEDS: LIDOCAINE 1% (MPF) 5 ML VIAL (15:20)
[2018-11-28] MEDS ORDERED: ACETAMINOPHEN (10 MG/ML) IV SYG IV* (16:00)
[2018-11-28] MEDS: morphine 2 MG INJ IV ×3 (16:10→22:46)
[2018-11-28] MEDS ORDERED: ALBUMIN HUMAN 25% 50 ML IV (18:00)
[2018-11-28] MEDS ORDERED: SODIUM CHLORIDE 0.9% 1L BAG IV (18:00)
[2018-11-28] MEDS ORDERED: HEPARIN 1000 UNITS/ML 10 ML INJ CATHETER (18:00)
[2018-11-28] MEDS: ALBUTEROL/IPRATROPIUM (NEB) 3 ML AMP HHN (23:46)
[2018-11-29] MEDS: DEXTROSE 50% 50 ML SYRINGE IV (00:14)
[2018-11-29] MEDS: NIFEdipine 10 MG CAP PO ×4 (00:15→18:40)
[2018-11-29] MEDS: morphine 2 MG INJ IV ×5 (02:46→15:44)
[2018-11-29 05:10] LABS: ADD MAN DIFF? NO
[2018-11-29 05:20] LABS: BASOPHILS % 0.3 % (0.0-2.0); EOSINOPHILS % 0.6 % (0.0-7.0); HEMATOCRIT 23.2 % (37.0-47.0); HEMOGLOBIN 7.1 g/dl (12.0-16.0); LYMPHOCYTES % 15.5 % (15.0-51.0); MEAN CORPUSCULAR HEMOGLOBIN 31.8 pg (29.0-33.0); MEAN CORPUSCULAR HGB CONC 30.6 g/dl (32.0-37.0); MEAN PLATELET VOLUME 12.2 fl (7.4-10.4); MONOCYTE # 0.5 10^3/ul (0.3-0.9); MONOCYTES % 6.9 % (0.0-11.0); NEUTROPHILS % 76.5 % (39.0-77.0); PLATELET COUNT 136 10^3/UL (140-415); RED BLOOD COUNT 2.23 10^6/ul (4.20-5.40); RED CELL DISTRIBUTION WIDTH 15.5 % (11.5-14.5)
[2018-11-29 05:20] LABS: WHITE BLOOD COUNT 6.6 10^3/ul (4.8-10.8)
[2018-11-29 05:43] LABS: ALANINE AMINOTRANSFERASE 847 IU/L (13-69); ALBUMIN 2.9 g/dl (3.3-4.9); ALKALINE PHOSPHATASE 90 IU/L (42-121); ANION GAP 14 (5-13); BLOOD UREA NITROGEN 49 mg/dl (7-20); CALCIUM 8.6 mg/dl (8.4-10.2); CARBON DIOXIDE 26 mmol/L (21-31); CHLORIDE 99 mmol/L (97-110); CREATININE 6.69 mg/dl (0.44-1.00); Estimated GFR 7 mL/min (>60); GLUCOSE 83 mg/dl (70-220); MAGNESIUM 1.9 mg/dl (1.7-2.5); POTASSIUM 4.5 mmol/L (3.5-5.1); SODIUM 139 mmol/L (135-144); TOTAL PROTEIN 5.8 g/dl (6.1-8.1)
[2018-11-29 05:54] LABS: ASPARTATE AMINO TRANSFERASE 949 IU/L (15-46)
[2018-11-29] MEDS: PANTOPRAZOLE 40 MG INJ IV ×2 (06:22→17:19)
[2018-11-29] MEDS: SUCRALFATE 1 GM TAB PO ×4 (08:06→20:32)
[2018-11-29] MEDS: LACTOBACILLUS RHAMNOSUS CAP PO ×2 (08:06→21:34)
[2018-11-29] MEDS: ASPIRIN (EC) 81 MG TAB PO (08:06)
[2018-11-29] MEDS: MYCOPHENOLATE 250 MG CAP PO ×2 (08:09→20:34)
[2018-11-29] MEDS: HEPARIN 5,000 UNIT/1 ML VIAL SC ×2 (08:10→23:59)
[2018-11-29] MEDS: HEPARIN 1000 UNITS/ML 10 ML INJ HE (09:15)
[2018-11-29] MEDS: traMADol 50 MG TAB PO (09:31)
[2018-11-29] MEDS: HEPARIN 1000 UNITS/ML 10 ML INJ CATHETER (12:02)
[2018-11-29] MEDS: HYDROXYCHLOROQUINE 200 MG TAB PO (12:04)
[2018-11-29] MEDS: LOSARTAN 50 MG TAB PO ×2 (12:05→20:34)
[2018-11-29] MEDS: CEFEPIME 1GM/50 ML (PMX) 50 ML IVPB (12:06)
[2018-11-29] MEDS: ACETAMINOPHEN 325 MG TAB PO ×2 (12:50→17:34)
[2018-11-29] MEDS: EPOETIN 3000 UNITS/1 ML INJ (ESRD) SC (15:43)
[2018-11-29] MEDS: morphine SULFATE/PF (2 MG/2 ML) SYG IV ×2 (18:39→21:36)
[2018-11-30] MEDS: ACETAMINOPHEN 325 MG TAB PO ×2 (00:55→22:18)
[2018-11-30] MEDS: DIPHENHYDRAMINE 50 MG CAP PO (00:55)
[2018-11-30] MEDS: morphine SULFATE/PF (2 MG/2 ML) SYG IV ×6 (03:45→20:18)
[2018-11-30 05:30] LABS: ADD MAN DIFF? NO
[2018-11-30 05:35] LABS: WHITE BLOOD COUNT 7.3 10^3/ul (4.8-10.8)
[2018-11-30 05:35] LABS: ABNORMAL IP MESSAGE 1; BASOPHILS % 0.4 % (0.0-2.0); EOSINOPHILS # 0.2 10^3/ul (0.0-0.5); EOSINOPHILS % 2.1 % (0.0-7.0); HEMATOCRIT 20.1 % (37.0-47.0); LYMPHOCYTES # 1.3 10^3/ul (0.8-2.9); LYMPHOCYTES % 17.9 % (15.0-51.0); MEAN CORPUSCULAR HEMOGLOBIN 32.3 pg (29.0-33.0); MEAN CORPUSCULAR HGB CONC 31.3 g/dl (32.0-37.0); MEAN CORPUSCULAR VOLUME 103.1 fl (82.0-101.0); MEAN PLATELET VOLUME 12.2 fl (7.4-10.4); MONOCYTE # 0.7 10^3/ul (0.3-0.9); MONOCYTES % 8.9 % (0.0-11.0); NEUTROPHIL # 5.1 10^3/ul (1.6-7.5); NEUTROPHILS % 70.3 % (39.0-77.0); PLATELET COUNT 128 10^3/UL (140-415); RED BLOOD COUNT 1.95 10^6/ul (4.20-5.40); RED CELL DISTRIBUTION WIDTH 15.2 % (11.5-14.5)
[2018-11-30 05:54] LABS: INR 1.29; PROTIME 16.3 Sec (11.9-14.9); PT RATIO 1.3
[2018-11-30] MEDS: PANTOPRAZOLE 40 MG INJ IV ×2 (06:00→17:11)
[2018-11-30] MEDS: NIFEdipine 10 MG CAP PO ×4 (06:00→17:11)
[2018-11-30 06:15] LABS: HEMOGLOBIN 6.3 g/dl (12.0-16.0); POSITIVE DIFF @See below
[2018-11-30 06:32] LABS: VANCOMYCIN,RANDOM 14.3 ug/ml
[2018-11-30 06:38] LABS: ALANINE AMINOTRANSFERASE 837 IU/L (13-69); ALKALINE PHOSPHATASE 97 IU/L (42-121); ANION GAP 6 (5-13); ASPARTATE AMINO TRANSFERASE 644 IU/L (15-46); BLOOD UREA NITROGEN 19 mg/dl (7-20); CALCIUM 8.5 mg/dl (8.4-10.2); CARBON DIOXIDE 31 mmol/L (21-31); CHLORIDE 100 mmol/L (97-110); CREATININE 3.77 mg/dl (0.44-1.00); Estimated GFR 14 mL/min (>60); GLUCOSE 91 mg/dl (70-220); POTASSIUM 3.9 mmol/L (3.5-5.1); SODIUM 137 mmol/L (135-144); TOTAL PROTEIN 6.3 g/dl (6.1-8.1)
[2018-11-30 06:51] LABS: HEPATITIS B SURFACE ANTIBODY NEGATIVE (NEGATIVE)
[2018-11-30 06:51] LABS: HEPATITIS B CORE ANTIBODY NEGATIVE (NEGATIVE)
[2018-11-30] MEDS: SUCRALFATE 1 GM TAB PO ×4 (08:15→22:21)
[2018-11-30] MEDS: ASPIRIN (EC) 81 MG TAB PO (08:16)
[2018-11-30] MEDS: LOSARTAN 50 MG TAB PO ×2 (08:17→20:17)
[2018-11-30] MEDS: MYCOPHENOLATE 250 MG CAP PO ×2 (08:18→22:18)
[2018-11-30] MEDS: CEFEPIME 1GM/50 ML (PMX) 50 ML IVPB (08:18)
[2018-11-30] MEDS: HEPARIN 5,000 UNIT/1 ML VIAL SC ×2 (08:45→20:47)
[2018-11-30] MEDS: HYDROXYCHLOROQUINE 200 MG TAB PO (09:39)
[2018-11-30] MEDS: LACTOBACILLUS RHAMNOSUS CAP PO ×2 (09:39→20:18)
[2018-11-30 10:22] LABS: IMMEDIATE SPIN CROSSMATCH 1 3
[2018-11-30] MEDS: ONDANSETRON 4 MG INJ IV (12:42)
[2018-11-30] MEDS: VANCOMYCIN 1 GM 250 ML IVPB (15:43)
[2018-11-30 17:11] LABS: ADD MAN DIFF? NO
[2018-11-30 17:13] LABS: WHITE BLOOD COUNT 8.2 10^3/ul (4.8-10.8)
[2018-11-30 17:13] LABS: BASOPHILS % 0.4 % (0.0-2.0); EOSINOPHILS # 0.2 10^3/ul (0.0-0.5); EOSINOPHILS % 2.8 % (0.0-7.0); HEMATOCRIT 27.9 % (37.0-47.0); HEMOGLOBIN 8.9 g/dl (12.0-16.0); LYMPHOCYTES # 1.6 10^3/ul (0.8-2.9); LYMPHOCYTES % 19.1 % (15.0-51.0); MEAN CORPUSCULAR HEMOGLOBIN 31.3 pg (29.0-33.0); MEAN CORPUSCULAR HGB CONC 31.9 g/dl (32.0-37.0); MEAN CORPUSCULAR VOLUME 98.2 fl (82.0-101.0); MEAN PLATELET VOLUME 12.1 fl (7.4-10.4); MONOCYTE # 0.9 10^3/ul (0.3-0.9); MONOCYTES % 10.7 % (0.0-11.0); NEUTROPHIL # 5.5 10^3/ul (1.6-7.5); NEUTROPHILS % 66.6 % (39.0-77.0); NUCLEATED RED BLOOD CELLS% 0.2 /100WBC (0.0-0.0); PLATELET COUNT 122 10^3/UL (140-415); RED BLOOD COUNT 2.84 10^6/ul (4.20-5.40); RED CELL DISTRIBUTION WIDTH 16.6 % (11.5-14.5)
[2018-11-30 17:31] LABS: POSITIVE DIFF @See below
[2018-12-01] MEDS: NIFEdipine 10 MG CAP PO ×3 (06:00→13:45)
[2018-12-01] MEDS: morphine SULFATE/PF (2 MG/2 ML) SYG IV (06:31)
[2018-12-01] MEDS: PANTOPRAZOLE 40 MG INJ IV (06:31)
[2018-12-01] MEDS: ACETAMINOPHEN 325 MG TAB PO ×2 (07:32→14:46)
[2018-12-01] MEDS: LOSARTAN 50 MG TAB PO (08:05)
[2018-12-01] MEDS: LACTOBACILLUS RHAMNOSUS CAP PO (08:33)
[2018-12-01] MEDS: CEFEPIME 1GM/50 ML (PMX) 50 ML IVPB (08:33)
[2018-12-01] MEDS: ASPIRIN (EC) 81 MG TAB PO (08:33)
[2018-12-01] MEDS: SUCRALFATE 1 GM TAB PO ×2 (08:33→13:44)
[2018-12-01] MEDS: MYCOPHENOLATE 250 MG CAP PO (08:34)
[2018-12-01] MEDS: hydrOXYzine HCL 25 MG TAB PO (08:46)
[2018-12-01] MEDS: ONDANSETRON 4 MG INJ IV ×2 (08:54→13:44)
[2018-12-01] MEDS: HEPARIN 5,000 UNIT/1 ML VIAL SC (08:57)
[2018-12-01] MEDS ORDERED: ALBUMIN HUMAN 25% 100 ML IV (09:30)
[2018-12-01] MEDS: HEPARIN 1000 UNITS/ML 10 ML INJ CATHETER (12:29)
[2018-12-01] MEDS: HYDROXYCHLOROQUINE 200 MG TAB PO (13:44)
[2018-12-01] MEDS ORDERED: GENTAMICIN 80 MG INJ IVPB (15:00)
[2018-12-01] MEDS: GENTAMICIN 80 MG/NS (PMX) 50 ML IVPB (15:26)
[2018-12-01] MEDS: EPOETIN 3000 UNITS/1 ML INJ (ESRD) SC (16:41)
== END 2018-12-01 18:18 | disposition home or self-care (01) | DRG 208 ==
LOC: E/R 23:25 → 6WM 11-29 16:23 → TEL 11-27 05:35 → ICU 11-27 14:27
PROC: 5A1D70Z Performance of Urinary Filtration, Intermittent, Less than 6 Hours Per Day (ICD-10-PCS; 2018-11-27)
PROC: 5A1935Z Respiratory Ventilation, Less than 24 Consecutive Hours (ICD-10-PCS; principal; 2018-11-28)
PROC: 0W9B3ZZ Drainage of Left Pleural Cavity, Percutaneous Approach (ICD-10-PCS; 2018-11-28)
PROC: 0BH17EZ Insertion of Endotracheal Airway into Trachea, Via Natural or Artificial Opening (ICD-10-PCS; 2018-11-28)
PROC: 30233N1 Transfusion of Nonautologous Red Blood Cells into Peripheral Vein, Percutaneous Approach (ICD-10-PCS; 2018-11-30)
DX: J96.01 Acute respiratory failure with hypoxia (principal); N18.6 End stage renal disease; J81.0 Acute pulmonary edema; J18.9 Pneumonia, unspecified organism; K72.00 Acute and subacute hepatic failure without coma; K86.1 Other chronic pancreatitis; J90 Pleural effusion, not elsewhere classified; I12.0 Hypertensive chronic kidney disease with stage 5 chronic kidney disease or end stage renal disease; E87.70 Fluid overload, unspecified; D69.59 Other secondary thrombocytopenia; D18.02 Hemangioma of intracranial structures; D63.1 Anemia in chronic kidney disease; E78.5 Hyperlipidemia, unspecified; F41.9 Anxiety disorder, unspecified; M32.14 Glomerular disease in systemic lupus erythematosus; Z76.5 Malingerer [conscious simulation]; Z99.2 Dependence on renal dialysis; Z79.82 Long term (current) use of aspirin
CPT/HCPCS: 36415; 36430; 36600; 71045; 76604; 76705; 76942; 80053; 80202; 82550; 82553; 82728; 82803; 82962; 83036; 83540; 83690; 83735; 84484; 85025; 85049; 85610; 85670; 85730; 86704; 86706; 86850; 86900; 86901; 86920; 87081; 90935; 92610; 93005; 93308; 94002; 94003; 94660; 94664; 94770; 96374; 96375; 97161; 99217; 99285-25; G0378

== ENCOUNTER 2018-12-17 04:54 | Emergency (ER) | payer MEDICARE, OTHER | END 2018-12-17 06:02 | disposition home or self-care (01) | LOC: FTE 04:54 | DX: B02.9 Zoster without complications (principal); R40.2412 Glasgow coma scale score 13-15, at arrival to emergency department; I12.0 Hypertensive chronic kidney disease with stage 5 chronic kidney disease or end stage renal disease; N18.6 End stage renal disease; I25.2 Old myocardial infarction; Z79.82 Long term (current) use of aspirin | CPT/HCPCS: 99282 ==

== ENCOUNTER 2018-12-18 00:56 | Emergency (ER) | payer MEDICARE, OTHER ==
[2018-12-18] MEDS: HYDROmorphONE 0.5 MG/0.5 ML SYG IM (02:31)
== END 2018-12-18 02:43 | disposition home or self-care (01) ==
LOC: FTE 00:56
DX: B02.9 Zoster without complications (principal); I10 Essential (primary) hypertension; I25.2 Old myocardial infarction; Z79.82 Long term (current) use of aspirin
CPT/HCPCS: 96372; 99284-25

== ENCOUNTER 2018-12-18 05:41 | Inpatient (IN) | payer MEDICARE, OTHER ==
[2018-12-18 06:56] LABS: ADD MAN DIFF? NO
[2018-12-18 06:59] LABS: WHITE BLOOD COUNT 4.5 10^3/ul (4.8-10.8)
[2018-12-18 06:59] LABS: BASOPHILS % 0.4 % (0.0-2.0); EOSINOPHILS # 0.1 10^3/ul (0.0-0.5); HEMATOCRIT 31.2 % (37.0-47.0); HEMOGLOBIN 9.7 g/dl (12.0-16.0); LYMPHOCYTES # 1.2 10^3/ul (0.8-2.9); MEAN CORPUSCULAR HEMOGLOBIN 31.2 pg (29.0-33.0); MEAN CORPUSCULAR HGB CONC 31.1 g/dl (32.0-37.0); MEAN CORPUSCULAR VOLUME 100.3 fl (82.0-101.0); MEAN PLATELET VOLUME 10.1 fl (7.4-10.4); MONOCYTE # 0.6 10^3/ul (0.3-0.9); NEUTROPHIL # 2.6 10^3/ul (1.6-7.5); NEUTROPHILS % 57.7 % (39.0-77.0); PLATELET COUNT 123 10^3/UL (140-415); RED BLOOD COUNT 3.11 10^6/ul (4.20-5.40); RED CELL DISTRIBUTION WIDTH 17.3 % (11.5-14.5)
[2018-12-18] MEDS: hydrALAzine 20 MG INJ IV (06:59)
[2018-12-18 07:11] LABS: POSITIVE DIFF @See below
[2018-12-18 07:21] LABS: ALANINE AMINOTRANSFERASE 25 IU/L (13-69); ALBUMIN 3.9 g/dl (3.3-4.9); ALBUMIN/GLOBULIN RATIO 1.08; ALKALINE PHOSPHATASE 96 IU/L (42-121); ANION GAP 15 (5-13); ASPARTATE AMINO TRANSFERASE 28 IU/L (15-46); BLOOD UREA NITROGEN 40 mg/dl (7-20); CARBON DIOXIDE 21 mmol/L (21-31); CHLORIDE 102 mmol/L (97-110); CREATININE 5.78 mg/dl (0.44-1.00); Estimated GFR 8 mL/min (>60); GLUCOSE 76 mg/dl (70-220); POTASSIUM 5.5 mmol/L (3.5-5.1); SODIUM 138 mmol/L (135-144); TOTAL PROTEIN 7.5 g/dl (6.1-8.1)
[2018-12-18 07:22] LABS: ACETAMINOPHEN < 10.0 ug/ml (10.0-30.0); ETHANOL < 10.0 mg/dl (0-0); SALICYLATE < 1.0 mg/dl (5.0-30.0)
[2018-12-18 07:32] LABS: TROPONIN-I < 0.012 ng/ml (0.000-0.120)
[2018-12-18] MEDS: LORAZEPAM 2 MG INJ IV ×2 (07:32→11:30)
[2018-12-18] MEDS ORDERED: ACETAMINOPHEN 325 MG TAB PO ×2 (08:00→13:30)
[2018-12-18] MEDS ORDERED: ONDANSETRON 4 MG INJ IV (08:00)
[2018-12-18] MEDS: LABETALOL HCL 20MG INJ IV (09:00)
[2018-12-18] MEDS: niCARdipine-NS 0.1MG/ML DRIP 200 ML IV ×4 (10:52→22:59)
[2018-12-18] MEDS ORDERED: ALBUMIN HUMAN 25% 100 ML IV (12:30)
[2018-12-18] MEDS ORDERED: SODIUM CHLORIDE 0.9% 1L BAG IV (12:30)
[2018-12-18] MEDS: LOSARTAN 50 MG TAB PO ×2 (13:30→21:00)
[2018-12-18] MEDS: ASPIRIN (EC) 81 MG TAB PO (13:30)
[2018-12-18] MEDS: predniSONE 5 MG TAB PO (13:30)
[2018-12-18] MEDS: SERTRALINE 50 MG TAB PO (13:30)
[2018-12-18] MEDS ORDERED: DIPHENHYDRAMINE 25 MG CAP PO (13:30)
[2018-12-18] MEDS: VALACYCLOVIR 500 MG TAB PO (14:30)
[2018-12-18] MEDS ORDERED: DILTIAZEM-D5W 125MG/125ML DRIP 125 ML IV (14:30)
[2018-12-18] MEDS: MYCOPHENOLATE 250 MG CAP PO ×2 (14:30→23:00)
[2018-12-18] MEDS: HYDROXYCHLOROQUINE 200 MG TAB PO (14:30)
[2018-12-18] MEDS: NIFEdipine (XL) 60 MG TAB PO ×2 (14:30→23:00)
[2018-12-18] MEDS: HEPARIN 1000 UNITS/ML 10 ML INJ CATHETER (17:43)
[2018-12-18 18:01] LABS: HEPATITIS B SURFACE ANTIGEN POSITIVE (NEGATIVE)
[2018-12-18] MEDS: LORAZEPAM 4 MG/ML VIAL IV (18:49)
[2018-12-18] MEDS: LACTOBACILLUS RHAMNOSUS CAP PO (21:00)
[2018-12-19] MEDS: niCARdipine-NS 0.1MG/ML DRIP 200 ML IV ×3 (02:12→09:15)
[2018-12-19] MEDS ORDERED: DIPHENHYDRAMINE 50 MG INJ (03:11)
[2018-12-19] MEDS: DIPHENHYDRAMINE 50 MG INJ IV (04:06)
[2018-12-19 05:14] LABS: ADD MAN DIFF? NO
[2018-12-19 05:27] LABS: WHITE BLOOD COUNT 4.5 10^3/ul (4.8-10.8)
[2018-12-19 05:27] LABS: BASOPHILS % 0.7 % (0.0-2.0); EOSINOPHILS % 0.2 % (0.0-7.0); HEMATOCRIT 29.7 % (37.0-47.0); HEMOGLOBIN 9.2 g/dl (12.0-16.0); LYMPHOCYTES # 1.4 10^3/ul (0.8-2.9); LYMPHOCYTES % 31.1 % (15.0-51.0); MEAN CORPUSCULAR HEMOGLOBIN 30.9 pg (29.0-33.0); MEAN CORPUSCULAR VOLUME 99.7 fl (82.0-101.0); MONOCYTE # 0.6 10^3/ul (0.3-0.9); MONOCYTES % 12.3 % (0.0-11.0); NEUTROPHIL # 2.5 10^3/ul (1.6-7.5); NEUTROPHILS % 55.3 % (39.0-77.0); PLATELET COUNT 144 10^3/UL (140-415); RED BLOOD COUNT 2.98 10^6/ul (4.20-5.40); RED CELL DISTRIBUTION WIDTH 17.8 % (11.5-14.5)
[2018-12-19 06:01] LABS: ANION GAP 10 (5-13); BLOOD UREA NITROGEN 19 mg/dl (7-20); CALCIUM 8.8 mg/dl (8.4-10.2); CARBON DIOXIDE 28 mmol/L (21-31); CHLORIDE 99 mmol/L (97-110); CREATININE 3.85 mg/dl (0.44-1.00); Estimated GFR 13 mL/min (>60); GLUCOSE 79 mg/dl (70-220); MAGNESIUM 1.9 mg/dl (1.7-2.5); PHOSPHORUS 4.7 mg/dl (2.5-4.9); POTASSIUM 4.6 mmol/L (3.5-5.1); SODIUM 137 mmol/L (135-144)
[2018-12-19] MEDS: MYCOPHENOLATE 250 MG CAP PO ×2 (08:55→21:05)
[2018-12-19] MEDS: ASPIRIN (EC) 81 MG TAB PO (08:56)
[2018-12-19] MEDS: VALACYCLOVIR 500 MG TAB PO (08:56)
[2018-12-19] MEDS: predniSONE 5 MG TAB PO (08:56)
[2018-12-19] MEDS: LOSARTAN 50 MG TAB PO ×2 (08:56→21:04)
[2018-12-19] MEDS: LACTOBACILLUS RHAMNOSUS CAP PO ×2 (08:56→21:03)
[2018-12-19] MEDS: SERTRALINE 50 MG TAB PO (08:57)
[2018-12-19] MEDS: NIFEdipine (XL) 60 MG TAB PO ×2 (08:57→21:04)
[2018-12-19] MEDS: HYDROXYCHLOROQUINE 200 MG TAB PO (09:00)
[2018-12-19] MEDS: SOD CHLORIDE 0.9% 100 ML (10:09)
[2018-12-19] MEDS: IODIXANOL LOCM 100 ML BTL (10:09)
[2018-12-19] MEDS: traMADol 50 MG TAB PO (12:07)
[2018-12-19 16:25] LABS: INR 0.97
[2018-12-19 16:26] LABS: PARTIAL THROMBOPLASTIN TIME 35.3 Sec (23.0-35.0)
[2018-12-19 18:15] LABS: CSF PMN% 14.3 %; CSF RBC 1000 /uL (0-0); CSF WBC 7 /cmm (0-10)
[2018-12-19 18:17] LABS: CSF RBC 0 /uL (0-0); CSF WBC 6 /cmm (0-10)
[2018-12-19 18:37] LABS: CSF CLARITY CLEAR; CSF COLOR COLORLESS; CSF VOLUME 6.5 ml; CSF#TUBE COUNT TUBE#1; CSF#TUBES REC'D 4
[2018-12-19 18:39] LABS: TOTAL PROTEIN,CSF 90 mg/dl (12-60)
[2018-12-19 18:39] LABS: GLUCOSE,CSF 42 mg/dl (50-80)
[2018-12-19 19:09] LABS: CSF COLOR COLORLESS
[2018-12-19 19:09] LABS: CSF CLARITY SLIGHTLY HAZY; CSF VOLUME 6.5 ml; CSF#TUBE COUNT TUBE#4; CSF#TUBES REC'D 4
[2018-12-19 19:11] LABS: CSF MN% 85.7 %
[2018-12-19] MEDS: DEXTROSE 5% IVPB (20:39)
[2018-12-19] MEDS: ACYCLOVIR IVPB (20:39)
[2018-12-20] MEDS: LORAZEPAM 4 MG/ML VIAL IV ×3 (04:13→15:28)
[2018-12-20 05:39] LABS: ADD MAN DIFF? NO
[2018-12-20 05:42] LABS: WHITE BLOOD COUNT 3.9 10^3/ul (4.8-10.8)
[2018-12-20 05:42] LABS: EOSINOPHILS % 0.5 % (0.0-7.0); HEMATOCRIT 26.6 % (37.0-47.0); HEMOGLOBIN 8.2 g/dl (12.0-16.0); LYMPHOCYTES # 1.2 10^3/ul (0.8-2.9); LYMPHOCYTES % 31.3 % (15.0-51.0); MEAN CORPUSCULAR HEMOGLOBIN 31.1 pg (29.0-33.0); MEAN CORPUSCULAR HGB CONC 30.8 g/dl (32.0-37.0); MEAN CORPUSCULAR VOLUME 100.8 fl (82.0-101.0); MEAN PLATELET VOLUME 10.6 fl (7.4-10.4); MONOCYTE # 0.6 10^3/ul (0.3-0.9); MONOCYTES % 16.2 % (0.0-11.0); NEUTROPHILS % 50.7 % (39.0-77.0); PLATELET COUNT 154 10^3/UL (140-415); RED BLOOD COUNT 2.64 10^6/ul (4.20-5.40); RED CELL DISTRIBUTION WIDTH 17.6 % (11.5-14.5)
[2018-12-20 06:11] LABS: ANION GAP 13 (5-13); BLOOD UREA NITROGEN 25 mg/dl (7-20); CALCIUM 8.6 mg/dl (8.4-10.2); CARBON DIOXIDE 25 mmol/L (21-31); CHLORIDE 95 mmol/L (97-110); CREATININE 5.58 mg/dl (0.44-1.00); Estimated GFR 9 mL/min (>60); GLUCOSE 81 mg/dl (70-220); PHOSPHORUS 6.4 mg/dl (2.5-4.9); SODIUM 133 mmol/L (135-144)
[2018-12-20] MEDS: HYDROXYCHLOROQUINE 200 MG TAB PO (08:08)
[2018-12-20] MEDS: NIFEdipine (XL) 60 MG TAB PO ×2 (08:08→21:00)
[2018-12-20] MEDS: ASPIRIN (EC) 81 MG TAB PO (08:08)
[2018-12-20] MEDS: MYCOPHENOLATE 250 MG CAP PO ×2 (08:08→21:00)
[2018-12-20] MEDS: predniSONE 5 MG TAB PO (08:08)
[2018-12-20] MEDS: LOSARTAN 50 MG TAB PO ×2 (08:08→21:00)
[2018-12-20] MEDS: LACTOBACILLUS RHAMNOSUS CAP PO ×2 (08:08→21:00)
[2018-12-20] MEDS: SERTRALINE 50 MG TAB PO (08:09)
[2018-12-20] MEDS: hydrALAzine 20 MG INJ IV ×2 (08:25→22:43)
[2018-12-20] MEDS: HEPARIN 1000 UNITS/ML 10 ML INJ CATHETER (08:42)
[2018-12-20] MEDS: METOPROLOL 5 MG INJ IV ×4 (08:57→23:40)
[2018-12-20] MEDS: CLONIDINE 0.2 MG/24 HR PATCH TRANSDERM (10:21)
[2018-12-20 15:24] LABS: RAPID PLASMA REAGIN NONREACTIVE (NR)
[2018-12-20] MEDS: ACYCLOVIR IVPB (21:33)
[2018-12-20] MEDS: DEXTROSE 5% IVPB (21:33)
[2018-12-20] MEDS: LORAZEPAM 2 MG INJ IV (21:58)
[2018-12-21] MEDS: hydrALAzine 20 MG INJ IV (03:17)
[2018-12-21] MEDS: niCARdipine-NS 0.1MG/ML DRIP 200 ML IV ×5 (03:40→15:00)
[2018-12-21] MEDS: METOPROLOL 5 MG INJ IV (05:51)
[2018-12-21 06:25] LABS: ADD MAN DIFF? NO
[2018-12-21 06:26] LABS: WHITE BLOOD COUNT 6.5 10^3/ul (4.8-10.8)
[2018-12-21 06:26] LABS: BASOPHILS % 0.6 % (0.0-2.0); EOSINOPHILS % 0.6 % (0.0-7.0); HEMATOCRIT 33.2 % (37.0-47.0); HEMOGLOBIN 10.2 g/dl (12.0-16.0); LYMPHOCYTES % 30.3 % (15.0-51.0); MEAN CORPUSCULAR HGB CONC 30.7 g/dl (32.0-37.0); MEAN CORPUSCULAR VOLUME 100.9 fl (82.0-101.0); MEAN PLATELET VOLUME 10.2 fl (7.4-10.4); MONOCYTE # 0.9 10^3/ul (0.3-0.9); MONOCYTES % 13.7 % (0.0-11.0); NEUTROPHIL # 3.5 10^3/ul (1.6-7.5); NEUTROPHILS % 53.9 % (39.0-77.0); PLATELET COUNT 178 10^3/UL (140-415); RED BLOOD COUNT 3.29 10^6/ul (4.20-5.40); RED CELL DISTRIBUTION WIDTH 17.8 % (11.5-14.5)
[2018-12-21 07:29] LABS: HEPATITIS B SURFACE ANTIBODY NEGATIVE (NEGATIVE)
[2018-12-21 07:31] LABS: HEPATITIS B CORE ANTIBODY NEGATIVE (NEGATIVE)
[2018-12-21 07:31] LABS: HIV 1&2 ANTIBODY NEGATIVE (NEGATIVE)
[2018-12-21 07:43] LABS: ANION GAP 19 (5-13); BLOOD UREA NITROGEN 27 mg/dl (7-20); CALCIUM 8.9 mg/dl (8.4-10.2); CARBON DIOXIDE 18 mmol/L (21-31); CHLORIDE 98 mmol/L (97-110); CREATININE 5.93 mg/dl (0.44-1.00); Estimated GFR 8 mL/min (>60); GLUCOSE 63 mg/dl (70-220); MAGNESIUM 2.1 mg/dl (1.7-2.5); PHOSPHORUS 6.4 mg/dl (2.5-4.9); POTASSIUM 4.7 mmol/L (3.5-5.1); SODIUM 135 mmol/L (135-144)
[2018-12-21] MEDS ORDERED: GLUCOSE GEL 15 GRAM TUBE (07:52)
[2018-12-21] MEDS: DEXTROSE 10% 1,000 ML IV (08:56)
[2018-12-21] MEDS ORDERED: METOPROLOL 5 MG INJ IV (11:30)
[2018-12-21] MEDS: LIDOCAINE 1% (MPF) 5 ML VIAL (11:32)
[2018-12-21] MEDS: HYDROXYCHLOROQUINE 200 MG TAB NGT (12:00)
[2018-12-21] MEDS: HEPARIN 1000 UNITS/ML 10 ML INJ CATHETER (13:00)
[2018-12-21] MEDS: NIFEdipine 10 MG CAP NGT ×2 (14:39→17:58)
[2018-12-21] MEDS: LOSARTAN 50 MG TAB NGT ×2 (14:40→20:30)
[2018-12-21] MEDS: SERTRALINE 50 MG TAB NGT (14:40)
[2018-12-21] MEDS: MYCOPHENOLATE 250 MG CAP PO ×2 (14:40→20:30)
[2018-12-21] MEDS: ASPIRIN 81 MG TAB NGT (14:41)
[2018-12-21] MEDS: predniSONE 5 MG TAB NGT ×2 (14:41→20:31)
[2018-12-21] MEDS: LACTOBACILLUS RHAMNOSUS CAP NGT ×2 (14:41→20:31)
[2018-12-21] MEDS: LIDOCAINE 1% (MPF) 5 ML VIAL SC (15:00)
[2018-12-21] MEDS: DEXTROSE 5% IVPB (20:28)
[2018-12-21] MEDS: ACYCLOVIR IVPB (20:28)
[2018-12-21] MEDS ORDERED: LOSARTAN 50 MG TAB NGT (21:00)
[2018-12-21] MEDS ORDERED: predniSONE 5 MG TAB NGT (21:00)
[2018-12-21] MEDS ORDERED: LACTOBACILLUS RHAMNOSUS CAP NGT (21:00)
[2018-12-22] MEDS: hydrALAzine 20 MG INJ IV (01:14)
[2018-12-22] MEDS: niCARdipine-NS 0.1MG/ML DRIP 200 ML IV ×3 (04:28→12:21)
[2018-12-22 06:21] LABS: HERPES SIMPLEX 1 DNA NOT DETECTED; HERPES SIMPLEX 2 DNA NOT DETECTED; HERPES SIMPLEX PCR SOURCE CEREBROSPINAL FLUID
[2018-12-22] MEDS: NIFEdipine 10 MG CAP NGT ×3 (06:40→12:37)
[2018-12-22] MEDS: ASPIRIN 81 MG TAB NGT (08:36)
[2018-12-22] MEDS: LOSARTAN 50 MG TAB NGT ×2 (08:36→20:26)
[2018-12-22] MEDS: HYDROXYCHLOROQUINE 200 MG TAB NGT (08:36)
[2018-12-22] MEDS: SERTRALINE 50 MG TAB NGT (08:36)
[2018-12-22] MEDS: predniSONE 5 MG TAB NGT ×2 (08:37→20:26)
[2018-12-22] MEDS: LACTOBACILLUS RHAMNOSUS CAP NGT ×2 (08:37→20:24)
[2018-12-22] MEDS: MYCOPHENOLATE 250 MG CAP PO ×2 (08:38→20:23)
[2018-12-22] MEDS ORDERED: HYDROXYCHLOROQUINE 200 MG TAB NGT (09:00)
[2018-12-22] MEDS ORDERED: SERTRALINE 50 MG TAB NGT (09:00)
[2018-12-22] MEDS: NIFEdipine 10 MG CAP PO ×2 (18:27→20:26)
[2018-12-22] MEDS: DIPHENHYDRAMINE 50 MG INJ IV (18:39)
[2018-12-22] MEDS: DEXTROSE 5% IVPB (20:23)
[2018-12-22] MEDS: ACYCLOVIR IVPB (20:23)
[2018-12-23] MEDS: DIPHENHYDRAMINE 50 MG INJ IV (00:29)
[2018-12-23] MEDS: NIFEdipine 10 MG CAP PO ×6 (00:30→23:08)
[2018-12-23] MEDS: traMADol 50 MG TAB PO ×2 (02:27→23:08)
[2018-12-23] MEDS: ASPIRIN 81 MG TAB NGT (09:57)
[2018-12-23] MEDS: LOSARTAN 50 MG TAB NGT ×2 (09:57→23:08)
[2018-12-23] MEDS: LACTOBACILLUS RHAMNOSUS CAP NGT ×2 (09:57→23:08)
[2018-12-23] MEDS: MYCOPHENOLATE 250 MG CAP PO ×2 (09:57→23:07)
[2018-12-23] MEDS: predniSONE 5 MG TAB NGT ×2 (09:57→23:07)
[2018-12-23] MEDS: SERTRALINE 50 MG TAB NGT (09:58)
[2018-12-23 10:10] LABS: MAGNESIUM 2.1 mg/dl (1.7-2.5)
[2018-12-23] MEDS: HYDROXYCHLOROQUINE 200 MG TAB NGT (11:11)
[2018-12-23] MEDS: clonAZEPAM 0.5 MG TAB PO ×2 (11:11→23:06)
[2018-12-23 11:21] LABS: HEPATITIS B SURFACE ANTIGEN NEGATIVE (NEGATIVE)
[2018-12-23 16:31] LABS: ADD MAN DIFF? NO
[2018-12-23 16:58] LABS: WHITE BLOOD COUNT 4.3 10^3/ul (4.8-10.8)
[2018-12-23 16:58] LABS: ANION GAP 12 (5-13); BASOPHILS % 0.2 % (0.0-2.0); BLOOD UREA NITROGEN 35 mg/dl (7-20); CALCIUM 8.4 mg/dl (8.4-10.2); CARBON DIOXIDE 25 mmol/L (21-31); CHLORIDE 90 mmol/L (97-110); CREATININE 5.68 mg/dl (0.44-1.00); EOSINOPHILS % 0.5 % (0.0-7.0); Estimated GFR 9 mL/min (>60); GLUCOSE 109 mg/dl (70-220); HEMATOCRIT 22.6 % (37.0-47.0); LYMPHOCYTES % 23.7 % (15.0-51.0); MAGNESIUM 2.1 mg/dl (1.7-2.5); MEAN PLATELET VOLUME 11.6 fl (7.4-10.4); MONOCYTE # 0.4 10^3/ul (0.3-0.9); MONOCYTES % 9.7 % (0.0-11.0); NEUTROPHIL # 2.8 10^3/ul (1.6-7.5); NEUTROPHILS % 65.2 % (39.0-77.0); NUCLEATED RED BLOOD CELLS% 0.5 /100WBC (0.0-0.0); PHOSPHORUS 6.6 mg/dl (2.5-4.9); PLATELET COUNT 116 10^3/UL (140-415); POTASSIUM 5.1 mmol/L (3.5-5.1); RED BLOOD COUNT 2.26 10^6/ul (4.20-5.40); RED CELL DISTRIBUTION WIDTH 17.1 % (11.5-14.5); SODIUM 127 mmol/L (135-144)
[2018-12-23] MEDS: HEPARIN 1000 UNITS/ML 10 ML INJ CATHETER (22:13)
[2018-12-23] MEDS: ACYCLOVIR IVPB (23:07)
[2018-12-23] MEDS: DEXTROSE 5% IVPB (23:07)
[2018-12-23 23:22] LABS: VDRL, CSF NON-REACTIVE
[2018-12-24] MEDS: NIFEdipine 10 MG CAP PO ×6 (00:37→20:42)
[2018-12-24] MEDS: AL HYDROX/MG HYDROX/SIMETH 30 ML CUP PO (00:37)
[2018-12-24 01:38] LABS: HEPATITIS B SURFACE ANTIGEN NON-REACTIVE (NON-REACTIVE)
[2018-12-24] MEDS: PANTOPRAZOLE 40 MG INJ IV (05:36)
[2018-12-24 06:05] LABS: ADD MAN DIFF? NO
[2018-12-24 06:13] LABS: BASOPHILS % 0.3 % (0.0-2.0); EOSINOPHILS % 0.3 % (0.0-7.0); HEMATOCRIT 26.6 % (37.0-47.0); HEMOGLOBIN 8.4 g/dl (12.0-16.0); LYMPHOCYTES % 34.1 % (15.0-51.0); MEAN CORPUSCULAR HEMOGLOBIN 31.3 pg (29.0-33.0); MEAN CORPUSCULAR HGB CONC 31.6 g/dl (32.0-37.0); MEAN CORPUSCULAR VOLUME 99.3 fl (82.0-101.0); MEAN PLATELET VOLUME 10.8 fl (7.4-10.4); MONOCYTE # 0.4 10^3/ul (0.3-0.9); MONOCYTES % 12.9 % (0.0-11.0); NEUTROPHIL # 1.6 10^3/ul (1.6-7.5); NEUTROPHILS % 52.1 % (39.0-77.0); PLATELET COUNT 132 10^3/UL (140-415); RED BLOOD COUNT 2.68 10^6/ul (4.20-5.40); RED CELL DISTRIBUTION WIDTH 16.8 % (11.5-14.5)
[2018-12-24 06:34] LABS: ANION GAP 10 (5-13); BLOOD UREA NITROGEN 14 mg/dl (7-20); CALCIUM 8.5 mg/dl (8.4-10.2); CARBON DIOXIDE 29 mmol/L (21-31); CHLORIDE 95 mmol/L (97-110); Estimated GFR 18 mL/min (>60); GLUCOSE 97 mg/dl (70-220); POTASSIUM 4.2 mmol/L (3.5-5.1); SODIUM 134 mmol/L (135-144)
[2018-12-24] MEDS: clonAZEPAM 0.5 MG TAB PO ×2 (08:56→20:41)
[2018-12-24] MEDS: LACTOBACILLUS RHAMNOSUS CAP NGT ×2 (08:57→20:43)
[2018-12-24] MEDS: ASPIRIN 81 MG TAB NGT (08:58)
[2018-12-24] MEDS: predniSONE 5 MG TAB NGT ×2 (08:58→20:42)
[2018-12-24] MEDS: LOSARTAN 50 MG TAB NGT ×2 (08:58→20:41)
[2018-12-24] MEDS: SERTRALINE 50 MG TAB NGT (08:59)
[2018-12-24] MEDS: HYDROXYCHLOROQUINE 200 MG TAB NGT (08:59)
[2018-12-24] MEDS: MYCOPHENOLATE 250 MG CAP PO ×2 (10:39→20:41)
[2018-12-24] MEDS: DEXTROSE 5% IVPB (20:39)
[2018-12-24] MEDS: ACYCLOVIR IVPB (20:39)
[2018-12-25] MEDS: hydrOXYzine HCL 25 MG TAB PO (02:07)
[2018-12-25 06:00] LABS: ADD MAN DIFF? NO
[2018-12-25 06:09] LABS: WHITE BLOOD COUNT 3.3 10^3/ul (4.8-10.8)
[2018-12-25 06:09] LABS: BASOPHILS % 0.3 % (0.0-2.0); HEMATOCRIT 26.7 % (37.0-47.0); HEMOGLOBIN 8.4 g/dl (12.0-16.0); LYMPHOCYTES # 1.3 10^3/ul (0.8-2.9); LYMPHOCYTES % 39.4 % (15.0-51.0); MEAN CORPUSCULAR HEMOGLOBIN 31.2 pg (29.0-33.0); MEAN CORPUSCULAR HGB CONC 31.5 g/dl (32.0-37.0); MEAN CORPUSCULAR VOLUME 99.3 fl (82.0-101.0); MEAN PLATELET VOLUME 11.5 fl (7.4-10.4); MONOCYTE # 0.4 10^3/ul (0.3-0.9); MONOCYTES % 11.1 % (0.0-11.0); NEUTROPHIL # 1.6 10^3/ul (1.6-7.5); NEUTROPHILS % 48.6 % (39.0-77.0); PLATELET COUNT 123 10^3/UL (140-415); RED BLOOD COUNT 2.69 10^6/ul (4.20-5.40); RED CELL DISTRIBUTION WIDTH 16.1 % (11.5-14.5)
[2018-12-25 06:41] LABS: ANION GAP 12 (5-13); BLOOD UREA NITROGEN 27 mg/dl (7-20); CALCIUM 8.7 mg/dl (8.4-10.2); CARBON DIOXIDE 26 mmol/L (21-31); CHLORIDE 94 mmol/L (97-110); CREATININE 4.48 mg/dl (0.44-1.00); Estimated GFR 11 mL/min (>60); GLUCOSE 101 mg/dl (70-220); POTASSIUM 5.1 mmol/L (3.5-5.1); SODIUM 132 mmol/L (135-144)
[2018-12-25] MEDS: PANTOPRAZOLE (EC) 40 MG TAB PO (07:01)
[2018-12-25] MEDS: predniSONE 5 MG TAB NGT (08:50)
[2018-12-25] MEDS: LACTOBACILLUS RHAMNOSUS CAP NGT (08:50)
[2018-12-25] MEDS: LOSARTAN 50 MG TAB NGT (08:51)
[2018-12-25] MEDS: HYDROXYCHLOROQUINE 200 MG TAB NGT (08:51)
[2018-12-25] MEDS: ASPIRIN 81 MG TAB NGT (08:51)
[2018-12-25] MEDS: SERTRALINE 50 MG TAB NGT (08:51)
[2018-12-25] MEDS: NIFEdipine (XL) 30 MG TAB PO ×2 (08:52→11:16)
[2018-12-25] MEDS: clonAZEPAM 0.5 MG TAB PO (08:59)
[2018-12-25] MEDS: MYCOPHENOLATE 250 MG CAP PO (08:59)
[2018-12-25] MEDS: HEPARIN 1000 UNITS/ML 10 ML INJ CATHETER (12:40)
[2018-12-25] MEDS: hydrALAzine 20 MG INJ IV (12:42)
== END 2018-12-25 19:01 | disposition home health service (06) | DRG 97 ==
LOC: ICU 12-21 01:49 → 6WM 12-24 03:53 → E/R 05:41 → ICU 08:00
PROVIDERS: Family Medicine
PROC: 5A1D70Z Performance of Urinary Filtration, Intermittent, Less than 6 Hours Per Day (ICD-10-PCS; principal; 2018-12-18)
PROC: 009U3ZX Drainage of Spinal Canal, Percutaneous Approach, Diagnostic (ICD-10-PCS; 2018-12-19)
PROC: B01B1ZZ Fluoroscopy of Spinal Cord using Low Osmolar Contrast (ICD-10-PCS; 2018-12-19)
PROC: 02HV33Z Insertion of Infusion Device into Superior Vena Cava, Percutaneous Approach (ICD-10-PCS; 2018-12-21)
DX: B01.11 Varicella encephalitis and encephalomyelitis (principal); N18.6 End stage renal disease; I16.1 Hypertensive emergency; I67.4 Hypertensive encephalopathy; I12.0 Hypertensive chronic kidney disease with stage 5 chronic kidney disease or end stage renal disease; N17.9 Acute kidney failure, unspecified; G40.89 Other seizures; J90 Pleural effusion, not elsewhere classified; G92 Toxic encephalopathy; D69.6 Thrombocytopenia, unspecified; Z99.2 Dependence on renal dialysis; R19.7 Diarrhea, unspecified; R10.31 Right lower quadrant pain; M32.14 Glomerular disease in systemic lupus erythematosus; B00.1 Herpesviral vesicular dermatitis; F41.8 Other specified anxiety disorders
CPT/HCPCS: 36415; 36569; 70450; 70551; 71045; 71275; 76937; 80048; 80053; 80307; 82945; 82962; 83605; 83735; 84100; 84157; 84484; 84703; 85025; 85610; 85730; 86592; 86703; 86704; 86706; 87040; 87070; 87075; 87081; 87340; 87400; 87529; 89051; 90935; 92526; 92610; 93005; 93308; 95819; 96372; 96374; 96375; 97110; 97162; 99282; 99284-25; 99285-25

== ENCOUNTER 2019-01-14 04:43 | Observation (INO) | payer MEDICARE, OTHER ==
[2019-01-14 06:04] LABS: ADD MAN DIFF? NO
[2019-01-14 06:14] LABS: WHITE BLOOD COUNT 5.3 10^3/ul (4.8-10.8)
[2019-01-14 06:14] LABS: BASOPHILS % 0.4 % (0.0-2.0); EOSINOPHILS # 0.1 10^3/ul (0.0-0.5); EOSINOPHILS % 1.1 % (0.0-7.0); HEMATOCRIT 30.9 % (37.0-47.0); HEMOGLOBIN 9.4 g/dl (12.0-16.0); LYMPHOCYTES # 1.2 10^3/ul (0.8-2.9); LYMPHOCYTES % 22.5 % (15.0-51.0); MEAN CORPUSCULAR HEMOGLOBIN 32.1 pg (29.0-33.0); MEAN CORPUSCULAR HGB CONC 30.4 g/dl (32.0-37.0); MEAN CORPUSCULAR VOLUME 105.5 fl (82.0-101.0); MEAN PLATELET VOLUME 11.8 fl (7.4-10.4); MONOCYTE # 0.7 10^3/ul (0.3-0.9); NEUTROPHIL # 3.3 10^3/ul (1.6-7.5); NEUTROPHILS % 61.2 % (39.0-77.0); PLATELET COUNT 117 10^3/UL (140-415); RED BLOOD COUNT 2.93 10^6/ul (4.20-5.40); RED CELL DISTRIBUTION WIDTH 18.1 % (11.5-14.5)
[2019-01-14 06:31] LABS: ALANINE AMINOTRANSFERASE 12 IU/L (13-69); ALBUMIN 4.1 g/dl (3.3-4.9); ALBUMIN/GLOBULIN RATIO 1.13; ALKALINE PHOSPHATASE 83 IU/L (42-121); ANION GAP 11 (5-13); ASPARTATE AMINO TRANSFERASE 25 IU/L (15-46); BILIRUBIN,INDIRECT 0.1 mg/dl (0-1.1); BILIRUBIN,TOTAL 0.1 mg/dl (0.2-1.3); BLOOD UREA NITROGEN 22 mg/dl (7-20); CALCIUM 9.1 mg/dl (8.4-10.2); CARBON DIOXIDE 26 mmol/L (21-31); CHLORIDE 103 mmol/L (97-110); Estimated GFR 10 mL/min (>60); GLUCOSE 77 mg/dl (70-220); POTASSIUM 5.2 mmol/L (3.5-5.1); SODIUM 140 mmol/L (135-144); TOTAL PROTEIN 7.7 g/dl (6.1-8.1)
[2019-01-14] MEDS: morphine 4 MG/ML VIAL IV (06:38)
[2019-01-14 06:43] LABS: B-TYPE NATRIURETIC PEPTIDE 28300 PG/ML (0-125); TROPONIN-I < 0.012 ng/ml (0.000-0.120)
[2019-01-14] MEDS: ONDANSETRON 4 MG INJ IV (08:47)
[2019-01-14] MEDS ORDERED: NITROGLYCERIN (SL) 0.4 MG TAB SL (09:00)
[2019-01-14] MEDS ORDERED: DOCUSATE SODIUM 100 MG CAP PO (09:00)
[2019-01-14] MEDS ORDERED: hydrOXYzine HCL 25 MG TAB PO (09:00)
[2019-01-14] MEDS ORDERED: NACL 0.9% 3 ML SYG IV (09:00)
[2019-01-14] MEDS ORDERED: ONDANSETRON 4 MG INJ IV (09:00)
[2019-01-14] MEDS ORDERED: SODIUM CHLORIDE 0.9% 1L BAG IV (09:30)
[2019-01-14] MEDS ORDERED: HEPARIN 1000 UNITS/ML 10 ML INJ CATHETER (09:30)
[2019-01-14] MEDS ORDERED: ALBUMIN HUMAN 25% 100 ML IV (09:30)
[2019-01-14] MEDS: ASPIRIN (EC) 81 MG TAB PO (09:39)
[2019-01-14] MEDS: ACETAMINOPHEN 325 MG TAB PO (09:39)
[2019-01-14] MEDS: predniSONE 5 MG TAB PO (10:19)
[2019-01-14] MEDS: SERTRALINE 50 MG TAB PO (10:20)
[2019-01-14] MEDS: NIFEdipine (XL) 60 MG TAB PO ×2 (10:21→20:50)
[2019-01-14] MEDS: PANTOPRAZOLE (EC) 40 MG TAB PO (11:32)
[2019-01-14] MEDS: MYCOPHENOLATE 250 MG CAP PO ×2 (11:32→20:49)
[2019-01-14] MEDS: HYDROXYCHLOROQUINE 200 MG TAB PO (11:32)
[2019-01-14] MEDS: morphine 2 MG INJ IV ×2 (12:11→20:50)
[2019-01-14] MEDS ORDERED: traMADol 50 MG TAB PO ×2 (14:30→15:00)
[2019-01-14] MEDS: METOCLOPRAMIDE 10 MG INJ IV (14:52)
[2019-01-14] MEDS: DIPHENHYDRAMINE 25 MG CAP PO (16:23)
[2019-01-14] MEDS: HEPARIN 1000 UNITS/ML 10 ML INJ CATHETER (17:35)
[2019-01-14] MEDS: traMADol 50 MG TAB PO (18:41)
[2019-01-14 19:18] LABS: CREATINE KINASE 21 IU/L (23-200)
[2019-01-14 19:31] LABS: CK INDEX 1.2; CK-MB 0.25 ng/ml (0.0-2.4); TROPONIN-I < 0.012 ng/ml (0.000-0.120)
[2019-01-15] MEDS: morphine 2 MG INJ IV ×3 (01:22→10:33)
[2019-01-15 05:57] LABS: ADD MAN DIFF? NO
[2019-01-15 06:13] LABS: WHITE BLOOD COUNT 3.7 10^3/ul (4.8-10.8)
[2019-01-15 06:13] LABS: BASOPHILS % 0.5 % (0.0-2.0); HEMATOCRIT 28.4 % (37.0-47.0); HEMOGLOBIN 8.6 g/dl (12.0-16.0); LYMPHOCYTES # 1.4 10^3/ul (0.8-2.9); MEAN CORPUSCULAR HEMOGLOBIN 31.9 pg (29.0-33.0); MEAN CORPUSCULAR HGB CONC 30.3 g/dl (32.0-37.0); MEAN CORPUSCULAR VOLUME 105.2 fl (82.0-101.0); MEAN PLATELET VOLUME 11.2 fl (7.4-10.4); MONOCYTE # 0.6 10^3/ul (0.3-0.9); MONOCYTES % 15.9 % (0.0-11.0); NEUTROPHIL # 1.7 10^3/ul (1.6-7.5); NEUTROPHILS % 46.1 % (39.0-77.0); PLATELET COUNT 119 10^3/UL (140-415); RED CELL DISTRIBUTION WIDTH 18.6 % (11.5-14.5)
[2019-01-15 06:30] LABS: ANION GAP 9 (5-13); BLOOD UREA NITROGEN 17 mg/dl (7-20); CALCIUM 9.1 mg/dl (8.4-10.2); CARBON DIOXIDE 31 mmol/L (21-31); CHLORIDE 96 mmol/L (97-110); CREATININE 3.61 mg/dl (0.44-1.00); Estimated GFR 14 mL/min (>60); GLUCOSE 73 mg/dl (70-220); MAGNESIUM 1.9 mg/dl (1.7-2.5); PHOSPHORUS 3.8 mg/dl (2.5-4.9); POTASSIUM 5.1 mmol/L (3.5-5.1); SODIUM 136 mmol/L (135-144)
[2019-01-15 06:53] LABS: THYROID STIMULATING HORMONE 0.722 MIU/L (0.465-4.680)
[2019-01-15] MEDS: ONDANSETRON 4 MG INJ IV (09:02)
[2019-01-15] MEDS: DIPHENHYDRAMINE 25 MG CAP PO (11:26)
[2019-01-15] MEDS: HEPARIN 1000 UNITS/ML 10 ML INJ CATHETER (11:28)
[2019-01-15] MEDS: SERTRALINE 50 MG TAB PO (12:36)
[2019-01-15] MEDS: ASPIRIN (EC) 81 MG TAB PO (12:37)
[2019-01-15] MEDS: predniSONE 5 MG TAB PO (12:37)
[2019-01-15] MEDS: NIFEdipine (XL) 60 MG TAB PO (12:37)
[2019-01-15] MEDS: PANTOPRAZOLE (EC) 40 MG TAB PO (12:37)
[2019-01-15] MEDS: HYDROXYCHLOROQUINE 200 MG TAB PO (12:37)
[2019-01-15] MEDS: MYCOPHENOLATE 250 MG CAP PO (12:38)
== END 2019-01-15 14:45 | disposition home health service (06) ==
LOC: E/R 04:43 → 6WM 05:48
DX: R07.9 Chest pain, unspecified (principal); I12.0 Hypertensive chronic kidney disease with stage 5 chronic kidney disease or end stage renal disease; N18.6 End stage renal disease; Z99.2 Dependence on renal dialysis; D63.1 Anemia in chronic kidney disease; J90 Pleural effusion, not elsewhere classified; M32.9 Systemic lupus erythematosus, unspecified
CPT/HCPCS: 36415; 71045; 71250; 80048; 80053; 82550; 82553; 83735; 83880; 84100; 84443; 84484; 85025; 90935; 93005; 99217; 99285-25; G0378

== ENCOUNTER 2019-01-21 23:21 | Inpatient (IN) | payer MEDICARE, OTHER ==
[2019-01-22] MEDS: hydrALAzine 20 MG INJ IV (00:57)
[2019-01-22] MEDS: ONDANSETRON 4 MG INJ IV ×2 (01:02→10:04)
[2019-01-22] MEDS: morphine 2 MG INJ IV ×6 (01:02→20:13)
[2019-01-22 01:05] LABS: ADD MAN DIFF? NO
[2019-01-22 01:06] LABS: BASOPHILS % 0.2 % (0.0-2.0); EOSINOPHILS % 0.7 % (0.0-7.0); HEMATOCRIT 33.1 % (37.0-47.0); HEMOGLOBIN 9.8 g/dl (12.0-16.0); LYMPHOCYTES # 1.2 10^3/ul (0.8-2.9); MEAN CORPUSCULAR HEMOGLOBIN 31.5 pg (29.0-33.0); MEAN CORPUSCULAR HGB CONC 29.6 g/dl (32.0-37.0); MEAN CORPUSCULAR VOLUME 106.4 fl (82.0-101.0); MEAN PLATELET VOLUME 12.3 fl (7.4-10.4); MONOCYTE # 0.4 10^3/ul (0.3-0.9); MONOCYTES % 9.1 % (0.0-11.0); NEUTROPHIL # 2.5 10^3/ul (1.6-7.5); NEUTROPHILS % 60.8 % (39.0-77.0); PLATELET COUNT 121 10^3/UL (140-415); RED BLOOD COUNT 3.11 10^6/ul (4.20-5.40); RED CELL DISTRIBUTION WIDTH 17.4 % (11.5-14.5)
[2019-01-22 01:06] LABS: WHITE BLOOD COUNT 4.2 10^3/ul (4.8-10.8)
[2019-01-22 01:13] LABS: ANION GAP 8 (5-13); BLOOD UREA NITROGEN 21 mg/dl (7-20); CALCIUM 9.2 mg/dl (8.4-10.2); CARBON DIOXIDE 25 mmol/L (21-31); CHLORIDE 105 mmol/L (97-110); CREATININE 3.32 mg/dl (0.44-1.00); Estimated GFR 16 mL/min (>60); GLUCOSE 82 mg/dl (70-220); POTASSIUM 5.7 mmol/L (3.5-5.1); SODIUM 138 mmol/L (135-144)
[2019-01-22 01:25] LABS: TROPONIN-I < 0.012 ng/ml (0.000-0.120)
[2019-01-22] MEDS: FUROSEMIDE 40 MG INJ IV (01:57)
[2019-01-22] MEDS: NITROGLYCERIN 50 MG/D5W (PMX) 250 ML IV (01:57)
[2019-01-22] MEDS ORDERED: TEMAZEPAM 15 MG PO (02:30)
[2019-01-22] MEDS ORDERED: NACL 0.9% 3 ML SYG IV (02:30)
[2019-01-22 02:41] LABS: ANION GAP 10 (5-13); BLOOD UREA NITROGEN 22 mg/dl (7-20); CALCIUM 9.5 mg/dl (8.4-10.2); CARBON DIOXIDE 24 mmol/L (21-31); CHLORIDE 105 mmol/L (97-110); Estimated GFR 15 mL/min (>60); GLUCOSE 79 mg/dl (70-220); POTASSIUM 5.9 mmol/L (3.5-5.1); SODIUM 139 mmol/L (135-144)
[2019-01-22 02:56] LABS: AADO2 Arterial 60.4 mmHg (7.0-24.0); Arterial Base Excess -1.2 mmol/L (-3.0-3); Arterial Blood Gas Oxygen Sat 98.1 mmHG (95.0-98.0); Arterial COHb 0.4 % (0.0-3.0); Arterial Fraction of Oxyhgb 97.5 % (93.0-99.0); Arterial MetHb 0.2 % (0.0-1.5); Arterial pCO2 36.8 mmhg (35-45); Blood Gas IEPAP 15/5; Blood Gas PS 10; MODE MASK - BIPAP; Site Right Brachial
[2019-01-22] MEDS ORDERED: TEMAZEPAM 15 MG CAP PO (04:15)
[2019-01-22] MEDS: ACETAMINOPHEN 500 MG TAB PO (04:55)
[2019-01-22] MEDS: PANTOPRAZOLE (EC) 40 MG TAB PO (06:00)
[2019-01-22] MEDS: niCARdipine-NS 0.1MG/ML DRIP 200 ML IV (06:49)
[2019-01-22 07:59] LABS: CREATINE KINASE 23 IU/L (23-200)
[2019-01-22 08:11] LABS: CK INDEX 1.7; CK-MB 0.39 ng/ml (0.0-2.4); TROPONIN-I < 0.012 ng/ml (0.000-0.120)
[2019-01-22] MEDS: niCARdipine 25 MG in SOD CHLORIDE 0.9% 240 ML IV (08:33)
[2019-01-22] MEDS: HYDROXYCHLOROQUINE 200 MG TAB PO (08:40)
[2019-01-22 08:58] LABS: ADD MAN DIFF? NO
[2019-01-22 09:00] LABS: BASOPHILS % 0.3 % (0.0-2.0); EOSINOPHILS % 0.1 % (0.0-7.0); HEMATOCRIT 29.7 % (37.0-47.0); HEMOGLOBIN 8.9 g/dl (12.0-16.0); LYMPHOCYTES # 0.9 10^3/ul (0.8-2.9); LYMPHOCYTES % 8.4 % (15.0-51.0); MEAN CORPUSCULAR VOLUME 106.8 fl (82.0-101.0); MEAN PLATELET VOLUME 12.1 fl (7.4-10.4); MONOCYTE # 0.8 10^3/ul (0.3-0.9); MONOCYTES % 7.6 % (0.0-11.0); NEUTROPHIL # 9.1 10^3/ul (1.6-7.5); NEUTROPHILS % 83.1 % (39.0-77.0); PLATELET COUNT 101 10^3/UL (140-415); RED BLOOD COUNT 2.78 10^6/ul (4.20-5.40); RED CELL DISTRIBUTION WIDTH 17.2 % (11.5-14.5)
[2019-01-22 09:00] LABS: WHITE BLOOD COUNT 10.9 10^3/ul (4.8-10.8)
[2019-01-22] MEDS ORDERED: HYDROXYCHLOROQUINE 200 MG TAB PO (09:00)
[2019-01-22 09:01] LABS: POSITIVE DIFF @See below
[2019-01-22] MEDS ORDERED: niCARdipine 50 MG in SOD CHLORIDE 0.9% 480 ML IV (09:03)
[2019-01-22 09:08] LABS: ALANINE AMINOTRANSFERASE 14 IU/L (13-69); ALBUMIN 3.5 g/dl (3.3-4.9); ALBUMIN/GLOBULIN RATIO 1.02; ALKALINE PHOSPHATASE 80 IU/L (42-121); ANION GAP 10 (5-13); ASPARTATE AMINO TRANSFERASE 26 IU/L (15-46); BILIRUBIN,INDIRECT 0.1 mg/dl (0-1.1); BILIRUBIN,TOTAL 0.1 mg/dl (0.2-1.3); BLOOD UREA NITROGEN 24 mg/dl (7-20); CALCIUM 9.5 mg/dl (8.4-10.2); CARBON DIOXIDE 24 mmol/L (21-31); CHLORIDE 106 mmol/L (97-110); CREATININE 3.83 mg/dl (0.44-1.00); Estimated GFR 13 mL/min (>60); GLUCOSE 75 mg/dl (70-220); POTASSIUM 5.8 mmol/L (3.5-5.1); SODIUM 140 mmol/L (135-144); TOTAL PROTEIN 6.9 g/dl (6.1-8.1)
[2019-01-22] MEDS: HEPARIN 5,000 UNIT/1 ML VIAL SC ×2 (10:05→20:19)
[2019-01-22] MEDS: predniSONE 5 MG TAB PO (10:05)
[2019-01-22] MEDS: SERTRALINE 50 MG TAB PO (10:06)
[2019-01-22] MEDS: NIFEdipine (XL) 60 MG TAB PO ×2 (10:06→20:14)
[2019-01-22] MEDS: ASPIRIN (EC) 81 MG TAB PO (10:06)
[2019-01-22] MEDS: ACETAMINOPHEN 325 MG TAB PO ×2 (10:07→17:16)
[2019-01-22] MEDS: niCARdipine 50 MG in SOD CHLORIDE 0.9% 480 ML IV (10:32)
[2019-01-22] MEDS ORDERED: HEPARIN 1000 UNITS/ML 10 ML INJ CATHETER (11:00)
[2019-01-22] MEDS ORDERED: SODIUM CHLORIDE 0.9% 1L BAG IV (11:00)
[2019-01-22 14:30] LABS: CREATINE KINASE 22 IU/L (23-200)
[2019-01-22 14:41] LABS: CK INDEX 1.6; CK-MB 0.35 ng/ml (0.0-2.4); TROPONIN-I < 0.012 ng/ml (0.000-0.120)
[2019-01-22] MEDS: HEPARIN 1000 UNITS/ML 10 ML INJ CATHETER (15:44)
[2019-01-22] MEDS: MYCOPHENOLATE 250 MG CAP PO ×2 (16:03→20:13)
[2019-01-22] MEDS: FUROSEMIDE 40 MG TAB PO (16:03)
[2019-01-22] MEDS: METOCLOPRAMIDE 10 MG INJ IV (16:03)
[2019-01-22] MEDS: LORAZEPAM 1 MG TAB PO (16:58)
[2019-01-23] MEDS: morphine 2 MG INJ IV ×6 (00:19→22:19)
[2019-01-23] MEDS: DIPHENHYDRAMINE 25 MG CAP PO ×2 (04:42→20:26)
[2019-01-23] MEDS: PANTOPRAZOLE (EC) 40 MG TAB PO (06:14)
[2019-01-23 06:56] LABS: ADD MAN DIFF? NO
[2019-01-23 07:04] LABS: WHITE BLOOD COUNT 3.9 10^3/ul (4.8-10.8)
[2019-01-23 07:04] LABS: BASOPHILS % 0.5 % (0.0-2.0); HEMATOCRIT 32.3 % (37.0-47.0); HEMOGLOBIN 9.8 g/dl (12.0-16.0); LYMPHOCYTES # 1.1 10^3/ul (0.8-2.9); LYMPHOCYTES % 28.5 % (15.0-51.0); MEAN CORPUSCULAR HEMOGLOBIN 31.8 pg (29.0-33.0); MEAN CORPUSCULAR HGB CONC 30.3 g/dl (32.0-37.0); MEAN CORPUSCULAR VOLUME 104.9 fl (82.0-101.0); MEAN PLATELET VOLUME 11.1 fl (7.4-10.4); MONOCYTE # 0.5 10^3/ul (0.3-0.9); MONOCYTES % 12.6 % (0.0-11.0); NEUTROPHIL # 2.3 10^3/ul (1.6-7.5); NEUTROPHILS % 58.1 % (39.0-77.0); PLATELET COUNT 106 10^3/UL (140-415); RED BLOOD COUNT 3.08 10^6/ul (4.20-5.40); RED CELL DISTRIBUTION WIDTH 16.8 % (11.5-14.5)
[2019-01-23 07:25] LABS: HEMOGLOBIN A1C 4.5 % (0-5.9)
[2019-01-23 07:41] LABS: ALANINE AMINOTRANSFERASE 15 IU/L (13-69); ALBUMIN 4.2 g/dl (3.3-4.9); ALBUMIN/GLOBULIN RATIO 1.05; ALKALINE PHOSPHATASE 84 IU/L (42-121); ANION GAP 13 (5-13); ASPARTATE AMINO TRANSFERASE 24 IU/L (15-46); BILIRUBIN,INDIRECT 0.1 mg/dl (0-1.1); BILIRUBIN,TOTAL 0.1 mg/dl (0.2-1.3); BLOOD UREA NITROGEN 17 mg/dl (7-20); CALCIUM 9.8 mg/dl (8.4-10.2); CARBON DIOXIDE 31 mmol/L (21-31); CHLORIDE 94 mmol/L (97-110); CREATININE 3.73 mg/dl (0.44-1.00); Estimated GFR 14 mL/min (>60); GLUCOSE 78 mg/dl (70-220); POTASSIUM 5.1 mmol/L (3.5-5.1); SODIUM 138 mmol/L (135-144); TOTAL PROTEIN 8.2 g/dl (6.1-8.1)
[2019-01-23] MEDS: ASPIRIN (EC) 81 MG TAB PO (08:24)
[2019-01-23] MEDS: SERTRALINE 50 MG TAB PO (08:24)
[2019-01-23] MEDS: predniSONE 5 MG TAB PO (08:25)
[2019-01-23] MEDS: FUROSEMIDE 40 MG TAB PO (08:28)
[2019-01-23] MEDS: NIFEdipine (XL) 60 MG TAB PO ×2 (08:29→20:22)
[2019-01-23] MEDS: HYDROXYCHLOROQUINE 200 MG TAB PO (08:35)
[2019-01-23] MEDS: hydrOXYzine HCL 25 MG TAB PO (08:35)
[2019-01-23] MEDS: HEPARIN 1000 UNITS/ML 10 ML INJ CATHETER (13:08)
[2019-01-23] MEDS: MYCOPHENOLATE 250 MG CAP PO ×2 (13:40→20:21)
[2019-01-23] MEDS: HEPARIN 5,000 UNIT/1 ML VIAL SC ×2 (13:44→20:25)
[2019-01-23 14:41] LABS: AADO2 Arterial 8.3 mmHg (7.0-24.0); Arterial Base Excess 3.4 mmol/L (-3.0-3); Arterial Blood Gas Oxygen Sat 95.7 mmHG (95.0-98.0); Arterial COHb 1.3 % (0.0-3.0); Arterial Fraction of Oxyhgb 94.3 % (93.0-99.0); Arterial MetHb 0.2 % (0.0-1.5); Arterial pCO2 47.6 mmhg (35-45); MODE ROOM AIR; Site Right Brachial
[2019-01-23] MEDS: ACETAMINOPHEN 325 MG TAB PO ×2 (14:44→21:08)
[2019-01-23] MEDS: ONDANSETRON 4 MG INJ IV (14:44)
[2019-01-24] MEDS: morphine 2 MG INJ IV ×6 (02:43→23:32)
[2019-01-24] MEDS: DIPHENHYDRAMINE 25 MG CAP PO (02:47)
[2019-01-24] MEDS: PANTOPRAZOLE (EC) 40 MG TAB PO (06:39)
[2019-01-24] MEDS: predniSONE 5 MG TAB PO (08:37)
[2019-01-24] MEDS: MYCOPHENOLATE 250 MG CAP PO ×2 (08:37→20:41)
[2019-01-24] MEDS: SERTRALINE 50 MG TAB PO (08:38)
[2019-01-24] MEDS: ASPIRIN (EC) 81 MG TAB PO (08:38)
[2019-01-24] MEDS: HEPARIN 5,000 UNIT/1 ML VIAL SC ×2 (08:44→20:50)
[2019-01-24] MEDS: FUROSEMIDE 40 MG TAB PO (08:46)
[2019-01-24] MEDS: NIFEdipine (XL) 60 MG TAB PO ×2 (08:46→20:41)
[2019-01-24] MEDS: hydrOXYzine HCL 25 MG TAB PO (10:24)
[2019-01-24] MEDS: ACETAMINOPHEN 325 MG TAB PO (11:11)
[2019-01-24] MEDS: METOCLOPRAMIDE 10 MG INJ IV ×3 (11:11→23:31)
[2019-01-24] MEDS: HEPARIN 1000 UNITS/ML 10 ML INJ CATHETER (13:51)
[2019-01-24] MEDS: LORAZEPAM 1 MG TAB PO (15:47)
[2019-01-24] MEDS: ONDANSETRON 4 MG INJ IV ×2 (18:12→23:31)
[2019-01-25] MEDS: morphine 2 MG INJ IV ×5 (04:01→21:46)
[2019-01-25] MEDS: PANTOPRAZOLE (EC) 40 MG TAB PO (06:12)
[2019-01-25] MEDS: DIPHENHYDRAMINE 25 MG CAP PO ×2 (06:13→21:46)
[2019-01-25 08:15] LABS: ADD MAN DIFF? NO
[2019-01-25 08:18] LABS: BASOPHILS % 0.4 % (0.0-2.0); EOSINOPHILS % 0.2 % (0.0-7.0); HEMATOCRIT 39.1 % (37.0-47.0); HEMOGLOBIN 11.8 g/dl (12.0-16.0); LYMPHOCYTES # 1.5 10^3/ul (0.8-2.9); LYMPHOCYTES % 27.8 % (15.0-51.0); MEAN CORPUSCULAR HEMOGLOBIN 31.7 pg (29.0-33.0); MEAN CORPUSCULAR HGB CONC 30.2 g/dl (32.0-37.0); MEAN CORPUSCULAR VOLUME 105.1 fl (82.0-101.0); MONOCYTE # 0.8 10^3/ul (0.3-0.9); NEUTROPHIL # 3.1 10^3/ul (1.6-7.5); NEUTROPHILS % 57.2 % (39.0-77.0); PLATELET COUNT 164 10^3/UL (140-415); RED BLOOD COUNT 3.72 10^6/ul (4.20-5.40); RED CELL DISTRIBUTION WIDTH 16.3 % (11.5-14.5)
[2019-01-25 08:18] LABS: WHITE BLOOD COUNT 5.4 10^3/ul (4.8-10.8)
[2019-01-25] MEDS: SERTRALINE 50 MG TAB PO (08:20)
[2019-01-25] MEDS: MYCOPHENOLATE 250 MG CAP PO (08:20)
[2019-01-25] MEDS: NIFEdipine (XL) 60 MG TAB PO ×2 (08:20→21:47)
[2019-01-25] MEDS: predniSONE 5 MG TAB PO (08:20)
[2019-01-25] MEDS: ASPIRIN (EC) 81 MG TAB PO (08:20)
[2019-01-25] MEDS: FUROSEMIDE 40 MG TAB PO (08:21)
[2019-01-25] MEDS: HEPARIN 5,000 UNIT/1 ML VIAL SC ×2 (08:39→23:18)
[2019-01-25 08:52] LABS: ANION GAP 18 (5-13); BLOOD UREA NITROGEN 27 mg/dl (7-20); CALCIUM 10.5 mg/dl (8.4-10.2); CARBON DIOXIDE 25 mmol/L (21-31); CHLORIDE 91 mmol/L (97-110); CREATININE 4.28 mg/dl (0.44-1.00); Estimated GFR 12 mL/min (>60); GLUCOSE 90 mg/dl (70-220); PHOSPHORUS 6.8 mg/dl (2.5-4.9); POTASSIUM 4.8 mmol/L (3.5-5.1); SODIUM 134 mmol/L (135-144)
[2019-01-25] MEDS: ALBUMIN HUMAN 25% 100 ML IV (09:41)
[2019-01-25] MEDS: ONDANSETRON 4 MG INJ IV (10:13)
[2019-01-25] MEDS: HEPARIN 1000 UNITS/ML 10 ML INJ CATHETER (11:33)
[2019-01-25] MEDS: ALTEPLASE (CATHFLO) 2 MG INJ CATHETER (13:11)
[2019-01-25] MEDS: LORAZEPAM 1 MG TAB PO (14:27)
[2019-01-25] MEDS: ACETAMINOPHEN 325 MG TAB PO (14:27)
[2019-01-25] MEDS: CALCIUM CARBONATE 500 MG CHEW TAB PO (17:09)
[2019-01-26] MEDS: MYCOPHENOLATE 250 MG CAP PO ×3 (00:53→20:42)
[2019-01-26] MEDS: morphine 2 MG INJ IV ×4 (03:02→14:58)
[2019-01-26] MEDS: PANTOPRAZOLE (EC) 40 MG TAB PO (05:54)
[2019-01-26] MEDS: ONDANSETRON 4 MG INJ IV ×2 (06:50→17:29)
[2019-01-26] MEDS: NIFEdipine (XL) 60 MG TAB PO ×2 (08:17→20:41)
[2019-01-26] MEDS: FUROSEMIDE 40 MG TAB PO (08:24)
[2019-01-26] MEDS: DIPHENHYDRAMINE 25 MG CAP PO (08:24)
[2019-01-26] MEDS: LORAZEPAM 1 MG TAB PO (08:24)
[2019-01-26] MEDS: SERTRALINE 50 MG TAB PO (08:25)
[2019-01-26] MEDS: predniSONE 5 MG TAB PO (08:25)
[2019-01-26] MEDS: ASPIRIN (EC) 81 MG TAB PO (08:25)
[2019-01-26] MEDS: HYDROXYCHLOROQUINE 200 MG TAB PO (08:27)
[2019-01-26] MEDS: HEPARIN 5,000 UNIT/1 ML VIAL SC ×2 (08:32→20:58)
[2019-01-26] MEDS ORDERED: TRIMETHOBENZAMIDE 100 MG/ML VIAL IM (18:30)
[2019-01-26] MEDS: METOCLOPRAMIDE 10 MG INJ IV (18:43)
[2019-01-26] MEDS ORDERED: morphine 2 MG INJ IV (19:00)
[2019-01-26] MEDS ORDERED: ONDANSETRON INJ 8 MG in SOD CHLORIDE 0.9% 50 ML IV (19:00)
[2019-01-26] MEDS ORDERED: HYDROCODONE/APAP (5/325) TAB PO (19:00)
[2019-01-26] MEDS: CALCIUM CARBONATE 500 MG CHEW TAB PO (20:41)
[2019-01-26] MEDS: ACETAMINOPHEN 325 MG TAB PO (20:41)
[2019-01-26] MEDS ORDERED: ONDANSETRON 4 MG INJ IV (21:30)
== END 2019-01-26 21:15 | disposition home or self-care (01) | DRG 189 ==
LOC: E/R 23:21 → ICU 01-22 01:48 → TEL 01-22 21:09
PROC: 5A09357 Assistance with Respiratory Ventilation, Less than 24 Consecutive Hours, Continuous Positive Airway Pressure (ICD-10-PCS; principal; 2019-01-22)
PROC: 5A1D70Z Performance of Urinary Filtration, Intermittent, Less than 6 Hours Per Day (ICD-10-PCS; 2019-01-22)
PROC: 5A1D70Z Performance of Urinary Filtration, Intermittent, Less than 6 Hours Per Day (ICD-10-PCS; 2019-01-23)
PROC: 5A1D70Z Performance of Urinary Filtration, Intermittent, Less than 6 Hours Per Day (ICD-10-PCS; 2019-01-24)
DX: J81.0 Acute pulmonary edema (principal); N18.6 End stage renal disease; J96.00 Acute respiratory failure, unspecified whether with hypoxia or hypercapnia; I16.1 Hypertensive emergency; I12.0 Hypertensive chronic kidney disease with stage 5 chronic kidney disease or end stage renal disease; E87.70 Fluid overload, unspecified; M32.9 Systemic lupus erythematosus, unspecified; F41.9 Anxiety disorder, unspecified; E87.5 Hyperkalemia; E78.5 Hyperlipidemia, unspecified; I25.2 Old myocardial infarction; Z99.2 Dependence on renal dialysis
CPT/HCPCS: 36415; 36600; 71045; 80048; 80053; 82550; 82553; 82803; 83036; 83735; 84100; 84484; 85025; 87081; 90935; 93005; 94660; 96374; 96375; 97161; 99291-25

== ENCOUNTER 2019-02-13 06:36 | Inpatient (IN) | payer MEDICARE, OTHER ==
[2019-02-13] MEDS: NITROGLYCERIN (SL) 0.4 MG TAB SL ×3 (06:55→07:47)
[2019-02-13] MEDS: ASPIRIN 81 MG TAB PO (06:55)
[2019-02-13] MEDS: ONDANSETRON 4 MG INJ IV ×3 (07:18→23:31)
[2019-02-13] MEDS: morphine 4 MG/ML VIAL IV ×2 (07:18→09:05)
[2019-02-13] MEDS: NIFEdipine (XL) 60 MG TAB PO ×3 (07:23→22:13)
[2019-02-13 07:45] LABS: ADD MAN DIFF? NO
[2019-02-13 07:57] LABS: ABNORMAL IP MESSAGE 1; BASOPHILS % 0.3 % (0.0-2.0); EOSINOPHILS # 0.1 10^3/ul (0.0-0.5); EOSINOPHILS % 1.7 % (0.0-7.0); HEMATOCRIT 30.2 % (37.0-47.0); HEMOGLOBIN 8.7 g/dl (12.0-16.0); LYMPHOCYTES # 1.1 10^3/ul (0.8-2.9); LYMPHOCYTES % 38.4 % (15.0-51.0); MEAN CORPUSCULAR HEMOGLOBIN 30.6 pg (29.0-33.0); MEAN CORPUSCULAR HGB CONC 28.8 g/dl (32.0-37.0); MEAN CORPUSCULAR VOLUME 106.3 fl (82.0-101.0); MEAN PLATELET VOLUME 11.2 fl (7.4-10.4); MONOCYTE # 0.2 10^3/ul (0.3-0.9); MONOCYTES % 7.2 % (0.0-11.0); NEUTROPHIL # 1.5 10^3/ul (1.6-7.5); NEUTROPHILS % 52.1 % (39.0-77.0); RED BLOOD COUNT 2.84 10^6/ul (4.20-5.40); RED CELL DISTRIBUTION WIDTH 17.2 % (11.5-14.5)
[2019-02-13 07:57] LABS: WHITE BLOOD COUNT 2.9 10^3/ul (4.8-10.8)
[2019-02-13 08:02] LABS: PLATELET COUNT 116 10^3/UL (140-415); POSITIVE DIFF @See below
[2019-02-13 08:14] LABS: INR 0.98; PROTIME 13.1 Sec (11.9-14.9)
[2019-02-13 08:15] LABS: PARTIAL THROMBOPLASTIN TIME 32.9 Sec (23.0-35.0)
[2019-02-13 08:28] LABS: ANION GAP 11 (5-13); BLOOD UREA NITROGEN 16 mg/dl (7-20); CARBON DIOXIDE 25 mmol/L (21-31); CHLORIDE 107 mmol/L (97-110); CREATININE 3.73 mg/dl (0.44-1.00); Estimated GFR 14 mL/min (>60); GLUCOSE 71 mg/dl (70-220); POTASSIUM 5.2 mmol/L (3.5-5.1); SODIUM 143 mmol/L (135-144)
[2019-02-13] MEDS ORDERED: NITROGLYCERIN 50 MG/D5W (PMX) 250 ML (08:33)
[2019-02-13 08:38] LABS: TROPONIN-I 0.018 ng/ml (0.000-0.120)
[2019-02-13] MEDS: NITROGLYCERIN 50 MG/D5W (PMX) 250 ML IV (09:01)
[2019-02-13] MEDS: FAMOTIDINE 20 MG INJ IV (09:05)
[2019-02-13] MEDS ORDERED: SODIUM CHLORIDE 0.9% 1L BAG IV (11:30)
[2019-02-13] MEDS ORDERED: HEPARIN 1000 UNITS/ML 10 ML INJ CATHETER (11:30)
[2019-02-13] MEDS ORDERED: hydrOXYzine HCL 25 MG TAB PO (11:30)
[2019-02-13] MEDS ORDERED: CLONIDINE PO (11:30)
[2019-02-13] MEDS: MYCOPHENOLATE 250 MG CAP PO ×2 (11:30→22:13)
[2019-02-13] MEDS ORDERED: ALBUMIN HUMAN 25% 100 ML IV (11:30)
[2019-02-13] MEDS: hydrALAzine 20 MG INJ IV (11:32)
[2019-02-13] MEDS: DIPHENHYDRAMINE 25 MG CAP PO (11:35)
[2019-02-13] MEDS: PANTOPRAZOLE (EC) 40 MG TAB PO (11:35)
[2019-02-13] MEDS: predniSONE 5 MG TAB PO (11:36)
[2019-02-13] MEDS: HYDROXYCHLOROQUINE 200 MG TAB PO (11:36)
[2019-02-13] MEDS: ASPIRIN (EC) 81 MG TAB PO (11:36)
[2019-02-13] MEDS: METOCLOPRAMIDE 10 MG INJ IV ×4 (13:30→19:43)
[2019-02-13] MEDS: morphine 2 MG INJ IV ×3 (13:30→23:31)
[2019-02-13] MEDS ORDERED: hydrALAzine 20 MG INJ IV (14:00)
[2019-02-13 14:49] LABS: CREATINE KINASE 45 IU/L (23-200)
[2019-02-13 15:03] LABS: CK INDEX 0.5; CK-MB 0.24 ng/ml (0.0-2.4); TROPONIN-I 0.041 ng/ml (0.000-0.120)
[2019-02-13 15:21] LABS: HEPATITIS B SURFACE ANTIGEN NEGATIVE (NEGATIVE)
[2019-02-13] MEDS: ACETAMINOPHEN 325 MG TAB PO ×2 (15:51→20:13)
[2019-02-13] MEDS ORDERED: LABETALOL HCL 20MG INJ IV (16:00)
[2019-02-13 19:25] LABS: CREATINE KINASE 27 IU/L (23-200)
[2019-02-13 19:36] LABS: CK INDEX 1.2; CK-MB 0.32 ng/ml (0.0-2.4); TROPONIN-I 0.032 ng/ml (0.000-0.120)
[2019-02-13] MEDS: LORAZEPAM 1 MG TAB PO (19:39)
[2019-02-14] MEDS: morphine 2 MG INJ IV ×5 (03:20→21:13)
[2019-02-14 05:17] LABS: ADD MAN DIFF? NO
[2019-02-14 05:22] LABS: WHITE BLOOD COUNT 4.7 10^3/ul (4.8-10.8)
[2019-02-14 05:22] LABS: BASOPHILS % 0.2 % (0.0-2.0); EOSINOPHILS % 0.6 % (0.0-7.0); HEMATOCRIT 28.3 % (37.0-47.0); HEMOGLOBIN 8.7 g/dl (12.0-16.0); LYMPHOCYTES # 0.8 10^3/ul (0.8-2.9); LYMPHOCYTES % 18.1 % (15.0-51.0); MEAN CORPUSCULAR HEMOGLOBIN 31.8 pg (29.0-33.0); MEAN CORPUSCULAR HGB CONC 30.7 g/dl (32.0-37.0); MEAN CORPUSCULAR VOLUME 103.3 fl (82.0-101.0); MEAN PLATELET VOLUME 11.5 fl (7.4-10.4); MONOCYTE # 0.6 10^3/ul (0.3-0.9); MONOCYTES % 13.5 % (0.0-11.0); NEUTROPHIL # 3.1 10^3/ul (1.6-7.5); NEUTROPHILS % 67.4 % (39.0-77.0); PLATELET COUNT 108 10^3/UL (140-415); RED BLOOD COUNT 2.74 10^6/ul (4.20-5.40); RED CELL DISTRIBUTION WIDTH 16.7 % (11.5-14.5)
[2019-02-14 05:47] LABS: ANION GAP 10 (5-13); BLOOD UREA NITROGEN 12 mg/dl (7-20); CALCIUM 9.4 mg/dl (8.4-10.2); CARBON DIOXIDE 30 mmol/L (21-31); CHLORIDE 95 mmol/L (97-110); CREATININE 2.98 mg/dl (0.44-1.00); Estimated GFR 18 mL/min (>60); GLUCOSE 67 mg/dl (70-220); MAGNESIUM 1.8 mg/dl (1.7-2.5); PHOSPHORUS 5.2 mg/dl (2.5-4.9); POTASSIUM 4.7 mmol/L (3.5-5.1); SODIUM 135 mmol/L (135-144)
[2019-02-14] MEDS: METOCLOPRAMIDE 10 MG INJ IV ×5 (06:47→23:06)
[2019-02-14] MEDS: LORAZEPAM 1 MG TAB PO (07:03)
[2019-02-14] MEDS: SERTRALINE 50 MG TAB PO (09:51)
[2019-02-14] MEDS: PANTOPRAZOLE (EC) 40 MG TAB PO (09:51)
[2019-02-14] MEDS: predniSONE 5 MG TAB PO (09:51)
[2019-02-14] MEDS: ASPIRIN (EC) 81 MG TAB PO (09:52)
[2019-02-14] MEDS: MYCOPHENOLATE 250 MG CAP PO ×2 (09:52→20:06)
[2019-02-14] MEDS: HYDROXYCHLOROQUINE 200 MG TAB PO (09:53)
[2019-02-14] MEDS: NIFEdipine (XL) 60 MG TAB PO ×2 (12:47→20:07)
[2019-02-14] MEDS: ACETAMINOPHEN 325 MG TAB PO (13:25)
[2019-02-14] MEDS: DIPHENHYDRAMINE 25 MG CAP PO ×2 (14:45→20:09)
[2019-02-15] MEDS: DIPHENHYDRAMINE 25 MG CAP PO ×2 (01:53→19:31)
[2019-02-15] MEDS: morphine 2 MG INJ IV ×5 (01:53→23:36)
[2019-02-15] MEDS: METOCLOPRAMIDE 10 MG INJ IV ×3 (05:14→17:45)
[2019-02-15 06:35] LABS: ADD MAN DIFF? NO
[2019-02-15 06:45] LABS: WHITE BLOOD COUNT 3.1 10^3/ul (4.8-10.8)
[2019-02-15 06:45] LABS: BASOPHILS % 0.3 % (0.0-2.0); HEMATOCRIT 30.3 % (37.0-47.0); HEMOGLOBIN 8.9 g/dl (12.0-16.0); LYMPHOCYTES # 1.2 10^3/ul (0.8-2.9); LYMPHOCYTES % 39.4 % (15.0-51.0); MEAN CORPUSCULAR HEMOGLOBIN 30.7 pg (29.0-33.0); MEAN CORPUSCULAR HGB CONC 29.4 g/dl (32.0-37.0); MEAN CORPUSCULAR VOLUME 104.5 fl (82.0-101.0); MONOCYTE # 0.6 10^3/ul (0.3-0.9); MONOCYTES % 19.9 % (0.0-11.0); NEUTROPHIL # 1.2 10^3/ul (1.6-7.5); NEUTROPHILS % 39.1 % (39.0-77.0); PLATELET COUNT 125 10^3/UL (140-415); RED CELL DISTRIBUTION WIDTH 16.5 % (11.5-14.5)
[2019-02-15 07:11] LABS: ANION GAP 11 (5-13); BLOOD UREA NITROGEN 19 mg/dl (7-20); CALCIUM 9.4 mg/dl (8.4-10.2); CARBON DIOXIDE 29 mmol/L (21-31); CHLORIDE 98 mmol/L (97-110); CREATININE 3.64 mg/dl (0.44-1.00); Estimated GFR 14 mL/min (>60); GLUCOSE 82 mg/dl (70-220); SODIUM 138 mmol/L (135-144)
[2019-02-15] MEDS: predniSONE 5 MG TAB PO (09:08)
[2019-02-15] MEDS: HYDROXYCHLOROQUINE 200 MG TAB PO (09:08)
[2019-02-15] MEDS: ASPIRIN (EC) 81 MG TAB PO (09:08)
[2019-02-15] MEDS: SERTRALINE 50 MG TAB PO (09:09)
[2019-02-15] MEDS: PANTOPRAZOLE (EC) 40 MG TAB PO (09:09)
[2019-02-15] MEDS: NIFEdipine (XL) 60 MG TAB PO ×2 (09:11→22:01)
[2019-02-15] MEDS: MYCOPHENOLATE 250 MG CAP PO ×2 (09:27→22:00)
[2019-02-15] MEDS: LORAZEPAM 1 MG TAB PO (14:23)
[2019-02-15] MEDS: ACETAMINOPHEN 325 MG TAB PO (14:27)
[2019-02-16] MEDS: METOCLOPRAMIDE 10 MG INJ IV ×3 (00:52→11:35)
[2019-02-16] MEDS: DIPHENHYDRAMINE 25 MG CAP PO (01:26)
[2019-02-16] MEDS: morphine 2 MG INJ IV ×3 (05:52→14:34)
[2019-02-16 06:22] LABS: ADD MAN DIFF? NO
[2019-02-16 06:29] LABS: WHITE BLOOD COUNT 3.3 10^3/ul (4.8-10.8)
[2019-02-16 06:30] LABS: BASOPHILS % 0.3 % (0.0-2.0); EOSINOPHILS % 0.3 % (0.0-7.0); HEMATOCRIT 30.7 % (37.0-47.0); HEMOGLOBIN 9.1 g/dl (12.0-16.0); LYMPHOCYTES # 1.4 10^3/ul (0.8-2.9); MEAN CORPUSCULAR HEMOGLOBIN 30.6 pg (29.0-33.0); MEAN CORPUSCULAR HGB CONC 29.6 g/dl (32.0-37.0); MEAN CORPUSCULAR VOLUME 103.4 fl (82.0-101.0); MONOCYTE # 0.7 10^3/ul (0.3-0.9); MONOCYTES % 21.6 % (0.0-11.0); NEUTROPHIL # 1.2 10^3/ul (1.6-7.5); NEUTROPHILS % 36.5 % (39.0-77.0); PLATELET COUNT 129 10^3/UL (140-415); RED BLOOD COUNT 2.97 10^6/ul (4.20-5.40); RED CELL DISTRIBUTION WIDTH 16.3 % (11.5-14.5)
[2019-02-16 06:49] LABS: POSITIVE DIFF @See below
[2019-02-16 06:52] LABS: ANION GAP 16 (5-13); BLOOD UREA NITROGEN 40 mg/dl (7-20); CALCIUM 9.3 mg/dl (8.4-10.2); CARBON DIOXIDE 24 mmol/L (21-31); CHLORIDE 97 mmol/L (97-110); CREATININE 5.82 mg/dl (0.44-1.00); Estimated GFR 8 mL/min (>60); GLUCOSE 80 mg/dl (70-220); POTASSIUM 5.7 mmol/L (3.5-5.1); SODIUM 137 mmol/L (135-144)
[2019-02-16] MEDS: predniSONE 5 MG TAB PO (08:38)
[2019-02-16] MEDS: MYCOPHENOLATE 250 MG CAP PO (08:38)
[2019-02-16] MEDS: ASPIRIN (EC) 81 MG TAB PO (08:38)
[2019-02-16] MEDS: SERTRALINE 50 MG TAB PO (08:39)
[2019-02-16] MEDS: HYDROXYCHLOROQUINE 200 MG TAB PO (08:39)
[2019-02-16] MEDS: PANTOPRAZOLE (EC) 40 MG TAB PO (08:39)
[2019-02-16] MEDS: NIFEdipine (XL) 60 MG TAB PO (09:00)
== END 2019-02-16 16:10 | disposition home or self-care (01) | DRG 304 ==
LOC: TEL 02-14 13:46 → E/R 06:36 → ICU 08:34
PROVIDERS: Internal Medicine
PROC: 5A1D70Z Performance of Urinary Filtration, Intermittent, Less than 6 Hours Per Day (ICD-10-PCS; 2019-02-13)
PROC: 5A1D70Z Performance of Urinary Filtration, Intermittent, Less than 6 Hours Per Day (ICD-10-PCS; principal; 2019-02-15)
DX: I16.1 Hypertensive emergency (principal); J81.0 Acute pulmonary edema; J96.00 Acute respiratory failure, unspecified whether with hypoxia or hypercapnia; N18.6 End stage renal disease; R64 Cachexia; Z68.1 Body mass index [BMI] 19.9 or less, adult; M32.9 Systemic lupus erythematosus, unspecified; E87.70 Fluid overload, unspecified; E87.5 Hyperkalemia; I13.11 Hypertensive heart and chronic kidney disease without heart failure, with stage 5 chronic kidney disease, or end stage renal disease; E78.5 Hyperlipidemia, unspecified; F32.9 Major depressive disorder, single episode, unspecified; F17.200 Nicotine dependence, unspecified, uncomplicated; Z99.2 Dependence on renal dialysis; Z91.14 Patient's other noncompliance with medication regimen; Z79.82 Long term (current) use of aspirin
CPT/HCPCS: 71045; 80048; 82550; 82553; 82962; 83735; 84100; 84484; 85025; 85610; 85730; 87081; 87340; 90935; 93005; 96374; 96375; 99291-25

== ENCOUNTER 2019-03-03 04:53 | Inpatient (IN) | payer MEDICARE, OTHER ==
[2019-03-03 05:41] LABS: ADD MAN DIFF? NO
[2019-03-03] MEDS: ONDANSETRON 4 MG INJ IV ×2 (05:43→12:16)
[2019-03-03] MEDS: HYDROmorphONE 1 MG/ML SYG IV (05:43)
[2019-03-03 05:44] LABS: BASOPHILS % 0.3 % (0.0-2.0); EOSINOPHILS # 0.1 10^3/ul (0.0-0.5); EOSINOPHILS % 1.1 % (0.0-7.0); HEMOGLOBIN 8.7 g/dl (12.0-16.0); LYMPHOCYTES # 1.4 10^3/ul (0.8-2.9); LYMPHOCYTES % 18.6 % (15.0-51.0); MEAN CORPUSCULAR HEMOGLOBIN 30.2 pg (29.0-33.0); MEAN CORPUSCULAR VOLUME 100.7 fl (82.0-101.0); MONOCYTE # 0.8 10^3/ul (0.3-0.9); MONOCYTES % 10.3 % (0.0-11.0); NEUTROPHILS % 69.1 % (39.0-77.0); PLATELET COUNT 113 10^3/UL (140-415); RED BLOOD COUNT 2.88 10^6/ul (4.20-5.40)
[2019-03-03 05:44] LABS: WHITE BLOOD COUNT 7.3 10^3/ul (4.8-10.8)
[2019-03-03 06:06] LABS: ANION GAP 19 (5-13); BLOOD UREA NITROGEN 46 mg/dl (7-20); CALCIUM 8.6 mg/dl (8.4-10.2); CARBON DIOXIDE 20 mmol/L (21-31); CHLORIDE 103 mmol/L (97-110); CREATININE 7.99 mg/dl (0.44-1.00); Estimated GFR 6 mL/min (>60); GLUCOSE 84 mg/dl (70-220); POTASSIUM 5.3 mmol/L (3.5-5.1); SODIUM 142 mmol/L (135-144)
[2019-03-03 06:17] LABS: TROPONIN-I 0.013 ng/ml (0.000-0.120)
[2019-03-03] MEDS ORDERED: NACL 0.9% 3 ML SYG IV (06:30)
[2019-03-03] MEDS ORDERED: BISACODYL (EC) 5 MG TAB PO (06:30)
[2019-03-03] MEDS ORDERED: DOCUSATE SODIUM 100 MG CAP PO (06:30)
[2019-03-03] MEDS: FUROSEMIDE 40 MG INJ IV (06:51)
[2019-03-03] MEDS: ACETAMINOPHEN 325 MG TAB PO ×2 (07:44→16:02)
[2019-03-03] MEDS: HEPARIN 5,000 UNIT/1 ML VIAL SC ×2 (09:01→21:31)
[2019-03-03] MEDS: HYDROmorphONE 2 MG/ML SYG IV ×4 (09:46→22:57)
[2019-03-03 11:17] LABS: CREATINE KINASE 24 IU/L (23-200)
[2019-03-03 11:30] LABS: CK INDEX 1.3; TROPONIN-I < 0.012 ng/ml (0.000-0.120)
[2019-03-03] MEDS: METOCLOPRAMIDE 10 MG INJ IV ×2 (12:43→18:28)
[2019-03-03] MEDS: IPRATROPIUM (NEB) 0.5 MG/2.5 ML AMP HHN (12:46)
[2019-03-03] MEDS ORDERED: HEPARIN 1000 UNITS/ML 10 ML INJ CATHETER (13:00)
[2019-03-03] MEDS ORDERED: ALBUMIN HUMAN 25% 100 ML IV (13:00)
[2019-03-03] MEDS ORDERED: SODIUM CHLORIDE 0.9% 1L BAG IV (13:00)
[2019-03-03] MEDS: NITROGLYCERIN (SL) 0.4 MG TAB SL ×2 (13:07→13:35)
[2019-03-03] MEDS ORDERED: LORAZEPAM 2 MG INJ IM (14:00)
[2019-03-03] MEDS ORDERED: hydrALAzine 20 MG INJ (14:07)
[2019-03-03] MEDS: hydrALAzine 20 MG INJ IV (14:09)
[2019-03-03] MEDS: LORAZEPAM 2 MG INJ IV (14:15)
[2019-03-03] MEDS ORDERED: niCARdipine-NS 0.1MG/ML DRIP 200 ML (16:02)
[2019-03-03] MEDS ORDERED: HYDROmorphONE 0.5 MG/0.5 ML SYG (16:14)
[2019-03-03] MEDS: niCARdipine-NS 0.1MG/ML DRIP 200 ML IV ×3 (16:15→22:52)
[2019-03-03] MEDS: HYDROmorphONE 0.5 MG/0.5 ML SYG IV (16:37)
[2019-03-03] MEDS ORDERED: LORAZEPAM 1 MG TAB PO (17:00)
[2019-03-03 17:35] LABS: CREATINE KINASE 34 IU/L (23-200)
[2019-03-03 17:48] LABS: CK INDEX 1.6; CK-MB 0.55 ng/ml (0.0-2.4); TROPONIN-I < 0.012 ng/ml (0.000-0.120)
[2019-03-03] MEDS: SERTRALINE 50 MG TAB PO (18:28)
[2019-03-03] MEDS: NIFEdipine (XL) 90 MG TAB PO (18:54)
[2019-03-03] MEDS: LEVALBUTEROL (NEB) 0.63 MG/3 ML AMP HHN (20:00)
[2019-03-03] MEDS: MYCOPHENOLATE 250 MG CAP PO (21:24)
[2019-03-03] MEDS: NIFEdipine (XL) 60 MG TAB PO (21:25)
[2019-03-04] MEDS: ACETAMINOPHEN 325 MG TAB PO (00:13)
[2019-03-04] MEDS: METOCLOPRAMIDE 10 MG INJ IV ×5 (00:13→23:58)
[2019-03-04] MEDS: LEVALBUTEROL (NEB) 0.63 MG/3 ML AMP HHN ×4 (02:18→21:31)
[2019-03-04] MEDS: HYDROmorphONE 2 MG/ML SYG IV ×5 (03:00→21:18)
[2019-03-04] MEDS: PANTOPRAZOLE (EC) 40 MG TAB PO (05:21)
[2019-03-04 05:23] LABS: ADD MAN DIFF? NO
[2019-03-04 05:24] LABS: BASOPHILS % 0.1 % (0.0-2.0); HEMATOCRIT 27.9 % (37.0-47.0); HEMOGLOBIN 8.3 g/dl (12.0-16.0); LYMPHOCYTES # 1.2 10^3/ul (0.8-2.9); LYMPHOCYTES % 11.2 % (15.0-51.0); MEAN CORPUSCULAR HEMOGLOBIN 30.3 pg (29.0-33.0); MEAN CORPUSCULAR HGB CONC 29.7 g/dl (32.0-37.0); MEAN CORPUSCULAR VOLUME 101.8 fl (82.0-101.0); MEAN PLATELET VOLUME 11.5 fl (7.4-10.4); MONOCYTE # 0.5 10^3/ul (0.3-0.9); MONOCYTES % 4.9 % (0.0-11.0); NEUTROPHIL # 9.3 10^3/ul (1.6-7.5); NEUTROPHILS % 83.3 % (39.0-77.0); PLATELET COUNT 113 10^3/UL (140-415); RED BLOOD COUNT 2.74 10^6/ul (4.20-5.40); RED CELL DISTRIBUTION WIDTH 16.3 % (11.5-14.5)
[2019-03-04 05:24] LABS: WHITE BLOOD COUNT 11.1 10^3/ul (4.8-10.8)
[2019-03-04 05:40] LABS: POSITIVE DIFF @See below
[2019-03-04 06:01] LABS: MAGNESIUM 1.9 mg/dl (1.7-2.5)
[2019-03-04 06:05] LABS: ALANINE AMINOTRANSFERASE 7 IU/L (13-69); ALBUMIN/GLOBULIN RATIO 1.11; ALKALINE PHOSPHATASE 82 IU/L (42-121); ANION GAP 12 (5-13); ASPARTATE AMINO TRANSFERASE 23 IU/L (15-46); BILIRUBIN,INDIRECT 0.3 mg/dl (0-1.1); BILIRUBIN,TOTAL 0.3 mg/dl (0.2-1.3); BLOOD UREA NITROGEN 26 mg/dl (7-20); CALCIUM 8.9 mg/dl (8.4-10.2); CARBON DIOXIDE 28 mmol/L (21-31); CHLORIDE 99 mmol/L (97-110); CREATININE 5.02 mg/dl (0.44-1.00); Estimated GFR 10 mL/min (>60); GLUCOSE 92 mg/dl (70-220); POTASSIUM 5.5 mmol/L (3.5-5.1); SODIUM 139 mmol/L (135-144); TOTAL PROTEIN 7.6 g/dl (6.1-8.1)
[2019-03-04 06:18] LABS: PHOSPHORUS 7.7 mg/dl (2.5-4.9)
[2019-03-04] MEDS: NIFEdipine (XL) 60 MG TAB PO (09:00)
[2019-03-04] MEDS: MYCOPHENOLATE 250 MG CAP PO ×2 (09:04→21:18)
[2019-03-04] MEDS: ASPIRIN (EC) 81 MG TAB PO (09:05)
[2019-03-04] MEDS: SERTRALINE 50 MG TAB PO (09:05)
[2019-03-04] MEDS: predniSONE 5 MG TAB PO (09:09)
[2019-03-04] MEDS: HYDROXYCHLOROQUINE 200 MG TAB PO (09:09)
[2019-03-04] MEDS: HEPARIN 5,000 UNIT/1 ML VIAL SC ×2 (09:20→21:21)
[2019-03-04] MEDS: hydrOXYzine HCL 25 MG TAB PO ×2 (13:46→22:03)
[2019-03-04] MEDS: METHYLPREDNISOLONE 125 MG INJ IV (15:35)
[2019-03-04] MEDS ORDERED: VANCOMYCIN IV PER PHARMACY XX (17:00)
[2019-03-04] MEDS: SEVELAMER CARBONATE 800 MG TABLET PO (17:36)
[2019-03-04] MEDS: CEFEPIME 1GM/50 ML (PMX) 50 ML IVPB (21:18)
[2019-03-04] MEDS: IPRATROPIUM (NEB) 0.5 MG/2.5 ML AMP HHN (21:29)
[2019-03-04] MEDS: VANCOMYCIN 1 GM 250 ML IVPB (22:03)
[2019-03-05] MEDS: HYDROmorphONE 2 MG/ML SYG IV ×4 (01:48→15:08)
[2019-03-05] MEDS: LEVALBUTEROL (NEB) 0.63 MG/3 ML AMP HHN ×3 (02:02→16:29)
[2019-03-05 05:53] LABS: ANION GAP 15 (5-13); BLOOD UREA NITROGEN 22 mg/dl (7-20); CALCIUM 9.5 mg/dl (8.4-10.2); CARBON DIOXIDE 27 mmol/L (21-31); CHLORIDE 97 mmol/L (97-110); CREATININE 3.71 mg/dl (0.44-1.00); Estimated GFR 14 mL/min (>60); GLUCOSE 106 mg/dl (70-220); MAGNESIUM 2.1 mg/dl (1.7-2.5); POTASSIUM 5.1 mmol/L (3.5-5.1); SODIUM 139 mmol/L (135-144)
[2019-03-05] MEDS: METOCLOPRAMIDE 10 MG INJ IV ×2 (06:21→14:05)
[2019-03-05] MEDS: PANTOPRAZOLE (EC) 40 MG TAB PO (06:21)
[2019-03-05] MEDS: SEVELAMER CARBONATE 800 MG TABLET PO ×2 (08:00→14:05)
[2019-03-05] MEDS: HYDROXYCHLOROQUINE 200 MG TAB PO (08:28)
[2019-03-05] MEDS: ASPIRIN (EC) 81 MG TAB PO (08:29)
[2019-03-05] MEDS: SERTRALINE 50 MG TAB PO (08:36)
[2019-03-05] MEDS: NIFEdipine (XL) 60 MG TAB PO (08:37)
[2019-03-05] MEDS: HEPARIN 5,000 UNIT/1 ML VIAL SC (08:41)
[2019-03-05] MEDS: predniSONE 5 MG TAB PO (10:03)
[2019-03-05] MEDS: MYCOPHENOLATE 250 MG CAP PO (10:03)
[2019-03-05] MEDS: hydrOXYzine HCL 25 MG TAB PO (14:03)
[2019-03-05] MEDS: GENTAMICIN 80 MG/NS (PMX) 50 ML IVPB (15:16)
== END 2019-03-05 17:00 | disposition home or self-care (01) | DRG 682 ==
LOC: 5EC 03-05 06:45 → E/R 04:53 → TEL 05:59 → ICU 15:33
PROC: 5A1D70Z Performance of Urinary Filtration, Intermittent, Less than 6 Hours Per Day (ICD-10-PCS; principal; 2019-03-03)
DX: I12.0 Hypertensive chronic kidney disease with stage 5 chronic kidney disease or end stage renal disease (principal); N18.6 End stage renal disease; J96.01 Acute respiratory failure with hypoxia; J18.9 Pneumonia, unspecified organism; J90 Pleural effusion, not elsewhere classified; R64 Cachexia; E44.0 Moderate protein-calorie malnutrition; E87.70 Fluid overload, unspecified; Z99.2 Dependence on renal dialysis; E87.5 Hyperkalemia; I16.0 Hypertensive urgency; F32.9 Major depressive disorder, single episode, unspecified; E78.00 Pure hypercholesterolemia, unspecified; E11.8 Type 2 diabetes mellitus with unspecified complications; Z68.23 Body mass index [BMI] 23.0-23.9, adult; D69.6 Thrombocytopenia, unspecified; D63.1 Anemia in chronic kidney disease
CPT/HCPCS: 36415; 71045; 76604; 80048; 80053; 82550; 82553; 82962; 83735; 84100; 84484; 85025; 87040-91; 87070; 90935; 93005; 93306; 94640; 94664; 96374; 96375; 99217; 99285-25; G0378

== ENCOUNTER 2019-03-20 19:16 | Inpatient (IN) | payer MEDICARE, OTHER ==
[2019-03-20] MEDS: ASPIRIN 81 MG TAB PO (20:05)
[2019-03-20] MEDS: morphine 4 MG/ML VIAL IV (20:05)
[2019-03-20] MEDS: ONDANSETRON 4 MG INJ IV (20:05)
[2019-03-20 20:15] LABS: ADD MAN DIFF? NO
[2019-03-20 20:17] LABS: BASOPHILS % 0.6 % (0.0-2.0); EOSINOPHILS % 0.4 % (0.0-7.0); HEMATOCRIT 27.6 % (37.0-47.0); LYMPHOCYTES # 1.2 10^3/ul (0.8-2.9); LYMPHOCYTES % 22.9 % (15.0-51.0); MEAN CORPUSCULAR HEMOGLOBIN 30.5 pg (29.0-33.0); MEAN CORPUSCULAR VOLUME 105.3 fl (82.0-101.0); MEAN PLATELET VOLUME 11.1 fl (7.4-10.4); MONOCYTE # 0.8 10^3/ul (0.3-0.9); MONOCYTES % 14.7 % (0.0-11.0); NEUTROPHIL # 3.2 10^3/ul (1.6-7.5); PLATELET COUNT 106 10^3/UL (140-415); RED BLOOD COUNT 2.62 10^6/ul (4.20-5.40); RED CELL DISTRIBUTION WIDTH 17.3 % (11.5-14.5)
[2019-03-20 20:17] LABS: WHITE BLOOD COUNT 5.2 10^3/ul (4.8-10.8)
[2019-03-20 20:34] LABS: BLOOD UREA NITROGEN 31 mg/dl (7-20); CALCIUM 8.6 mg/dl (8.4-10.2); CARBON DIOXIDE 21 mmol/L (21-31); Estimated GFR 10 mL/min (>60); GLUCOSE 87 mg/dl (70-220); POTASSIUM 5.6 mmol/L (3.5-5.1); SODIUM 140 mmol/L (135-144)
[2019-03-20 20:35] LABS: INR 0.96; PROTIME 12.9 Sec (11.9-14.9)
[2019-03-20 20:46] LABS: TROPONIN-I < 0.012 ng/ml (0.000-0.120)
[2019-03-20 20:47] LABS: ANION GAP 12 (5-13); CHLORIDE 107 mmol/L (97-110)
[2019-03-20] MEDS ORDERED: ACETAMINOPHEN 325 MG TAB PO (23:30)
[2019-03-20] MEDS ORDERED: NACL 0.9% 3 ML SYG IV (23:30)
[2019-03-20] MEDS ORDERED: HEPARIN 5,000 UNIT/1 ML VIAL SC (23:30)
[2019-03-20] MEDS ORDERED: NITROGLYCERIN (SL) 0.4 MG TAB SL (23:30)
[2019-03-20] MEDS: morphine 2 MG INJ IV (23:38)
[2019-03-21] MEDS: MYCOPHENOLATE 250 MG CAP PO ×3 (00:31→21:00)
[2019-03-21] MEDS: NIFEdipine (XL) 60 MG TAB PO ×3 (00:31→21:55)
[2019-03-21] MEDS: ONDANSETRON 4 MG INJ IV (02:09)
[2019-03-21] MEDS: HEPARIN 5,000 UNIT/1 ML VIAL SC ×4 (02:10→22:02)
[2019-03-21] MEDS: ACETAMINOPHEN 325 MG TAB PO ×2 (02:10→21:54)
[2019-03-21 02:55] LABS: CREATINE KINASE 20 IU/L (23-200)
[2019-03-21 03:04] LABS: CK INDEX 2.3; CK-MB 0.45 ng/ml (0.0-2.4); TROPONIN-I < 0.012 ng/ml (0.000-0.120)
[2019-03-21] MEDS: HYDROmorphONE 0.5 MG/0.5 ML SYG IV (03:37)
[2019-03-21] MEDS: LABETALOL HCL 20MG INJ IV (04:04)
[2019-03-21] MEDS: LORAZEPAM 2 MG INJ IV ×2 (04:04→10:47)
[2019-03-21] MEDS ORDERED: LABETALOL HCL 20MG INJ IV (05:00)
[2019-03-21] MEDS: PANTOPRAZOLE (EC) 40 MG TAB PO (05:07)
[2019-03-21] MEDS ORDERED: SODIUM CHLORIDE 0.9% 1L BAG IV (05:30)
[2019-03-21] MEDS ORDERED: HEPARIN 1000 UNITS/ML 10 ML INJ CATHETER (05:30)
[2019-03-21] MEDS: SEVELAMER CARBONATE 0.8 GM PKT PO ×3 (08:00→17:35)
[2019-03-21] MEDS: predniSONE 5 MG TAB PO (08:11)
[2019-03-21] MEDS: ASPIRIN (EC) 81 MG TAB PO (08:11)
[2019-03-21] MEDS: SERTRALINE 50 MG TAB PO (08:12)
[2019-03-21 08:47] LABS: CREATINE KINASE 22 IU/L (23-200)
[2019-03-21 08:59] LABS: CK INDEX 2.5; CK-MB 0.56 ng/ml (0.0-2.4); TROPONIN-I < 0.012 ng/ml (0.000-0.120)
[2019-03-21] MEDS: HYDROXYCHLOROQUINE 200 MG TAB PO (09:00)
[2019-03-21] MEDS ORDERED: MIDAZOLAM 1 MG/ML 2 ML INJ (09:11)
[2019-03-21] MEDS: MIDAZOLAM 1 MG/ML 2 ML INJ IV (09:48)
[2019-03-21 09:54] LABS: HEPATITIS B SURFACE ANTIGEN NEGATIVE (NEGATIVE)
[2019-03-21 10:12] LABS: HEPATITIS B SURFACE ANTIBODY NEGATIVE (NEGATIVE)
[2019-03-21] MEDS: FENTAnyl (DRIP) 1000 mcg/100mL 100 ML IV (10:17)
[2019-03-21] MEDS: MIDAZOLAM (DRIP) 50 mg/50 mL 50 ML IV (10:17)
[2019-03-21] MEDS: ALBUMIN HUMAN 25% 100 ML IV ×2 (11:26→12:27)
[2019-03-21] MEDS ORDERED: morphine 2 MG INJ IV (11:30)
[2019-03-21] MEDS ORDERED: NORepinephrine 8MG/250 ML (PMX 250 ML (11:53)
[2019-03-21] MEDS: NORepinephrine 8MG/250 ML (PMX 250 ML IV ×2 (12:22→22:41)
[2019-03-21 15:34] LABS: AADO2 Arterial 347.3 mmHg (7.0-24.0); Allen Test ACCEPTAB; Arterial Base Excess 3.5 mmol/L (-3.0-3); Arterial Blood Gas Oxygen Sat 99.6 mmHG (95.0-98.0); Arterial COHb 0.2 % (0.0-3.0); Arterial Fraction of Oxyhgb 99.1 % (93.0-99.0); Arterial HCO3 27.3 mmol/L (22.0-26.0); Arterial MetHb 0.3 % (0.0-1.5); Arterial pCO2 38.3 mmhg (35-45); MODE VENT - AC; Site Right Radial
[2019-03-21] MEDS ORDERED: PHENYLephrine 20MG IN 250 ML 250 ML (22:59)
[2019-03-21] MEDS: PHENYLephrine 20MG IN 250 ML 250 ML IV (23:09)
[2019-03-22] MEDS: PHENYLephrine 20MG IN 250 ML 250 ML IV (00:33)
[2019-03-22] MEDS: PHENYLephrine 80 MG in DEXTROSE 5% 242 ML IV ×3 (02:22→20:04)
[2019-03-22 05:08] LABS: ABNORMAL IP MESSAGE 1; HEMATOCRIT 26.8 % (37.0-47.0); MEAN CORPUSCULAR HEMOGLOBIN 30.3 pg (29.0-33.0); MEAN CORPUSCULAR HGB CONC 29.9 g/dl (32.0-37.0); MEAN CORPUSCULAR VOLUME 101.5 fl (82.0-101.0); MEAN PLATELET VOLUME 12.3 fl (7.4-10.4); NUCLEATED RED BLOOD CELLS% 0.1 /100WBC (0.0-0.0); PLATELET COUNT 84 10^3/UL (140-415); RED BLOOD COUNT 2.64 10^6/ul (4.20-5.40); RED CELL DISTRIBUTION WIDTH 17.3 % (11.5-14.5)
[2019-03-22 05:46] LABS: ALANINE AMINOTRANSFERASE 293 IU/L (13-69); ALBUMIN 3.8 g/dl (3.3-4.9); ALBUMIN/GLOBULIN RATIO 1.18; ALKALINE PHOSPHATASE 86 IU/L (42-121); ANION GAP 13 (5-13); ASPARTATE AMINO TRANSFERASE 588 IU/L (15-46); BILIRUBIN,INDIRECT 0.5 mg/dl (0-1.1); BILIRUBIN,TOTAL 0.5 mg/dl (0.2-1.3); BLOOD UREA NITROGEN 30 mg/dl (7-20); CALCIUM 9.2 mg/dl (8.4-10.2); CARBON DIOXIDE 26 mmol/L (21-31); CHLORIDE 100 mmol/L (97-110); CREATININE 4.33 mg/dl (0.44-1.00); Estimated GFR 12 mL/min (>60); GLUCOSE 89 mg/dl (70-220); POTASSIUM 4.8 mmol/L (3.5-5.1); SODIUM 139 mmol/L (135-144)
[2019-03-22 05:49] LABS: POSITIVE DIFF @See below
[2019-03-22 05:57] LABS: ADD MAN DIFF? YES
[2019-03-22] MEDS: PANTOPRAZOLE (EC) 40 MG TAB PO (06:03)
[2019-03-22] MEDS: HEPARIN 5,000 UNIT/1 ML VIAL SC (06:06)
[2019-03-22 09:00] LABS: AADO2 Arterial 166.3 mmHg (7.0-24.0); Allen Test ACCEPTAB; Arterial Base Excess 1.1 mmol/L (-3.0-3); Arterial COHb 0.4 % (0.0-3.0); Arterial Fraction of Oxyhgb 95.5 % (93.0-99.0); Arterial HCO3 24.1 mmol/L (22.0-26.0); Arterial MetHb 0.1 % (0.0-1.5); Arterial pCO2 32.5 mmhg (35-45); MODE VENT - AC; Site Right Radial
[2019-03-22] MEDS: NIFEdipine (XL) 60 MG TAB PO ×2 (09:00→20:01)
[2019-03-22 09:23] LABS: ANISOCYTOSIS 1+ (0-0); BAND NEUTROPHILS #M 0.9 10^3/ul (0.0-0.6); BAND NEUTROPHILS % (M) 33 % (0-4); GIANT THROMBO% (M) 4 % (0-0); HYPOCHROMASIA 1+ (0-0); LYMPHOCYTES % (M) 3 % (15-51); MICROCYTOSIS 1+ (0-0); MONOCYTES % (M) 2 % (0-11); MYELOCYTES % (M) 1 % (0-0); PLATELET ESTIMATE DECREASED; SEG NEUT #M 1.9 10^3/ul (1.6-7.5); SEGMENTED NEUTROPHILS (M) % 61 % (39-77)
[2019-03-22] MEDS ORDERED: ASPIRIN 81 MG TAB (09:36)
[2019-03-22] MEDS: SEVELAMER CARBONATE 0.8 GM PKT PO ×3 (09:37→18:17)
[2019-03-22] MEDS: MYCOPHENOLATE 250 MG CAP PO ×2 (09:38→21:39)
[2019-03-22] MEDS: predniSONE 5 MG TAB PO (09:38)
[2019-03-22] MEDS: ACETAMINOPHEN 325 MG TAB PO ×2 (09:38→16:57)
[2019-03-22] MEDS: SERTRALINE 50 MG TAB PO (09:38)
[2019-03-22] MEDS: ASPIRIN 81 MG TAB NGT (09:48)
[2019-03-22] MEDS: MIDAZOLAM (DRIP) 50 mg/50 mL 50 ML IV (13:38)
[2019-03-22] MEDS: PIPER-TAZO 2.25 GM (PMX) 50 ML IVPB ×2 (14:19→21:39)
[2019-03-22] MEDS: HYDROXYCHLOROQUINE 200 MG TAB PO (14:20)
[2019-03-22] MEDS: FENTAnyl (DRIP) 1000 mcg/100mL 100 ML IV (17:06)
[2019-03-23] MEDS: PHENYLephrine 80 MG in DEXTROSE 5% 242 ML IV ×2 (03:16→13:07)
[2019-03-23] MEDS: MIDAZOLAM (DRIP) 50 mg/50 mL 50 ML IV (04:09)
[2019-03-23] MEDS: ACETAMINOPHEN 325 MG TAB PO ×3 (04:12→16:45)
[2019-03-23 05:27] LABS: ABNORMAL IP MESSAGE 1; HEMATOCRIT 27.8 % (37.0-47.0); HEMOGLOBIN 8.4 g/dl (12.0-16.0); MEAN CORPUSCULAR HEMOGLOBIN 30.3 pg (29.0-33.0); MEAN CORPUSCULAR HGB CONC 30.2 g/dl (32.0-37.0); MEAN CORPUSCULAR VOLUME 100.4 fl (82.0-101.0); MEAN PLATELET VOLUME 13.1 fl (7.4-10.4); NUCLEATED RED BLOOD CELLS% 0.3 /100WBC (0.0-0.0); PLATELET COUNT 106 10^3/UL (140-415); RED BLOOD COUNT 2.77 10^6/ul (4.20-5.40); RED CELL DISTRIBUTION WIDTH 17.2 % (11.5-14.5)
[2019-03-23 05:48] LABS: POSITIVE DIFF @See below
[2019-03-23 05:49] LABS: ADD MAN DIFF? YES
[2019-03-23] MEDS: PIPER-TAZO 2.25 GM (PMX) 50 ML IVPB ×3 (05:56→22:43)
[2019-03-23] MEDS: PANTOPRAZOLE 40 MG INJ IV (05:57)
[2019-03-23 06:04] LABS: ANION GAP 11 (5-13); BLOOD UREA NITROGEN 26 mg/dl (7-20); CALCIUM 9.9 mg/dl (8.4-10.2); CARBON DIOXIDE 25 mmol/L (21-31); CHLORIDE 98 mmol/L (97-110); CREATININE 3.75 mg/dl (0.44-1.00); Estimated GFR 14 mL/min (>60); GLUCOSE 93 mg/dl (70-220); MAGNESIUM 1.9 mg/dl (1.7-2.5); PHOSPHORUS 3.1 mg/dl (2.5-4.9); POTASSIUM 4.4 mmol/L (3.5-5.1); SODIUM 134 mmol/L (135-144)
[2019-03-23 07:23] LABS: ANISOCYTOSIS 1+ (0-0); BAND NEUTROPHILS #M 1.1 10^3/ul (0.0-0.6); BAND NEUTROPHILS % (M) 9 % (0-4); LYMPHOCYTES #M 0.3 10^3/ul (0.8-2.9); LYMPHOCYTES % (M) 3 % (15-51); MONOCYTE #M 0.2 10^3/ul (0.3-0.9); MONOCYTES % (M) 2 % (0-11); PLATELET ESTIMATE DECREASED; POLYCHROMASIA 2+ (0-0); SEG NEUT #M 11.3 10^3/ul (1.6-7.5); SEGMENTED NEUTROPHILS (M) % 86 % (39-77); SMUDGE%M 2 % (0-0)
[2019-03-23] MEDS: MYCOPHENOLATE 250 MG CAP PO ×2 (08:51→20:26)
[2019-03-23] MEDS: predniSONE 5 MG TAB PO (08:51)
[2019-03-23] MEDS: SERTRALINE 50 MG TAB PO (08:51)
[2019-03-23] MEDS: SEVELAMER CARBONATE 0.8 GM PKT PO ×3 (08:51→16:45)
[2019-03-23] MEDS: ASPIRIN 81 MG TAB NGT (08:52)
[2019-03-23] MEDS: HYDROXYCHLOROQUINE 200 MG TAB PO (08:52)
[2019-03-23] MEDS: NIFEdipine (XL) 60 MG TAB PO ×2 (09:00→20:28)
[2019-03-23 11:23] LABS: LACTIC ACID 0.9 mmol/L (0.5-2.0)
[2019-03-23] MEDS ORDERED: VANCOMYCIN IV PER PHARMACY XX (18:30)
[2019-03-23] MEDS: VANCOMYCIN 1 GM 250 ML IVPB (20:26)
[2019-03-23] MEDS: FENTAnyl (DRIP) 1000 mcg/100mL 100 ML IV (20:43)
[2019-03-24] MEDS: PHENYLephrine 80 MG in DEXTROSE 5% 242 ML IV ×2 (00:16→14:06)
[2019-03-24 05:19] LABS: ABNORMAL IP MESSAGE 1; HEMATOCRIT 28.8 % (37.0-47.0); HEMOGLOBIN 9.1 g/dl (12.0-16.0); MEAN CORPUSCULAR HGB CONC 31.6 g/dl (32.0-37.0); MEAN PLATELET VOLUME 13.3 fl (7.4-10.4); NUCLEATED RED BLOOD CELLS% 0.8 /100WBC (0.0-0.0); PLATELET COUNT 105 10^3/UL (140-415); RED BLOOD COUNT 2.94 10^6/ul (4.20-5.40); RED CELL DISTRIBUTION WIDTH 16.5 % (11.5-14.5)
[2019-03-24 05:19] LABS: WHITE BLOOD COUNT 10.2 10^3/ul (4.8-10.8)
[2019-03-24 05:22] LABS: ADD MAN DIFF? YES; POSITIVE DIFF @See below
[2019-03-24] MEDS: PANTOPRAZOLE 40 MG INJ IV (05:22)
[2019-03-24] MEDS: PIPER-TAZO 2.25 GM (PMX) 50 ML IVPB ×3 (05:22→21:07)
[2019-03-24 06:02] LABS: ALBUMIN 4.1 g/dl (3.3-4.9); ALBUMIN/GLOBULIN RATIO 1.05; ALKALINE PHOSPHATASE 123 IU/L (42-121); ANION GAP 14 (5-13); BILIRUBIN,INDIRECT 0.9 mg/dl (0-1.1); BILIRUBIN,TOTAL 0.9 mg/dl (0.2-1.3); BLOOD UREA NITROGEN 27 mg/dl (7-20); CALCIUM 9.9 mg/dl (8.4-10.2); CARBON DIOXIDE 28 mmol/L (21-31); CHLORIDE 98 mmol/L (97-110); CREATININE 3.31 mg/dl (0.44-1.00); Estimated GFR 16 mL/min (>60); GLUCOSE 94 mg/dl (70-220); POTASSIUM 3.5 mmol/L (3.5-5.1); SODIUM 140 mmol/L (135-144)
[2019-03-24 06:10] LABS: ANION GAP 12 (5-13); BLOOD UREA NITROGEN 27 mg/dl (7-20); CALCIUM 9.8 mg/dl (8.4-10.2); CARBON DIOXIDE 28 mmol/L (21-31); CHLORIDE 99 mmol/L (97-110); CREATININE 3.13 mg/dl (0.44-1.00); Estimated GFR 17 mL/min (>60); GLUCOSE 93 mg/dl (70-220); PHOSPHORUS 2.3 mg/dl (2.5-4.9); SODIUM 139 mmol/L (135-144)
[2019-03-24 06:47] LABS: POTASSIUM 3.6 mmol/L (3.5-5.1)
[2019-03-24] MEDS: MIDAZOLAM (DRIP) 50 mg/50 mL 50 ML IV ×2 (06:49→23:18)
[2019-03-24 07:38] LABS: ALANINE AMINOTRANSFERASE 2692 IU/L (13-69)
[2019-03-24 08:03] LABS: ASPARTATE AMINO TRANSFERASE 2159 IU/L (15-46)
[2019-03-24 08:05] LABS: ANISOCYTOSIS 1+ (0-0); BAND NEUTROPHILS #M 0.9 10^3/ul (0.0-0.6); BAND NEUTROPHILS % (M) 9 % (0-4); BASOPHIL #M 0.1 10^3/ul (0.0-0.0); BASOPHILS % (M) 1 % (0-2); ERYTHROBLAST% (NRBC) (M) 4 % (0-0); GIANT THROMBO% (M) 1 % (0-0); LYMPHOCYTES #M 1.1 10^3/ul (0.8-2.9); LYMPHOCYTES % (M) 11 % (15-51); MONOCYTE #M 0.1 10^3/ul (0.3-0.9); MONOCYTES % (M) 1 % (0-11); PLATELET ESTIMATE DECREASED; POLYCHROMASIA 1+ (0-0); SEGMENTED NEUTROPHILS (M) % 78 % (39-77)
[2019-03-24] MEDS: HYDROXYCHLOROQUINE 200 MG TAB PO (08:55)
[2019-03-24] MEDS: SERTRALINE 50 MG TAB PO (08:55)
[2019-03-24] MEDS: SEVELAMER CARBONATE 0.8 GM PKT PO ×3 (08:55→17:31)
[2019-03-24] MEDS: MYCOPHENOLATE 250 MG CAP PO ×2 (08:56→21:08)
[2019-03-24] MEDS: ASPIRIN 81 MG TAB NGT (08:56)
[2019-03-24] MEDS: NIFEdipine (XL) 60 MG TAB PO ×2 (08:56→21:00)
[2019-03-24] MEDS: predniSONE 5 MG TAB PO (08:56)
[2019-03-24] MEDS: FENTAnyl (DRIP) 1000 mcg/100mL 100 ML IV (19:54)
[2019-03-25 05:22] LABS: ADD MAN DIFF? NO
[2019-03-25 05:42] LABS: BASOPHILS % 0.5 % (0.0-2.0); EOSINOPHILS # 0.1 10^3/ul (0.0-0.5); EOSINOPHILS % 1.6 % (0.0-7.0); HEMATOCRIT 32.5 % (37.0-47.0); HEMOGLOBIN 9.9 g/dl (12.0-16.0); LYMPHOCYTES # 1.1 10^3/ul (0.8-2.9); LYMPHOCYTES % 13.7 % (15.0-51.0); MEAN CORPUSCULAR HEMOGLOBIN 29.9 pg (29.0-33.0); MEAN CORPUSCULAR HGB CONC 30.5 g/dl (32.0-37.0); MEAN CORPUSCULAR VOLUME 98.2 fl (82.0-101.0); MEAN PLATELET VOLUME 12.8 fl (7.4-10.4); MONOCYTE # 0.7 10^3/ul (0.3-0.9); MONOCYTES % 8.6 % (0.0-11.0); NEUTROPHIL # 6.1 10^3/ul (1.6-7.5); NEUTROPHILS % 74.9 % (39.0-77.0); NUCLEATED RED BLOOD CELLS # 0.3 10^3/ul (0.0-0.0); NUCLEATED RED BLOOD CELLS% 3.5 /100WBC (0.0-0.0); PLATELET COUNT 131 10^3/UL (140-415); RED BLOOD COUNT 3.31 10^6/ul (4.20-5.40); RED CELL DISTRIBUTION WIDTH 17.1 % (11.5-14.5)
[2019-03-25 05:42] LABS: WHITE BLOOD COUNT 8.2 10^3/ul (4.8-10.8)
[2019-03-25] MEDS: LANSOPRAZOLE 30 MG CAP GTB (05:51)
[2019-03-25] MEDS: PIPER-TAZO 2.25 GM (PMX) 50 ML IVPB ×3 (05:51→22:33)
[2019-03-25] MEDS: PHENYLephrine 80 MG in DEXTROSE 5% 242 ML IV (05:56)
[2019-03-25 06:13] LABS: VANCOMYCIN,RANDOM 14.9 ug/ml
[2019-03-25 06:37] LABS: ALBUMIN 4.6 g/dl (3.3-4.9); ALKALINE PHOSPHATASE 174 IU/L (42-121); BILIRUBIN,INDIRECT 0.6 mg/dl (0-1.1); BILIRUBIN,TOTAL 0.6 mg/dl (0.2-1.3); MAGNESIUM 2.4 mg/dl (1.7-2.5); PHOSPHORUS 1.5 mg/dl (2.5-4.9); TOTAL PROTEIN 8.6 g/dl (6.1-8.1)
[2019-03-25 07:02] LABS: ASPARTATE AMINO TRANSFERASE 941 IU/L (15-46)
[2019-03-25 07:10] LABS: ALANINE AMINOTRANSFERASE 2030 IU/L (13-69)
[2019-03-25] MEDS: ASPIRIN 81 MG TAB NGT (08:55)
[2019-03-25] MEDS: MYCOPHENOLATE 250 MG CAP PO ×2 (08:55→21:21)
[2019-03-25] MEDS: HYDROXYCHLOROQUINE 200 MG TAB PO (08:56)
[2019-03-25] MEDS: SERTRALINE 50 MG TAB PO (08:56)
[2019-03-25] MEDS: NIFEdipine (XL) 60 MG TAB PO ×2 (08:57→21:00)
[2019-03-25] MEDS: predniSONE 5 MG TAB PO (08:57)
[2019-03-25] MEDS: SEVELAMER CARBONATE 0.8 GM PKT PO ×3 (08:57→17:44)
[2019-03-25 11:46] LABS: Arterial Base Excess 7.3 mmol/L (-3.0-3); Arterial Blood Gas Oxygen Sat 98.3 mmHG (95.0-98.0); Arterial COHb 0.3 % (0.0-3.0); Arterial Fraction of Oxyhgb 97.9 % (93.0-99.0); Arterial HCO3 33.5 mmol/L (22.0-26.0); Arterial MetHb 0.1 % (0.0-1.5); Arterial pCO2 56.3 mmhg (35-45); Blood Gas PS 10; MODE VENT - AC; Site Right Brachial
[2019-03-25] MEDS: ACETAMINOPHEN 325 MG TAB PO (17:44)
[2019-03-25] MEDS: HYDROmorphONE 0.5 MG/0.5 ML SYG IV (19:32)
[2019-03-25] MEDS: VANCOMYCIN 750 MG (PMX) 250 ML IVPB (21:15)
[2019-03-26] MEDS: ZOLPIDEM 5 MG TAB PO (00:43)
[2019-03-26] MEDS: HYDROmorphONE 0.5 MG/0.5 ML SYG IV ×4 (03:51→22:06)
[2019-03-26 05:06] LABS: ADD MAN DIFF? NO
[2019-03-26 05:19] LABS: WHITE BLOOD COUNT 9.3 10^3/ul (4.8-10.8)
[2019-03-26 05:19] LABS: ABNORMAL IP MESSAGE 1; BASOPHILS % 0.3 % (0.0-2.0); EOSINOPHILS # 0.2 10^3/ul (0.0-0.5); EOSINOPHILS % 2.1 % (0.0-7.0); HEMATOCRIT 28.4 % (37.0-47.0); HEMOGLOBIN 8.4 g/dl (12.0-16.0); LYMPHOCYTES # 1.7 10^3/ul (0.8-2.9); LYMPHOCYTES % 18.2 % (15.0-51.0); MEAN CORPUSCULAR HEMOGLOBIN 30.7 pg (29.0-33.0); MEAN CORPUSCULAR HGB CONC 29.6 g/dl (32.0-37.0); MEAN CORPUSCULAR VOLUME 103.6 fl (82.0-101.0); MEAN PLATELET VOLUME 13.5 fl (7.4-10.4); MONOCYTE # 1.3 10^3/ul (0.3-0.9); NEUTROPHILS % 64.1 % (39.0-77.0); NUCLEATED RED BLOOD CELLS # 0.1 10^3/ul (0.0-0.0); NUCLEATED RED BLOOD CELLS% 0.5 /100WBC (0.0-0.0); PLATELET COUNT 112 10^3/UL (140-415); RED BLOOD COUNT 2.74 10^6/ul (4.20-5.40); RED CELL DISTRIBUTION WIDTH 16.9 % (11.5-14.5)
[2019-03-26 05:25] LABS: POSITIVE DIFF @See below
[2019-03-26] MEDS: LANSOPRAZOLE 30 MG CAP GTB (05:31)
[2019-03-26] MEDS: PIPER-TAZO 2.25 GM (PMX) 50 ML IVPB (05:31)
[2019-03-26 05:45] LABS: ALBUMIN 4.1 g/dl (3.3-4.9); ALKALINE PHOSPHATASE 128 IU/L (42-121); ASPARTATE AMINO TRANSFERASE 298 IU/L (15-46); BILIRUBIN,INDIRECT 0.1 mg/dl (0-1.1); BILIRUBIN,TOTAL 0.1 mg/dl (0.2-1.3); TOTAL PROTEIN 7.3 g/dl (6.1-8.1)
[2019-03-26 05:53] LABS: ALANINE AMINOTRANSFERASE 1256 IU/L (13-69)
[2019-03-26 07:28] LABS: ALBUMIN 4.2 g/dl (3.3-4.9); ALKALINE PHOSPHATASE 142 IU/L (42-121); ANION GAP 19 (5-13); ASPARTATE AMINO TRANSFERASE 296 IU/L (15-46); BLOOD UREA NITROGEN 74 mg/dl (7-20); CALCIUM 9.6 mg/dl (8.4-10.2); CARBON DIOXIDE 28 mmol/L (21-31); CHLORIDE 97 mmol/L (97-110); CREATININE 5.97 mg/dl (0.44-1.00); Estimated GFR 8 mL/min (>60); GLUCOSE 94 mg/dl (70-220); POTASSIUM 4.3 mmol/L (3.5-5.1); SODIUM 144 mmol/L (135-144); TOTAL PROTEIN 8.4 g/dl (6.1-8.1)
[2019-03-26] MEDS: SEVELAMER CARBONATE 0.8 GM PKT PO ×3 (07:35→16:37)
[2019-03-26 07:40] LABS: ALANINE AMINOTRANSFERASE 1244 IU/L (13-69)
[2019-03-26] MEDS: ONDANSETRON 4 MG TAB PO ×3 (09:02→22:06)
[2019-03-26] MEDS: ALBUMIN HUMAN 25% 100 ML IV (09:17)
[2019-03-26] MEDS: predniSONE 5 MG TAB PO (10:50)
[2019-03-26] MEDS: NIFEdipine (XL) 60 MG TAB PO ×2 (10:50→21:00)
[2019-03-26] MEDS: HYDROXYCHLOROQUINE 200 MG TAB PO (10:50)
[2019-03-26] MEDS: SERTRALINE 50 MG TAB PO (10:51)
[2019-03-26] MEDS: ASPIRIN 81 MG TAB NGT (10:51)
[2019-03-26] MEDS: MYCOPHENOLATE 250 MG CAP PO ×2 (10:51→21:00)
[2019-03-27] MEDS: ZOLPIDEM 5 MG TAB PO
[2019-03-27] MEDS: LANSOPRAZOLE 30 MG CAP GTB (05:16)
[2019-03-27] MEDS: HYDROmorphONE 0.5 MG/0.5 ML SYG IV ×3 (05:17→17:59)
[2019-03-27] MEDS: ONDANSETRON 4 MG TAB PO ×3 (05:17→17:59)
[2019-03-27 06:09] LABS: ADD MAN DIFF? NO
[2019-03-27 06:17] LABS: BASOPHIL # 0.1 10^3/ul (0.0-0.1); BASOPHILS % 0.6 % (0.0-2.0); EOSINOPHILS # 0.3 10^3/ul (0.0-0.5); EOSINOPHILS % 3.6 % (0.0-7.0); HEMATOCRIT 34.3 % (37.0-47.0); HEMOGLOBIN 10.2 g/dl (12.0-16.0); LYMPHOCYTES % 22.3 % (15.0-51.0); MEAN CORPUSCULAR HEMOGLOBIN 29.7 pg (29.0-33.0); MEAN CORPUSCULAR HGB CONC 29.7 g/dl (32.0-37.0); MEAN PLATELET VOLUME 12.8 fl (7.4-10.4); MONOCYTE # 1.2 10^3/ul (0.3-0.9); MONOCYTES % 13.8 % (0.0-11.0); NEUTROPHIL # 5.3 10^3/ul (1.6-7.5); NEUTROPHILS % 58.5 % (39.0-77.0); NUCLEATED RED BLOOD CELLS # 0.1 10^3/ul (0.0-0.0); NUCLEATED RED BLOOD CELLS% 0.8 /100WBC (0.0-0.0); PLATELET COUNT 140 10^3/UL (140-415); RED BLOOD COUNT 3.43 10^6/ul (4.20-5.40); RED CELL DISTRIBUTION WIDTH 16.5 % (11.5-14.5)
[2019-03-27 06:40] LABS: ANION GAP 22 (5-13); BLOOD UREA NITROGEN 50 mg/dl (7-20); CALCIUM 11.3 mg/dl (8.4-10.2); CARBON DIOXIDE 30 mmol/L (21-31); CHLORIDE 91 mmol/L (97-110); CREATININE 4.73 mg/dl (0.44-1.00); Estimated GFR 11 mL/min (>60); GLUCOSE 100 mg/dl (70-220); POTASSIUM 4.1 mmol/L (3.5-5.1); SODIUM 143 mmol/L (135-144)
[2019-03-27] MEDS: SEVELAMER CARBONATE 0.8 GM PKT PO ×4 (08:00→17:25)
[2019-03-27] MEDS: SERTRALINE 50 MG TAB PO (08:12)
[2019-03-27] MEDS: MYCOPHENOLATE 250 MG CAP PO ×2 (08:12→20:52)
[2019-03-27] MEDS: NIFEdipine (XL) 60 MG TAB PO (08:12)
[2019-03-27] MEDS: predniSONE 5 MG TAB PO (08:12)
[2019-03-27] MEDS: ASPIRIN 81 MG TAB NGT (08:12)
[2019-03-27] MEDS: HYDROXYCHLOROQUINE 200 MG TAB PO (12:28)
[2019-03-27] MEDS: ACETAMINOPHEN 325 MG TAB PO ×2 (15:54→20:54)
[2019-03-28] MEDS: HYDROmorphONE 0.5 MG/0.5 ML SYG IV ×4 (00:12→18:47)
[2019-03-28] MEDS: ONDANSETRON 4 MG TAB PO ×3 (00:13→20:11)
[2019-03-28] MEDS: ZOLPIDEM 5 MG TAB PO (00:44)
[2019-03-28 06:23] LABS: ADD MAN DIFF? NO
[2019-03-28 06:28] LABS: WHITE BLOOD COUNT 8.6 10^3/ul (4.8-10.8)
[2019-03-28 06:28] LABS: BASOPHIL # 0.1 10^3/ul (0.0-0.1); BASOPHILS % 0.6 % (0.0-2.0); EOSINOPHILS # 0.2 10^3/ul (0.0-0.5); EOSINOPHILS % 1.7 % (0.0-7.0); HEMATOCRIT 34.2 % (37.0-47.0); HEMOGLOBIN 10.3 g/dl (12.0-16.0); LYMPHOCYTES # 1.9 10^3/ul (0.8-2.9); LYMPHOCYTES % 21.9 % (15.0-51.0); MEAN CORPUSCULAR HEMOGLOBIN 29.9 pg (29.0-33.0); MEAN CORPUSCULAR HGB CONC 30.1 g/dl (32.0-37.0); MEAN CORPUSCULAR VOLUME 99.4 fl (82.0-101.0); MEAN PLATELET VOLUME 11.4 fl (7.4-10.4); MONOCYTE # 1.3 10^3/ul (0.3-0.9); MONOCYTES % 15.1 % (0.0-11.0); NEUTROPHIL # 5.1 10^3/ul (1.6-7.5); NEUTROPHILS % 59.7 % (39.0-77.0); NUCLEATED RED BLOOD CELLS% 0.3 /100WBC (0.0-0.0); PLATELET COUNT 163 10^3/UL (140-415); RED BLOOD COUNT 3.44 10^6/ul (4.20-5.40); RED CELL DISTRIBUTION WIDTH 16.2 % (11.5-14.5)
[2019-03-28] MEDS: LANSOPRAZOLE 30 MG CAP GTB (06:36)
[2019-03-28 06:45] LABS: ANION GAP 21 (5-13); BLOOD UREA NITROGEN 41 mg/dl (7-20); CALCIUM 11.2 mg/dl (8.4-10.2); CARBON DIOXIDE 26 mmol/L (21-31); CHLORIDE 92 mmol/L (97-110); CREATININE 4.51 mg/dl (0.44-1.00); Estimated GFR 11 mL/min (>60); GLUCOSE 102 mg/dl (70-220); POTASSIUM 4.8 mmol/L (3.5-5.1); SODIUM 139 mmol/L (135-144)
[2019-03-28 07:10] LABS: MAGNESIUM 2.4 mg/dl (1.7-2.5)
[2019-03-28 07:10] LABS: PHOSPHORUS 7.7 mg/dl (2.5-4.9)
[2019-03-28] MEDS: SEVELAMER CARBONATE 0.8 GM PKT PO ×4 (08:00→18:00)
[2019-03-28] MEDS: DIPHENHYDRAMINE 25 MG CAP PO ×2 (08:34→22:05)
[2019-03-28] MEDS: HYDROXYCHLOROQUINE 200 MG TAB PO (08:34)
[2019-03-28] MEDS: predniSONE 5 MG TAB PO (08:36)
[2019-03-28] MEDS: SERTRALINE 50 MG TAB PO (08:36)
[2019-03-28] MEDS: ASPIRIN 81 MG TAB NGT (08:37)
[2019-03-28] MEDS: MYCOPHENOLATE 250 MG CAP PO ×2 (09:22→20:10)
[2019-03-29] MEDS: HYDROmorphONE 0.5 MG/0.5 ML SYG IV ×2 (00:31→06:16)
[2019-03-29] MEDS: LANSOPRAZOLE 30 MG CAP GTB (06:14)
[2019-03-29 06:27] LABS: ADD MAN DIFF? NO
[2019-03-29 06:34] LABS: ABNORMAL IP MESSAGE 1; BASOPHIL # 0.1 10^3/ul (0.0-0.1); BASOPHILS % 0.6 % (0.0-2.0); EOSINOPHILS # 0.1 10^3/ul (0.0-0.5); EOSINOPHILS % 0.6 % (0.0-7.0); HEMATOCRIT 34.9 % (37.0-47.0); HEMOGLOBIN 10.6 g/dl (12.0-16.0); LYMPHOCYTES # 1.9 10^3/ul (0.8-2.9); LYMPHOCYTES % 16.5 % (15.0-51.0); MEAN CORPUSCULAR HEMOGLOBIN 30.1 pg (29.0-33.0); MEAN CORPUSCULAR HGB CONC 30.4 g/dl (32.0-37.0); MEAN CORPUSCULAR VOLUME 99.1 fl (82.0-101.0); MEAN PLATELET VOLUME 12.2 fl (7.4-10.4); MONOCYTE # 1.6 10^3/ul (0.3-0.9); NEUTROPHIL # 7.7 10^3/ul (1.6-7.5); NEUTROPHILS % 67.3 % (39.0-77.0); PLATELET COUNT 203 10^3/UL (140-415); RED BLOOD COUNT 3.52 10^6/ul (4.20-5.40); RED CELL DISTRIBUTION WIDTH 16.2 % (11.5-14.5)
[2019-03-29 06:34] LABS: WHITE BLOOD COUNT 11.5 10^3/ul (4.8-10.8)
[2019-03-29 06:39] LABS: POSITIVE DIFF @See below
[2019-03-29 07:13] LABS: ANION GAP 19 (5-13); BLOOD UREA NITROGEN 29 mg/dl (7-20); CALCIUM 10.9 mg/dl (8.4-10.2); CARBON DIOXIDE 29 mmol/L (21-31); CHLORIDE 91 mmol/L (97-110); CREATININE 3.77 mg/dl (0.44-1.00); Estimated GFR 14 mL/min (>60); GLUCOSE 97 mg/dl (70-220); POTASSIUM 4.5 mmol/L (3.5-5.1); SODIUM 139 mmol/L (135-144)
[2019-03-29] MEDS: SEVELAMER CARBONATE 0.8 GM PKT PO (08:21)
[2019-03-29] MEDS: HYDROXYCHLOROQUINE 200 MG TAB PO (08:21)
[2019-03-29] MEDS: ASPIRIN 81 MG TAB NGT (08:21)
[2019-03-29] MEDS: predniSONE 5 MG TAB PO (08:22)
[2019-03-29] MEDS: SERTRALINE 50 MG TAB PO (08:23)
[2019-03-29] MEDS: MYCOPHENOLATE 250 MG CAP PO (09:30)
[2019-03-29] MEDS: ACETAMINOPHEN 325 MG TAB PO (09:31)
== END 2019-03-29 10:37 | disposition home or self-care (01) | DRG 207 ==
LOC: 6WM 23:07 → E/R 19:16 → ICU 03-21 09:10
PROC: 5A1955Z Respiratory Ventilation, Greater than 96 Consecutive Hours (ICD-10-PCS; principal; 2019-03-21)
PROC: 0BH17EZ Insertion of Endotracheal Airway into Trachea, Via Natural or Artificial Opening (ICD-10-PCS; 2019-03-21)
PROC: 06HY33Z Insertion of Infusion Device into Lower Vein, Percutaneous Approach (ICD-10-PCS; 2019-03-21)
PROC: 5A1D70Z Performance of Urinary Filtration, Intermittent, Less than 6 Hours Per Day (ICD-10-PCS; 2019-03-21)
DX: J96.01 Acute respiratory failure with hypoxia (principal); N18.6 End stage renal disease; G92 Toxic encephalopathy; J69.0 Pneumonitis due to inhalation of food and vomit; A41.9 Sepsis, unspecified organism; R65.21 Severe sepsis with septic shock; I50.33 Acute on chronic diastolic (congestive) heart failure; E46 Unspecified protein-calorie malnutrition; R64 Cachexia; D61.818 Other pancytopenia; I31.3 Pericardial effusion (noninflammatory); I13.2 Hypertensive heart and chronic kidney disease with heart failure and with stage 5 chronic kidney disease, or end stage renal disease; J96.02 Acute respiratory failure with hypercapnia; D63.1 Anemia in chronic kidney disease; D69.6 Thrombocytopenia, unspecified; E87.70 Fluid overload, unspecified; E87.5 Hyperkalemia; E78.5 Hyperlipidemia, unspecified; E78.00 Pure hypercholesterolemia, unspecified; F32.9 Major depressive disorder, single episode, unspecified; G40.909 Epilepsy, unspecified, not intractable, without status epilepticus; I25.10 Atherosclerotic heart disease of native coronary artery without angina pectoris; M32.14 Glomerular disease in systemic lupus erythematosus; Z68.23 Body mass index [BMI] 23.0-23.9, adult; Z99.2 Dependence on renal dialysis; Z79.82 Long term (current) use of aspirin
CPT/HCPCS: 31500; 36415; 36600; 71045; 80048; 80053; 80076; 80202; 82550; 82553; 82803; 82962; 83605; 83735; 84100; 84484; 85025; 85610; 85730; 86706; 87040-91; 87075; 87081; 87340; 90935; 92526; 92610; 93005; 94002; 94003; 94770; 96374; 96375; 97165; 99285-25; G0378

== ENCOUNTER 2019-06-30 16:05 | Emergency (ER) | payer MEDICARE, OTHER ==
[2019-06-30 16:44] LABS: ADD MAN DIFF? NO
[2019-06-30 16:52] LABS: BASOPHILS % 0.6 % (0.0-2.0); EOSINOPHILS % 0.6 % (0.0-7.0); HEMOGLOBIN 10.2 g/dl (12.0-16.0); LYMPHOCYTES # 1.2 10^3/ul (0.8-2.9); LYMPHOCYTES % 34.1 % (15.0-51.0); MEAN CORPUSCULAR HEMOGLOBIN 30.8 pg (29.0-33.0); MEAN CORPUSCULAR HGB CONC 31.9 g/dl (32.0-37.0); MEAN CORPUSCULAR VOLUME 96.7 fl (82.0-101.0); MEAN PLATELET VOLUME 10.8 fl (7.4-10.4); MONOCYTE # 0.6 10^3/ul (0.3-0.9); MONOCYTES % 17.9 % (0.0-11.0); NEUTROPHIL # 1.6 10^3/ul (1.6-7.5); NEUTROPHILS % 46.5 % (39.0-77.0); PLATELET COUNT 121 10^3/UL (140-415); RED BLOOD COUNT 3.31 10^6/ul (4.20-5.40); RED CELL DISTRIBUTION WIDTH 13.2 % (11.5-14.5)
[2019-06-30 16:52] LABS: WHITE BLOOD COUNT 3.5 10^3/ul (4.8-10.8)
[2019-06-30 17:07] LABS: ALANINE AMINOTRANSFERASE 17 IU/L (13-69); ALBUMIN/GLOBULIN RATIO 1.08; ALKALINE PHOSPHATASE 150 IU/L (42-121); ANION GAP 14 (5-13); ASPARTATE AMINO TRANSFERASE 30 IU/L (15-46); BILIRUBIN,INDIRECT 0.4 mg/dl (0-1.1); BILIRUBIN,TOTAL 0.4 mg/dl (0.2-1.3); BLOOD UREA NITROGEN 4 mg/dl (7-20); CALCIUM 10.1 mg/dl (8.4-10.2); CARBON DIOXIDE 28 mmol/L (21-31); CHLORIDE 101 mmol/L (97-110); CREATININE 2.05 mg/dl (0.44-1.00); Estimated GFR 27 mL/min (>60); GLUCOSE 91 mg/dl (70-220); LIPASE 189 U/L (23-300); POTASSIUM 4.4 mmol/L (3.5-5.1); SODIUM 143 mmol/L (135-144); TOTAL PROTEIN 9.6 g/dl (6.1-8.1)
[2019-06-30] MEDS: PANTOPRAZOLE (EC) 40 MG TAB PO (18:54)
== END 2019-06-30 19:00 | disposition home or self-care (01) ==
LOC: E/R 16:05
DX: R10.84 Generalized abdominal pain (principal); D61.818 Other pancytopenia; G89.29 Other chronic pain; Z79.82 Long term (current) use of aspirin
CPT/HCPCS: 36415; 71045; 80053; 83690; 84702; 85025; 93005; 99285-25

== ENCOUNTER 2019-07-09 16:44 | Emergency (ER) | payer MEDICARE, OTHER ==
[2019-07-09] MEDS: KETOROLAC 30 MG INJ IM (17:12)
[2019-07-09] MEDS: OXYCODONE/ACETAMINOPHEN (5/325) TAB PO (17:12)
== END 2019-07-09 17:32 | disposition home or self-care (01) ==
LOC: E/R 17:32
DX: R10.9 Unspecified abdominal pain (principal); I12.9 Hypertensive chronic kidney disease with stage 1 through stage 4 chronic kidney disease, or unspecified chronic kidney disease; N18.9 Chronic kidney disease, unspecified; I11.0 Hypertensive heart disease with heart failure; I50.9 Heart failure, unspecified; Z79.82 Long term (current) use of aspirin; Z99.2 Dependence on renal dialysis
CPT/HCPCS: 96372; 99284-25

== ENCOUNTER 2019-08-29 08:44 | Emergency (ER) | payer MEDICARE, OTHER ==
[2019-08-29] MEDS: FAMOTIDINE 20 MG INJ IV (09:41)
[2019-08-29] MEDS: LIDOCAINE/MYLANTA 40 ML BTL PO (09:41)
[2019-08-29] MEDS: morphine 4 MG/ML VIAL IV (11:16)
[2019-08-29] MEDS: morphine 2 MG INJ IV (12:37)
[2019-08-29] MEDS: ONDANSETRON 4 MG INJ IV (12:37)
== END 2019-08-29 12:52 | disposition home or self-care (01) ==
LOC: E/R 08:44
DX: R10.9 Unspecified abdominal pain (principal); N18.6 End stage renal disease; Z99.2 Dependence on renal dialysis; Z79.82 Long term (current) use of aspirin
CPT/HCPCS: 36415; 71045; 80053; 83605; 83690; 84484; 84702; 85025; 93005; 96374; 96375; 96376; 99285-25